=== PATIENT | male | born 1960 | race Caucasian/White ===

== ENCOUNTER 2020-03-31 09:11 | Outpatient (CLI) | payer OTHER, SELFPAY ==
[2020-03-31 10:13] LABS: Alanine Aminotransferase 65 U/L (4-50); Albumin Level 4.5 g/dL (3.5-5.1); Alkaline Phosphatase 86 U/L (38-126); Anion Gap 11 mmol/L (8-16); Aspartate Amino Transferase 72 U/L (17-59); Bilirubin,Total 0.8 mg/dL (0.2-1.3); Blood Urea Nitrogen 22 mg/dL (9-20); Calcium 9.9 mg/dL (8.4-10.2); Carbon Dioxide 29 mmol/L (22-30); Chloride 99 mmol/L (98-107); Estimated Glomerular Filt Rate 56; Glucose 127 mg/dL (75-110); Hemoglobin A1C 5.5 % (<5.7); Potassium 3.9 mmol/L (3.4-5.0); Sodium 139 mmol/L (137-145)
[2020-03-31 10:42] LABS: Free T4 Free Thyroxine 0.94 ng/mL (0.78-2.19)
== END 2020-03-31 09:12 | disposition home or self-care (01) ==
PROVIDERS: PCP Family Medicine; Visit Provider Family Medicine
DX: E78.2 Mixed hyperlipidemia (principal); M19.90 Unspecified osteoarthritis, unspecified site; I10 Essential (primary) hypertension; R74.8 Abnormal levels of other serum enzymes; E66.9 Obesity, unspecified; Z79.899 Other long term (current) drug therapy; R89.9 Unspecified abnormal finding in specimens from other organs, systems and tissues; R73.9 Hyperglycemia, unspecified
CPT/HCPCS: 36415; 80053; 83036; 84439; 84443

== ENCOUNTER 2020-08-05 17:03 | Outpatient (CLI) | payer OTHER, SELFPAY | END 2020-08-05 17:04 | disposition home or self-care (01) | LOC: ANHCOVIDVC 17:03 | PROVIDERS: PCP Family Medicine | DX: Z23 Encounter for immunization (principal) | CPT/HCPCS: 0001A; 91300 ==

== ENCOUNTER 2020-08-26 17:13 | Outpatient (CLI) | payer OTHER, SELFPAY | END 2020-08-26 17:14 | disposition home or self-care (01) | LOC: ANHCOVIDVC 17:13 | PROVIDERS: PCP Family Medicine | DX: Z23 Encounter for immunization (principal) | CPT/HCPCS: 0002A; 91300 ==

== ENCOUNTER 2021-02-01 11:56 | Outpatient (CLI) | payer OTHER, SELFPAY ==
--- NOTE | ~2021-02-01 | XR_ITS ---
EXAMINATION: XR lumbar spine 2-3V EXAM DATE: 02/01/2021 12:18 INDICATION: M54.9 - Dorsalgia, unspecified, chronic back pain. TECHNIQUE: Lumber spine frontal, lateral, lateral L5-S1 projections for interpretation. There is no prior study for comparison. FINDINGS: There is about 6 mm retrolisthesis L5 on S1 with moderate disc disease at this level, mild to moderate at L2-3 and mild at L3-4 and L4-5. There is mild to moderate lumbar facet arthropathy. T here are no acute fractures identified. Straightening of normal lumbar lordosis. Sacrum, sacroiliac j oints, sacral arcuate lines are intact. There are cholecystectomy clips. IMPRESSION: 1. L4-5 grade 1 retrolisthesis, moderate disc disease. 2. Mild to moderate facet arthropathy. Reviewed, dictated and finalized at location B.
== END 2021-02-01 11:57 | disposition home or self-care (01) ==
LOC: ANHIMG 12:04
PROVIDERS: PCP Family Medicine; Visit Provider Physician Assistant
DX: M54.9 Dorsalgia, unspecified (principal); M43.16 Spondylolisthesis, lumbar region; M51.9 Unspecified thoracic, thoracolumbar and lumbosacral intervertebral disc disorder; M47.896 Other spondylosis, lumbar region
CPT/HCPCS: 72100

== ENCOUNTER 2021-03-02 12:32 | Outpatient (CLI) | payer OTHER, SELFPAY ==
--- NOTE | ~2021-03-02 | XR_ITS ---
XR ankle RT min 3V DATE: 03/02/2021 12:54 INDICATION: Right ankle and foot pain TECHNIQUE: 4 views COMPARISON: None FINDINGS: Mild lateral soft tissue swelling. There is a chronic spur-like projection from the medial aspect of the medial malleolus. No recent fracture or dislocation of the ankle or disruption of the a nkle mortise. No periosteal reaction or bone destruction is detected. Plantar calcaneal enthesopathy. IMPRESSION: Plantar calcaneal enthesopathy Mild lateral ankle soft tissue swelling. No fracture or dislocation or other acute bony abnormality of the right ankle Reviewed, dictated and finalized at location B.
== END 2021-03-02 12:33 | disposition home or self-care (01) ==
PROVIDERS: PCP Family Medicine; Visit Provider Physician Assistant
DX: M25.571 Pain in right ankle and joints of right foot (principal); M77.31 Calcaneal spur, right foot; M79.89 Other specified soft tissue disorders
CPT/HCPCS: 73610

== ENCOUNTER 2021-03-20 10:09 | Outpatient (CLI) | payer OTHER, SELFPAY ==
[2021-03-20 10:28] LABS: Basophils Absolute Auto 0.1 K/mm3 (0.0-0.1); Basophils Percent Auto 0.9 % (0.2-1.2); Eosinophils Absolute Auto 0.2 K/mm3 (0-0.3); Eosinophils Percent Auto 3.4 % (0-4.4); Hematocrit 37.6 % (42.0-52.0); Hemoglobin 12.2 g/dL (14.0-18.0); Immature Granulocyte Absolute 0.06 K/mm3 (0.00-0.031); Immature Granulocyte Percent A 0.9 % (0-0.5); Lymphocytes Absolute Auto 1.53 K/mm3 (0.9-3.2); Lymphocytes Percent Auto 22.8 % (18.3-44.2); Mean Corpuscular HGB Conc 32.4 g/dl (32-36); Mean Corpuscular Hemoglobin 27.6 pg (26-34); Mean Corpuscular Volume 85.1 fl (80-100); Monocytes Absolute Auto 0.8 K/mm3 (0.1-0.6); Monocytes Percent Auto 11.3 % (2.6-8.5); Neutrophils Absolute Auto 4.1 K/mm3 (1.3-6.7); Neutrophils Percent Auto 60.7 % (45.5-73.1); Platelet Count Result 220 k/mm3 (150-375); Red Blood Count 4.42 M/mm3 (4.6-6.20); White Blood Count 6.7 K/mm3 (4.5-10.0)
[2021-03-20 10:39] LABS: Alanine Aminotransferase 60 U/L (4-50); Albumin Level 4.6 g/dL (3.5-5.1); Alkaline Phosphatase 76 U/L (38-126); Anion Gap 8 mmol/L (8-16); Aspartate Amino Transferase 52 U/L (17-59); Bilirubin,Total 0.7 mg/dL (0.2-1.3); Blood Urea Nitrogen 15 mg/dL (9-20); Calcium 9.3 mg/dL (8.4-10.2); Carbon Dioxide 28 mmol/L (22-30); Chloride 104 mmol/L (98-107); Cholesterol 165 mg/dL (0-200); Estimated Glomerular Filt Rate 47; Glucose 123 mg/dL (65-110); HDL Direct 34 mg/dL; Hemoglobin A1C 6.1 % (<5.7); Potassium 3.9 mmol/L (3.4-5.0); Sodium 140 mmol/L (137-145); Triglycerides 262 mg/dL (<150)
[2021-03-20 10:52] LABS: LDL Cholesterol Direct 77 mg/dL
[2021-03-20 11:11] LABS: Prostate Specific Antigen 2.2 ng/mL (< OR = 4.0)
== END 2021-03-20 10:10 | disposition home or self-care (01) ==
PROVIDERS: PCP Family Medicine; Visit Provider Physician Assistant
DX: E78.2 Mixed hyperlipidemia (principal); E66.9 Obesity, unspecified; Z79.899 Other long term (current) drug therapy; Z12.5 Encounter for screening for malignant neoplasm of prostate; R73.01 Impaired fasting glucose
CPT/HCPCS: 36415; 80053; 80061; 83036; 84153; 84443; 85025; G0103

== ENCOUNTER → 2021-03-22 03:52 | Outpatient (CLI) | payer OTHER, SELFPAY ==
[2021-03-23 17:41] LABS: SARS-CoV-2 RNA PCR Negative
== END ==
PROVIDERS: PCP Family Medicine; Visit Provider Physician Assistant
DX: R68.89 Other general symptoms and signs (principal); Z20.822 Contact with and (suspected) exposure to COVID-19
CPT/HCPCS: C9803; U0003; U0005

== ENCOUNTER 2021-05-02 01:39 | Day surgery (SDC) | payer OTHER, SELFPAY ==
[2021-04-12 09:03] VITALS: BMI 33.2
--- NOTE | 2021-04-13 14:10 | PC.NURSE ---
Spoke with pt regarding rescheduled EGD & colonoscopy. Confirmed no changes to PMH or home medication since previous PAT call complete. Updated pt with new date/times. Pt verbalized understanding.
--- NOTE | 2021-05-01 13:13 | PM.HPGS ---
History of Present Illness History of Present Illness Consent: Risks, benefits, and alternatives have been discussed and questions answered. Patient agrees to proceed with procedure. Chief complaint: anemia, dysphagia Narrative: Isaias Hair is a 60 year old male Who is here for colon cancer screening. 3 years ago he had removal of 6 adenomatous polyps. One year later he had another 5 or 6 polyps removed. He has also been found to be anemic and is undergoing endoscopy to rule out upper gastrointestinal pathology. He does apparently have a history of ulcers, having had a bleeding ulcer when he was on a cruise a few years ago. He also occasionally will choke when he is eating as if it goes down the wrong throat. He is not losing weight. He also complains of excessive belching and flatulence but he does have a CPAP machine and had not been told that that would be a side effect. Review of Systems Review of Systems: All systems reviewed & are unremarkable except as noted in HPI and below PMFSH Past Medical History Medical History Cervical radiculopathy, acute Cervical spondylosis Chronic migraine w/o aura w/o status migrainosus, not intractable Chronic narcotic use Elevated liver enzymes Essential (primary) hypertension Extrinsic asthma, unspecified Gallstone Gastric ulcer, acute with hemorrhage Gastro-esophageal reflux disease without esophagitis Kidney stone on right side Lipoma of back Lumbar radiculopathy, right Lumbar spondylosis Mixed hyperlipidemia Obesity, unspecified Obstructive sleep apnea Tubular adenoma of colon Surgical History Surgical History H/O hernia repair History of cholecystectomy History of laparoscopic cholecystectomy 06/17/19 Hx of wisdom tooth extraction Family History Family History Father Diabetes mellitus Family history of hypercholesterolemia Hypertension Family history of cardiovascular disease Family history of elevated blood lipids Acute myocardial infarction Family history of coronary artery disease Mother Family history of osteoporosis Family history of migraine headaches Hypertension Grandparent Malignant neoplasm of prostate Family history of lung cancer Other Family history of malignant neoplasm of stomach Social History Social History Social History: 1 drink/day Smoking status: Never smoker Second hand tobacco smoke exposure: Yes Alcohol intake: current Drinks per week: 10 Living arrangements: with family Gender identity (if verbalized by the patient): Male Spiritual care concerns: No Meds Home Medications and Allergies Home Medications Medication Instructions Recorded Confirmed Type sodium chloride 2 % eye drops 1 drop EACH EYE DAILY 04/28/19 04/13/21 History pantoprazole 40 mg tablet,delayed 40 mg PO QAM #90 tablet 06/27/20 04/13/21 Rx release montelukast 10 mg tablet 10 mg PO DAILY #90 tablet 07/22/20 04/13/21 Rx hydrochlorothiazide 25 mg tablet 25 mg PO DAILY #90 tablet 11/29/20 04/13/21 Rx turmeric root extract 500 mg 500 mg PO QID cap 11/29/20 04/13/21 History capsule tramadol 50 mg tablet 50 mg PO Q4H PRN #60 tablet 01/16/21 04/13/21 Rx amlodipine 5 mg PO DAILY 04/12/21 04/13/21 History atorvastatin 40 mg PO DAILY 04/12/21 04/13/21 History gabapentin 900 mg PO BID 04/12/21 04/13/21 History losartan 100 mg PO DAILY 04/12/21 04/13/21 History sumatriptan succinate [Imitrex] 50 mg PO ONCE PRN 04/12/21 04/13/21 History trazodone 150 mg PO DAILY PRN 04/12/21 04/13/21 History tobramycin 0.3 % eye drops 2 drp OPHTHALMIC (EYE) Q4H #5 ml 04/17/21 Rx Allergies Allergy/AdvReac Type Severity Reaction Status Date / Time Penicillins Allergy Unknown Can not Verified 05/02/21 09:08 remember reaction
[2021-05-02 09:09] VITALS: BP 153/103; PULSE 110; RESP 18; TEMP 36.3; O2SAT 99; BMI 32.8
[2021-05-02] MEDS: LACTATED RINGERS 1,000 ML 150 ML IV CONT (09:22)
--- NOTE | 2021-05-02 09:34 | WPDANESEPPF ---
Anes - Initial Pre Proc Eval Procedure: Operation Date: 05/02/21 10:00 Proposed Procedures p Esophagogastroduodenoscopy & Colonoscopy - Jamie Rapp MD Date/Time: 05/02/21 09:34 Surgeon: Jamie Rapp MD Pre Op Diagnosis: anemia, dysphagia Patient Data Age: 60 Gender: M Height: 1.75 m Weight: 100.8 kg Last Vital Signs Temp 97.3 F L 05/02/21 09:09 Pulse 110 H 05/02/21 09:09 Resp 18 05/02/21 09:09 BP 153/103 H 05/02/21 09:09 Pulse Ox 99 05/02/21 09:09 Allergies Allergy/AdvReac Type Severity Reaction Status Date / Time Penicillins Allergy Unknown Can not Verified 05/02/21 09:08 remember reaction Home Medications Medication Instructions Recorded Confirmed Type sodium chloride 2 % eye drops 1 drop EACH EYE DAILY 04/28/19 04/13/21 History pantoprazole 40 mg tablet,delayed 40 mg PO QAM #90 tablet 06/27/20 04/13/21 Rx release montelukast 10 mg tablet 10 mg PO DAILY #90 tablet 07/22/20 04/13/21 Rx hydrochlorothiazide 25 mg tablet 25 mg PO DAILY #90 tablet 11/29/20 04/13/21 Rx turmeric root extract 500 mg 500 mg PO QID cap 11/29/20 04/13/21 History capsule tramadol 50 mg tablet 50 mg PO Q4H PRN #60 tablet 01/16/21 04/13/21 Rx amlodipine 5 mg PO DAILY 04/12/21 04/13/21 History atorvastatin 40 mg PO DAILY 04/12/21 04/13/21 History gabapentin 900 mg PO BID 04/12/21 04/13/21 History losartan 100 mg PO DAILY 04/12/21 04/13/21 History sumatriptan succinate [Imitrex] 50 mg PO ONCE PRN 04/12/21 04/13/21 History trazodone 150 mg PO DAILY PRN 04/12/21 04/13/21 History tobramycin 0.3 % eye drops 2 drp OPHTHALMIC (EYE) Q4H #5 ml 04/17/21 Rx Patient hx anesthesia problems: none Family hx anesthesia problems: none Results Review: All pre-operative results and documents have been reviewed as part of the pre-operative evaluation. [facility] Past Medical History Medical History Cervical radiculopathy, acute Cervical spondylosis Chronic migraine w/o aura w/o status migrainosus, not intractable Chronic narcotic use Elevated liver enzymes Essential (primary) hypertension Extrinsic asthma, unspecified Gallstone Gastric ulcer, acute with hemorrhage Gastro-esophageal reflux disease without esophagitis Kidney stone on right side Lipoma of back Lumbar radiculopathy, right Lumbar spondylosis Mixed hyperlipidemia Obesity, unspecified Obstructive sleep apnea Tubular adenoma of colon Surgical History Surgical History H/O hernia repair History of cholecystectomy History of laparoscopic cholecystectomy 06/17/19 Hx of wisdom tooth extraction Family History Family History Father Diabetes mellitus Family history of hypercholesterolemia Hypertension Family history of cardiovascular disease Family history of elevated blood lipids Acute myocardial infarction Family history of coronary artery disease Mother Family history of osteoporosis Family history of migraine headaches Hypertension Grandparent Malignant neoplasm of prostate Family history of lung cancer Other Family history of malignant neoplasm of stomach Social History Social History Social History: 1 drink/day Smoking status: Never smoker Second hand tobacco smoke exposure: Yes Alcohol intake: current Drinks per week: 10 Living arrangements: with family Gender identity (if verbalized by the patient): Male Spiritual care concerns: No Anes - Eval Final PreProcedure Day of Procedure 05/02/21 09:34 Patient weight: obese Heart: regular rate and rhythm Lungs: clear to auscultation Airway: Mallampati scale class III Neurological: alert and oriented Last oral intake: >/= 8 hours ASA classification: III Emergent: no Anesthetic plan: proceed Anesthesia type and monitoring: gene
[2021-05-02] MEDS: SIMETHICONE ORAL SUSPENSION 20 MG/0.3 ML 30 ML BOTTLE 0.6 ML IRRIGATION (10:24)
[2021-05-02 10:33] VITALS: BP 120/83; PULSE 94; RESP 21; O2SAT 100
[2021-05-02 10:43] VITALS: BP 113/79; PULSE 84; RESP 19; O2SAT 98
[2021-05-02 10:53] VITALS: BP 117/81; PULSE 79; RESP 19; O2SAT 99
== END 2021-05-02 11:05 | disposition home or self-care (01) ==
PROVIDERS: PCP Family Medicine; Visit Provider Internal Medicine Gastroenterology
PROC: 0DJ08ZZ Inspection of Upper Intestinal Tract, Via Natural or Artificial Opening Endoscopic (ICD-10-PCS; CPT 43235; principal; 2021-05-02 10:00)
DX: Z12.11 Encounter for screening for malignant neoplasm of colon (principal); K57.30 Diverticulosis of large intestine without perforation or abscess without bleeding; Z86.010 Personal history of colon polyps; D64.9 Anemia, unspecified; K31.7 Polyp of stomach and duodenum; K21.9 Gastro-esophageal reflux disease without esophagitis; I10 Essential (primary) hypertension; E78.2 Mixed hyperlipidemia; G47.33 Obstructive sleep apnea (adult) (pediatric); M47.812 Spondylosis without myelopathy or radiculopathy, cervical region; M47.816 Spondylosis without myelopathy or radiculopathy, lumbar region; J45.909 Unspecified asthma, uncomplicated; Z79.891 Long term (current) use of opiate analgesic; E66.9 Obesity, unspecified; Z68.32 Body mass index [BMI] 32.0-32.9, adult
CPT/HCPCS: 45378; 43251; 87081; 88305; J2704; J7120

== ENCOUNTER 2021-06-16 10:04 | Outpatient (CLI) | payer OTHER, SELFPAY ==
[2021-06-16 10:18] LABS: Basophils Percent Auto 0.5 % (0.2-1.2); Eosinophils Absolute Auto 0.2 K/mm3 (0-0.3); Eosinophils Percent Auto 2.8 % (0-4.4); Hematocrit 39.1 % (42.0-52.0); Hemoglobin 12.4 g/dL (14.0-18.0); Immature Granulocyte Absolute 0.04 K/mm3 (0.00-0.031); Immature Granulocyte Percent A 0.7 % (0-0.5); Lymphocytes Absolute Auto 1.45 K/mm3 (0.9-3.2); Lymphocytes Percent Auto 23.6 % (18.3-44.2); Mean Corpuscular HGB Conc 31.7 g/dl (32-36); Mean Corpuscular Hemoglobin 25.9 pg (26-34); Mean Corpuscular Volume 81.6 fl (80-100); Mean Platelet Volume 8.4 fl (7.4-10.4); Monocytes Absolute Auto 0.7 K/mm3 (0.1-0.6); Monocytes Percent Auto 11.2 % (2.6-8.5); Neutrophils Absolute Auto 3.8 K/mm3 (1.3-6.7); Neutrophils Percent Auto 61.2 % (45.5-73.1); Platelet Count Result 248 k/mm3 (150-375); Red Blood Count 4.79 M/mm3 (4.6-6.20); Red Cell Distribution Width 13.9 % (11.5-14.5); White Blood Count 6.2 K/mm3 (4.5-10.0)
[2021-06-16 12:53] LABS: Iron 47 ug/dL (49-181)
[2021-06-16 13:15] LABS: Percent Iron Saturation 10 % (20-50)
[2021-06-16 13:33] LABS: Ferritin 9.74 ng/mL (11.1-264)
== END 2021-06-16 10:05 | disposition home or self-care (01) ==
PROVIDERS: PCP Family Medicine; Visit Provider Family Medicine
DX: D64.9 Anemia, unspecified (principal)
CPT/HCPCS: 36415; 82728; 83540; 83550; 85025

== ENCOUNTER 2021-07-28 10:00 | Outpatient (CLI) | payer OTHER, SELFPAY ==
[2021-07-28 10:58] LABS: Anion Gap 10 mmol/L (8-16); Blood Urea Nitrogen 19 mg/dL (9-20); Carbon Dioxide 24 mmol/L (22-30); Chloride 105 mmol/L (98-107); Estimated Glomerular Filt Rate 51; Glucose 163 mg/dL (65-110); Potassium 3.9 mmol/L (3.4-5.0); Sodium 139 mmol/L (137-145)
== END 2021-07-28 10:01 | disposition home or self-care (01) ==
LOC: ANHSURGERY 10:05
PROVIDERS: Anesthesiology; PCP Family Medicine; Visit Provider Surgery
DX: Z79.899 Other long term (current) drug therapy (principal); Z01.818 Encounter for other preprocedural examination
CPT/HCPCS: 36415; 80048

== ENCOUNTER 2021-08-02 00:20 | Day surgery (SDC) | payer OTHER, SELFPAY ==
[2021-07-26 14:34] VITALS: BMI 33.0
--- NOTE | 2021-07-26 14:44 | PC.NURSE ---
Report to the Outpatient Waiting Room, entrance under the green pavilion located off [facility], at time 9:30 on date 08/02/21. OR Time: 11:30. - You and your visitor will be asked a series of questions to screen for COVID 19 for your protection. - A mask is required within the hospital. One visitor will be allowed to accompany the patient into the hospital. Patients visitor will be instructed to remain with patient at all times or leave the building. We will allow the visitor to come back to the postoperative area when patient is ready. Preoperative COVID Testing Requirements: No COVID Test needed if: (proof is required; if not received patient will have Rapid Test prior to entry) - Patient has received COVID Vaccine at least 14 days prior to procedure date or - Patient has positive COVID test result within last 90 days of surgery date. COVID Test needed if above criteria is not met Patients may have clear liquids (water, carbonated beverages, clear teas, apple juice) until 3 hours prior to surgery (8:30) with a maximum of 20 ounces. - No food from midnight until time of surgery Take the following medications with a SIP of water the morning of surgery: AMLODIPINE, GABAPENTIN, TRAMADOL (IF NEEDED) Medications to discontinue per physician: VITAMINS/SUPPLEMENTS Date to take last dose: 07/30/21 Please no make-up, nail moldovan, hairspray, perfume, deodorant, or body powder the day of surgery. No jewelry (including any body piercings) or valuables the day of surgery, leave them at home. Please take a shower or bath the night before, or the morning of, surgery with an antibacterial soap. Wear comfortable, loose fitting clothing. HIBICLENS SHOWER - Jewelry must be removed prior to entering the operating room. Rings and piercings that are not removed may be cut off. - The hospital will not accept responsibility for valuables. - Please leave all valuables, including medications, at home the day of surgery. If you are going home after surgery, a licensed garbage collector driver must drive you home. - NO public transportation without another adult. - We recommend that an adult stay with you for 24 hours following discharge. - We also recommend that you do not drive, make important decision, drink alcoholic beverages, or take any drugs that were not prescribed by your health care provider for at least 24 hours after your discharge time. Follow any additional instructions given to you from your surgeon. Telephone instructions given to BRITTANY SEVILLA and asked if any additional questions and then verbalized understanding. Patient advised to call surgeon office or pre surgery nurse liaison [phone] if any additional questions.
[2021-08-02] VITALS (8 sets, daily range): BP systolic 125–148; BP diastolic 79–94; PULSE 64–83; RESP 10–25; TEMP 36.7–36.8; O2SAT 97–100
--- NOTE | 2021-08-02 07:05 | WPDHPUPDATE1 ---
History and Physical Update Update Date/Time: 08/02/21 07:05 History and Physical has been reviewed, including an updated exam of the patient. There are NO changes in the patient's condition. Risks, benefits, and alternatives have been discussed and questions answered. Patient agrees to proceed with procedure.
[2021-08-02] MEDS: LACTATED RINGERS 1,000 ML 30 ML IV CONT ×2 (10:05→11:55)
[2021-08-02] MEDS: KETOROLAC 15 MG/ML VIAL (*BKC) IV PUSH (10:06)
[2021-08-02] MEDS: ACETAMINOPHEN 500 MG TABLET 1000 MG PO (10:06)
--- NOTE | 2021-08-02 10:39 | WPDANESEPPF ---
Anes - Initial Pre Proc Eval Procedure: Operation Date: 08/02/21 11:30 Proposed Procedures p Umbilical Hernia Repair with Mesh - Juan Zarco MD Date/Time: 08/02/21 10:39 Surgeon: Juan Zarco MD Pre Op Diagnosis: Umb Hernia Patient Data Age: 60 Gender: M Height: 1.78 m Weight: 106.2 kg Last Vital Signs Temp 36.7 C 08/02/21 09:43 Pulse 83 08/02/21 09:43 Resp 18 08/02/21 09:43 BP 148/90 H 08/02/21 09:43 Pulse Ox 98 08/02/21 09:43 Allergies Allergy/AdvReac Type Severity Reaction Status Date / Time Penicillins Allergy Unknown Can not Verified 08/02/21 10:19 remember reaction Home Medications Medication Instructions Recorded Confirmed Type sodium chloride 2 % eye drops 1 drop EACH EYE DAILY 04/28/19 08/02/21 History montelukast 10 mg tablet 10 mg PO DAILY #90 tablet 07/22/20 08/02/21 Rx hydrochlorothiazide 25 mg tablet 25 mg PO DAILY #90 tablet 11/29/20 08/02/21 Rx turmeric root extract 500 mg 500 mg PO QID cap 11/29/20 08/02/21 History capsule tramadol 50 mg tablet 50 mg PO Q4H PRN #60 tablet 01/16/21 08/02/21 Rx amlodipine 5 mg PO DAILY 04/12/21 08/02/21 History atorvastatin 40 mg PO DAILY 04/12/21 08/02/21 History losartan 100 mg PO DAILY 04/12/21 08/02/21 History sumatriptan succinate [Imitrex] 50 mg PO ONCE PRN 04/12/21 08/02/21 History trazodone 150 mg PO DAILY PRN 04/12/21 08/02/21 History gabapentin 300 mg capsule See Rx Instructions .ROUTE 05/22/21 08/02/21 Rx .COMPLEX #270 capsule pantoprazole 40 mg tablet,delayed See Rx Instructions .ROUTE 06/26/21 08/02/21 Rx release .COMPLEX #90 tablet ferrous sulfate 325 mg (65 mg 325 mg PO BID 07/17/21 08/02/21 History iron) tablet Patient hx anesthesia problems: none Family hx anesthesia problems: none Results Review: All pre-operative results and documents have been reviewed as part of the pre-operative evaluation. [facility] Past Medical History Medical History Cervical radiculopathy, acute Cervical spondylosis Chronic migraine w/o aura w/o status migrainosus, not intractable Chronic narcotic use Elevated liver enzymes Essential (primary) hypertension Extrinsic asthma, unspecified Gallstone Gastric ulcer, acute with hemorrhage Gastro-esophageal reflux disease without esophagitis Kidney stone on right side Lipoma of back Lumbar radiculopathy, right Lumbar spondylosis Mixed hyperlipidemia Obesity, unspecified Obstructive sleep apnea Tubular adenoma of colon Surgical History Surgical History H/O hernia repair History of cholecystectomy History of laparoscopic cholecystectomy 06/17/19 Hx of wisdom tooth extraction Family History Family History Father Diabetes mellitus Family history of hypercholesterolemia Hypertension Family history of cardiovascular disease Family history of elevated blood lipids Acute myocardial infarction Family history of coronary artery disease Mother Family history of osteoporosis Family history of migraine headaches Hypertension Grandparent Malignant neoplasm of prostate Family history of lung cancer Other Family history of malignant neoplasm of stomach Social History Social History Social History: 1 drink/day Smoking status: Never smoker Second hand tobacco smoke exposure: Yes Alcohol intake: current Drinks per week: 8 Substance use: never Substance use type: does not use Living arrangements: with family Gender identity (if verbalized by the patient): Male Spiritual care concerns: No Anes - Eval Final PreProcedure Day of Procedure 08/02/21 10:39 Patient weight: obese Heart: regular rate and rhythm Lungs: clear to auscultation Airway: Mallampati scale class III Neurological: alert and or
[2021-08-02] MEDS: ceFAZolin 2 GM/D5W 50 ML 2 GM/50 ML BAG IVPB (10:53)
[2021-08-02] MEDS: BUPIVACAINE/EPINEPHRINE 0.25% 50 ML VIAL 30 ML INFILTRATE (11:30)
--- NOTE | 2021-08-02 11:57 | W.PM.PROC2 ---
Procedure Note - Detailed Date of Procedure 08/02/21 Pre-op Diagnosis Umbilical Hernia Post-op Diagnosis same Procedure Performed Umbilical hernia repair with 6.[address] underlay mesh Surgeon Juan Zarco MD Combination Technician KATEY Mitchell; KATEY Nixon Anesthesia general (G IV S) and local (0.25% Marcaine with epinephrine) Indications Patient is a 60-year-old man with an umbilical bulge that he has had for quite some time. Recently it protruded much larger than before and was painful. It was able to be reduced. He is taken to surgery now for umbilical hernia repair Findings Umbilical hernia with a 0.9 cm defect. Description of Procedure The patient was taken to surgery and placed in a supine position. The abdomen is prepped and draped. He was induced into anesthesia. The proposed incision along the lower margin of the umbilicus was marked on the skin. Local anesthetic was infiltrated into the area of the anticipated incision. Incision was made dissection was carried down through the subcutaneous to the fascia and the base of the hernia. Additional local was infiltrated into the neck of the hernia and the surrounding fascia. Dissection was then carried out around the hernia at the level of its neck. I then opened the hernia sac at the fascial level and freed the umbilicus from the fascia. The hernia sac was excised from the umbilical skin and the remnants from the fascial edge. The defect was small. I enlarged it slightly to the patient's left to accommodate a 6.[address] mesh. Cautery was used for hemostasis. Additional local was infiltrated into the fascia all around the edges of the hernia defect. The mesh was placed in position symmetrically. I then placed 0 Ethibond sutures. These were transfascial sutures in the cranial and caudal midline. Each of the sutures was placed in such a fashion as to advance the edges of the hernia defect towards 1 another. After being placed, these were tied. They had the desired effect. I then placed right and left lateral transfascial sutures to further secure the mesh. Finally the defect was repaired with [id number] mattress sutures of 0 Ethibond each of which incorporated a bit of mesh. The repair looked good. I sutured umbilical skin to the fascia with 3-0 Vicryl suture. Some subcutaneous 3-0 Vicryl sutures were placed. 4-0 Vicryl subcuticular interrupted skin sutures were placed. Finally a running 4-0 Monocryl skin suture was placed. Wound was dressed with Exofin surgical adhesive. Patient was wakened and taken to recovery in good condition. Sponge and needle counts were correct x2. Implants Ventralex 6.4 cm hernia mesh Estimated Blood Loss -5 Drains No Packing No Pathology none sent Complications No immediate complications Condition stable Disposition PACU
== END 2021-08-02 13:40 | disposition home or self-care (01) ==
PROVIDERS: PCP Family Medicine; Visit Provider Surgery
PROC: (CPT 49585; principal; 2021-08-02 11:30)
DX: K42.9 Umbilical hernia without obstruction or gangrene (principal); I10 Essential (primary) hypertension; J45.909 Unspecified asthma, uncomplicated; K21.9 Gastro-esophageal reflux disease without esophagitis; E78.2 Mixed hyperlipidemia; G47.33 Obstructive sleep apnea (adult) (pediatric); M47.812 Spondylosis without myelopathy or radiculopathy, cervical region; M47.26 Other spondylosis with radiculopathy, lumbar region; E66.9 Obesity, unspecified; Z68.33 Body mass index [BMI] 33.0-33.9, adult
CPT/HCPCS: 49585; A9270; C1781; J0690; J1170; J1885; J2001; J2250; J2405; J2704; J3010; J7120

== ENCOUNTER 2021-09-05 08:54 | Outpatient (CLI) | payer OTHER, SELFPAY ==
[2021-09-05 09:08] LABS: Basophils Absolute Auto 0.1 K/mm3 (0.0-0.1); Basophils Percent Auto 0.7 % (0.2-1.2); Eosinophils Absolute Auto 0.2 K/mm3 (0-0.3); Hematocrit 44.4 % (42.0-52.0); Hemoglobin 15.4 g/dL (14.0-18.0); Immature Granulocyte Absolute 0.03 K/mm3 (0.00-0.031); Immature Granulocyte Percent A 0.4 % (0-0.5); Lymphocytes Absolute Auto 1.63 K/mm3 (0.9-3.2); Lymphocytes Percent Auto 23.2 % (18.3-44.2); Mean Corpuscular HGB Conc 34.7 g/dl (32-36); Mean Corpuscular Hemoglobin 30.9 pg (26-34); Monocytes Absolute Auto 0.8 K/mm3 (0.1-0.6); Monocytes Percent Auto 11.9 % (2.6-8.5); Neutrophils Absolute Auto 4.3 K/mm3 (1.3-6.7); Neutrophils Percent Auto 60.8 % (45.5-73.1); Platelet Count Result 214 k/mm3 (150-375); Red Blood Count 4.99 M/mm3 (4.6-6.20); Red Cell Distribution Width 15.1 % (11.5-14.5)
[2021-09-05 09:17] LABS: Hemoglobin A1C 5.6 % (<5.7)
[2021-09-05 09:22] LABS: Alanine Aminotransferase 79 U/L (4-50); Albumin Level 4.6 g/dL (3.5-5.1); Alkaline Phosphatase 85 U/L (38-126); Anion Gap 9 mmol/L (8-16); Aspartate Amino Transferase 60 U/L (17-59); Blood Urea Nitrogen 19 mg/dL (9-20); Calcium 9.7 mg/dL (8.4-10.2); Carbon Dioxide 29 mmol/L (22-30); Chloride 102 mmol/L (98-107); Cholesterol 158 mg/dL (0-200); Estimated Glomerular Filt Rate 47; Glucose 136 mg/dL (65-110); HDL Direct 27 mg/dL; Potassium 3.5 mmol/L (3.4-5.0); Sodium 140 mmol/L (137-145); Triglycerides 330 mg/dL (<150)
[2021-09-05 09:27] LABS: Iron 143 ug/dL (49-181)
[2021-09-05 09:33] LABS: LDL Cholesterol Direct 70 mg/dL
[2021-09-05 09:37] LABS: Percent Iron Saturation 33 % (20-50)
== END 2021-09-05 08:55 | disposition home or self-care (01) ==
PROVIDERS: PCP Family Medicine; Visit Provider Physician Assistant
DX: E78.2 Mixed hyperlipidemia (principal); Z79.899 Other long term (current) drug therapy; R73.01 Impaired fasting glucose; D64.9 Anemia, unspecified; N18.9 Chronic kidney disease, unspecified
CPT/HCPCS: 36415; 80053; 80061; 82728; 83036; 83540; 83550; 85025

== ENCOUNTER 2022-01-16 09:15 | Outpatient (CLI) | payer OTHER, SELFPAY ==
[2022-01-16 10:13] LABS: Basophils Percent Auto 0.6 % (0.2-1.2); Eosinophils Absolute Auto 0.3 K/mm3 (0-0.3); Eosinophils Percent Auto 3.7 % (0-4.4); Hematocrit 41.8 % (42.0-52.0); Hemoglobin 14.1 g/dL (14.0-18.0); Immature Granulocyte Absolute 0.06 K/mm3 (0.00-0.031); Immature Granulocyte Percent A 0.9 % (0-0.5); Lymphocytes Absolute Auto 1.48 K/mm3 (0.9-3.2); Lymphocytes Percent Auto 21.3 % (18.3-44.2); Mean Corpuscular HGB Conc 33.7 g/dl (32-36); Mean Corpuscular Hemoglobin 30.3 pg (26-34); Mean Corpuscular Volume 89.7 fl (80-100); Mean Platelet Volume 9.4 fl (7.4-10.4); Monocytes Absolute Auto 0.8 K/mm3 (0.1-0.6); Monocytes Percent Auto 11.5 % (2.6-8.5); Neutrophils Absolute Auto 4.3 K/mm3 (1.3-6.7); Platelet Count Result 276 k/mm3 (150-375); Red Blood Count 4.66 M/mm3 (4.6-6.20); Red Cell Distribution Width 14.6 % (11.5-14.5); White Blood Count 6.9 K/mm3 (4.5-10.0)
[2022-01-16 10:16] LABS: Hemoglobin A1C 5.9 % (<5.7)
[2022-01-16 10:19] LABS: Alanine Aminotransferase 75 U/L (6-50); Albumin Level 4.5 g/dL (3.5-5.1); Alkaline Phosphatase 84 U/L (38-126); Anion Gap 11 mmol/L (8-16); Aspartate Amino Transferase 70 U/L (17-59); Bilirubin,Total 0.9 mg/dL (0.2-1.3); Blood Urea Nitrogen 18 mg/dL (9-20); Calcium 9.8 mg/dL (8.4-10.2); Carbon Dioxide 27 mmol/L (22-30); Chloride 100 mmol/L (98-107); Cholesterol 174 mg/dL (0-200); Estimated Glomerular Filt Rate 51; Glucose 129 mg/dL (65-110); HDL Direct 29 mg/dL; Potassium 3.5 mmol/L (3.4-5.0); Sodium 138 mmol/L (137-145); Triglycerides 379 mg/dL (<150)
[2022-01-16 10:30] LABS: LDL Cholesterol Direct 65 mg/dL
[2022-01-16 10:49] LABS: Thyroid Stimulating Hormone 0.898 uIU/mL (0.465-4.680)
[2022-01-16 10:56] LABS: Hepatitis B Surface Antigen Negative (Negative)
[2022-01-16 11:01] LABS: HAV RESULT Negative (Negative); Hepatitis B Core IgM Result Negative (Negative)
[2022-01-16 11:13] LABS: Hepatitis C Virus Antibody Negative (Negative)
[2022-01-16 11:24] LABS: Folic Acid 10.3 ng/mL (2.76->20)
[2022-01-19 21:40] LABS: Ceruloplasmin 27 mg/dL (18-36)
[2022-01-20 16:58] LABS: ANA Cascade Screen Negative (Negative)
== END 2022-01-16 09:16 | disposition home or self-care (01) ==
LOC: ANHLAB 09:18
PROVIDERS: PCP Physician Assistant; Visit Provider Physician Assistant
DX: D64.9 Anemia, unspecified (principal); E66.9 Obesity, unspecified; G62.9 Polyneuropathy, unspecified; I10 Essential (primary) hypertension; R74.8 Abnormal levels of other serum enzymes; Z79.899 Other long term (current) drug therapy
CPT/HCPCS: 36415; 80053; 80061; 80074; 82390; 82607; 82746; 83036; 84443; 85025; 86038

== ENCOUNTER 2022-02-20 09:05 | Outpatient (CLI) | payer OTHER, SELFPAY ==
[2022-02-20 09:48] LABS: Alanine Aminotransferase 55 U/L (6-50); Albumin Level 4.4 g/dL (3.5-5.1); Alkaline Phosphatase 78 U/L (38-126); Anion Gap 12 mmol/L (8-16); Aspartate Amino Transferase 57 U/L (17-59); Bilirubin,Total 0.6 mg/dL (0.2-1.3); Blood Urea Nitrogen 27 mg/dL (9-20); Carbon Dioxide 26 mmol/L (22-30); Chloride 105 mmol/L (98-107); Estimated Glomerular Filt Rate 41; Glucose 137 mg/dL (65-110); Potassium 3.8 mmol/L (3.4-5.0); Sodium 143 mmol/L (137-145)
== END 2022-02-20 09:06 | disposition home or self-care (01) ==
PROVIDERS: PCP Family Medicine; Visit Provider Physician Assistant
DX: R74.8 Abnormal levels of other serum enzymes (principal)
CPT/HCPCS: 36415; 80053

== ENCOUNTER 2022-02-23 09:21 | Outpatient (CLI) | payer OTHER, SELFPAY ==
[2022-02-23 10:47] LABS: Alanine Aminotransferase 64 U/L (6-50); Albumin Level 4.5 g/dL (3.5-5.1); Alkaline Phosphatase 81 U/L (38-126); Anion Gap 13 mmol/L (8-16); Aspartate Amino Transferase 61 U/L (17-59); Bilirubin,Total 0.6 mg/dL (0.2-1.3); Blood Urea Nitrogen 24 mg/dL (9-20); Calcium 9.3 mg/dL (8.4-10.2); Carbon Dioxide 23 mmol/L (22-30); Chloride 103 mmol/L (98-107); Estimated Glomerular Filt Rate 47; Glucose 118 mg/dL (65-110); Potassium 3.8 mmol/L (3.4-5.0); Sodium 139 mmol/L (137-145)
== END 2022-02-23 09:22 | disposition home or self-care (01) ==
LOC: ANHLAB 09:25
PROVIDERS: PCP Family Medicine; Visit Provider Physician Assistant
DX: R79.89 Other specified abnormal findings of blood chemistry (principal); R74.8 Abnormal levels of other serum enzymes
CPT/HCPCS: 36415; 80053

== ENCOUNTER 2022-05-07 09:07 | Outpatient (CLI) | payer OTHER, SELFPAY ==
[2022-05-07 10:28] LABS: Alanine Aminotransferase 55 U/L (6-50); Albumin Level 4.6 g/dL (3.5-5.1); Alkaline Phosphatase 70 U/L (38-126); Anion Gap 10 mmol/L (8-16); Aspartate Amino Transferase 57 U/L (17-59); Bilirubin,Total 0.7 mg/dL (0.2-1.3); Blood Urea Nitrogen 23 mg/dL (9-20); Carbon Dioxide 26 mmol/L (22-30); Chloride 103 mmol/L (98-107); Cholesterol 225 mg/dL (0-200); Estimated Glomerular Filt Rate 41; Glucose 119 mg/dL (65-110); HDL Direct 35 mg/dL; Potassium 3.9 mmol/L (3.4-5.0); Sodium 139 mmol/L (137-145); Triglycerides 497 mg/dL (<150)
[2022-05-07 10:39] LABS: LDL Cholesterol Direct 92 mg/dL
[2022-05-07 11:09] LABS: Hemoglobin A1C 5.8 % (<5.7)
[2022-05-07 11:29] LABS: Prostate Specific Antigen 2.2 ng/mL (< OR = 4.0)
== END 2022-05-07 09:08 | disposition home or self-care (01) ==
PROVIDERS: PCP Family Medicine; Visit Provider Physician Assistant
DX: R79.89 Other specified abnormal findings of blood chemistry (principal); Z79.899 Other long term (current) drug therapy; E66.9 Obesity, unspecified; R73.01 Impaired fasting glucose; Z12.5 Encounter for screening for malignant neoplasm of prostate
CPT/HCPCS: 36415; 80053; 80061; 83036; 84153; G0103

== ENCOUNTER 2022-10-08 09:55 | Outpatient (CLI) | payer OTHER, SELFPAY ==
[2022-10-08 10:30] LABS: Basophils Absolute Auto 0.1 K/mm3 (0.0-0.1); Basophils Percent Auto 0.9 % (0.2-1.2); Eosinophils Absolute Auto 0.2 K/mm3 (0-0.3); Hematocrit 37.2 % (42.0-52.0); Hemoglobin 12.3 g/dL (14.0-18.0); Immature Granulocyte Absolute 0.07 K/mm3 (0.00-0.031); Lymphocytes Absolute Auto 1.34 K/mm3 (0.9-3.2); Lymphocytes Percent Auto 19.9 % (18.3-44.2); Mean Corpuscular HGB Conc 33.1 g/dl (32-36); Mean Corpuscular Hemoglobin 27.8 pg (26-34); Mean Corpuscular Volume 84.2 fl (80-100); Mean Platelet Volume 9.7 fl (7.4-10.4); Monocytes Absolute Auto 0.7 K/mm3 (0.1-0.6); Monocytes Percent Auto 10.4 % (2.6-8.5); Neutrophils Absolute Auto 4.4 K/mm3 (1.3-6.7); Neutrophils Percent Auto 64.8 % (45.5-73.1); Platelet Count Result 243 k/mm3 (150-375); Red Blood Count 4.42 M/mm3 (4.6-6.20); Red Cell Distribution Width 13.6 % (11.5-14.5); White Blood Count 6.8 K/mm3 (4.5-10.0)
[2022-10-08 10:39] LABS: Hemoglobin A1C 5.9 % (<5.7)
[2022-10-08 10:52] LABS: LDL Cholesterol Direct 66 mg/dL
[2022-10-08 11:18] LABS: Alanine Aminotransferase 46 U/L (6-50); Albumin Level 4.6 g/dL (3.5-5.1); Alkaline Phosphatase 83 U/L (38-126); Anion Gap 10 mmol/L (8-16); Aspartate Amino Transferase 40 U/L (17-59); Bilirubin,Total 0.8 mg/dL (0.2-1.3); Blood Urea Nitrogen 26 mg/dL (9-20); Calcium 9.2 mg/dL (8.4-10.2); Carbon Dioxide 27 mmol/L (22-30); Chloride 101 mmol/L (98-107); Cholesterol 190 mg/dL (0-200); Estimated Glomerular Filt Rate 47; Glucose 130 mg/dL (65-110); Potassium 4.1 mmol/L (3.4-5.0); Sodium 138 mmol/L (137-145)
[2022-10-08 12:29] LABS: Triglycerides 840 mg/dL (<150)
== END 2022-10-08 09:56 | disposition home or self-care (01) ==
PROVIDERS: PCP Family Medicine; Visit Provider Family Medicine
DX: E88.81 Metabolic syndrome and other insulin resistance (principal); K21.9 Gastro-esophageal reflux disease without esophagitis; Z79.899 Other long term (current) drug therapy
CPT/HCPCS: 36415; 80053; 80061; 82306; 82607; 83036; 85025

== ENCOUNTER 2022-10-10 11:14 | Outpatient (CLI) | payer OTHER, SELFPAY ==
[2022-10-10 19:56] LABS: Basophils Absolute Auto 0.1 K/mm3 (0.0-0.1); Basophils Percent Auto 0.9 % (0.2-1.2); Eosinophils Absolute Auto 0.2 K/mm3 (0-0.3); Eosinophils Percent Auto 3.3 % (0-4.4); Hematocrit 37.3 % (42.0-52.0); Hemoglobin 12.3 g/dL (14.0-18.0); Immature Granulocyte Absolute 0.05 K/mm3 (0.00-0.031); Immature Granulocyte Percent A 0.8 % (0-0.5); Lymphocytes Absolute Auto 1.38 K/mm3 (0.9-3.2); Lymphocytes Percent Auto 20.8 % (18.3-44.2); Mean Corpuscular Hemoglobin 28.3 pg (26-34); Mean Corpuscular Volume 85.9 fl (80-100); Mean Platelet Volume 10.3 fl (7.4-10.4); Monocytes Absolute Auto 0.8 K/mm3 (0.1-0.6); Monocytes Percent Auto 12.5 % (2.6-8.5); Neutrophils Absolute Auto 4.1 K/mm3 (1.3-6.7); Neutrophils Percent Auto 61.7 % (45.5-73.1); Platelet Count Result 239 k/mm3 (150-375); Red Blood Count 4.34 M/mm3 (4.6-6.20); Red Cell Distribution Width 13.8 % (11.5-14.5); White Blood Count 6.7 K/mm3 (4.5-10.0)
[2022-10-10 21:13] LABS: Ferritin 9.94 ng/mL (11.1-264)
[2022-10-10 21:27] LABS: Uric Acid 7.6 mg/dL (3.5-8.5)
== END 2022-10-10 11:15 | disposition home or self-care (01) ==
LOC: ANHGOSHLAB 11:16
PROVIDERS: PCP Family Medicine; Visit Provider Family Medicine
DX: D64.9 Anemia, unspecified (principal); M79.676 Pain in unspecified toe(s)
CPT/HCPCS: 36415; 82607; 82728; 84550; 85025

== ENCOUNTER 2023-01-22 08:11 | Outpatient (CLI) | payer OTHER, SELFPAY ==
[2023-01-22 08:30] LABS: Basophils Percent Auto 0.5 % (0.2-1.2); Eosinophils Absolute Auto 0.3 K/mm3 (0-0.3); Eosinophils Percent Auto 3.2 % (0-4.4); Hemoglobin 14.7 g/dL (14.0-18.0); Immature Granulocyte Absolute 0.07 K/mm3 (0.00-0.031); Immature Granulocyte Percent A 0.9 % (0-0.5); Lymphocytes Absolute Auto 1.39 K/mm3 (0.9-3.2); Lymphocytes Percent Auto 17.3 % (18.3-44.2); Mean Corpuscular Hemoglobin 31.7 pg (26-34); Mean Corpuscular Volume 90.5 fl (80-100); Mean Platelet Volume 8.9 fl (7.4-10.4); Monocytes Absolute Auto 0.8 K/mm3 (0.1-0.6); Monocytes Percent Auto 10.3 % (2.6-8.5); Neutrophils Absolute Auto 5.4 K/mm3 (1.3-6.7); Neutrophils Percent Auto 67.8 % (45.5-73.1); Platelet Count Result 206 k/mm3 (150-375); Red Blood Count 4.64 M/mm3 (4.6-6.20); Red Cell Distribution Width 14.3 % (11.5-14.5)
== END 2023-01-22 08:12 | disposition home or self-care (01) ==
LOC: ANHLAB 08:13
PROVIDERS: PCP Family Medicine; Visit Provider Family Medicine
DX: D64.9 Anemia, unspecified (principal)
CPT/HCPCS: 36415; 82607; 82728; 85025

== ENCOUNTER 2023-07-03 12:29 | Outpatient (CLI) | payer OTHER, SELFPAY ==
--- NOTE | ~2023-07-03 | XR_ITS ---
AP and lateral views of the left hip Clinical history: Pain Findings: No acute fracture or dislocation is seen. Osseous alignment is anatomic. The left hip joint space is preserved. Soft tissues are unremarkable. Impression: No significant abnormality is seen. Reviewed, dictated and finalized at location . OGRAPHY TEACHER Impression: No significant abnormality is seen.
== END 2023-07-03 12:30 | disposition home or self-care (01) ==
LOC: ANHIMG 12:31
PROVIDERS: PCP Family Medicine; Visit Provider Physician Assistant
DX: M54.50 Low back pain, unspecified (principal)
CPT/HCPCS: 73502

== ENCOUNTER 2023-07-12 15:36 | Outpatient (CLI) | payer OTHER, SELFPAY ==
--- NOTE | ~2023-07-12 | MR_ITS ---
EXAMINATION: MR lumbar spine wo con DATE: 07/12/2023 16:33 INDICATION: Radiculopathy, lumbar region. TECHNIQUE: Magnetic resonance imaging (MRI) of the lumbar spine was performed without intravenous con trast. Sequences included sagittal T2-weighted FSE, sagittal T2-weighted FS FSE, sagittal T1-weighted FSE, and axial T2-weighted FSE. COMPARISON: Lumbar spine MRI 04/03/2019 FINDINGS: There is 2 mm retrolisthesis of L2 on L3. There is 4 mm retrolisthesis of L5 on S1. Vertebr al body heights are normal. There is mildly decreased disc height at L2-L3 and moderately decreased d isc height at L5-S1. The distal spinal cord signal intensity is normal. The conus medullaris is at L1 . Epidural lipomatosis is noted. The following disc levels are specifically discussed: L1-L2: The disc does not extend beyond the endplate margin. There is mild bilateral facet joint osteo arthritis. There is no neural foraminal stenosis. There is no central canal stenosis. L2-L3: The disc is bulging and has an annular fissure. There is moderate right and severe left facet joint osteoarthritis. There is mild bilateral neural foraminal stenosis. There is mild central canal stenosis. L3-L4: The disc is bulging There is severe bilateral facet joint osteoarthritis. There is mild bilate ral neural foraminal stenosis. There is mild central canal stenosis. L4-L5: The disc is bulging and has an annular fissure. There is severe bilateral facet joint osteoart hritis. There is moderate bilateral neural foraminal stenosis. There is moderate central canal stenos is. L5-S1: The disc is bulging. There is moderate bilateral facet joint osteoarthritis. There is mild rig ht and moderate left neural foraminal stenosis. There is mild central canal stenosis. IMPRESSION: 1. Moderate lumbar spondylosis, stable from 04/03/2019. Reviewed, dictated and finalized at location E. O SERVICE SUPERVISOR
== END 2023-07-12 15:37 | disposition home or self-care (01) ==
LOC: ANHIMG 15:38
PROVIDERS: PCP Family Medicine; Visit Provider Physician Assistant
DX: M47.26 Other spondylosis with radiculopathy, lumbar region (principal); G60.3 Idiopathic progressive neuropathy
CPT/HCPCS: 72148

== ENCOUNTER 2023-08-28 07:02 | Outpatient (CLI) | payer OTHER, SELFPAY ==
[2023-08-28 07:51] LABS: Basophils Absolute Auto 0.1 K/mm3 (0.0-0.1); Basophils Percent Auto 1.2 % (0.2-1.2); Eosinophils Absolute Auto 0.2 K/mm3 (0-0.3); Eosinophils Percent Auto 3.7 % (0-4.4); Hematocrit 44.7 % (42.0-52.0); Hemoglobin 14.8 g/dL (14.0-18.0); Immature Granulocyte Absolute 0.04 K/mm3 (0.00-0.031); Immature Granulocyte Percent A 0.8 % (0-0.5); Lymphocytes Absolute Auto 1.42 K/mm3 (0.9-3.2); Lymphocytes Percent Auto 27.6 % (18.3-44.2); Mean Corpuscular HGB Conc 33.1 g/dl (32-36); Mean Corpuscular Hemoglobin 29.4 pg (26-34); Mean Corpuscular Volume 88.9 fl (80-100); Mean Platelet Volume 9.3 fl (7.4-10.4); Monocytes Absolute Auto 0.6 K/mm3 (0.1-0.6); Monocytes Percent Auto 10.7 % (2.6-8.5); Neutrophils Absolute Auto 2.9 K/mm3 (1.3-6.7); Platelet Count Result 228 k/mm3 (150-375); Red Blood Count 5.03 M/mm3 (4.6-6.20); Red Cell Distribution Width 13.2 % (11.5-14.5); White Blood Count 5.1 K/mm3 (4.5-10.0)
[2023-08-28 08:05] LABS: Alanine Aminotransferase 44 U/L (6-50); Albumin Level 4.6 g/dL (3.5-5.1); Alkaline Phosphatase 90 U/L (38-126); Anion Gap 12 mmol/L (4-12); Aspartate Amino Transferase 35 U/L (17-59); Bilirubin,Total 0.8 mg/dL (0.2-1.3); Blood Urea Nitrogen 30 mg/dL (9-20); Calcium 9.6 mg/dL (8.4-10.2); Carbon Dioxide 24 mmol/L (22-30); Chloride 103 mmol/L (98-107); Cholesterol 203 mg/dL (0-200); Estimated Glomerular Filt Rate 36; Glucose 122 mg/dL (65-110); HDL Direct 38 mg/dL; Potassium 3.4 mmol/L (3.4-5.0); Sodium 139 mmol/L (137-145); Triglycerides 518 mg/dL (<150)
[2023-08-28 08:15] LABS: LDL Cholesterol Direct 87 mg/dL
[2023-08-28 08:34] LABS: Prostate Specific Antigen 3.3 ng/mL (< OR = 4.0)
[2023-08-28 08:48] LABS: Hemoglobin A1C 5.9 % (<5.7)
== END 2023-08-28 07:03 | disposition home or self-care (01) ==
LOC: ANHLAB 07:03
PROVIDERS: PCP Family Medicine; Visit Provider Physician Assistant
DX: E66.9 Obesity, unspecified (principal); E78.2 Mixed hyperlipidemia; I12.9 Hypertensive chronic kidney disease with stage 1 through stage 4 chronic kidney disease, or unspecified chronic kidney disease; K76.0 Fatty (change of) liver, not elsewhere classified; N18.30 Chronic kidney disease, stage 3 unspecified; R73.03 Prediabetes; Z12.5 Encounter for screening for malignant neoplasm of prostate
CPT/HCPCS: 36415; 80053; 80061; 83036; 84153; 84443; 85025; G0103

== ENCOUNTER 2024-01-21 09:18 | Outpatient (CLI) | payer MEDICARE, SELFPAY ==
[2024-01-21 10:02] LABS: Anion Gap 11 mmol/L (4-12); Blood Urea Nitrogen 32 mg/dL (9-20); Calcium 9.3 mg/dL (8.4-10.2); Carbon Dioxide 27 mmol/L (22-30); Chloride 101 mmol/L (98-107); Estimated Glomerular Filt Rate 32; Glucose 110 mg/dL (65-110); Potassium 3.7 mmol/L (3.4-5.0); Sodium 139 mmol/L (137-145)
== END 2024-01-21 09:19 | disposition home or self-care (01) ==
PROVIDERS: PCP Family Medicine; Visit Provider Nurse Practitioner Family
DX: N18.32 Chronic kidney disease, stage 3b (principal)
CPT/HCPCS: 36415; 80048

== ENCOUNTER 2024-04-08 09:04 | Outpatient (CLI) | payer MEDICARE, SELFPAY ==
--- NOTE | 2024-04-08 11:00 | NEURO_ITS ---
Impression: # Complains of numbness of upper and lower extremities. # Bilateral Carpal Tunnel Syndrome, right more than left. # Axonal motor/sensory neuropathy involving lower extremities distally. # Neurogenic needle/EMG exam in bilateral EDB. Nerve Conduction Studies Anti Sensory Summary Table Stim Site NR Peak (ms) P-T Amp (?V) Site1 Site2 Delta-P (ms) Dist (cm) Han (m/s) Left Median Anti Sensory (2-3nd Digit) Wrist 3.4 27.7 Wrist 2-3nd Digit 3.4 14.0 41 Wrist 3.6 26.9 Wrist 2-3nd Digit 3.4 14.0 41 Right Median Anti Sensory (2-3nd Digit) Wrist 4.8 22.8 Wrist 2-3nd Digit 4.8 14.0 29 Wrist 5.0 21.4 Wrist 2-3nd Digit 4.8 14.0 29 Left Radial Anti Sensory (Base 1st Digit) Wrist 2.6 15.7 Wrist Base 1st Digit 2.6 0.0 Right Radial Anti Sensory (Base 1st Digit) Wrist 3.0 9.1 Wrist Base 1st Digit 3.0 0.0 Left Sup Fibular Anti Sensory (Ant Lat Mall) NO RESPONSE 14 cm NR 14 cm Ant Lat Mall 16.0 Right Sup Fibular Anti Sensory (Ant Lat Mall) NO RESPONSE 14 cm NR 14 cm Ant Lat Mall 16.0 Left Sural Anti Sensory (Lat Mall) NO RESPONSE Calf NR Calf Lat Mall 16.0 Right Sural Anti Sensory (Lat Mall) NO RESPONSE Calf NR Calf Lat Mall 16.0 Left Ulnar Anti Sensory (5th Digit) Wrist 2.3 40.2 Wrist 5th Digit 2.3 14.0 61 Right Ulnar Anti Sensory (5th Digit) Wrist 2.5 28.9 Wrist 5th Digit 2.5 14.0 56 Motor Summary Table Stim Site NR Onset (ms) O-P Amp (mV) Site1 Site2 Delta-0 (ms) Dist (cm) Han (m/s) Left Median Motor (Abd Poll Brev) Wrist 4.2 2.5 Elbow Wrist 4.9 28.0 57 Elbow 9.1 3.6 Right Median Motor (Abd Poll Brev) Wrist 4.0 5.5 Elbow Wrist 5.5 29.0 53 Elbow 9.5 5.2 Left Peroneal Motor (Vastus Med) Ankle 4.0 1.9 Popit Ankle 9.7 41.0 42 Popit 13.7 2.3 Right Peroneal Motor (Vastus Med) Ankle 4.0 6.1 Popit Ankle 9.4 40.0 43 Popit 13.4 4.6 Left Tibial Motor (Abd Zavala Brev) Ankle 4.4 1.0 Knee Ankle 10.1 43.0 43 Knee 14.5 0.5 Right Tibial Motor (Abd Zavala Brev) Ankle 4.6 1.3 Knee Ankle 9.5 40.0 42 Knee 14.1 1.5 Left Ulnar Motor (Abd Dig Minimi) Wrist 2.5 6.0 A Elbow Wrist 5.3 29.0 55 A Elbow 7.8 6.1 Right Ulnar Motor (Abd Dig Minimi) Wrist 2.6 7.0 A Elbow Wrist 5.7 31.0 54 A Elbow 8.3 5.5 F Wave Studies NR F-Lat (ms) L-R F-Lat (ms) Left Median (Mrkrs) (Abd Poll Brev) 30.69 0.40 Right Median (Mrkrs) (Abd Poll Brev) 31.10 0.40 Left Peroneal (Mrkrs) (EDB) 59.71 0.21 Right Peroneal (Mrkrs) (EDB) 59.51 0.21 Left Tibial (Mrkrs) (Abd Hallucis) 60.52 1.33 Right Tibial (Mrkrs) (Abd Hallucis) 61.85 1.33 Left Ulnar (Mrkrs) (Abd Dig Min) 28.48 0.08 Right Ulnar (Mrkrs) (Abd Dig Min) 28.56 0.08 EMG Side Muscle Nerve Root Ins Act Fibs Amp Dur Recrt Comment Right 1stDorInt Ulnar C8-T1 Nml Nml Nml Nml Nml Right Ext Indicis Radial (Post Int) C7-8 Nml Nml Nml Nml Nml Right Ext Digitorum Radial (Post Int) C7-8 Nml Nml Nml Nml Nml Right BrachioRad Radial C5-6 Nml Nml Nml Nml Nml Right PronatorTeres Median C6-7 Nml Nml Nml Nml Nml Right Abd Poll Brev Median C8-T1 Nml Nml Nml Nml Nml Right ABD Dig Min Ulnar C8-T1 Nml Nml Nml Nml Nml Right AntTibialis Dp Br Fibular L4-5 Nml Nml Nml Nml Nml Right Gastroc Tibial S1-2 Nml Nml Nml Nml Nml Right Fibularis Long Sup Br Fibular L5-S1 Nml Nml Nml Nml Nml Right Flex Dig Long Tibial L5-S2 Nml Nml Nml Nml Nml Right Ext Dig Brev Dp Br Fibular L5, S1 Nml Nml Nml >12ms +2 Right QuadratusFem QuadFemoris L4-5, S1 Nml Nml Nml Nml Nml Left AntTibialis Dp Br Fibular L4-5 Nml Nml Nml Nml Nml Left Gastroc Tibial S1-2 Nml Nml Nml Nml Nml Left Fibularis Long Sup Br Fibular L5-S1 Nml Nml Nml Nml Nml Left Flex Dig Long Tibial L5-S2 Nml Nml Nml Nml Nml Left Ext Dig Brev Dp Br Fibular L5, S1 Nml Nml Nml >12ms +2 Left QuadratusFem QuadFemoris L4-5, S1 Nml Nml Nml Nml Nml Left 1stDorInt Ulnar C8-T1 Nml Nml Nml Nml Nml Left Ext Indicis Radial (Post Int) C7-8 Nml Nml Nml Nml Nml Left Ext Digitorum Radial (Post Int) C7-8 Nml Nml Nml Nml Nml Left BrachioRad Radial C5-6 Nml Nml Nml Nml Nml Left PronatorTeres Median C6-7 Nml Nml Nml Nml Nml Left Abd Poll Brev Median C8-T1 Nml Nml Nml Nml Nml Left ABD Dig Min Ulnar C8-T1 Nml Nml Nml Nml Nml MTDD
== END 2024-04-08 09:05 | disposition home or self-care (01) ==
PROVIDERS: PCP Family Medicine; Visit Provider Student in an Organized Health Care Education/Training Program
DX: G60.3 Idiopathic progressive neuropathy (principal); G56.03 Carpal tunnel syndrome, bilateral upper limbs
CPT/HCPCS: 95886; 95913

== ENCOUNTER 2024-04-14 08:54 | Outpatient (RCR) | payer MEDICARE, SELFPAY ==
--- NOTE | 2024-04-14 09:59 | OTOPEVDC ---
Assessment and note entered by RICKY Calle/Dejan, CHT Evaluation Information & Discharge Summary 04/14/24 Assessment Status Evaluation Diagnosis Carpal tunnel syndrome Subjective Information Patient reports that he began experiencing numbness in his right middle finger in December 2023 and he reports this numbness progressed into the tips of index and ring finger also. Reports no numbness in the thumb or small finger. EMG (+) carpal tunnel syndrome bilaterally, right worse than left. He reports no symptoms on the right. He also has dx of neuropathy. He states the hand symptoms feel like the neuropathy in his feet. He reports no fluctuation in his symptoms, a constant numbness , no change in symptoms at night and no change in symptoms with change in UE positioning. Reported Pain Level Pain Score 0: Self Report Assessment OT Clinical Summary Patient referred to OT with dx of carpal tunnel syndrome, right worse than left. Patient's symptoms appear to be more consistent with peripheral neuropathy. Testing for carpal tunnel syndrome were all negative: upper limb tension test for median nerve, Phalen's test, and carpal compression test. [place] monofilament testing is normal bilaterally. Stereognosis is normal bilaterally. Discussed a trial of a wrist immobilizer to see if this reduces his symptoms and he reports he won't wear one. Issued ROM and swing frame grinder operator strengthening and he is independent with all materials. No further skilled OT indicated at this time. Thank you for this referral. Plan of Care OT Services Indicated No
== END 2024-04-14 12:37 | disposition home or self-care (01) ==
LOC: ANHOT 08:54
PROVIDERS: PCP Family Medicine; Visit Provider Family Medicine
DX: G56.03 Carpal tunnel syndrome, bilateral upper limbs (principal)
CPT/HCPCS: 97110; 97166

== ENCOUNTER 2024-04-14 10:06 | Outpatient (CLI) | payer MEDICARE, SELFPAY ==
[2024-04-14 10:39] LABS: Basophils Absolute Auto 0.1 K/mm3 (0.0-0.1); Basophils Percent Auto 0.7 % (0.2-1.2); Eosinophils Absolute Auto 0.2 K/mm3 (0-0.3); Eosinophils Percent Auto 2.6 % (0-4.4); Hematocrit 43.3 % (42.0-52.0); Hematocrit 43.9 % (42.0-52.0); Hemoglobin 14.1 g/dL (14.0-18.0); Hemoglobin 14.4 g/dL (14.0-18.0); Immature Granulocyte Absolute 0.06 K/mm3 (0.00-0.031); Immature Granulocyte Percent A 0.7 % (0-0.5); Lymphocytes Absolute Auto 1.27 K/mm3 (0.9-3.2); Lymphocytes Percent Auto 14.4 % (18.3-44.2); Mean Corpuscular HGB Conc 32.1 g/dl (32-36); Mean Corpuscular HGB Conc 33.3 g/dl (32-36); Mean Corpuscular Hemoglobin 26.7 pg (26-34); Mean Corpuscular Hemoglobin 27.4 pg (26-34); Mean Corpuscular Volume 82.5 fl (80-100); Mean Corpuscular Volume 83.1 fl (80-100); Mean Platelet Volume 9.1 fl (7.4-10.4); Mean Platelet Volume 9.3 fl (7.4-10.4); Monocytes Absolute Auto 0.9 K/mm3 (0.1-0.6); Monocytes Percent Auto 10.2 % (2.6-8.5); Neutrophils Absolute Auto 6.3 K/mm3 (1.3-6.7); Neutrophils Percent Auto 71.4 % (45.5-73.1); Platelet Count Result 253 k/mm3 (150-375); Platelet Count Result 258 k/mm3 (150-375); Red Blood Count 5.25 M/mm3 (4.6-6.20); Red Blood Count 5.28 M/mm3 (4.6-6.20); Red Cell Distribution Width 15.6 % (11.5-14.5); Red Cell Distribution Width 15.9 % (11.5-14.5); White Blood Count 8.3 K/mm3 (4.5-10.0); White Blood Count 8.8 K/mm3 (4.5-10.0)
[2024-04-14 10:40] LABS: Add Urine Microscopic? NO; Appearance Urine Clear (Clear); Bilirubin Urine Negative (Negative); Blood Urine Negative (Negative); Color Urine Yellow (Yellow); Glucose Urine UA 3+ mg/dL (Negative); Ketones Urine Negative (Negative); Leukocyte Esterase Ur Negative LEU/UL (Negative); Nitrate Urine Negative (Negative); Protein Urine Negative (Negative); Specific Grav Ur 1.021 (1.001-1.035); Urobilinogen Urine 0.2 mg/dL (<2.0); pH Urine 5.5 (5.0-9.0)
[2024-04-14 10:49] LABS: Albumin Level 4.6 g/dL (3.5-5.1); Anion Gap 10 mmol/L (4-12); Blood Urea Nitrogen 37 mg/dL (9-20); Blood Urea Nitrogen 38 mg/dL (9-20); Calcium 9.2 mg/dL (8.4-10.2); Carbon Dioxide 25 mmol/L (22-30); Carbon Dioxide 26 mmol/L (22-30); Chloride 101 mmol/L (98-107); Chloride 102 mmol/L (98-107); Creatine Kinase 110 U/L (55-170); Estimated Glomerular Filt Rate 30; Estimated Glomerular Filt Rate 32; Glucose 118 mg/dL (65-110); Glucose 119 mg/dL (65-110); Phosphorus 2.8 mg/dL (2.5-4.5); Potassium 3.5 mmol/L (3.4-5.0); Sodium 137 mmol/L (137-145)
[2024-04-14 10:57] LABS: Complement C3 165 mg/dL (88-165)
[2024-04-14 11:18] LABS: Erythrocyte Sedimentation Rate 8 mm/hr (0-20)
[2024-04-14 11:46] LABS: Parathyroid Intact 50.8 pg/mL (14.5-75.2)
[2024-04-14 13:20] LABS: Creatinine Urine 120.9 mg/dL; Total Protein Urine Random 6 mg/dL; Ur Ttl Prot Creatinine Ratio 0.05 mg/mg (0-0.20)
[2024-04-17 13:34] LABS: Complement Total CH50 >60 U/mL (31-60)
[2024-04-17 21:53] LABS: Immunofixation, Serum Normal pattern.
== END 2024-04-14 10:07 | disposition home or self-care (01) ==
PROVIDERS: Surgery; PCP Family Medicine; Visit Provider Internal Medicine Nephrology
DX: M54.16 Radiculopathy, lumbar region (principal); N18.32 Chronic kidney disease, stage 3b; K64.4 Residual hemorrhoidal skin tags; K64.8 Other hemorrhoids
CPT/HCPCS: 36415; 80048; 80069; 81003; 82550; 82570; 83883; 83970; 84156; 85025; 85027; 85652; 86038; 86039; 86160; 86162; 86334

== ENCOUNTER 2024-04-16 10:20 | Outpatient (CLI) | payer MEDICARE, SELFPAY ==
[2024-04-16 13:30] LABS: Total Volume 24 Hour Urine 2700 ml; Urea Nitrogen 24 Hour Urine 15.3 G/DAY (12-20)
[2024-04-17 14:32] LABS: Creat 24 Hr 2.04 g/24 h (0.50-2.15); Pro/Creat Ratio 104 mg/g creat (<100); Pro/Creat Ratio mg/mg 0.104 (<0.100); Protein,total, 24 Hr Ur 212 mg/24 h (<150)
== END 2024-04-16 10:21 | disposition home or self-care (01) ==
PROVIDERS: PCP Family Medicine; Visit Provider Internal Medicine Nephrology
DX: N18.32 Chronic kidney disease, stage 3b (principal)
CPT/HCPCS: 81050; 84540; 86335

== ENCOUNTER 2024-04-22 08:50 | Outpatient (CLI) | payer MEDICARE, SELFPAY ==
--- NOTE | 2024-04-22 08:57 | ECG_ITS ---
Test Date: 2024-04-22 09:15:47 Measurements Intervals [place] Rate: 59 P: 54 DE: 195 QRS: 29 QRSD: 93 T: 59 QT: 425 QTc: 422 Interpretive Statements SINUS BRADYCARDIA BASELINE ARTIFACT- I, II, III, AVR, AVL, AVF, V1-V6 BORDERLINE ECG No previous ECG available for comparison Electronically Signed On 04-22-2024 09:19:37 POLYMER TESTER by Danyel Tinsley D.O.
[2024-04-22 09:34] LABS: Partial Thromboplastin Time 29.5 Seconds (22.3-36.8); Prothrombin Time 13.6 Seconds (11.1-14.7)
== END 2024-04-22 08:51 | disposition home or self-care (01) ==
LOC: ANHSURGERY 08:56
PROVIDERS: Anesthesiology; PCP Family Medicine; Visit Provider Surgery
DX: I12.9 Hypertensive chronic kidney disease with stage 1 through stage 4 chronic kidney disease, or unspecified chronic kidney disease (principal); N18.32 Chronic kidney disease, stage 3b; E78.2 Mixed hyperlipidemia; R94.31 Abnormal electrocardiogram [ECG] [EKG]
CPT/HCPCS: 36415; 85610; 85730; 93005

== ENCOUNTER 2024-04-29 01:31 | Day surgery (SDC) | payer MEDICARE, SELFPAY ==
[2024-04-16 15:12] VITALS: BMI 32.2
--- NOTE | 2024-04-16 15:30 | PC.NURSE ---
Report to the Outpatient Waiting Room, entrance under the green pavilion located off [facility], at time __0830am on date __04/29/24 . Planned Procedure Time: 10:30am .? Time changes happen often and if your time is changed the preop area will call you the afternoon before. - You and your visitor will be asked to self-screen and do not enter if you have any COVID symptoms. Please call surgeon if you need to reschedule. - A mask is optional within the hospital at this time. Clear liquids 24 hours day before surgery, and Fleets Enema the Night before an am of surgery per Dr Zarco. Take only the following medications with a SIP of water on the morning of surgery: ____Gabapentin, Amlodipine, Montelukast, DO NOT STOP ANY OF YOUR OTHER PRESCRIPTION MEDICATIONS PRIOR TO SURGERY EXCEPT THE FOLLOWING Medications to discontinue per physician ___All Vitamins and supplements for 3 days prior to surgery per Anesthesia. Date to take last dose___04/25/24 Pt to stop Diclofenac as well per his Kidney Dr request. Pt t Please no make-up, nail bots[place], hairspray, perfume, deodorant, or body powder the day of surgery.? No jewelry (including any body piercings) or valuables the day of surgery, leave them at home.? Please take a shower or bath the night before, or the morning of, surgery with an antibacterial soap.? Wear comfortable, loose fitting clothing.? Children are encouraged to wear pajamas. - Jewelry must be removed prior to entering the operating room.? Rings and piercings that are not removed may be cut off. - The hospital will not accept responsibility for valuables.? - Please leave all valuables, including medications, at home the day of surgery. If you are going home after surgery, a licensed truss driver helper must drive you home.? - NO public transportation without another adult if you receive anesthesia. - We recommend that an adult stay with you for 24 hours following discharge. - We also recommend that you do not drive, make important decision, drink alcoholic beverages, or take any drugs that were not prescribed by your health care provider for at least 24 hours after your discharge time. Follow any additional instructions given to you from your surgeon. Telephone instructions given to ___Patient and asked if any additional questions and then verbalized understanding. Patient advised to call surgeon office or pre surgery nurse liaison [phone] if any additional questions.
[2024-04-29] VITALS (8 sets, daily range): BP systolic 102–135; BP diastolic 63–84; PULSE 77–96; RESP 12–16; TEMP 36.2–36.7; O2SAT 95–100; BMI 32.6
--- NOTE | 2024-04-29 08:23 | WPDHPUPDATE1 ---
History and Physical Update Update Date/Time: 04/29/24 08:23 History and Physical has been reviewed, including an updated exam of the patient. There are NO changes in the patient's condition. Risks, benefits, and alternatives have been discussed and questions answered. Patient agrees to proceed with procedure.
[2024-04-29] MEDS: ACETAMINOPHEN 500 MG TABLET 1000 MG PO (09:43)
[2024-04-29] MEDS: KETOROLAC 15 MG/ML VIAL (*BKC) IV PUSH (09:43)
--- NOTE | 2024-04-29 10:30 | WPDANESEPPF ---
Anes - Initial Pre Proc Eval Procedure: Operation Date: 04/29/24 10:30 Proposed Procedures p Proctosigmoidoscopy, Excision of Internal and External Hemorrhoids with Rubber Band Ligation of Internal Hemorrhoids - Juan Zarco MD Date/Time: 04/29/24 10:30 Surgeon: Juan Zarco MD Pre Op Diagnosis: bleeding prolapse internal & external Hemorrhoids Patient Data Age: 63 Gender: M Height: 1.75 m Weight: 100.4 kg Last Vital Signs Temp 36.7 C 04/29/24 08:50 Pulse 80 04/29/24 08:50 Resp 16 04/29/24 08:50 BP 129/71 04/29/24 08:50 Pulse Ox 98 04/29/24 08:50 Allergies Allergy/AdvReac Type Severity Reaction Status Date / Time Penicillins Allergy Intermediate Childhood Verified 04/29/24 09:55 Reaction Home Medications Medication Instructions Recorded Confirmed Type sodium chloride 2 % eye drops 1 drop ophthalmic (eye) DAILY 04/28/19 04/16/24 History (Ernesto 128) turmeric root extract 500 mg 500 mg PO HS 11/29/20 04/29/24 History capsule sumatriptan succinate 50 mg tablet 50 mg PO ONCE PRN migraine headache 04/12/21 04/16/24 History (Imitrex) mecobalamin (vitamin B12) 1,000 1,000 mcg sublingual DAILY 01/19/22 04/29/24 History mcg disintegrating tablet,sublingual ferrous sulfate 325 mg (65 mg 325 mg PO DAILY #90 tabs 10/11/22 04/29/24 Rx iron) tablet cpap #1 ea 06/20/23 04/12/24 Rx cpap #1 ea 06/25/23 04/12/24 Rx hydrochlorothiazide 25 mg tablet 25 mg PO DAILY #90 tabs 11/25/23 04/29/24 Rx diclofenac sodium 75 mg 75 mg PO BID #180 tabs 12/17/23 04/29/24 Rx tablet,delayed release losartan 100 mg tablet 100 mg PO DAILY #90 tabs 12/30/23 04/29/24 Rx montelukast 10 mg tablet See Rx Instructions .Route 01/20/24 04/16/24 Rx .COMPLEX #90 tabs tramadol 50 mg tablet 50 mg PO Q4H PRN Back Pain #60 tabs 01/28/24 04/16/24 Rx gabapentin 300 mg capsule 900 mg PO BID #540 caps 02/14/24 04/16/24 Rx trazodone 150 mg tablet See Rx Instructions .Route 02/17/24 04/29/24 Rx .COMPLEX #90 tabs amlodipine 5 mg tablet 5 mg PO DAILY #90 tabs 02/19/24 04/16/24 Rx pantoprazole 40 mg tablet,delayed See Rx Instructions .Route 02/19/24 04/29/24 Rx release .COMPLEX #90 tabs atorvastatin 80 mg tablet 80 mg PO DAILY #90 tabs 03/31/24 04/29/24 Rx empagliflozin 10 mg tablet 10 mg PO QAM #90 tabs 03/31/24 04/29/24 Rx azithromycin 250 mg tablet See Rx Instructions PO .COMPLEX #6 04/21/24 Rx tabs Patient hx anesthesia problems: none Family hx anesthesia problems: none Results Review: All pre-operative results and documents have been reviewed as part of the pre-operative evaluation. FORMERLY [facility], 1928–1983 Past Medical History Medical History Ankle pain, right Cervical radiculopathy, acute Cervical spondylosis Chronic migraine w/o aura w/o status migrainosus, not intractable Chronic narcotic use Contracture of palmar fascia (Dupuytren's) Gastric ulcer, acute with hemorrhage Keratosis pilaris Plantar fasciitis of right foot Right nephrolithiasis Rosacea, acne Tubular adenoma of colon Surgical History Surgical History H/O hernia repair H/O umbilical hernia repair w mesh 08/02/21 History of cholecystectomy History of laparoscopic cholecystectomy 06/17/19 Hx of wisdom tooth extraction Family History Family History Father Diabetes mellitus Family history of hypercholesterolemia Hypertension Family history of cardiovascular disease Family history of elevated blood lipids Acute myocardial infarction Family history of coronary artery disease Mother Family history of osteoporosis Family history of migraine headaches Hypertension Grandparent Malignant neoplasm of prostate Family history of lung cancer Other Family history of malignant neoplasm of stomach Social History Social History Smoking status: Never smoker Second hand tobacco smoke exposure: Yes Alcohol intake: current Drinks per week: 2 Substance use: current Substance use type: marijuana Other substance usage details: Gummies to sleep Do You Feel Safe in your Home?: Yes Lack of Transportation: No Lack of Food: Never True Current Housing: I Have Housing Concerned About Future Housing: No Difficulty Paying Gas/Electric Bills: No Difficulty Paying for Meds: No Currently Unemployed: No Education: Bachelor's Degree Difficulty w/ Childcare or Family Care: No Living arrangements: with family Additional living arrangements comments: Gender identity (if verbalized by the patient): Male Spiritual care concerns: No Anes - Eval Final PreProcedure Day of Procedure 04/29/24 10:30 Patient weight: obese Heart: regular rate and rhythm Lungs: clear to auscultation Airway: Mallampati scale class II Neurological: alert and oriented Last oral intake: >/= 8 hours ASA classification: III Emergent: no Anesthetic plan: proceed Anesthesia type and monitoring: general ETT and standard monitoring Results Review: All pre-operative results and documents have been reviewed as part of the pre-operative evaluation. Informed Consent: The patient's anesthetic plan and its attendant risks and benefits were discussed with the patient/family/POA. Questions were solicited and answers provided to the satisfaction of the patient/family/POA.
[2024-04-29] MEDS: BUPIVACAINE/EPINEPHRINE 0.5% 50 ML VIAL INFILTRATE (12:28)
--- NOTE | 2024-04-29 12:49 | W.PM.PROC2 ---
Procedure Note - Detailed Date of Procedure 04/29/24 Pre-op Diagnosis bleeding, prolapsed internal & external Hemorrhoids Post-op Diagnosis Same Procedure Performed Proctosigmoidoscopy to 20 cm, excision single column left lateral internal and external hemorrhoids, rubber-band ligation right anterior internal hemorrhoids, rubber-band ligation right posterior internal hemorrhoids Surgeon Juan Zarco MD Assisted Living Coordinator Kyra Anesthesia General and Local Indications Patient has been having discomfort and bleeding with prolapse of some internal hemorrhoids. He has lot of irritation and difficulty with hygiene of a external hemorrhoid. After being seen in the office and discussion, he is taken to surgery now for proctosigmoidoscopy and hemorrhoidectomy. Findings The largest complex was in the left lateral position with a large internal hemorrhoid that had a fibroepithelial polyp associated with it. The fibroepithelial polyp would prolapse out of the rectum. There was also a large associated left lateral external hemorrhoid. This complex was completely excised. There were no other significant external hemorrhoids. There were both the internal hemorrhoids of both the right anterior and right posterior positions. These were rubber-band ligated. Proctosigmoidoscopy to 20 cm was negative. Description of Procedure Patient was taken to surgery and induced into general anesthesia. He was then turned and positioned in prone mechelle-knife position. The buttocks were taped apart. Prep and drape was carried out. Initial anal rectal inspection with the Hill-Barbosa anoscope were carried out with findings as above. Proctosigmoidoscopy to 20 cm was then carried out. Prep was good but there was still quite a bit of liquid stool. Visualization was fine with after suctioning the stool. No polyps or other significant lesions were noted on proctosigmoidoscopy. Local anesthetic was then infiltrated into the anorectal area. 20 cc deep subdermal and 20 cc interest sphincteric of 0.5% Marcaine with epinephrine were infiltrated. I started by exposing and excising the left lateral complex. With a Hill-Barbosa anoscope in place, I excised the internal and external hemorrhoid associated with this. It was passed off to pathology labeled appropriately. A running locking 3-0 chromic suture was used to close the defect. Hemostasis was good. There were no other external hemorrhoids of significance. The bulky internal hemorrhoids of both the right anterior and right posterior positions were noted. Using the Hill-Barbosa anoscope again, the internal hemorrhoids at both these locations were rubber-band ligated. Additional recheck of the anorectum was then carried out. No other findings were noted. The suture line was hemostatic. We then removed the Hill-Barbosa anoscope and dress the rectum with Xeroform gauze fluffs and Medipore tape. Patient was then returned to a supine position, awakened and extubated. He was transferred to recovery in good condition. Estimated Blood Loss -10 Drains No Packing No Pathology Yes (Left lateral internal and external hemorrhoids) Complications None Condition Stable Disposition PACU [facility] Billing Surgery - Charge Forward: Surgery Billing (Proctosigmoidoscopy, excision single column left lateral internal and external hemorrhoids, rubber-band ligation right anterior and right posterior internal hemorrhoids)
[2024-04-29] MEDS: LACTATED RINGERS 1,000 ML 30 ML IV CONT ×2 (12:54)
== END 2024-04-29 14:45 | disposition home or self-care (01) ==
PROVIDERS: PCP Family Medicine; Visit Provider Surgery
PROC: (CPT 46255; principal; 2024-04-29 10:30)
DX: K64.8 Other hemorrhoids (principal); K64.4 Residual hemorrhoidal skin tags; K62.0 Anal polyp; Z79.84 Long term (current) use of oral hypoglycemic drugs; F12.90 Cannabis use, unspecified, uncomplicated; E66.9 Obesity, unspecified; Z68.32 Body mass index [BMI] 32.0-32.9, adult
CPT/HCPCS: 46255; 88304; A9270; J0330; J1100; J1885; J2003; J2250; J2405; J2704; J3010; J7120

== ENCOUNTER 2024-05-05 14:11 | Outpatient (CLI) | payer MEDICARE, SELFPAY ==
--- NOTE | ~2024-05-05 | US_ITS ---
EXAMINATION: US renal BI DATE: 05/05/2024 14:53 INDICATION: Stage IIIB chronic kidney disease TECHNIQUE: Multiple ultrasound grayscale images of the kidneys were obtained. COMPARISON: None. FINDINGS: The right kidney measures 12.7 x 5.5 x 5.3 cm. The left kidney measures 11.0 x 5.9 x 4.9 cm. The kidn eys demonstrate normal echogenicity. 1.3 cm echogenic and shadowing stone at the interpolar region of the right kidney. There is no hydronephrosis in either kidney. The bladder is normal. IMPRESSION: 1. 1.3 cm nonobstructing right renal stone. Otherwise normal kidneys with no hydronephrosis. Reviewed, dictated and finalized at location A. SUBMERGENCE VEHICLE CREWMEMBER IMPRESSION: 1. 1.3 cm nonobstructing right renal stone. Otherwise normal kidneys with no h ydronephrosis.
== END 2024-05-05 14:12 | disposition home or self-care (01) ==
PROVIDERS: PCP Family Medicine; Visit Provider Internal Medicine Nephrology
DX: N18.32 Chronic kidney disease, stage 3b (principal); N20.0 Calculus of kidney
CPT/HCPCS: 76775

== ENCOUNTER 2024-05-12 02:22 | Emergency (ER) | payer MEDICARE, SELFPAY ==
[2024-05-12] VITALS (13 sets, daily range): BP systolic 136–157; BP diastolic 84–94; PULSE 81–107; RESP 16–18; TEMP 36.2–37.2; O2SAT 92–100
--- NOTE | ~2024-05-12 | CT_ITS ---
CT cervical spine wo con Ordering provider: Jaimee Marvin PA-C History: . neck pain radiating into left arm . Comparison: None. Technique: CT of the cervical spine was performed without contrast. Sagittal and coronal reformatted images were also obtained and reviewed. Automated exposure control and iterative reconstruction boyd hnique were employed. The dose-length product was 461.43 mGy-cm. FINDINGS: VERTEBRAE: Minimal anterolisthesis at the level of C4-C5. Minimal retrolisthesis at the level of C5-C 6. No subluxation or acute fracture. The occipital condyles are intact. DISC SPACES: Narrowing of the disc C5-C6 and C6-C7. Multilevel facet joint disease. Multilevel uncove rtebral joint osteoarthritic changes. Narrowing of the left intervertebral foramen at the level of C3 -C4 and C4-C5. Bilateral narrowing of the foramina at the level of C5-C6 and C6-C7. PARASPINOUS SOFT TISSUES: Normal. IMPRESSION: No acute osseous abnormality cervical spine. Multilevel degenerative disc. Reviewed, dictated and finalized at location A. SCHOOL ART TEACHER
--- NOTE | 2024-05-12 09:10 | PC.NURSE ---
Patient's up to desk to ask about wait time. Triage and admit process explained to . I.e. people are taken back to rooms based on acuity and not order received.
--- NOTE | 2024-05-12 09:41 | ED_ITS ---
HPI - Neck Pain/Injury General Chief Complaint: Neck Pain/Injury Stated Complaint: left sided neck pain going into shoulder back area Time Seen by Provider: 05/12/24 09:30 Source: patient Mode of arrival: ambulatory Limitations: no limitations History of Present Illness HPI Narrative: This is a 63-year-old male that presents to the emergency department for left- sided neck pain. No recent injuries or trauma. Ongoing over the last couple of weeks. Reports he has history of spinal stenosis. Has chronic back pain due to this. He was recently taken off of his meloxicam that he takes daily to help with his pain due to his kidney function. He also recently had a hemorrhoidectomy. He has had worsening of his neck pain since. It radiates into his left arm. Denies any new numbness or weakness. Related Data Home Medications ?Medication ?Instructions ?Recorded ?Confirmed ?Last Taken ?Type sodium chloride 2 % eye drops 1 drop ophthalmic (eye) DAILY 04/28/19 04/16/24 05/01/21 History (Ernesto 128) turmeric root extract 500 mg 500 mg PO HS 11/29/20 04/29/24 04/25/24 History capsule sumatriptan succinate 50 mg tablet 50 mg PO ONCE PRN migraine headache 04/12/21 04/16/24 05/01/21 History (Imitrex) mecobalamin (vitamin B12) 1,000 1,000 mcg sublingual DAILY 01/19/22 04/29/24 04/25/24 History mcg disintegrating tablet,sublingual Allergies Allergy/AdvReac Type Severity Reaction Status Date / Time Penicillins Allergy Intermediate Childhood Verified 04/29/24 09:55 Reaction Review of Systems Review of Systems: CONSTITUTIONAL: Denies fever MUSCULOSKELETAL: Reports joint pain, and myalgia. All systems reviewed & are unremarkable except as noted in HPI and below PMFSH Past Medical History Medical History Ankle pain, right Cervical radiculopathy, acute Cervical spondylosis Chronic migraine w/o aura w/o status migrainosus, not intractable Chronic narcotic use Contracture of palmar fascia (Dupuytren's) Gastric ulcer, acute with hemorrhage Keratosis pilaris Plantar fasciitis of right foot Right nephrolithiasis Rosacea, acne Tubular adenoma of colon Surgical History Surgical History H/O hernia repair H/O umbilical hernia repair w mesh 08/02/21 History of cholecystectomy History of laparoscopic cholecystectomy 06/17/19 Hx of wisdom tooth extraction Family History Family History Father Diabetes mellitus Family history of hypercholesterolemia Hypertension Family history of cardiovascular disease Family history of elevated blood lipids Acute myocardial infarction Family history of coronary artery disease Mother Family history of osteoporosis Family history of migraine headaches Hypertension Grandparent Malignant neoplasm of prostate Family history of lung cancer Other Family history of malignant neoplasm of stomach Social History Social History Smoking status: Never smoker Second hand tobacco smoke exposure: Yes Alcohol intake: current Drinks per week: 2 Substance use: current Substance use type: marijuana Other substance usage details: Gummies to sleep Do You Feel Safe in your Home?: Yes Lack of Transportation: No Lack of Food: Never True Current Housing: I Have Housing Concerned About Future Housing: No Difficulty Paying Gas/Electric Bills: No Difficulty Paying for Meds: No Currently Unemployed: No Education: Bachelor's Degree Difficulty w/ Childcare or Family Care: No Living arrangements: with family Additional living arrangements comments: Gender identity (if verbalized by the patient): Male Spiritual care concerns: No Exam Narrative: GENERAL: Well-appearing, well-nourished, and in no acute distress. HEAD: Normocephalic, atraumatic. EYES: EOMI. NECK: Supple. No adenopathy or masses. CHEST: Clear to auscultation. No respiratory distress. No wheezes rales or rhonchi HEART: Regular rate and rhythm. No murmur heard. Normal peripheral pulses. EXTREMITIES: Normal range of motion. No edema. Strength equal in bilateral upper extremities. Normal radial pulse SKIN: Warm, dry, no rash. NEURO: No focal deficits. Alert and oriented x3. PSYCH: Normal mood and affect RECTAL: No abnormal erythema, fluctuance or drainage noted Course Course Emergency Course: Patient and family updated on his workup and agree with plan of care Vital Signs Vital signs: Vital Signs Temperature 97.1 F L 05/12/24 02:23 Pulse Rate 107 H 05/12/24 02:23 Respiratory Rate 16 05/12/24 02:23 Blood Pressure 157/86 H 05/12/24 02:23 Pulse Oximetry 100 05/12/24 02:23 Oxygen Delivery Room Air 05/12/24 02:23 Temperature 99 F 05/12/24 07:50 Pulse Rate 82 05/12/24 10:16 Respiratory Rate 16 05/12/24 10:16 Blood Pressure 146/84 H 05/12/24 10:16 Pulse Oximetry 98 05/12/24 10:16 Oxygen Delivery Room Air 05/12/24 02:23 MDM - Neck Pain/Injury MDM Narrative Medical decision making narrative: Patient presents to the emergency department for neck pain ongoing over the last couple of weeks. No recent injuries or trauma. Does seem neurosurgery for spinal stenosis of his lumbar spine. He does report he was recently taken off of his daily anti-inflammatory due to kidney problems. Likely contributing to this. He is neurologically intact. CT cervical spine without acute osseous abnormalities. He does have multilevel degenerative changes. Patient family updated on his workup and agree with plan of care. Will be given muscle relaxer and steroid taper. He is to follow up with his neurosurgeon. He was given warnings to return to the ER Additionally patient recently had a hemorrhoidectomy. I do not see anything on exam concerning for a focal infection. He does have follow-up with his surgeon in 2 days. Instructed to continue wound care as directed and have close follow- up Differential Diagnosis Differential diagnosis: Likely disc disorder of cervical region, cervical radiculopathy, cervical spondylosis and strain of neck muscle Imaging Data Radiologist's impression: ITS Impressions Cervical Spine CT 05/12/24 10:01 IMPRESSION: No acute osseous abnormality cervical spine. Multilevel degenerative disc. Critical Care Time Critical Care Time Critical Care Time: No Discharge Plan Discharge Clinical Impression: Spinal stenosis of cervical region, S/P hemorrhoidectomy Patient Disposition: Home, Self-Care Condition: Improved Instructions: Cervical Spinal Stenosis (ED) Additional Instructions: Return to the ER if you experience fever >101, new onset weakness, numbness, or any other symptoms that are concerning to you Rest, use ice/heat, take anti-inflammatories (Aleve, Ibuprofen, Naproxen, etc) or Tylenol as needed for pain as well as muscle relaxer (Diazepam) as needed for pain. Muscle relaxers can make you drowsy, do not drive if you take this or take other sedating medications Follow up with your neurosurgeon Continue to keep your surgical area clean as directed by Dr. Zarco, follow up with him at your scheduled appointment Patient Language: Mohawk Prescriptions: New diazepam 5 mg tablet 5 mg PO BID PRN (Reason: muscle spasm) Qty: 10 0RF methylprednisolone 4 mg tablets,dose pack See Rx Instructions .ROUTE .COMPLEX Qty: 21 0RF Rx Instructions: orally per package directions No Action Ernesto 128 2 % drops 1 drop EACH EYE DAILY mecobalamin (vitamin B12) 1,000 mcg tablet,disintegrating 1,000 mcg sublingual DAILY Rx Instructions: place tablet under tongue and allow to dissolve for at least30 secs before swallowing turmeric root extract 500 mg capsule 500 mg PO HS oxycodone-acetaminophen 5-325 mg tablet 0.5 - 1 tablet PO Q6H PRN (Reason: pain) Qty: 20 0RF ibuprofen 600 mg tablet 600 mg PO Q6H PRN (Reason: pain) Qty: 14 0RF sumatriptan succinate [Imitrex] 50 mg tablet 50 mg PO ONCE PRN (Reason: migraine headache) ferrous sulfate 325 mg (65 mg iron) tablet 325 mg PO DAILY Qty: 90 1RF Patient Comments: weekend only (DME) cpap See Rx Instructions .Route .MEDSUPPLY Qty: 1 0RF Rx Instructions: Needs reassessment of mask, device, straps and supplies. (DME) cpap See Rx Instructions .Route .MEDSUPPLY Qty: 1 0RF Rx Instructions: cpap with heated humidifier, tubing, supplies, medium AirFit F20 full face mask. Setting: at 7cm water with heated humidifier hydrochlorothiazide 25 mg tablet 25 mg PO DAILY Qty: 90 1RF diclofenac sodium 75 mg tablet,delayed release (DR/EC) 75 mg PO BID Qty: 180 1RF losartan 100 mg tablet 100 mg PO DAILY Qty: 90 1RF montelukast 10 mg tablet See Rx Instructions .ROUTE .COMPLEX Qty: 90 3RF Dose Instruction: Take 1 tablet by mouth once daily Rx Instructions: Take 1 tablet by mouth once daily tramadol 50 mg tablet 50 mg PO Q4H PRN (Reason: Back Pain) Qty: 60 5RF gabapentin 300 mg capsule 900 mg PO BID Qty: 540 1RF trazodone 150 mg tablet See Rx Instructions .ROUTE .COMPLEX Qty: 90 1RF Dose Instruction: TAKE 1 TABLET BY MOUTH AT BEDTIME Rx Instructions: TAKE 1 TABLET BY MOUTH AT BEDTIME pantoprazole 40 mg tablet,delayed release (DR/EC) See Rx Instructions .ROUTE .COMPLEX Qty: 90 1RF Dose Instruction: TAKE 1 TABLET BY MOUTH ONCE DAILY IN THE MORNING Rx Instructions: TAKE 1 TABLET BY MOUTH ONCE DAILY IN THE MORNING amlodipine 5 mg tablet 5 mg PO DAILY Qty: 90 1RF Rx Instructions: Take 1 tablet by mouth once daily atorvastatin 80 mg tablet 80 mg PO DAILY Qty: 90 1RF empagliflozin 10 mg tablet 10 mg PO QAM Qty: 90 1RF azithromycin 250 mg tablet See Rx Instructions PO .COMPLEX Qty: 6 0RF Rx Instructions: For 250 mg dose pack: take 500 mg today (day 1), then 250 mg for 4 days (days 2-5) PO Follow-up/Referrals: Natalya Hobson MD [Primary Care Provider] -
[2024-05-12] MEDS: ACETAMINOPHEN 500 MG TABLET 1000 MG PO (10:13)
[2024-05-12] MEDS: diazePAM INJ (*CRX) 10 MG/2 ML SYRINGE 5 MG IM (10:14)
== END 2024-05-12 12:18 | disposition home or self-care (01) ==
PROVIDERS: Emergency Provider Physician Assistant; PCP Family Medicine
DX: M48.02 Spinal stenosis, cervical region (principal); G89.29 Other chronic pain
CPT/HCPCS: 72125; 96372; 99284; A9270; J3360

== ENCOUNTER 2024-08-07 10:01 | Outpatient (CLI) | payer MEDICARE, SELFPAY ==
--- OUTSIDE RECORDS SUMMARY | 2024-08-07 10:44 | XMS_ITS | Clinical Summary ---
Author Organization [employer] [id number] [facility] Address [address] [place] [address] Care Team Providers Care Doctor Of Chiropractic Name Role Phone Jonathan Ferraro MD Primary Care Provider [phone] Allergies Active Allergy Reactions Criticality Noted Date Comments Cat Dander Shortness of Breath/Wheezing High 019 Cigarette Smoke Shortness of Breath/Wheezing High Penicillins Unknown 05/20/2019 Medications atorvastatin (LIPITOR) 40 mg tablet TAKE 1 TABLET BY MOUTH ONCE DAILY 9 Active hydroCHLOROthiazi de 25 mg tablet TAKE 1 TABLET BY MOUTH ONCE DAILY 0 9 Active losartan (COZAAR) 100 mg tablet TAKE 1 TABLET BY MOUTH ONCE DAILY 0 9 Active montelukast (SINGULAIR) 10 mg tablet TAKE 1 TABLET BY MOUTH ONCE DAILY 9 Active pantoprazole (PROTONIX) 40 mg Tablet, Delayed Release (E.C.) Take 40 mg by mouth daily at bedtime. 9 Active traMADol (ULTRAM) 50 mg tablet TAKE 1 TABLET BY MOUTH EVERY 4 HOURS NEEDED FOR BACK PAIN 9 Active traZODone (DESYREL) 150 mg tablet Take 150 mg by mouth daily at bedtime. 9 Active zolpidem (AMBIEN) 10 mg tablet Take 10 mg by mouth daily at bedtime. 9 Active SUMAtriptan (IMITREX) 50 mg tablet Take 50 mg by mouth every 2 hours as needed for Headaches. may repeat in 2 hours; max dose 200mg in 24 hours Active cholecalciferol, vitamin D3, (VITAMIN D3 ORAL) Take 50 mcg by mouth. Active TURMERIC ORAL Take 1,000 mg by mouth. Active gabapentin (NEURONTIN) 300 mg capsuleIndication s:Spinal stenosis, lumbar region, without neurogenic claudication Take 1 Capsule (300 mg) by mouth 3 times daily. 60 Capsule 0 Active Active Problems Problem Noted Date Diagnosed Date Cervical spondylosis without myelopathy 05/19/20 19 Spinal stenosis, lumbar wenceslao on, without neurogenic claudication 05/19/2019 Family History Medical History Relation Name Comments Diabetes Father Heart Disease Father Other Mother Dementia, osteo arthritis, freq UTI, Septicemia Unknown Sister Relation Name Status Comments Father Mother Alive Sister Alive Social History Tobacco Use Types Packs/Day Years Used Date Smoking Tobacco: Never Smokeless Tobacco: Never Alcohol Use Standard Drinks/Week Comments Yes 0 (1 standard drink = 0.6 oz pur e alcohol) daily Sex and Gender Information Value Date Recorded Sex Assigned at Not on file Legal Sex Male 3:42 PM DIGITAL FORENSIC ANALYST Gender Identity Not on file Sexual Orientation Not on file Occupation Industry Job Start Date Job End Date Not on file Not on file Not on file Not on file Last Filed Vital Signs Vital Sign Reading Time Taken Comments Blood Pressure - - Pulse - - Temperature - - Respiratory Rate - - Oxygen Saturation - - Inhaled Oxygen Concentration - - Weight 100.7 kg (222 lb) 05/20/2019 2:54 PM DIGITAL FORENSIC ANALYST Height 177.8 cm (5' 10 ) 05/20/2019 2:54 PM DIGITAL FORENSIC ANALYST Body Mass Index 31.85 05/20/2019 2:54 PM DIGITAL FORENSIC ANALYST Plan of Treatment Health Maintenance Due Date Last Done Comments DTAP/TDAP/TD VACCINES (1 - Tdap) 1977 COLORECTAL SCREENING 09/29/2003 Colorectal Cancer Screening 09/29/2003 FIT-DNA Q 3 years 09/29/2003 FIT/FOBT Q 1 year 09/29/2003 Flex Sig/CT Colonography Q 5 years 09/29/2003 PNEUMOCOCCAL VACCINE 50+ YEARS (1 of 1 - PCV) 09/29/19 09 ZOSTER VACCINE (1 of 2) 2008 INFLUENZA VACCINE (#1) 2024 RSV VACCINE (60+ or ) (1 - 1-dose 75+ series) 2033 Care Teams Doctor Of Chiropractic Relationship Specialty Start Date End Date Jonathan Ferraro MD [address] [place] [address] PCP - General Family Practice 04/08/19
--- OUTSIDE RECORDS SUMMARY | 2024-08-07 10:44 | XMS_ITS | Continuity of Care Document ---
Author Organization [facility] Address [address] [place] [address] [address] [place] [address] Phone Care Team Providers Care Inspector Poising Name Role Phone Daniels OD, Compa Unavailable Unavailable Advance Directives Directive Yes / No Effective Date File Name No Information Encounters Encounter Description Practice Location Reason(s) For Visit Diagnoses Date Provider Providers Copied on Encounter [facility], [address], [place], [place], [id number], [place] tel:[phone] [facility] No Information May-0 3-200 1 Daniels OD Compa. [address] , [address], [place], [address], [place]. tel:[phone] Family History Family Member Type Diagnosis Age [...]
[2024-08-07 10:48] LABS: Hematocrit 43.7 % (42.0-52.0); Hemoglobin 13.4 g/dL (14.0-18.0); Mean Corpuscular HGB Conc 30.7 g/dl (32-36); Mean Corpuscular Hemoglobin 25.3 pg (26-34); Mean Corpuscular Volume 82.5 fl (80-100); Mean Platelet Volume 9.4 fl (7.4-10.4); Platelet Count Result 273 k/mm3 (150-375); Red Cell Distribution Width 15.6 % (11.5-14.5); White Blood Count 7.5 K/mm3 (4.5-10.0)
[2024-08-07 10:59] LABS: Albumin Level 4.4 g/dL (3.5-5.1); Anion Gap 10 mmol/L (4-12); Blood Urea Nitrogen 25 mg/dL (9-20); Calcium 9.7 mg/dL (8.4-10.2); Carbon Dioxide 28 mmol/L (22-30); Chloride 106 mmol/L (98-107); Estimated Glomerular Filt Rate 46; Glucose 126 mg/dL (65-110); Phosphorus 2.8 mg/dL (2.5-4.5); Sodium 144 mmol/L (137-145)
[2024-08-07 11:21] LABS: Creatinine Urine 324.7 mg/dL
[2024-08-07 11:25] LABS: Parathyroid Intact 29.5 pg/mL (14.5-75.2)
[2024-08-07 12:36] LABS: Total Protein Urine Random < 5 mg/dL; Ur Ttl Prot Creatinine Ratio < 0.02 mg/mg (0-0.20)
== END 2024-08-07 10:02 | disposition home or self-care (01) ==
PROVIDERS: PCP Family Medicine; Visit Provider Internal Medicine Nephrology
DX: N18.32 Chronic kidney disease, stage 3b (principal); M54.16 Radiculopathy, lumbar region
CPT/HCPCS: 36415; 80069; 82570; 83970; 84156; 85027

== ENCOUNTER 2024-08-09 09:43 | Emergency (ER) | payer MEDICARE, SELFPAY ==
--- OUTSIDE RECORDS SUMMARY | 2024-08-09 09:45 | XMS_ITS | Continuity of Care Document ---
Author Organization [facility] Address [address] [place] [address] [address] [place] [address] Phone Care Team Providers Care Rebeamer Name Role Phone Daniels OD, Compa Unavailable Unavailable Advance Directives Directive Yes / No Effective Date File Name No Information Encounters Encounter Description Practice Location Reason(s) For Visit Diagnoses Date Provider Providers Copied on Encounter [facility], [address], [place], [place], [id number], [place] tel:[phone] [facility] No Information May-0 3-200 1 Daniels OD Compa. [address] , [address], [place], [address], [place]. tel:[phone] Family History Family Member Type Diagnosis Age [...]
--- OUTSIDE RECORDS SUMMARY | 2024-08-09 09:45 | XMS_ITS | Clinical Summary ---
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
--- OUTSIDE RECORDS SUMMARY | 2024-08-09 09:46 | XMS_ITS | Continuity of Care Document ---
Author Organization [facility] Address [address] [place] [address] [address] [place] [address] Phone Care Team Providers Care Dye Padder Operator Name Role Phone Daniels OD, Compa Unavailable Unavailable Advance Directives Directive Yes / No Effective Date File Name No Information Encounters Encounter Description Practice Location Reason(s) For Visit Diagnoses Date Provider Providers Copied on Encounter [facility], [address], [place], [place], [id number], [place] tel:[phone] [facility] No Information May-0 3-200 1 Daniels OD Compa. [address] , [address], [place], [address], [place]. tel:[phone] Family History Family Member Type Diagnosis Age [...]
--- NOTE | 2024-08-09 09:47 | ED.ABDPAIN ---
HPI - Abdominal Pain General Chief Complaint: Nausea/Vomiting/Diarrhea Stated Complaint: GI Issues Time Seen by Provider: 08/09/24 09:47 Source: patient, RN notes reviewed and old records reviewed Mode of arrival: ambulatory Limitations: no limitations History of Present Illness HPI narrative: patient presents with complaints of diarrhea for the past 3 days. He denies any nausea, vomiting, constipation, abdominal pain. He denies any fever, chills, sweats. He reports several episodes per day of liquid stool. Continues to urinate as normal. Does report that he is having diarrhea almost every time that he tries to eat, yet has no abdominal cramping. Is taking p.o. fluids without any difficulty. Denies all other complaints at this time. Is not in any obvious distress Related Data Home Medications ?Medication ?Instructions ?Recorded ?Confirmed ?Last Taken ?Type sodium chloride 2 % eye drops 1 drop ophthalmic (eye) DAILY 04/28/19 06/01/24 05/01/21 History (Ernesto 128) turmeric root extract 500 mg 500 mg PO HS 11/29/20 06/01/24 04/25/24 History capsule sumatriptan succinate 50 mg tablet 50 mg PO ONCE PRN migraine headache 04/12/21 06/01/24 05/01/21 History (Imitrex) mecobalamin (vitamin B12) 1,000 1,000 mcg sublingual DAILY 01/19/22 06/01/24 04/25/24 History mcg disintegrating tablet,sublingual Allergies Allergy/AdvReac Type Severity Reaction Status Date / Time Penicillins Allergy Unknown Childhood Verified 08/09/24 09:45 Reaction Review of Systems Review of Systems: All systems reviewed & are unremarkable except as noted in HPI and below Constitutional: Constitutional: Reports no additional constitutional complaints ENT: Reports system reviewed and no additional complaints, except as documented Cardiovascular: Cardiovascular: Reports no additional cardiovascular complaints Respiratory: Respiratory: Reports no additional respiratory complaints Gastrointestinal: Gastrointestinal: Reports no additional gastrointestinal complaints and Reports diarrhea PMFSH Past Medical History Medical History Right nephrolithiasis Rosacea, acne Ankle pain, right Plantar fasciitis of right foot Keratosis pilaris Contracture of palmar fascia (Dupuytren's) Chronic narcotic use Cervical radiculopathy, acute Cervical spondylosis Gastric ulcer, acute with hemorrhage Chronic migraine w/o aura w/o status migrainosus, not intractable Tubular adenoma of colon Surgical History Surgical History H/O hemorrhoidectomy 04/29/24 Proctosigmoidoscopy to 20 cm, excision single column left lateral internal and external hemorrhoids, rubber-band ligation right anterior internal hemorrhoids, rubber-band ligation right posterior internal hemorrhoids Dr. Zarco H/O umbilical hernia repair w mesh 08/02/21 History of cholecystectomy History of laparoscopic cholecystectomy 06/17/19 Hx of wisdom tooth extraction H/O hernia repair Family History Family History Father Diabetes mellitus Family history of hypercholesterolemia Hypertension Family history of cardiovascular disease Family history of elevated blood lipids Acute myocardial infarction Family history of coronary artery disease Mother Family history of osteoporosis Family history of migraine headaches Hypertension Grandparent Malignant neoplasm of prostate Family history of lung cancer Other Family history of malignant neoplasm of stomach Social History Social History Smoking status: Never smoker Second hand tobacco smoke exposure: Yes Alcohol intake: current Drinks per week: 2 Substance use: current Substance use type: marijuana Other substance usage details: Gummies to sleep Do You Feel Safe in your Home?: Yes Lack of Transportation: No Lack of Food: Never True Current Housing: I Have Housing Concerned About Future Housing: No Difficulty Paying Gas/Electric Bills: No Difficulty Paying for Meds: No Currently Unemployed: No Education: Bachelor's Degree Difficulty w/ Childcare or Family Care: No Living arrangements: with family Additional living arrangements comments: Gender identity (if verbalized by the patient): Male Spiritual care concerns: No Comments At the time of my signature, I reviewed and agree with the nursing past medical, surgical, social, and family history. There is no relevant family history pertinent to the patient complaint. Exam Const: General: cooperative, no acute distress, alert and awake Orientation/consciousness: oriented to person, oriented to place and oriented to time HENMT: Head: normal to inspection Mouth: Yes moist mucous membranes Resp: Effort & Inspection: normal respiratory effort and able to speak in complete sentences Auscultation: clear to auscultation bilaterally, no crackles, no rales, no rhonchi and no wheezes Cardio: Palpation: normal PMI Rate: regular rate Rhythm: regular rhythm Heart sounds: S1 normal heart sound present and S2 normal heart sound present GI: GI Palp: Yes Soft to palpation, No Tenderness to palpation present (GI) and No Guarding due to palpation present (GI) Auscultation: normal bowel sounds Neuro: General: oriented to person, oriented to place and oriented to time Cranial nerves: Yes CN's II-XII intact bilaterally Psych: Appearance: grossly normal Thought process: Normal thought process present Insight: Good insight present (Psych) Judgement: Good judgement present (Psych) Course Course Level of Care: Express Care Visit Vital Signs Vital signs: Reviewed MDM - Abdominal Pain MDM Narrative Medical decision making narrative: reassuring physical exam. No abdominal pain. Start Lomotil, patient already has follow-up appointment scheduled with PCP he is advised to keep this, emergency department for new or worse symptoms. Discharge instructions reviewed with patient, as well as provided in writing per nursing staff. The instructions also include specific and strict return/GO TO THE ER as well as f/u information. All questions have been answered, and the patient deny any further questions with discharge and discharge plan. Some parts of this dictation were generated by voice recognition software and may contain typographical and/or grammatical inaccuracies. Differential Diagnosis Differential diagnosis: Likely constipation, diverticulitis and gastroenteritis Medical Records Attestation: I reviewed the patient's medical records. Discharge Plan Discharge Clinical Impression: Diarrhea Qualifiers: Diarrhea type: unspecified type Qualified Code(s): R19.7 - Diarrhea, unspecified Patient Disposition: Home, Self-Care Condition: Stable Instructions: Antibiotic Form, Acute Diarrhea (ED) Additional Instructions: Keep scheduled appointments with her specialist and primary care provider. Emergency department for new or worse symptoms Patient Language: Marshallese Prescriptions: New diphenoxylate-atropine [Lomotil] 2.5-0.025 mg tablet 1 tablet PO TID PRN (Reason: diarrhea) Qty: 10 0RF No Action Ernesto 128 2 % drops 1 drop EACH EYE DAILY mecobalamin (vitamin B12) 1,000 mcg tablet,disintegrating 1,000 mcg sublingual DAILY Rx Instructions: place tablet under tongue and allow to dissolve for at least30 secs before swallowing turmeric root extract 500 mg capsule 500 mg PO HS methylprednisolone 4 mg tablets,dose pack See Rx Instructions .ROUTE .COMPLEX Qty: 21 0RF Rx Instructions: orally per package directions sumatriptan succinate [Imitrex] 50 mg tablet 50 mg PO ONCE PRN (Reason: migraine headache) ferrous sulfate 325 mg (65 mg iron) tablet 325 mg PO DAILY Qty: 90 1RF Patient Comments: weekend only (DME) cpap See Rx Instructions .Route .MEDSUPPLY Qty: 1 0RF Rx Instructions: Needs reassessment of mask, device, straps and supplies. (DME) cpap See Rx Instructions .Route .MEDSUPPLY Qty: 1 0RF Rx Instructions: cpap with heated humidifier, tubing, supplies, medium AirFit F20 full face mask. Setting: at 7cm water with heated humidifier diclofenac sodium 75 mg tablet,delayed release (DR/EC) 75 mg PO BID Qty: 180 1RF montelukast 10 mg tablet See Rx Instructions .ROUTE .COMPLEX Qty: 90 3RF Dose Instruction: Take 1 tablet by mouth once daily Rx Instructions: Take 1 tablet by mouth once daily tramadol 50 mg tablet 50 mg PO Q4H PRN (Reason: Back Pain) Qty: 60 5RF gabapentin 300 mg capsule 900 mg PO BID Qty: 540 1RF trazodone 150 mg tablet See Rx Instructions .ROUTE .COMPLEX Qty: 90 1RF Dose Instruction: TAKE 1 TABLET BY MOUTH AT BEDTIME Rx Instructions: TAKE 1 TABLET BY MOUTH AT BEDTIME pantoprazole 40 mg tablet,delayed release (DR/EC) See Rx Instructions .ROUTE .COMPLEX Qty: 90 1RF Dose Instruction: TAKE 1 TABLET BY MOUTH ONCE DAILY IN THE MORNING Rx Instructions: TAKE 1 TABLET BY MOUTH ONCE DAILY IN THE MORNING amlodipine 5 mg tablet 5 mg PO DAILY Qty: 90 1RF Rx Instructions: Take 1 tablet by mouth once daily atorvastatin 80 mg tablet 80 mg PO DAILY Qty: 90 1RF empagliflozin 10 mg tablet 10 mg PO QAM Qty: 90 1RF azithromycin 250 mg tablet See Rx Instructions PO .COMPLEX Qty: 6 0RF Rx Instructions: For 250 mg dose pack: take 500 mg today (day 1), then 250 mg for 4 days (days 2-5) PO hydrochlorothiazide 25 mg tablet 25 mg PO DAILY Qty: 90 1RF diazepam [Valium] 5 mg tablet 5 mg PO .COMPLEX Qty: 30 0RF Rx Instructions: 5 mg orally; BID and prn back spasm losartan 100 mg tablet See Rx Instructions .ROUTE .COMPLEX Qty: 90 0RF Dose Instruction: Take 1 tablet by mouth once daily Rx Instructions: Take 1 tablet by mouth once daily Follow-up/Referrals: Natalya Hobson MD [Primary Care Provider] - 3 Days Time of Disposition: 10:01
[2024-08-09 09:50] VITALS: BP 121/65; PULSE 92; RESP 18; TEMP 36.7; O2SAT 92
== END 2024-08-09 10:02 | disposition home or self-care (01) ==
PROVIDERS: Emergency Provider Nurse Practitioner Family; PCP Family Medicine
DX: R19.7 Diarrhea, unspecified (principal); M47.22 Other spondylosis with radiculopathy, cervical region
CPT/HCPCS: 99213; G0463

== ENCOUNTER 2024-08-19 07:16 | Outpatient (CLI) | payer MEDICARE, SELFPAY ==
--- OUTSIDE RECORDS SUMMARY | 2024-08-19 07:20 | XMS_ITS | Continuity of Care Document ---
Author Organization [facility] Address [address] [place] [address] [address] [place] [address] Phone Care Team Providers Care Diamond Powder Mixer Name Role Phone Daniels OD, Compa Unavailable Unavailable Advance Directives Directive Yes / No Effective Date File Name No Information Encounters Encounter Description Practice Location Reason(s) For Visit Diagnoses Date Provider Providers Copied on Encounter [facility], [address], [place], [place], [id number], [place] tel:[phone] [facility] No Information May-0 3-200 1 Daniels OD Compa. [address] , [address], [place], [address], [place]. tel:[phone] Family History Family Member Type Diagnosis Age [...]
--- OUTSIDE RECORDS SUMMARY | 2024-08-19 07:21 | XMS_ITS | Clinical Summary ---
Author Organization [facility] [address] [facility] Address [address] [place] [address] Care Team Providers Care Curve Cleaner Name Role Phone Jonathan Ferraro MD Primary Care Provider [phone]- [phone] Allergies Active Allergy Reactions Criticality Noted Date [...] on file Legal Sex Male 3:42 PM MAT MAKER Gender Identity Not on file Sexual Orientation [...] 100.7 kg (222 lb) 05/20/2019 2:54 PM MAT MAKER Height 177.8 cm (5' 10 ) 05/20/2019 2:54 PM MAT MAKER Body Mass Index 31.85 05/20/2019 2:54 PM MAT MAKER Plan of Treatment Health Maintenance Due Date [...] - 1-dose 75+ series) 2033 Care Teams Curve Cleaner Relationship Specialty Start Date End Date Jonathan Ferraro MD [address] [place] [address] PCP - General Family Practice 04/08/19
[2024-08-19 08:22] LABS: Cholesterol 139 mg/dL (0-200); HDL Direct 27 mg/dL; Triglycerides 388 mg/dL (<150)
[2024-08-19 08:33] LABS: LDL Cholesterol Direct 55 mg/dL
[2024-08-19 08:51] LABS: Prostate Specific Antigen 3.4 ng/mL (< OR = 4.0)
[2024-08-19 08:54] LABS: Hemoglobin A1C 6.2 % (<5.7)
== END 2024-08-19 07:17 | disposition home or self-care (01) ==
LOC: ANHLAB 07:16
PROVIDERS: PCP Family Medicine; Visit Provider Student in an Organized Health Care Education/Training Program
DX: R73.03 Prediabetes (principal); E78.1 Pure hyperglyceridemia; E78.2 Mixed hyperlipidemia; Z12.5 Encounter for screening for malignant neoplasm of prostate
CPT/HCPCS: 36415; 80061; 83036; 84153; 84443; G0103

== ENCOUNTER 2024-09-07 08:08 | Outpatient (CLI) | payer MEDICARE, SELFPAY ==
--- OUTSIDE RECORDS SUMMARY | 2024-09-07 08:19 | XMS_ITS | Clinical Summary ---
Author Organization [facility] [address] [facility] Address [address] [place] [address] Care Team Providers Care Nitric Acid Concentrator Operator Name Role Phone Jonathan Ferraro MD Primary Care Provider [phone] Allergies Active Allergy Reactions Criticality Noted Date [...] on file Legal Sex Male 3:42 PM STUDY ABROAD COORDINATOR Gender Identity Not on file Sexual Orientation [...] 100.7 kg (222 lb) 05/20/2019 2:54 PM STUDY ABROAD COORDINATOR Height 177.8 cm (5' 10 ) 05/20/2019 2:54 PM STUDY ABROAD COORDINATOR Body Mass Index 31.85 05/20/2019 2:54 PM STUDY ABROAD COORDINATOR Plan of Treatment Health Maintenance Due Date [...] - 1-dose 75+ series) 2033 Care Teams Nitric Acid Concentrator Operator Relationship Specialty Start Date End Date Jonathan Ferraro MD [address] [place] [address] PCP - General Family Practice 04/08/19
--- OUTSIDE RECORDS SUMMARY | 2024-09-07 08:19 | XMS_ITS | Continuity of Care Document ---
Author Organization [facility] Address [address] [place] [address] [address] [place] [address] Phone Care Team Providers Care Glassware Verifier Name Role Phone Daniels OD, Compa Unavailable Unavailable Advance Directives Directive Yes / No Effective Date File Name No Information Encounters Encounter Description Practice Location Reason(s) For Visit Diagnoses Date Provider Providers Copied on Encounter Located within [facility], [address], [place], [place], [id number], [place] tel:[phone] [facility]3] No Information May-0 3-200 1 Daniels OD Compa. [address] , [address], [place], [address], [place]. tel:[phone] Family History Family Member Type Diagnosis Age [...]
[2024-09-07 08:36] LABS: Anion Gap 9 mmol/L (4-12); Blood Urea Nitrogen 24 mg/dL (9-20); Calcium 8.6 mg/dL (8.4-10.2); Carbon Dioxide 29 mmol/L (22-30); Chloride 105 mmol/L (98-107); Estimated Glomerular Filt Rate 26; Glucose 108 mg/dL (65-110); Sodium 143 mmol/L (137-145)
== END 2024-09-07 08:09 | disposition home or self-care (01) ==
PROVIDERS: PCP Family Medicine; Visit Provider Family Medicine
DX: N18.32 Chronic kidney disease, stage 3b (principal)
CPT/HCPCS: 36415; 80048

== ENCOUNTER 2024-09-23 08:16 | Outpatient (CLI) | payer MEDICARE, SELFPAY ==
--- NOTE | ~2024-09-23 | MR_ITS ---
MRI of the cervical spine Clinical History: Cervicalgia Technique: Axial T2-weighted and gradient images, and sagittal T1-weighted, T2-weighted, and STIR souleymane ges were acquired. Findings: There is straightening of the normal cervical lordosis, with probable minimal grade 1 anter olisthesis of C4 over C5. No fracture evident. No suspicious bone marrow signal abnormality seen. At C2-C3, there is no disc bulge or herniation. No spinal canal stenosis or cord compression. There i s bilateral facet arthropathy, left worse than right, probable minimal left neural foraminal narrowin g. At C3-C4, there is disc osteophyte complex, most prominent at the left foraminal region, with bilater al facet arthropathy. There is severe left neural foraminal narrowing, and moderate to severe right n eural foraminal narrowing. There is mild canal stenosis with minimal flattening of the left side of t he ventral cord. At C4-C5, there is minimal disc osteophyte compresses. There is bilateral facet arthropathy with bila teral neural foraminal narrowing. There is minimal canal stenosis without leilani cord compression. At C5-C6, there is severe degenerative disc narrowing. There is disc osteophyte complex results in mo derate canal stenosis and cord compression. There is bilateral neural foraminal narrowing. At C6-C7, there is advanced degenerative disc narrowing. There is disc osteophyte compresses moderate canal stenosis and mild cord compression. There is advanced bilateral neural foraminal narrowing, ri ght worse than left. No abnormal signal evident in the spinal cord. Paravertebral soft tissues are unremarkable. Impression: Severe degenerative spondylosis, worst at C5-C6. Please see details above. There is moderate canal st enosis and cord compression at C5-C6, and moderate canal stenosis and mild cord compression at C6-C7. Multilevel neural foraminal narrowing. Reviewed, dictated and finalized at location . Impression: Severe degenerative spondylosis, worst at C5-C6. Please see details above. Ther e is moderate canal stenosis and cord compression at C5-C6, and moderate canal stenosis and mild cord compression at C6-C7. Multilevel neural foraminal narrow ing.
== END 2024-09-23 08:17 | disposition home or self-care (01) ==
LOC: MICIMG 08:16
PROVIDERS: PCP Family Medicine; Visit Provider Nurse Practitioner Adult Health
DX: M47.892 Other spondylosis, cervical region (principal)
CPT/HCPCS: 72141

== ENCOUNTER 2024-10-08 07:32 | Outpatient (CLI) | payer MEDICARE, SELFPAY ==
--- NOTE | ~2024-10-08 | XR_ITS ---
XR cervical spine 4-5V 10/08/2024 07:59 Indication: Disease of the spinal cord Procedure: 4 view cervical spine Comparison: 03/18/2019 Findings: Straightening of cervical lordosis. There is degenerative anterolisthesis at C4-5. There is disc narrowing and endplate hypertrophy at C5-6 and C6-7 with retrolisthesis at C5-6. Odontoid proce ss is normal. No significant alteration of alignment with flexion and extension. There is severe mult ilevel uncinate and facet hypertrophy. Mild dextrocurvature of the cervical spine. Lung apices are un remarkable. No prevertebral soft tissue abnormality. Impression: 1: Severe cervical spondylosis. Reviewed, dictated and finalized at location A. Impression: 1: Severe cervical spondylosis.
--- OUTSIDE RECORDS SUMMARY | 2024-10-08 07:36 | XMS_ITS | Continuity of Care Document ---
Author Organization [facility] Address [address] [place] [address] [address] [place] [address] Phone Care Team Providers Care Pleating Supervisor Name Role Phone Daniels OD, Compa Unavailable Unavailable Advance Directives Directive Yes / No Effective Date File Name No Information Encounters Encounter Description Practice Location Reason(s) For Visit Diagnoses Date Provider Providers Copied on Encounter [facility], [address], [place], [place], [id number], [place] tel:[phone] [facility] No Information May-0 3-200 1 Daniels OD Compa. [address] , [address], [place], [address], [place]. tel:[phone] Family History Family Member Type Diagnosis Age [...]
--- OUTSIDE RECORDS SUMMARY | 2024-10-08 07:36 | XMS_ITS | Clinical Summary ---
Author Organization [employer] [address] [facility] Address [address] [place] [address] Care Team Providers Care Rough And Trueing Machine Operator Name Role Phone Jonathan Ferraro MD Primary Care Provider [phone] Allergies Active Allergy Reactions Criticality Noted Date [...] on file Legal Sex Male 3:42 PM PUBLISHING MANAGER Gender Identity Not on file Sexual Orientation [...] 100.7 kg (222 lb) 05/20/2019 2:54 PM PUBLISHING MANAGER Height 177.8 cm (5' 10 ) 05/20/2019 2:54 PM PUBLISHING MANAGER Body Mass Index 31.85 05/20/2019 2:54 PM PUBLISHING MANAGER Plan of Treatment Health Maintenance Due Date [...] - 1-dose 75+ series) 2033 Care Teams Rough And Trueing Machine Operator Relationship Specialty Start Date End Date Jonathan Ferraro MD [address] [place] [address] PCP - General Family Practice 04/08/19
== END 2024-10-08 07:33 | disposition home or self-care (01) ==
PROVIDERS: PCP Family Medicine; Visit Provider Nurse Practitioner Adult Health
DX: G95.9 Disease of spinal cord, unspecified (principal); M47.892 Other spondylosis, cervical region
CPT/HCPCS: 72050

== ENCOUNTER 2024-10-29 11:52 | Outpatient (CLI) | payer MEDICARE, SELFPAY ==
--- NOTE | ~2024-10-29 | XR_ITS ---
Clinical Indication: Disease of spinal cord PA and lateral views of the chest: Comparison: 08/01/2018 Findings: The lungs are clear, aside from linear left basilar scarring, without evidence of focal con solidation or pleural effusion. Cardiomediastinal silhouette is within normal limits. Bones and soft tissues are unremarkable. Impression: Linear left basilar scarring, otherwise clear lungs. Reviewed, dictated and finalized at location M. Impression: Linear left basilar scarring, otherwise clear lungs.
--- OUTSIDE RECORDS SUMMARY | 2024-10-29 12:00 | XMS_ITS | Continuity of Care Document ---
Author Organization [facility] Address [id number] [place] [address] [address] [place] [address] Phone Care Team Providers Care Chainer Name Role Phone Daniels OD, Compa Unavailable Unavailable Advance Directives Directive Yes / No Effective Date File Name No Information Encounters Encounter Description Practice Location Reason(s) For Visit Diagnoses Date Provider Providers Copied on Encounter [facility], [address], [place], [place], [id number], [place] tel:[phone] [facility] No Information May-0 3-200 1 Daniels OD Compa. [address] , [address], [place], [address], [place]. tel:[phone] Family History Family Member Type Diagnosis Age [...]
--- OUTSIDE RECORDS SUMMARY | 2024-10-29 12:00 | XMS_ITS | Clinical Summary ---
Author Organization [employer] [address] [facility] Address [address] [place] [address] Care Team Providers Care Vp Care Management Name Role Phone Jonathan Ferraro MD Primary Care Provider [phone] Allergies Active Allergy Reactions Criticality Noted Date [...] on file Legal Sex Male 3:42 PM FRONT END MANAGER Gender Identity Not on file Sexual [...] 100.7 kg (222 lb) 05/20/2019 2:54 PM FRONT END MANAGER Height 177.8 cm (5' 10) 05/20/2019 2:54 PM FRONT END MANAGER Body Mass Index 31.85 05/20/2019 2:54 PM FRONT END MANAGER Plan of Treatment Health Maintenance Due [...] - 1-dose 75+ series) 2033 Care Teams Vp Care Management Relationship Specialty Start Date End Date Jonathan Ferraro MD [address] [place] [address] PCP - General Family Practice 04/08/19
[2024-10-29 13:12] LABS: Hematocrit 40.3 % (42.0-52.0); Hemoglobin 13.2 g/dL (14.0-18.0); Mean Corpuscular HGB Conc 32.8 g/dl (32-36); Mean Corpuscular Hemoglobin 27.4 pg (26-34); Mean Corpuscular Volume 83.6 fl (80-100); Mean Platelet Volume 9.1 fl (7.4-10.4); Platelet Count Result 277 k/mm3 (150-375); Red Blood Count 4.82 M/mm3 (4.6-6.20); Red Cell Distribution Width 15.6 % (11.5-14.5); White Blood Count 8.3 K/mm3 (4.5-10.0)
[2024-10-29 13:21] LABS: Anion Gap 10 mmol/L (4-12); Blood Urea Nitrogen 19 mg/dL (9-20); Calcium 9.6 mg/dL (8.4-10.2); Carbon Dioxide 28 mmol/L (22-30); Chloride 102 mmol/L (98-107); Estimated Glomerular Filt Rate 42; Glucose 111 mg/dL (65-110); Potassium 3.9 mmol/L (3.4-5.0); Sodium 140 mmol/L (137-145)
[2024-10-29 13:23] LABS: Partial Thromboplastin Time 27.8 Seconds (22.3-36.8)
[2024-10-29 14:04] LABS: Add Urine Microscopic? NO; Appearance Urine Clear (Clear); Bilirubin Urine Negative (Negative); Blood Urine Negative (Negative); Color Urine Yellow (Yellow); Glucose Urine UA Negative (Negative); Ketones Urine Negative (Negative); Leukocyte Esterase Ur Negative LEU/UL (Negative); Nitrate Urine Negative (Negative); Protein Urine Negative (Negative); Specific Grav Ur 1.018 (1.001-1.035); pH Urine 5.5 (5.0-9.0)
== END 2024-10-29 11:53 | disposition home or self-care (01) ==
LOC: ANHSURGERY 11:58
PROVIDERS: PCP Family Medicine; Visit Provider Neurological Surgery
DX: G95.9 Disease of spinal cord, unspecified (principal); Z01.818 Encounter for other preprocedural examination
CPT/HCPCS: 36415; 71046; 80048; 81003; 85027; 85610; 85730; 86850; 86900; 86901

== ENCOUNTER 2024-11-03 11:00 | Outpatient (RCR) | payer MEDICARE, SELFPAY ==
--- NOTE | 2024-10-09 10:03 | OPREHPOC ---
Outpatient Therapy Plan of Care This is a Multidisciplinary Plan of Care that may contain components documented by all disciplines (PT, OT, and ST.) PT Problem 1 PT Problem #1 Knowledge Deficit PT Goal 1 Goal / Goal Update *independent with HEP Target Visit 8 PT Problem 2 PT Problem #2 Pain PT Goal 1 Goal / Goal Update 1* pt report pain rating at worst of 3/10 2* radicular pain to R forearm at worst 3* radicular pain to L UE to elbow at worst Target Visit 8 PT Problem 3 PT Problem #3 Impaired Range of Motion PT Goal 1 Goal / Goal Update *improve cervical ROM for self care and driving ability 1* rotation R 60' 2* rotation L 60' Target Visit 8 PT Problem 4 PT Problem #4 Impaired Strength PT Goal 1 Goal / Goal Update * increase cervical/scapular strength: pt able to maintain shoulders in correct posture during PT session Target Visit 8
--- NOTE | 2024-10-09 10:03 | PTOPEVAL1 ---
Assessment and note entered by Nani Rae, PT Evaluation Information Assessment Status Evaluation ICD-10 Condition Codes (PT) Cervicalgia M54.2 Other ICD-10 Condition Codes ( cervical stenosis M48.02, radiculopathy cervical M PT) 54.12 Onset May 2024 Subjective Information chronic issues with neck pain and pain into UE's; gradual more pain and not driving much due to cannot turn head-- is driving most of the time; problems with cooking and home tasks; gardening- no longer able to cut the grass; dropping items with holding onto them had EMG- to have carpal tunnel surgery November 04 to see neurosurgeon about neck November 05 have not had PT for neck in the past activity: retired; home with Reported Pain Level Pain Score Self Report Additional Pain Score Comments pain range in the past week -09/10: cervical spine and L upper traps; radicular pain constant into R 2,3,4 fingers & L into forearm; to have carpal tunnel surgery in November have self limited to avoid pain in neck increase pain: turn head to drive, looking down to cook, food prep decrease pain: rest, not do painful activities, tramadol, valium sleeps on L side, can sleep through the night also have back pain and neuropathy in LE's Assessment PT Clinical Summary Isaias has multiple diagnosis- chronic back and neck pain radicular and stenosis. Constant radicular pain into R hands and L forearm. He reports most pain and limitation at this time with his neck-- driving and food prep. MRI report states multiple level DDD, EMG positive and scheduled for surgery R carpal tunnel in November and neurosurgeon consult in November for neck pain. Self assessment with Neck Disability Index rating of 28 % limitation in activity level. With the evaluation: decreased cervical rotation to R and L, painful cervical motions of rotation to L, flexion and extension; poor standing posture with rounded shoulders, forward head and elevated and forward R shoulder; Skilled PT services are indicated for modalities to decrease pain and tightness, therapeutic exercises to improve cervical-thoracic strength and cervical ROM with education for posture and HEP. Plan of Care Interventions Electrical Stimulation,Hot Pack/Cold Pack,Manual Therapy,Mechanical Traction,Neuro Re-education, Patient/Caregiver Education,Therapeutic Activities ,Therapeutic Exercise,Ultrasound,Other Other Interventions dry needling-- he agreed to; taping PT Services Indicated Yes Treatment Frequency and 2x/wk for 8 visits Duration These treatments will address the objective and functional deficits as defined above. The patient will be advanced safely and appropriately in order for the patient to progress towards his/her prior level of function. Additional exercises will be introduced and as well as a comprehensive home exercise program upon discharge, if needed, ?to ensure carryover of functional gains achieved in the clinic. This treatment plan has been reviewed and agreement upon by the patient.
--- NOTE | 2024-11-03 11:50 | OPREHPOC ---
Outpatient Therapy Plan of Care This is a Multidisciplinary Plan of Care that may contain components documented by all disciplines (PT, OT, and ST.) PT Problem 1 PT Problem #1 Knowledge Deficit PT Goal 1 Goal / Goal Update *independent with HEP 6-3-25 d/c goal met Target Visit 8 Progress Met PT Problem 2 PT Problem #2 Pain PT Goal 1 Goal / Goal Update 1* pt report pain rating at worst of 3/10 2* radicular pain to R forearm at worst 3* radicular pain to L UE to elbow at worst -3-25 d/c goals not met Target Visit 8 Progress Not Met PT Problem 3 PT Problem #3 Impaired Range of Motion PT Goal 1 Goal / Goal Update *improve cervical ROM for self care and driving ability 1* rotation R 60' 2* rotation L 60' 6--25 d/c goals not met Target Visit 8 Progress Not Met PT Problem 4 PT Problem #4 Impaired Strength PT Goal 1 Goal / Goal Update * increase cervical/scapular strength: pt able to maintain shoulders in correct posture during PT session -3-25 d/c goal met Target Visit 8 Progress Met
--- NOTE | 2024-11-03 11:50 | PTOPDC ---
Assessment and note entered by Nani Rae, PT Assessment Status Discharge ICD-10 Condition Codes (PT) Cervicalgia M54.2 Other ICD-10 Condition Codes ( cervical stenosis M48.02, radiculopathy cervical M PT) 54.12 Onset May 2024 Subjective Information scheduled for surgery next week: anterior cervical discectomy and fixation C 4-5-6-7; have been doing less activity, to avoid neck pain; Reported Pain Level Pain Score Self Report Additional Pain Score Comments pain range in the past week 0-3/10; radicular pain into R 3rd > L 3rd finger numbness have been avoiding activities that cause pain: yard work, heavy tasks, lifting; Assessment PT Clinical Summary Isaias has received 7 PT sessions. With today's assessment: pain rating 0-3/10 with radicular pain into both R and L UE with numbness of 3rd finger; continues to have symptoms into back and LE also; self assessment Neck Index rating of 38% limitation in activity level; cervical rotation to R 50'/ L 40' with pain increase; improved posture awareness and positioning in sitting and sleeping; education for HEP and posture completed. The goals were partially met. Discharge PT services. He is to have cervical surgery next week. Plan of Care PT Services Indicated No
== END 2024-11-03 14:00 | disposition home or self-care (01) ==
LOC: ANHPT 11:00
PROVIDERS: PCP Family Medicine; Visit Provider Anesthesiology Pain Medicine
DX: M54.16 Radiculopathy, lumbar region (principal); M48.062 Spinal stenosis, lumbar region with neurogenic claudication; M47.817 Spondylosis without myelopathy or radiculopathy, lumbosacral region; M54.2 Cervicalgia; M54.50 Low back pain, unspecified; M54.12 Radiculopathy, cervical region; M48.02 Spinal stenosis, cervical region
CPT/HCPCS: 97110; 97140; 97161; 97530

== ENCOUNTER 2024-11-11 01:31 | Day surgery (SDC) | payer MEDICARE, SELFPAY ==
[2024-10-29 12:12] VITALS: BP 138/75; PULSE 75; RESP 16; TEMP 37.2; O2SAT 99; BMI 32.8
--- NOTE | 2024-10-29 12:30 | PC.NURSE ---
Report to the Outpatient Waiting Room, entrance under the green pavilion located off [facility], at time ___8:30AM____ on date __11/11/24 . Planned Procedure Time: ___10:30AM .? Time changes happen often and if your time is changed the preop area will call you the afternoon before. - You and your visitor will be asked to self-screen and do not enter if you have any COVID symptoms. Please call surgeon if you need to reschedule. - A mask is optional within the hospital at this time. Patients may have clear liquids (water, carbonated beverages, clear teas, apple juice) until 3 hours prior to surgery (7:30AM) with a maximum of 20 ounces. - No food from midnight until time of surgery and no smoking, or chewing tobacco (or any form of nicotine). No chewing gum, candy or mints. Take only the following medications with a SIP of water on the morning of surgery: ___AMLODIPINE, GABAPENTIN DO NOT STOP ANY OF YOUR OTHER PRESCRIPTION MEDICATIONS PRIOR TO SURGERY EXCEPT THE FOLLOWING Hold all vitamins and supplements for 3 days per anesthesiologist. LAST DOSE 11/07/24 Medications to discontinue per physician __HOLDING JARDIANCE CURRENTLY Date to take last dose Please no make-up, nail yoruba, hairspray, perfume, deodorant, or body powder the day of surgery.? No jewelry (including any body piercings) or valuables the day of surgery, leave them at home.? Please take a shower or bath the night before, or the morning of, surgery with an antibacterial soap.? Wear comfortable, loose fitting clothing.? - Jewelry must be removed prior to entering the operating room.? Rings and piercings that are not removed may be cut off. - The hospital will not accept responsibility for valuables.? - Please leave all valuables, including medications, at home the day of surgery. If you are going home after surgery, a licensed fork truck driver must drive you home.? - NO public transportation without another adult if you receive anesthesia. - We recommend that an adult stay with you for 24 hours following discharge. - We also recommend that you do not drive, make important decision, drink alcoholic beverages, or take any drugs that were not prescribed by your health care provider for at least 24 hours after your discharge time. Follow any additional instructions given to you from your surgeon. Telephone instructions given to ___PATIENT and asked if any additional questions and then verbalized understanding. Patient advised to call surgeon office or pre surgery nurse liaison [phone] if any additional questions.
[2024-11-11] VITALS (14 sets, daily range): BP systolic 113–136; BP diastolic 65–89; PULSE 70–88; RESP 13–20; TEMP 36.3–36.9; O2SAT 92–100
--- NOTE | ~2024-11-11 | XR_ITS ---
XR fluoroscopy no charge Indication: Anterior cervical discectomy with fusion TECHNIQUE: Fluoroscopy used during Anterior cervical discectomy with fusion performed by [Anya Bernabe MD] on 11/11/2024. 14 seconds of fluoroscopy with 2 fluoroscopic images captured. FINDINGS: Correlate with procedure note. IMPRESSION: Fluoroscopy used during Anterior cervical discectomy with fusion at C4-C7.. Reviewed, dictated and finalized at location []
--- OUTSIDE RECORDS SUMMARY | 2024-11-11 01:34 | XMS_ITS | Clinical Summary ---
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
--- OUTSIDE RECORDS SUMMARY | 2024-11-11 01:34 | XMS_ITS | Continuity of Care Document ---
Author Organization [facility] Address [id number] [place] [address] [address] [place] [address] Phone Care Team Providers Care Siding Installer Name Role Phone Daniels OD, Compa Unavailable Unavailable Advance Directives Directive Yes / No Effective Date File Name No Information Encounters Encounter Description Practice Location Reason(s) For Visit Diagnoses Date Provider Providers Copied on Encounter [facility], [address], [place], [place], [id number], [place] tel:[phone] [facility] No Information May-0 3-200 1 Daniels OD Compa. [address] , [address], [place], [address], [place]. tel:[phone] Family History Family Member Type Diagnosis Age [...]
--- NOTE | 2024-11-11 08:40 | WPDANESEPPF ---
Anes - Initial Pre Proc Eval Procedure: Operation Date: 11/11/24 10:30 Proposed Procedures p Anterior Cervical Discectomy and Fusion C4-5, C5-6, C6-7 - Anya Bernabe MD Date/Time: 11/11/24 08:40 Surgeon: Anya Bernabe MD Pre Op Diagnosis: cervical myelopathy, radiculopathy,spondyolithesis Patient Data Age: 64 Gender: M Height: 1.75 m Weight: 101 kg Last Vital Signs Temp 37.2 C 10/29/24 12:12 Pulse 75 10/29/24 12:12 Resp 16 10/29/24 12:12 BP 138/75 10/29/24 12:12 Pulse Ox 99 10/29/24 12:12 O2 Del Method Room Air 10/29/24 12:12 Allergies Allergy/AdvReac Type Severity Reaction Status Date / Time Penicillins Allergy Unknown Childhood Verified 11/11/24 07:44 Reaction NSAIDS (Non-Steroidal AdvReac Severe azotemia/ Verified 11/11/24 07:44 Anti-Inflamma gfr 26,creat 2.47 Home Medications ?Medication ?Instructions ?Recorded ?Confirmed ?Type sodium chloride 2 % eye drops 1 drop ophthalmic (eye) DAILY 04/28/19 10/29/24 History (Ernesto 128) turmeric root extract 500 mg 500 mg PO HS 11/29/20 10/29/24 History capsule sumatriptan succinate 50 mg tablet 50 mg PO ONCE PRN migraine headache 04/12/21 10/29/24 History (Imitrex) mecobalamin (vitamin B12) 1,000 1,000 mcg sublingual DAILY 01/19/22 10/29/24 History mcg disintegrating tablet,sublingual cpap #1 ea 06/25/23 10/29/24 Rx montelukast 10 mg tablet See Rx Instructions .Route 01/20/24 10/29/24 Rx .COMPLEX #90 tabs amlodipine 5 mg tablet 5 mg PO DAILY #90 tabs 02/19/24 10/29/24 Rx atorvastatin 80 mg tablet 80 mg PO DAILY #90 tabs 03/31/24 10/29/24 Rx empagliflozin 10 mg tablet 10 mg PO QAM #90 tabs 03/31/24 10/29/24 Rx diazepam 5 mg tablet (Valium) 5 mg PO .COMPLEX #30 tabs 06/18/24 10/29/24 Rx ferrous sulfate 325 mg (65 mg 325 mg PO .weekends only 08/11/24 10/29/24 History iron) tablet gabapentin 300 mg capsule 900 mg (3 x 300 mg) PO BID #540 08/20/24 10/29/24 Rx caps tramadol 50 mg tablet 50 mg PO Q4H PRN pain #60 tabs 08/20/24 10/29/24 Rx trazodone 150 mg tablet See Rx Instructions .Route 09/03/24 10/29/24 Rx .COMPLEX #90 tabs losartan 100 mg tablet See Rx Instructions .Route 10/02/24 10/29/24 Rx .COMPLEX #90 tabs pantoprazole 40 mg tablet,delayed 40 mg PO HS 10/29/24 10/29/24 History release hydrochlorothiazide 25 mg tablet 25 mg PO DAILY #90 tabs 11/09/24 Rx Patient hx anesthesia problems: none Family hx anesthesia problems: none Results Review: All pre-operative results and documents have been reviewed as part of the pre-operative evaluation. [facility] Past Medical History Medical History Right nephrolithiasis Rosacea, acne Ankle pain, right Plantar fasciitis of right foot Keratosis pilaris Contracture of palmar fascia (Dupuytren's) Chronic narcotic use Cervical radiculopathy, acute Cervical spondylosis Gastric ulcer, acute with hemorrhage Chronic migraine w/o aura w/o status migrainosus, not intractable Tubular adenoma of colon Surgical History Surgical History H/O hemorrhoidectomy 04/29/24 Proctosigmoidoscopy to 20 cm, excision single column left lateral internal and external hemorrhoids, rubber-band ligation right anterior internal hemorrhoids, rubber-band ligation right posterior internal hemorrhoids Dr. Zarco H/O umbilical hernia repair w mesh 08/02/21 History of cholecystectomy History of laparoscopic cholecystectomy 06/17/19 Hx of wisdom tooth extraction H/O hernia repair Family History Family History Father Diabetes mellitus Family history of hypercholesterolemia Hypertension Family history of cardiovascular disease Family history of elevated blood lipids Acute myocardial infarction Family history of coronary artery disease Mother Family history of osteoporosis Family history of migraine headaches Hypertension Grandparent Malignant neoplasm of prostate Family history of lung cancer Other Family history of malignant neoplasm of stomach Social History Social History Smoking status: Never smoker Second hand tobacco smoke exposure: Yes Alcohol intake: current Drinks per week: 14 Substance use: current Substance use type: marijuana Other substance usage details: CBD Gummies for sleep at nightly Last use: THC GUMMIES NEARLY NIGHTLY Do You Feel Safe in your Home?: Yes Lack of Transportation: No Lack of Food: Never True Current Housing: I Have Housing Concerned About Future Housing: No Difficulty Paying Gas/Electric Bills: No Difficulty Paying for Meds: No Currently Unemployed: No Education: Bachelor's Degree Difficulty w/ Childcare or Family Care: No Living arrangements: with family Additional living arrangements comments: Gender identity (if verbalized by the patient): Male Spiritual care concerns: No Anes - Eval Final PreProcedure Day of Procedure 11/11/24 08:40 Patient weight: obese Heart: regular rate and rhythm Lungs: decreased breath sounds Airway: Mallampati scale class III Neurological: alert and oriented Last oral intake: >/= 8 hours ASA classification: III Emergent: no Anesthetic plan: proceed Anesthesia type and monitoring: general ETT and standard monitoring Results Review: All pre-operative results and documents have been reviewed as part of the pre-operative evaluation. Informed Consent: The patient's anesthetic plan and its attendant risks and benefits were discussed with the patient/family/POA. Questions were solicited and answers provided to the satisfaction of the patient/family/POA.
[2024-11-11] MEDS: LACTATED RINGERS 1,000 ML 30 ML IV CONT ×2 (08:54→14:07)
--- NOTE | 2024-11-11 09:30 | WPDHPUPDATE1 ---
History and Physical Update Update Date/Time: 11/11/24 09:30 History and Physical has been reviewed, including an updated exam of the patient. There are NO changes in the patient's condition. Risks, benefits, and alternatives have been discussed and questions answered. Patient agrees to proceed with procedure.
[2024-11-11] MEDS: ceFAZolin 2 GM/D5W 50 ML 2 GM/50 ML BAG IVPB ×2 (09:52→16:59)
[2024-11-11] MEDS: BUPIVACAINE/EPINEPHRINE 0.5% 10 ML VIAL 30 ML INFILTRATE (10:20)
--- NOTE | 2024-11-11 14:09 | PM.OP ---
Procedure Note - Brief Procedure Note - Brief Date of procedure: 11/11/24 cervical myelopathy, radiculopathy,spondyolithesis Procedure performed: ACDF C4-7 Surgeon: Anya Bernabe MD Child Development Associate Teacher: Ten Anesthesia: GETA Findings: Challenging surgery due to multiple large osteophytes, collapsed disc spaces, and some mild calcification of the PLL Estimated blood loss (mL): 50 Drains: No Packing: No Pathology: None sent Complications: None Condition: Stable Disposition: PACU
--- NOTE | 2024-11-11 14:19 | W.PM.PROC2 ---
Procedure Note - Detailed Date of Procedure 11/11/24 Pre-op Diagnosis cervical myelopathy, radiculopathy,spondyolithesis Post-op Diagnosis Same Procedure Performed 1. Anterior cervical diskectomy C4-5, C5-6, C6-7 2. Anterior cervical arthrodesis C4-5, C5-6, C6-7 with Magnetos 3. Anterior cervical interbody placement at C4-5, C5-6, C6-7 4. Use of microscope for microsurgical dissection 5. Use of C-arm for fluoroscopy Surgeon Anya Bernabe MD Collection Systems Modeler Ten Anesthesia General Description of Procedure The patient was taken to the operating room and was transferred to the operating table in the supine position. General anesthesia was induced. Pressure points were appropriately padded, and compression devices were placed on the patient's calves. A shoulder roll was placed. The appropriate level was confirmed with the C-arm XR imaging. The patient was prepped and draped in usual sterile fashion. Perioperative antibiotics were given. Time out was performed. Local anesthesia was injected into the planned incision site. An incision was made with a 10-blade scalpel on the right side of the neck. The subcutaneous tissue was undermined above the platysma with the Metzenbaum scissors. The platysma was sharply opened horizontally. Bleeding was controlled with the bipolar. The avascular plane to the spine was dissected sharply. The anterior border of the spine was located and exposed with sharp and blunt dissection. A spinal needle was used to localize the C6-7 disc space; this was confirmed on fluoroscopy. The longus coli muscles were elevated bilaterally with a bovie. The C4-5, C5-6 and C6-7 disc spaces and vertebral bodies were exposed with the bovie. Exposure was difficult due to the presence of multiple large osteophytes which were partially obscuring the disc spaces. Once the C4, C5, C6, and C7 vertebral bodies and adjacent intervertebral discs were adequately exposed, self-retaining retractors were placed through the superior incision. [place] pins were placed in the C4 and C5 vertebral bodies and were distracted. A 15-blade scalpel was used to incise the C4-5 disc. A combination of Kerrisons, currettes, and pituitary instruments were used to remove each disc. The microscope was draped and brought into the surgical field. The removal of disc and osteophytes were completed using a high-speed drill, multiple Kerrison punches, and currettes. The posterior longitudinal ligament was opened with a nerve hook and kerrison rongeurs until the neuroforamen bilaterally were adequately decompressed. Interbody trial instruments were used to determine the appropriate size for the prosthetic vertebral interbody cage. Hemostasis was achieved in the disc space with floseal and cottonoid patties. A 6mm interbody was filled with Magnetos and placed at C4-5. The caspar pin was removed from C4 and replaced in C6. Wax was placed in the caspar pin site. This process was repeated at the C5-6 disc. The disc was removed as described above, and the posterior longitudinal ligament was opened until the neuroforamen bilaterally were adequately decompressed. Interbody trial instruments were used to determine the appropriate size for the prosthetic vertebral interbody cage. Hemostasis was achieved in the disc space. A 5mm interbody was filled with Magnetos and placed at C5-6. The caspar pin was removed from the C5 vertebral body and placed into the C7 vertebral body. The disc was removed as described above, and the posterior longitudinal ligament was opened until the neuroforamen bilaterally were adequately decompressed. Interbody trial instruments were used to determine the appropriate size for the prosthetic vertebral interbody cage. Hemostasis was achieved in the disc space. An 5mm interbody was filled with Magnetos and placed at C6-7. The [place] pins were removed, and bone wax was used for hemostasis. Osteophytes over the vertebral bodies were removed with a Leksell and high-speed drill. A 48mm plate was placed and secured with 14mm screws. C-arm was brought in which showed that the plate was sitting above the C5 and C6 vertebral bodies due to persistent osteophytes, and the cages at C4-5 and C6-7 were too anterior. Therefore, the plate was removed, and osteophytes were further removed to the anterior level of the vertebral body. The cage at C6-7 was removed so that a lateral osteophyte on the left side could be further removed to allow for better placement of the cage. The plate was replaced and secured with 14mm screws. Hardware placement appeared in a better position on c-arm. The surgical cavity was copiously irrigated; appropriate hemostasis was verified; and there was no evidence of dural tear/CSF leak. The platysma was closed with interrupted 3-0 Vicryl, followed by interrupted 3-0 Vicryl for the dermis, and 4-0 running subcuticular monocryl for the skin. Dermabond was placed. The patient was extubated, transferred to the bed, and taken to the PACU without incident. Billing codes 52378, [id number], [id number], [id number], [id number] Estimated Blood Loss 50 Drains No Packing No Pathology None sent Complications No immediate complications Condition Stable Disposition PACU [facility] Billing Surgery - Charge Forward: Surgery Billing
[2024-11-11] MEDS: fentaNYL CITRATE INJ (*CRX) 100 MCG/2 ML VIAL 25 MCG IV PUSH ×4 (14:42→15:01)
--- NOTE | 2024-11-11 16:07 | ADMGEN ---
This patient, Isaias Hair, was admitted to Medical Room 254-01. Patient/family oriented to hospital policies and general routines including ID bracelet, bed and alarms, visiting hours, pain management, procedures, bathroom and other care routines, personal items, smoking policy, room service/diet, and visiting hours. Information on how to activate the Rapid Response Team has been discussed. Patient/Family are encouraged to report perceived risks to care and to ask questions if they do not understand what they are told or what they should do.
[2024-11-11] MEDS: diazePAM (*CRX) 5 MG TABLET PO (16:27)
[2024-11-11] MEDS: GABAPENTIN 300 MG CAPSULE 900 MG PO (16:27)
[2024-11-11] MEDS: ACETAMINOPHEN 500 MG TABLET 1000 MG PO ×2 (16:27→20:12)
[2024-11-11] MEDS: SODIUM CHLORIDE 0.9% IV 1,000 ML 100 ML IV CONT (16:28)
[2024-11-11] MEDS: oxyCODONE HCL (*CRX) 5 MG TAB IR 10 MG PO ×2 (16:28→21:14)
[2024-11-11] MEDS: DOCUSATE SODIUM 100 MG CAPSULE PO (20:11)
[2024-11-11] MEDS: traZODone HCL 50 MG TABLET 150 MG BY MOUTH (20:11)
[2024-11-11] MEDS: PANTOPRAZOLE 40 MG TABLET PO (20:12)
[2024-11-12 00:40] VITALS: BP 118/54; PULSE 62; RESP 16; TEMP 36.5; O2SAT 97
[2024-11-12 01:13] VITALS: O2SAT 97
[2024-11-12] MEDS: ceFAZolin 2 GM/D5W 50 ML 2 GM/50 ML BAG IVPB ×2 (01:46→10:06)
[2024-11-12] MEDS: ACETAMINOPHEN 500 MG TABLET 1000 MG PO ×2 (01:48→08:15)
[2024-11-12 04:28] VITALS: O2SAT 97
[2024-11-12] MEDS: oxyCODONE HCL (*CRX) 5 MG TAB IR 10 MG PO (05:52)
[2024-11-12 07:20] VITALS: BP 120/65; PULSE 71; RESP 16; TEMP 36.7; O2SAT 97
[2024-11-12] MEDS: EMPAGLIFLOZIN 10 MG TABLET PO (08:14)
[2024-11-12] MEDS: LOSARTAN POTASSIUM 100 MG TABLET BY MOUTH (08:14)
[2024-11-12] MEDS: MONTELUKAST SODIUM 10 MG TABLET BY MOUTH (08:14)
[2024-11-12] MEDS: amLODIPine BESYLATE 5 MG TABLET PO (08:14)
[2024-11-12] MEDS: diazePAM (*CRX) 5 MG TABLET PO (08:14)
[2024-11-12] MEDS: ATORVASTATIN 40 MG TABLET 80 MG PO (08:14)
[2024-11-12] MEDS: CYANOCOBALAMIN 1,000 MCG TABLET 1000 MCG PO (08:15)
[2024-11-12] MEDS: GABAPENTIN 300 MG CAPSULE 900 MG PO (08:15)
--- NOTE | 2024-11-12 12:01 | PCOTNOTE ---
Attempted occupational therapy evaluation. Patient declines. Patient reports is aware of spinal precautions. Provided with resources for adaptive equipment to support spinal precautions and safety.
[2024-11-12] MEDS: oxyCODONE HCL (*CRX) 5 MG TAB IR PO (12:15)
[2024-11-12] MEDS: CYCLOBENZAPRINE HCL 10 MG TABLET PO (12:19)
--- NOTE | 2024-11-12 13:08 | P.PNNEUSUR_ITS ---
Progress Note: A&P Assessment and Plan (1) Status post cervical arthrodesis: Code(s): Z98.1 - Arthrodesis status Status: Acute Plan -Discharge home today -Wound care and activity precautions reviewed at bedside -Follow up with me in clinic in about 2 weeks as scheduled Subjective Date/time seen: 11/12/24 13:08 Interval history: Overall doing well with pain across the back of the shoulders. Some mild swallowing difficulty but able to swallow. Pain is being controlled with oral medications. He was able to walk today without difficulty. He wishes to go home Review of Systems Review of Systems: All systems reviewed & are unremarkable except as noted in HPI and below Exam Narrative: Incision c/d/i AOx4 Full strength in upper extremities Sensation intact to light touch Objective Data Vital Signs Vital Signs: Vital Signs - 24 hr 11/11/24 14:07 11/11/24 14:15 11/11/24 14:30 Temperature 97.8 F Pulse Rate 88 80 78 Respiratory Rate 13 16 16 Blood Pressure 121/79 135/84 116/65 Pulse Oximetry 97 98 98 Oxygen Delivery Simple Face Mask Simple Face Mask Simple Face Mask Oxygen Flow Rate 8 8 8 Fraction of Inspired Oxygen 11/11/24 14:45 11/11/24 15:00 11/11/24 15:15 Temperature Pulse Rate 71 86 83 Respiratory Rate 16 13 15 Blood Pressure 127/73 135/89 134/82 Pulse Oximetry 98 92 92 Oxygen Delivery Simple Face Mask Room Air Room Air Oxygen Flow Rate 8 Fraction of Inspired Oxygen 11/11/24 15:30 11/11/24 16:00 11/11/24 16:15 Temperature 97.6 F 97.6 F Pulse Rate 75 74 70 Respiratory Rate 16 20 18 Blood Pressure 129/87 113/76 115/70 Pulse Oximetry 92 94 95 Oxygen Delivery Room Air Oxygen Flow Rate Fraction of Inspired Oxygen 11/11/24 16:45 11/11/24 17:45 11/11/24 19:53 Temperature 97.6 F 97.4 F L Pulse Rate 77 87 76 Respiratory Rate 20 20 20 Blood Pressure 136/79 134/79 Pulse Oximetry 95 95 97 Oxygen Delivery Room Air Oxygen Flow Rate Fraction of Inspired Oxygen 21 11/11/24 20:16 11/12/24 00:40 11/12/24 01:13 Temperature 98.5 F 97.7 F Pulse Rate 74 62 Respiratory Rate 16 16 Blood Pressure 129/81 118/54 L Pulse Oximetry 100 97 97 Oxygen Delivery CPAP Oxygen Flow Rate Fraction of Inspired Oxygen 11/12/24 04:28 11/12/24 07:20 11/12/24 10:15 Temperature 98.0 F Pulse Rate 71 Respiratory Rate 16 Blood Pressure 120/65 Pulse Oximetry 97 97 Oxygen Delivery CPAP Room Air Oxygen Flow Rate Fraction of Inspired Oxygen Intake/Output Intake/Output: Intake & Output 11/09/24 11/10/24 11/11/24 11/12/24 23:59 23:59 23:59 23:59 Intake Total 710 930 Balance 710 930 Meds/Results Medications: Active Medications Generic Name Dose Route Start Last Admin Trade Name Freq PRN Reason Stop Dose Admin Acetaminophen 1,000 mg 11/11/24 14:15 11/12/24 08:15 Acetaminophen 500 Mg Tablet PO 1,000 mg Q6H AMADEO Administration Al Hydrox/Mg Hydrox/Simethicone 20 ml 11/11/24 14:13 Mag Hydrox/Al Hydrox/Simeth 30 Ml Udc PO Q4H PRN Indigestion/Heartburn Amlodipine Besylate 5 mg 11/12/24 09:00 11/12/24 08:14 Amlodipine Besylate 5 Mg Tablet PO 5 mg DAILY AMADEO Administration Atorvastatin Calcium 80 mg 11/12/24 09:00 11/12/24 08:14 Atorvastatin 40 Mg Tablet PO 80 mg DAILY AMADEO Administration Bisacodyl 10 mg 11/11/24 14:13 Bisacodyl 10 Mg Suppository RECTAL DAILY PRN Constipation Cyanocobalamin 1,000 mcg 11/12/24 09:00 11/12/24 08:15 Cyanocobalamin 1,000 Mcg Tablet PO 1,000 mcg DAILY AMADEO Administration Cyclobenzaprine HCl 10 mg 11/11/24 14:14 11/12/24 12:19 Cyclobenzaprine Hcl 10 Mg Tablet PO 10 mg TID PRN Administration Muscle Spasms Diazepam 5 mg 11/11/24 14:20 Diazepam (*Crx) 5 Mg Tablet PO PRN PRN BACK SPASM Diazepam 5 mg 11/11/24 17:00 11/12/24 08:14 Diazepam (*Crx) 5 Mg Tablet PO 5 mg BID AMADEO Administration Docusate Sodium 100 mg 11/11/24 21:00 11/12/24 08:18 Docusate Sodium 100 Mg Capsule PO Not Given Q12HR [facility] Ferrous Sulfate 325 mg 11/14/24 12:00 Ferrous Sulfate [address] PO 12/14/24 11:59 SuSa@1200 [facility] Gabapentin 900 mg 11/11/24 17:00 11/12/24 08:15 Gabapentin 300 Mg Capsule PO 900 mg BID AMADEO Administration Cefazolin Sodium 2 gm in 50 mls @ 100 mls/hr 11/11/24 18:00 11/12/24 10:06 Ancef 2 Gm/D5w 50 Ml IVPB 11/12/24 17:59 100 mls/hr Q8H AMADEO Administration Sodium Chloride 1,000 mls @ 100 mls/hr 11/11/24 14:15 11/11/24 16:28 Normal Saline Iv IV CONT 100 mls/hr .Q10H AMADEO Administration Losartan Potassium 100 mg 11/12/24 09:00 11/12/24 08:14 Losartan Potassium 100 Mg Tablet BY MOUTH 100 mg DAILY AMADEO Administration Montelukast Sodium 10 mg 11/12/24 09:00 11/12/24 08:14 Montelukast Sodium 10 Mg Tablet BY MOUTH 10 mg DAILY AMADEO Administration Morphine Sulfate 2 mg 11/11/24 14:14 Morphine Sulfate (*Crx) 2 Mg/Ml Inj IV PUSH Q2H PRN Breakthrough Pain Ondansetron HCl 4 mg 11/11/24 14:13 Ondansetron Inj 4 Mg/2 Ml Vial IV PUSH Q8H PRN Nausea And Vomiting Oxycodone HCl 5 mg 11/11/24 08:50 Oxycodone Hcl (*Crx) 5 Mg Tab Ir PO ONCE PRN Pain Oxycodone HCl 5 mg 11/11/24 14:14 11/12/24 12:15 Oxycodone Hcl (*Crx) 5 Mg Tab Ir PO 5 mg Q4H PRN Administration Pain Rated 4-6 Oxycodone HCl 10 mg 11/11/24 14:14 11/12/24 05:52 Oxycodone Hcl (*Crx) 5 Mg Tab Ir PO 10 mg Q4H PRN Administration Pain Rated 7-10 Pantoprazole Sodium 40 mg 11/11/24 21:00 11/11/24 20:12 Pantoprazole 40 Mg Tablet PO 40 mg HS AMADEO Administration Senna/Docusate Sodium 1 tab 11/11/24 14:13 Senna/Docusate Sodium Tablet PO HS PRN Constipation Sodium Chloride 1 drop 11/12/24 21:00 Sodium Chloride 2% Op Soln 15 Ml Btl EACH EYE HS AMADEO Sumatriptan Succinate 50 mg 11/11/24 14:16 Sumatriptan Succinate 25 Mg Tablet PO PRN PRN migraine headache Trazodone HCl 150 mg 11/11/24 21:00 11/11/24 20:11 Trazodone Hcl 50 Mg Tablet BY MOUTH 150 mg HS AMADEO Administration Radiology Results: ITS Impressions Fluoroscopy 11/12/24 08:11 IMPRESSION: Fluoroscopy used during Anterior cervical discectomy with fusion at C4-C7..
--- NOTE | 2024-11-12 13:36 | WPDANESPN ---
Anes - Prog Note Post-Op Date/Time: 11/12/24 13:36 Cardiovascular status: normal Respiratory status: normal Airway patency: baseline Mental status: baseline Post-Op hydration status: normal Vital Signs: Last Vital Signs Temp 98.0 F 11/12/24 07:20 Pulse 71 11/12/24 07:20 Resp 16 11/12/24 07:20 BP 120/65 11/12/24 07:20 Pulse Ox 97 11/12/24 07:20 O2 Del Method Room Air 11/12/24 10:15 O2 Flow Rate 8 11/11/24 14:45 FiO2 21 11/11/24 19:53 Pain Score (VAS): 0/10 I/O: Intake & Output 11/11/24 11/12/24 11/12/24 23:59 07:59 15:59 Intake Total 610 450 480 Balance 610 450 480 Post-procedural complaints: none Patient Feedback: Patient satisfied with anesthetic care.
== END 2024-11-12 13:33 | disposition home or self-care (01) ==
LOC: ANHSURGERY 14:19 → ANH2MED 15:48
PROVIDERS: PCP Family Medicine; Visit Provider Neurological Surgery
PROC: (CPT 63030; principal; 2024-11-11 10:30)
DX: M48.02 Spinal stenosis, cervical region (principal); M43.12 Spondylolisthesis, cervical region; M25.78 Osteophyte, vertebrae; I12.9 Hypertensive chronic kidney disease with stage 1 through stage 4 chronic kidney disease, or unspecified chronic kidney disease; N18.9 Chronic kidney disease, unspecified; J45.909 Unspecified asthma, uncomplicated; G43.709 Chronic migraine without aura, not intractable, without status migrainosus; F12.90 Cannabis use, unspecified, uncomplicated; Z79.891 Long term (current) use of opiate analgesic; Z98.890 Other specified postprocedural states; Z90.49 Acquired absence of other specified parts of digestive tract; Z86.0100 Personal history of colon polyps, unspecified; Z87.11 Personal history of peptic ulcer disease; Z80.42 Family history of malignant neoplasm of prostate; Z80.1 Family history of malignant neoplasm of trachea, bronchus and lung; Z80.0 Family history of malignant neoplasm of digestive organs; Z82.49 Family history of ischemic heart disease and other diseases of the circulatory system
CPT/HCPCS: 22551; 22552 ×2; 22853 ×3; 97161; 99199; A9270; C1713; J0330; J0690; J1100; J2405; J2704; J3010; J7030; J7120

== ENCOUNTER 2024-11-13 16:32 | Inpatient (IN) | payer MEDICARE, SELFPAY ==
[2024-11-13] VITALS (13 sets, daily range): BP systolic 91–157; BP diastolic 69–115; PULSE 59–99; RESP 14–22; TEMP 36.8–38; O2SAT 96–100; BMI 32.5
--- NOTE | ~2024-11-13 | XR_ITS ---
Portable chest x-ray Comparison: 11/18/2024 Clinical History: Respiratory failure Findings: Lungs are clear, without focal consolidation or pleural effusion. Cardiomediastinal silho uette is stable. Bones and soft tissues are unremarkable. Impression: Clear lungs. Reviewed, dictated and finalized at location . Impression: Clear lungs.
--- NOTE | ~2024-11-13 | XR_ITS ---
Portable chest x-ray Comparison: 11/17/2024 Clinical History: Respiratory failure Findings: Probable minimal left pleural effusion and/or left basilar atelectasis. Right lung clear. Cardiomediastinal silhouette is stable. Bones and soft tissues are unremarkable. Impression: Probable minimal left pleural effusion and/or left basilar atelectasis. Reviewed, dictated and finalized at [facility]. Impression: Probable minimal left pleural effusion and/or left basilar atelectasis.
--- NOTE | ~2024-11-13 | CT_ITS ---
CTA neck Ordering provider: Frank Vyas MD History: . s/p Anterior diskectomy, cant swallow . Comparison: None. Technique: CT angiogram neck was performed following timed intravenous injection of contrast. Thin sl ice axial images and reformatted coronal images were obtained. Three dimensional reformatted images o f the neck were also obtained using a [employer] workstation. Automated exposure control and iterative re construction technique were employed. The dose-length product was 603.73 mGy-cm. FINDINGS: RIGHT CERVICAL CAROTID ARTERY: Normal caliber and contour. Percent stenosis per NASCET criteria is 0 %. No carotid dissection. Otherwise, no significant atheromatous disease or stenosis of the cervical carotid system. LEFT CERVICAL CAROTID ARTERY: Normal caliber and contour. Percent stenosis per NASCET criteria is 0% . No carotid dissection. Otherwise, no significant atheromatous disease or stenosis of the cervical c arotid system. VISUALIZED BILATERAL INTRACRANIAL CAROTID ARTERIES: VERTEBRAL BASILAR SYSTEM: Normal caliber and contour VISUALIZED AORTIC ARCH AND BRANCHING VESSELS: Normal caliber and contour. No significant atheromatous disease. 1.4 cm lymph nodes are seen in the right paratracheal area. SOFT TISSUES: Prevertebral soft tissue swelling is seen extending from the level of C2 down to C7 wit h maximum changes opposite C3-C4. There are thickness is 3 cm. Severe narrowing of the opacity seen i n the area. Right posterior triangle lymph nodes seen with the largest measures 10 mm. Postoperative changes in the right anterior neck between the thyroid gland and the upper thyroid cart ilage. CERVICAL SPINE: Postoperative changes at the level of C4, C5-6, C6 and C7. Disc spacers are seen at t he level of C4-C5, C5 6 and C6-7. Retrolisthesis seen at the level of C5-C6 with anterolisthesis at the level of C4-C5. IMPRESSION: Normal CTA head and neck. Percent stenosis per NASCET criteria is 0%.. Prevertebral soft tissue swelling seen anterior to the vertebrae from C2 down to C7 with maximum son ges at the level of C3-C4 with a thickness measuring 3 cm. Severe Narrowing of the air passage is see n in the area. Dr. Vyas was notified with the result of the patient at 6:00 PM on November 13, 2024. Reviewed, dictated and finalized at location A. IMPRESSION: Normal CTA head and neck. Percent stenosis per NASCET criteria is 0%.. Prevertebral soft tissue swelling seen anterior to the vertebrae from C2 down t o C7 with maximum changes at the level of C3-C4 with a thickness measuring 3 cm . Severe Narrowing of the air passage is seen in the area. Dr. Vyas was notified with the result of the patient at 6:00 PM on November.
--- NOTE | ~2024-11-13 | CT_ITS ---
EXAMINATION: CT soft tissue neck chest wo DATE: 11/17/2024 10:04 INDICATION: Neck swelling TECHNIQUE: Computed tomography (CT) of the neck and chest was performed with 75 mL Omnipaque-350 intr avenous contrast. Automated exposure control and iterative reconstruction technique were employed. Th e dose-length product was 1115.36 mGy-cm. COMPARISON: Neck CT angiogram dated 11/13/2024 FINDINGS: NECK: Orbits are normal. The paranasal sinuses are clear. Mastoid air cells and middle ear cavities are joyce ar. Submandibular and parotid glands are symmetric. Thyroid gland is unremarkable. There are some mil d stranding and small amount of residual soft tissue gas at the right anterior neck consistent with p ostoperative change related to a recent C4-C7 instrumented anterior spinal fusion with interbody bone graft cages at each level and anterior plate-screw fixation. The previously seen prevertebral soft t issue swelling has significantly improved. Endotracheal tube with distal tip trachea 4.3 cm above the parminder. Nasogastric tube with distal tip in the stomach. Normal epiglottis. There are scattered norm al-sized lymph nodes in the neck, no lymphadenopathy. No masses identified. CHEST: Dependent atelectasis in both lungs most prominent at the posterior sulci of the bilateral lower lobe s. Trace bilateral pleural effusions. No pneumonia, pulmonary edema or pneumothorax. Few small calcif ied pulmonary nodules in the right lower lobe consistent with old granulomatous disease. Heart size i s normal. Small amount of atherosclerotic coronary artery calcific location. No pericardial effusion. Thoracic aorta is normal in caliber. No pathologically enlarged thoracic lymphadenopathy. Cholecyste ctomy clips the gallbladder fossa. Mild upper thoracic levoscoliosis with moderate spondylosis. Mild compensatory dextrocurvature with mild spondylosis in the more caudal mid to lower thoracic spine. IMPRESSION: 1. Interval decrease in the degree of cervical prevertebral soft tissue swelling likely related to re cent placement at C4-C7 anterior spinal fusion. No abscess. 2. Trace bilateral pleural effusions with dependent atelectasis in the bilateral lower lobes most pro minent at the posterior sulci. No other acute cardiopulmonary disease. Reviewed, dictated and finalized at location A. IMPRESSION: 1. Interval decrease in the degree of cervical prevertebral soft tissue swellin g likely related to recent placement at C4-C7 anterior spinal fusion. No absces s. 2. Trace bilateral pleural effusions with dependent atelectasis in the bilatera l lower lobes most prominent at the posterior sulci. No other acute cardiopulmo nary disease.
--- NOTE | ~2024-11-13 | XR_ITS ---
Portable chest x-ray Comparison: 11/16/2024 Clinical History: Respiratory failure Findings: Endotracheal tube and NG tube are in satisfactory positions. Probable minimal left pleural effusion and left basilar atelectatic change. Right lung clear. Cardiomediastinal silhouette is sta ble. Bones and soft tissues are unremarkable. Impression: Probable minimal left pleural effusion and left basilar atelectatic change. Stable support tubes. Reviewed, dictated and finalized at location . Impression: Probable minimal left pleural effusion and left basilar atelectatic change. Stable support tubes.
--- NOTE | ~2024-11-13 | XR_ITS ---
XR abdomen gastric tube insert Ordering provider: Belle Oneill MD History: . OG tube placement . Comparison: None. FINDINGS/impression: Nasogastric tube with the tip in the fundus of the stomach. Reviewed, dictated and finalized at location A.
--- NOTE | ~2024-11-13 | XR_ITS ---
Portable chest x-ray Comparison: 11/14/2024 Clinical History: Respiratory failure Findings: Endotracheal tube and NG tube are in place. Probable minimal left pleural effusion with le ft basilar atelectasis. Right lung clear. Cardiomediastinal silhouette is stable. Bones and soft tis sues are unremarkable. Impression: Minimal left pleural effusion with left basilar atelectasis. Support tubes, as above. Reviewed, dictated and finalized at location . Impression: Minimal left pleural effusion with left basilar atelectasis. Support tubes, as above.
--- NOTE | ~2024-11-13 | XR_ITS ---
Portable chest x-ray Comparison: 11/15/2024 Clinical History: Respiratory failure Findings: Endotracheal tube and NG tube are in satisfactory positions. Probable minimal left basilar pleural effusion and/or atelectasis. Right lung clear. Cardiomediastinal silhouette is stable. Bone s and soft tissues are unremarkable. Impression: Minimal left basilar effusion and/or atelectasis. Support tubes, as above. Reviewed, dictated and finalized at location . Impression: Minimal left basilar effusion and/or atelectasis. Support tubes, as above.
--- NOTE | ~2024-11-13 | XR_ITS ---
XR chest 1V portable 11/14/2024 05:38 Indication: Respiratory distress Procedure: AP portable chest Comparison: 10/29/2024 Findings: Endotracheal tube tip approximately 4.8 cm above the parminder. NG tube in the stomach. Bibasi lar infiltrates may represent atelectasis or pneumonia. No significant effusion. No pneumothorax. Impression: 1: Bibasilar infiltrates may represent atelectasis or less likely pneumonia. Reviewed, dictated and finalized at location B. Impression: 1: Bibasilar infiltrates may represent atelectasis or less likely pneumonia.
--- OUTSIDE RECORDS SUMMARY | 2024-11-13 16:34 | XMS_ITS | Clinical Summary ---
Author Organization [employer] [address] [facility] Address [address] [place] [address] Care Team Providers Care Salesperson Stereo Equipment Name Role Phone Jonathan Ferraro MD Primary Care Provider [phone] Allergies Active Allergy Reactions Criticality Noted Date [...] on file Legal Sex Male 3:42 PM SHIPPING ASSISTANT Gender Identity Not on file Sexual Orientation [...] 100.7 kg (222 lb) 05/20/2019 2:54 PM SHIPPING ASSISTANT Height 177.8 cm (5' 10) 05/20/2019 2:54 PM SHIPPING ASSISTANT Body Mass Index 31.85 05/20/2019 2:54 PM SHIPPING ASSISTANT Plan of Treatment Health Maintenance Due Date [...] - 1-dose 75+ series) 2033 Care Teams Salesperson Stereo Equipment Relationship Specialty Start Date End Date Jonathan Ferraro MD [address] [place] [address] PCP - General Family Practice 04/08/19
--- OUTSIDE RECORDS SUMMARY | 2024-11-13 16:34 | XMS_ITS | Continuity of Care Document ---
Author Organization [facility] Address [id number] [place] [address] [address] [place] [address] Phone Care Team Providers Care Past Due Accounts Clerk Name Role Phone Daniels OD, Compa Unavailable Unavailable Advance Directives Directive Yes / No Effective Date File Name No Information Encounters Encounter Description Practice Location Reason(s) For Visit Diagnoses Date Provider Providers Copied on Encounter Formerly [facility], [address], [place], [place], [id number], [place] tel:[phone] [facility] No Information May-0 3-200 1 Daniels OD Compa. [address] , [address], [place], [address], [place]. tel:[phone] Family History Family Member Type Diagnosis Age [...]
[2024-11-13 17:15] LABS: Basophils Percent Auto 0.3 % (0.2-1.2); Eosinophils Percent Auto 0.3 % (0-4.4); Hematocrit 41.4 % (42.0-52.0); Hemoglobin 13.3 g/dL (14.0-18.0); Immature Granulocyte Percent A 0.9 % (0-0.5); Lymphocytes Absolute Auto 0.52 K/mm3 (0.9-3.2); Lymphocytes Percent Auto 4.9 % (18.3-44.2); Mean Corpuscular HGB Conc 32.1 g/dl (32-36); Mean Corpuscular Hemoglobin 27.4 pg (26-34); Mean Corpuscular Volume 85.4 fl (80-100); Monocytes Absolute Auto 0.7 K/mm3 (0.1-0.6); Monocytes Percent Auto 6.2 % (2.6-8.5); Neutrophils Absolute Auto 9.3 K/mm3 (1.3-6.7); Neutrophils Percent Auto 87.4 % (45.5-73.1); Platelet Count Result 217 k/mm3 (150-375); Red Blood Count 4.85 M/mm3 (4.6-6.20); Red Cell Distribution Width 14.6 % (11.5-14.5); White Blood Count 10.7 K/mm3 (4.5-10.0)
--- NOTE | 2024-11-13 17:22 | ED.NECK ---
HPI - Neck Pain/Injury General Chief Complaint: Recheck/Abnormal Lab/Rx Stated Complaint: Post Op, Trouble Swalling Time Seen by Provider: 11/13/24 16:40 History of Present Illness HPI Narrative: 64-year-old male who is postop day 2 from a anterior cervical diskectomy and fusion of C4-C5, C5-C6, C6-C7 with Dr. Bernabe. Patient presents to the emergency department with worsening neck pain and swelling and difficulty swallowing and phonation changes. He tried calling the neurosurgeon's office and was prescribed a Medrol Dosepak. He took 1 pill and was immediately choking and threw it up. Patient knows that he has had some more swelling in his right side of the neck Neer's incisions but no drainage, incisions are clean dry and intact. His knows that he is having difficulty speaking and phonation changes and dyspnea but saturating well on room air. Patient endorses pain in his neck and difficulty swallowing, secretions intolerance and is frequently coughing when he tries to swallow. Related Data Home Medications ?Medication ?Instructions ?Recorded ?Confirmed ?Last Taken ?Type sodium chloride 2 % eye drops 1 drop ophthalmic (eye) DAILY 04/28/19 10/29/24 05/01/21 History (Ernesto 128) turmeric root extract 500 mg 500 mg PO HS 11/29/20 10/29/24 04/25/24 History capsule sumatriptan succinate 50 mg tablet 50 mg PO ONCE PRN migraine headache 04/12/21 10/29/24 05/01/21 History (Imitrex) mecobalamin (vitamin B12) 1,000 1,000 mcg sublingual DAILY 01/19/22 10/29/24 04/25/24 History mcg disintegrating tablet,sublingual ferrous sulfate 325 mg (65 mg 325 mg PO .weekends only 08/11/24 10/29/24 Unknown History iron) tablet pantoprazole 40 mg tablet,delayed 40 mg PO HS 10/29/24 10/29/24 Unknown History release Allergies Allergy/AdvReac Type Severity Reaction Status Date / Time Penicillins Allergy Unknown Childhood Verified 11/11/24 09:37 Reaction NSAIDS (Non-Steroidal AdvReac Severe azotemia/ Verified 11/11/24 09:37 Anti-Inflamma gfr 26,creat 2.47 Review of Systems Review of Systems: As reviewed above in HPI [facility] Past Medical History Medical History Right nephrolithiasis Rosacea, acne Ankle pain, right Plantar fasciitis of right foot Keratosis pilaris Contracture of palmar fascia (Dupuytren's) Chronic narcotic use Cervical radiculopathy, acute Cervical spondylosis Gastric ulcer, acute with hemorrhage Chronic migraine w/o aura w/o status migrainosus, not intractable Tubular adenoma of colon Surgical History Surgical History H/O neck surgery 11.11.24:Anterior cervical discectomy with fusion at C4-C7.. H/O hemorrhoidectomy 04/29/24 Proctosigmoidoscopy to 20 cm, excision single column left lateral internal and external hemorrhoids, rubber-band ligation right anterior internal hemorrhoids, rubber-band ligation right posterior internal hemorrhoids Dr. Zarco H/O umbilical hernia repair w mesh 08/02/21 History of cholecystectomy History of laparoscopic cholecystectomy 06/17/19 Hx of wisdom tooth extraction H/O hernia repair Family History Family History Father Diabetes mellitus Family history of hypercholesterolemia Hypertension Family history of cardiovascular disease Family history of elevated blood lipids Acute myocardial infarction Family history of coronary artery disease Mother Family history of osteoporosis Family history of migraine headaches Hypertension Grandparent Malignant neoplasm of prostate Family history of lung cancer Other Family history of malignant neoplasm of stomach Social History Social History Smoking status: Never smoker Second hand tobacco smoke exposure: Yes Alcohol intake: current Drinks per week: 7 Substance use: current Substance use type: marijuana Other substance usage details: CBD Gummies for sleep at nightly Last use: THC GUMMIES NEARLY NIGHTLY Do You Feel Safe in your Home?: Yes Lack of Transportation: No Lack of Food: Never True Current Housing: I Have Housing Concerned About Future Housing: No Difficulty Paying Gas/Electric Bills: No Difficulty Paying for Meds: No Currently Unemployed: No Education: Bachelor's Degree Difficulty w/ Childcare or Family Care: No Living arrangements: with family Additional living arrangements comments: Gender identity (if verbalized by the patient): Male Spiritual care concerns: No Exam Narrative: GENERAL: Uncomfortable appearing with dysphonia, coughing frequently, having difficulty swallowing HEAD: [Normocephalic, atraumatic.] EYES: [PERRLA and EOMI.] ENT: Nares clear, no rhinorrhea or epistaxis. Mucous membranes moist. NECK: Anterior diskectomy site is clean dry intact with some overlying fullness and tenderness to palpation but no fluctuant masses or overlying skin changes such as cellulitis. Mild restricted range of motion when turning to the right. CHEST: [Clear to auscultation. No respiratory distress.] HEART: [Regular rate and rhythm]. No murmur heard. [Normal peripheral pulses.] ABDOMEN: [Soft, nondistended], [nontender], [No rigidity or guarding] EXTREMITIES: Normal range of motion. [No edema.] SKIN: Warm, dry, no rash. NEURO: [No focal deficits]. Alert and oriented [x3.] PSYCH: [Normal mood and affect.] Course Vital Signs Vital signs: Vital Signs Temperature 36.8 C 11/13/24 16:35 Pulse Rate 92 11/13/24 16:35 Respiratory Rate 16 11/13/24 16:35 Blood Pressure 144/90 H 11/13/24 16:35 Pulse Oximetry 99 11/13/24 16:35 Temperature 37.6 C 11/13/24 19:25 Pulse Rate 95 11/13/24 19:25 Respiratory Rate 17 11/13/24 19:25 Blood Pressure 157/115 H 11/13/24 19:25 Pulse Oximetry 100 11/13/24 19:25 MDM - Neck Pain/Injury MDM Narrative Medical decision making narrative: 64-year-old male who is postop day 2 from an anterior cervical diskectomy and fusion of C4-C5, C5-C6, C6-C7 with neurosurgeon Dr. Bernabe. Patient presents with worsening dysphonia, neck pain and swelling, difficulty swallowing. He is having difficulty tolerating secretions in every time he tries to swallow he coughs violently in feels like he has to throw up. He has tried to tolerate his oral medications but not able to swallow. He was prescribed a Medrol Dosepak after calling his neurosurgeon's office and not able to take this either. On initial encounter patient is very uncomfortable appearing but is awake and able to speak albeit with dysphonia. His anterior neck does have some fullness but no overlying skin changes or drainage from the wound. No overlying cellulitis or bleeding. Mild restricted range of motion with looking to the right. He is afebrile, saturating 99% on room air but has to sit upright to tolerate secretions. He is not tachycardic. Considerations presently is for postoperative swelling, neck hematoma, vascular injury, less likely infection or abscess formation. I immediately spoke with Dr. Bernabe over the phone who recommended steroids 10 mg IV Decadron and 4 mg IV q.6 Decadron and we will obtain a CT scan of the neck. Discussed with her airway management if patient has any further decompensation. Dr. Bernabe is going out of town so I was informed the on-call neurosurgeon will have to intervene depending on findings. Patient's laboratory studies show a slight leukocytosis of 10.7, hemoglobin 13.3 which is stable from baseline. Normal platelet count. Electrolytes are unremarkable. Creatinine around baseline, glucose 150. LFTs largely unremarkable. CT angiography of the head neck was independently reviewed and patient has significant prevertebral swelling with airway compromise. There is approximately 3 cm of maximal thickness swelling with changes at the level of C3-C4 with severe narrowing of the air passages consistent with examination findings. Patient was re-evaluated and doing about the same when he came in. Discussed with him airway interventions including intubation and patient was agreeable. Given patient's hemodynamic stability this time and saturating 100% on room air with his significant amounts of swelling on the CT scan Anesthesia was called to perform controlled intubation in the operating room rather than emergent RSI at bedside. Anesthesia has come and evaluated the patient and will taken to the operating room for intubation. Discussed the case with the intensive care unit physician Dr. Oneill as well as the hospitalist Christ who accepted the patient to the ICU after going to the OR for intervention. Patient and family has signed consent and he was admitted at this time. I spoke to the on-call neurosurgeon Dr. Nielson and informed them of patient's presentation, airway compromise needing intubation, plan of care after discussion with Dr. Bernabe and he was in agreement and he will see the patient in the ICU. Patient left for the OR at this time in stable condition. Medical Records Attestation: I reviewed the patient's medical records. Lab Data Attestation: I reviewed the patient's lab results. 11/13/24 16:55 11/13/24 17:28 Labs: Lab Results 11/13/24 11/13/24 Range/Units 16:55 17:28 WBC 10.7 H (4.5-10.0) K/mm3 RBC 4.85 (4.6-6.20) M/mm3 Hgb 13.3 L (14.0-18.0) g/dL Hct 41.4 L (42.0-52.0) % MCV 85.4 (80-100) fl MCH 27.4 (26-34) pg MCHC 32.1 (32-36) g/dl RDW 14.6 H (11.5-14.5) % Plt Count 217 (150-375) k/mm3 MPV 9.0 (7.4-10.4) fl Immature Gran % (Auto) 0.9 H (0-0.5) % Neut % (Auto) 87.4 H (45.5-73.1) % Lymph % (Auto) 4.9 L (18.3-44.2) % [place] % (Auto) 6.2 (2.6-8.5) % Eos % (Auto) 0.3 (0-4.4) % Baso % (Auto) 0.3 (0.2-1.2) % Lymph # (Auto) 0.52 L (0.9-3.2) K/mm3 [place] # (Auto) 0.7 H (0.1-0.6) K/mm3 Eos # (Auto) 0.0 (0-0.3) K/mm3 Baso # (Auto) 0.0 (0.0-0.1) K/mm3 Abs Immat Gran (auto) 0.10 H (0.00-0.031) K/mm3 Absolute Neuts (auto) 9.3 H (1.3-6.7) K/mm3 Absolute Nucleated RBC 0.000 (0.0-0.012) K/mm3 Nucleated RBC % 0.0 (0.0-0.2) % PT 13.9 (11.1-14.7) Seconds INR 1.1 APTT 35.0 (22.3-36.8) Seconds Sodium 140 (137-145) mmol/L Potassium 3.8 (3.4-5.0) mmol/L Chloride 101 (98-107) mmol/L Carbon Dioxide 29 (22-30) mmol/L Anion Gap 10 (4-12) mmol/L BUN 13 D (9-20) mg/dL Creatinine 1.35 H 1.40 (0.7-1.3) mg/dL Estim Creat Clear Calc 57 55 ml/min Estimated GFR 53 L 51 L (59 - ) Glucose 150 H (65-110) mg/dL Calcium 9.2 (8.4-10.2) mg/dL Total Bilirubin 1.5 H (0.2-1.3) mg/dL AST 28 (17-59) U/L ALT 14 (6-50) U/L Alkaline Phosphatase 100 (38-126) U/L Total Protein 7.5 (6.3-8.2) g/dL Albumin 4.4 (3.5-5.1) g/dL Triglycerides 181 H (<150) mg/dL Blood Type O Positive Antibody Screen Negative Imaging Data Attestation: I personally reviewed and interpreted this imaging study as follows: My impression: Impressions Neck CTA 11/13/24 17:41 IMPRESSION: Normal CTA head and neck. Percent stenosis per NASCET criteria is 0%.. Prevertebral soft tissue swelling seen anterior to the vertebrae from C2 down to C7 with maximum changes at the level of C3-C4 with a thickness measuring 3 cm. Severe Narrowing of the air passage is seen in the area. Dr. Vyas was notified with the result of the patient at 6:00 PM on November 13, 2024. Critical Care Time Critical Care Time Critical Care Time: Yes Total Critical Care Time: 35 Discharge Plan Discharge Clinical Impression: Airway compromise, Neck swelling, Status post cervical arthrodesis Patient Disposition: Still a Patient Condition: Serious
[2024-11-13 17:28] LABS: Alanine Aminotransferase 14 U/L (6-50); Albumin Level 4.4 g/dL (3.5-5.1); Alkaline Phosphatase 100 U/L (38-126); Anion Gap 10 mmol/L (4-12); Aspartate Amino Transferase 28 U/L (17-59); Bilirubin,Total 1.5 mg/dL (0.2-1.3); Blood Urea Nitrogen 13 mg/dL (9-20); Calcium 9.2 mg/dL (8.4-10.2); Carbon Dioxide 29 mmol/L (22-30); Chloride 101 mmol/L (98-107); Estimated CRCL calculation 57 ml/min; Estimated Glomerular Filt Rate 53; Glucose 150 mg/dL (65-110); Potassium 3.8 mmol/L (3.4-5.0); Sodium 140 mmol/L (137-145); Total Protein 7.5 g/dL (6.3-8.2)
[2024-11-13 17:30] LABS: Estimated CRCL calculation 55 ml/min; Estimated Glomerular Filt Rate 51
[2024-11-13] MEDS: dexAMETHasone SOD PHOS INJ 10 MG/ML 1 ML VIAL IV PUSH (17:41)
--- OUTSIDE RECORDS SUMMARY | 2024-11-13 17:48 | XMS_ITS | Clinical Summary ---
Author Organization [employer] [address] [facility] Address [address] [place] [address] Care Team Providers Care Oracle Technical Architect Name Role Phone Jonathan Ferraro MD Primary Care Provider [phone] Allergies Active Allergy Reactions Criticality Noted Date [...] on file Legal Sex Male 3:42 PM ASSIGNMENT DESK ASSISTANT Gender Identity Not on file Sexual [...] 100.7 kg (222 lb) 05/20/2019 2:54 PM ASSIGNMENT DESK ASSISTANT Height 177.8 cm (5' 10) 05/20/2019 2:54 PM ASSIGNMENT DESK ASSISTANT Body Mass Index 31.85 05/20/2019 2:54 PM ASSIGNMENT DESK ASSISTANT Plan of Treatment Health Maintenance Due [...] - 1-dose 75+ series) 2033 Care Teams Oracle Technical Architect Relationship Specialty Start Date End Date Jonathan Ferraro MD [address] [place] [address] PCP - General Family Practice 04/08/19
--- OUTSIDE RECORDS SUMMARY | 2024-11-13 17:48 | XMS_ITS | Continuity of Care Document ---
Author Organization [facility] Address [address] [place] [address] [address] [place] [address] Phone Care Team Providers Care Sample Selector Name Role Phone Daniels OD, Compa Unavailable Unavailable Advance Directives Directive Yes / No Effective Date File Name No Information Encounters Encounter Description Practice Location Reason(s) For Visit Diagnoses Date Provider Providers Copied on Encounter [facility], [address], [place], [place], [id number], [place] tel:[phone] [facility] No Information May-0 3-200 1 Daniels OD Compa. [address] , [address], [place], [address], [place]. tel:[phone] Family History Family Member Type Diagnosis Age [...]
[2024-11-13 18:14] LABS: INR 1.1; Prothrombin Time 13.9 Seconds (11.1-14.7)
--- NOTE | 2024-11-13 18:31 | PC.NURSE ---
glidscope, difficult airway box, crash cart, RSI kit placed at bedside in case of patient decline at this time per request of Dr. Vyas. patient having no difficulty breathing, spo2 98%. patient having spells of clearing his throat and was instructed to not talk to prevent further irritation of airway
[2024-11-13 18:48] LABS: Triglycerides 181 mg/dL (<150)
--- NOTE | 2024-11-13 19:14 | ADMGEN ---
This patient, Isaias Hair, was admitted to Intensive Care Unit-2. Patient/family oriented to hospital policies and general routines including ID bracelet, bed and alarms, visiting hours, pain management, procedures, bathroom and other care routines, personal items, smoking policy, room service/diet, and visiting hours. Information on how to activate the Rapid Response Team has been discussed. Patient/Family are encouraged to report perceived risks to care and to ask questions if they do not understand what they are told or what they should do.
[2024-11-13] MEDS: PROPOFOL IV EMULSION 100 ML 18 MG IV CONT (19:19)
--- NOTE | 2024-11-13 19:30 | PM.IMHP ---
H&P: HPI History of Present Illness Date/Time: 11/13/24 22:00 Chief Complaint: Difficulties swallowing. Narrative: This is a 64-year-old male with history of hypertension, hyperlipidemia, chronic kidney disease, prediabetes, gastroesophageal reflux disease, peptic ulcer, asthma, and cervical myelopathy, radiculopathy, and spondylolisthesis postoperative day 2 status post anterior cervical diskectomy and fusion C4-C7 per Dr. Bernabe who presented to the emergency department via private vehicle with complaints of d difficulties swallowing. Yesterday developed increasing pain on the right side of his neck with swelling, difficulty swallowing, and phonation changes. After speaking with the neurosurgeon's office, he was prescribed a Medrol Dosepak however he was not even able to hold down 1 pill as he began choking immediately after attempted swallow and he subsequently threw it up. Today he began feeling short of breath and reports difficulties tolerating his own secretions unless upright with frequent coughing with attempts. In the ED: Vital signs were stable on arrival. CT scan showed significant amounts of swelling and it was felt that he needed an airway for further management. Given his hemodynamic stability, he was taken to the OR for controlled intubation in the operating room per Anesthesia which was performed without complications. He is being admitted to the ICU in this setting. Review of Systems Review of Systems: Unable to obtain as he is currently sedated and on mechanical intubation. [facility] [place] Past Medical History Medical History (Updated 11/13/24 @ 21:22 by Jessica Enrique PA-C) Mild asthma Chronic pain Colon polyps hx tubular adenoma colonoscopy 1130. normal /repeat in 5 years History of duodenal ulcer with hemorrhage Chronic GERD Fatty liver Chronic kidney disease, stage 3 Mixed hyperlipidemia Hypertension Prediabetes Right nephrolithiasis Rosacea, acne Plantar fasciitis of right foot Contracture of palmar fascia (Dupuytren's) Chronic narcotic use Cervical spondylosis Chronic migraine w/o aura w/o status migrainosus, not intractable Tubular adenoma of colon Surgical History Surgical History (Updated 11/14/24 @ 02:33 by Jessica Enrique PA-C) History of hemorrhoidectomy (04/29/24) History of umbilical hernia repair (08/02/21) with mesh History of cervical spinal surgery (11/11/24) anterior cervical diskectomy with fusion at C4-C7 per Dr. Bernabe History of wisdom tooth extraction History of cholecystectomy History of laparoscopic cholecystectomy (06/17/19) Family History Family History Father Diabetes mellitus Family history of hypercholesterolemia Hypertension Family history of cardiovascular disease Family history of elevated blood lipids Acute myocardial infarction Family history of coronary artery disease Mother Family history of osteoporosis Family history of migraine headaches Hypertension Grandparent Malignant neoplasm of prostate Family history of lung cancer Other Family history of malignant neoplasm of stomach Social History Social History (Updated 11/13/24 @ 21:20 by Jessica Enrique PA-C) Social History: Surrogate medical decision maker: Rebecca Hair, spouse. Code status: Full code. Smoking status: Never smoker Second hand tobacco smoke exposure: Yes Alcohol intake: current Drinks per week: 7 Substance use: current Substance use type: marijuana Other substance usage details: CBD Gummies for sleep at nightly Do You Feel Safe in your Home?: Yes Lack of Transportation: No Lack of Food: Never True Current Housing: I Have Housing Concerned About Future Housing: No Difficulty Paying Gas/Electric Bills: No Difficulty Paying for Meds: No Currently Unemployed: No Education: Bachelor's Degree Difficulty w/ Childcare or Family Care: No Living arrangements: with family Additional living arrangements comments: Spiritual care concerns: No Meds Home Medications and Allergies Home Medications ?Medication ?Instructions ?Recorded ?Confirmed ?Type sodium chloride 2 % eye drops 1 drop ophthalmic (eye) DAILY 04/28/19 11/13/24 History (Ernesto 128) turmeric root extract 500 mg 500 mg PO HS 11/29/20 11/13/24 History capsule sumatriptan succinate 50 mg tablet 50 mg PO ONCE PRN migraine headache 04/12/21 11/13/24 History (Imitrex) mecobalamin (vitamin B12) 1,000 1,000 mcg sublingual HS 01/19/22 11/13/24 History mcg disintegrating tablet,sublingual cpap #1 ea 06/25/23 11/13/24 Rx montelukast 10 mg tablet See Rx Instructions .Route 01/20/24 11/13/24 Rx .COMPLEX #90 tabs amlodipine 5 mg tablet 5 mg PO DAILY #90 tabs 02/19/24 11/13/24 Rx atorvastatin 80 mg tablet 80 mg PO DAILY #90 tabs 03/31/24 11/13/24 Rx empagliflozin 10 mg tablet 10 mg PO QAM #90 tabs 03/31/24 11/13/24 Rx diazepam 5 mg tablet (Valium) 5 mg PO .COMPLEX #30 tabs 06/18/24 11/13/24 Rx ferrous sulfate 325 mg (65 mg 325 mg PO .weekends only 08/11/24 11/13/24 History iron) tablet gabapentin 300 mg capsule 900 mg (3 x 300 mg) PO BID #540 08/20/24 11/13/24 Rx caps tramadol 50 mg tablet 50 mg PO Q4H PRN pain #60 tabs 08/20/24 11/13/24 Rx trazodone 150 mg tablet See Rx Instructions .Route 09/03/24 11/13/24 Rx .COMPLEX #90 tabs losartan 100 mg tablet See Rx Instructions .Route 10/02/24 11/13/24 Rx .COMPLEX #90 tabs pantoprazole 40 mg tablet,delayed 40 mg PO HS 10/29/24 11/13/24 History release hydrochlorothiazide 25 mg tablet 25 mg PO DAILY #90 tabs 11/09/24 11/13/24 Rx cyclobenzaprine 10 mg tablet 10 mg PO TID PRN Muscle Spasms 10 11/12/24 11/13/24 Rx days #30 tabs oxycodone 5 mg tablet 5 mg PO Q6H PRN Pain Rated 4-6 7 11/12/24 11/13/24 Rx days #28 tabs sennosides 8.6 mg-docusate sodium 1 tab PO BID PRN Constipation 7 11/12/24 11/13/24 Rx 50 mg tablet (Senokot-S) days #14 tabs methylprednisolone 4 mg tablets in See Rx Instructions PO PER PKG DIR 11/13/24 11/13/24 Rx a dose pack #21 ea Allergies Allergy/AdvReac Type Severity Reaction Status Date / Time Penicillins Allergy Unknown Childhood Verified 11/11/24 09:37 Reaction NSAIDS (Non-Steroidal AdvReac Severe azotemia/ Verified 11/11/24 09:37 Anti-Inflamma gfr 26,creat 2.47 Vital Signs Vital Signs - 24 hr 11/13/24 16:35 11/13/24 16:40 11/13/24 18:37 Temperature 98.2 F Pulse Rate 92 83 Respiratory Rate 16 18 18 Blood Pressure 144/90 H 151/79 H Pulse Oximetry 99 97 11/13/24 19:25 Temperature 99.6 F Pulse Rate 95 Respiratory Rate 17 Blood Pressure 157/115 H Pulse Oximetry 100 Exam Narrative: General: Well-developed male sedated and on mechanical ventilation. HEENT: Pupils are reactive. Sclera anicteric. ET and OG tubes in place. Small amount of bloody secretions noted in the mouth and from the OG tube. Neck: Supple. Exam limited due to neck circumference and patient positioning. Incision site from recent surgery looks good. Respiratory: Intubated on mechanical ventilation. Equally transmitted lung sounds bilaterally. ETT suction secretions without evidence of blood. Cardiovascular: Bradycardic with normal S1-S2. Gastrointestinal: Abdomen is soft, nontender, and nondistended with positive bowel sounds. Skin: Warm and dry. Extremities: No cyanosis, clubbing, or edema. Radial and pedal pulses intact. Neurological: Heavily sedated with propofol and Versed. Does not respond to noxious stimuli. Psychiatric: Unable to assess given current clinical condition. H&P: Results Labs Labs: Short CBC 11/13/24 Range/Units 16:55 WBC 10.7 H (4.5-10.0) K/mm3 Hgb 13.3 L (14.0-18.0) g/dL Hct 41.4 L (42.0-52.0) % Plt Count 217 (150-375) k/mm3 BMP 11/13/24 11/13/24 16:55 17:28 Sodium 140 Potassium 3.8 Chloride 101 Carbon Dioxide 29 BUN 13 D Creatinine 1.35 H 1.40 Glucose 150 H Calcium 9.2 Liver Function 11/13/24 Range/Units 16:55 Total Bilirubin 1.5 H (0.2-1.3) mg/dL AST 28 (17-59) U/L ALT 14 (6-50) U/L Alkaline Phosphatase 100 (38-126) U/L Albumin 4.4 (3.5-5.1) g/dL Imaging Neck CTA 11/13/24 17:41 IMPRESSION: 1.Normal CTA head and neck. Percent stenosis per NASCET criteria is 0%.. 2. Prevertebral soft tissue swelling seen anterior to the vertebrae from C2 down to C7 with maximum changes at the level of C3-C4 with a thickness measuring 3 cm. Severe Narrowing of the air passage is seen in the area. Assessment and Plan Assessment and plan (1) Postoperative edema: Code(s): R60.9 - Edema, unspecified Status: Acute (2) Airway compromise: Code(s): J98.8 - Other specified respiratory disorders Status: Acute (3) Status post cervical discectomy: Code(s): Z98.890 - Other specified postprocedural states Status: Acute (4) Hypertension: Code(s): I10 - Essential (primary) hypertension Status: Acute (5) Chronic kidney disease, stage 3: Code(s): N18.30 - Chronic kidney disease, stage 3 unspecified Status: Acute (6) Prediabetes: Code(s): R73.03 - Prediabetes Status: Acute Plan The patient presented to the emergency department with complaints of right-sided neck pain and difficulties swallowing postoperative day 2 anterior cervical diskectomy and fusion C4-C7 as detailed in HPI. Labs, imaging, EKG, and all reports were personally reviewed. CT scan of the neck showed paravertebral soft tissue swelling anterior to the vertebrae from C2-C7 with severe narrowing of the airway around C3-C4. He was hemodynamically stable on arrival to the ED however was starting to complain of shortness of breath and was having difficulties tolerating secretions. As such he was taken to the OR for controlled intubation due to concerns for impending loss of airway and the procedure note indicates that he was intubated without issue with the aid of GlideScope. There were some difficulties getting him sedated early on and he is currently on 45 micrograms/kilogram per minute of propofol and midazolam 1 milligram/hour. He has been started on scheduled dexamethasone 4 mg q.6 hours for swelling. Neurosurgeon was made aware of the patient's admission and their input is appreciated. Blood pressures have been soft while on propofol all thus will hold antihypertensives for now. Renal function is stable on review of previous labs. Initiate sliding scale insulin, Accu-Cheks, and hypoglycemic protocol. His home medications will be reviewed and resumed as appropriate. The patient's medical management will be taken over by the hospitalist team in a.m. Quality VTE Prophylaxis VTE prophylaxis: mechanical ordered If No VTE Prophylaxis Answer both mechanical and pharmacologic: Reason no pharmacologic proph: medical contraindication (may require surgical procedure) Hospitalist MIPS Advance Care Plan I have confirmed that the patient's Advanced Care Plan is present, code status is documented, or surrogate decision maker is listed in patient medical record.: Yes Medication Reconciliation I have utilized all available resources to obtain, update and review the patients current medications (includes all prescriptions, OTC, herbals, cannabis, and nutritional supplements).: Yes Critical Care Time Critical Care Time: Yes Total Critical Care Time: 50 Attestation: Due to a high probability of clinically significant, life threatening deterioration, the patient required my highest level of preparedness to intervene emergently and I personally spent this critical care time directly and personally managing the patient. This critical care time included obtaining a history; examining the patient; pulse oximetry; ordering and review of studies; arranging urgent treatment with development of a management plan; evaluation of patient's response to treatment; frequent reassessment; and discussions with other providers. It was exclusive of separately billable procedures and treating other patients and teaching time. Please see Assessment and Plan section and the rest of the note for further information on patient assessment and treatment.
[2024-11-13 19:41] LABS: MRSA (PCR) NOT DETECTED (NOT DETECTE)
[2024-11-13] MEDS: fentaNYL CITRATE INJ (*CRX) 100 MCG/2 ML VIAL IV PUSH (19:56)
[2024-11-13] MEDS: MIDAZOLAM 100MG/NS 100ML(*CRX) 100 MG/100 ML BAG IV CONT (20:01)
--- NOTE | 2024-11-13 20:34 | WPDPROCEDUR ---
Procedures Intubation Intubation Date: 11/13/24 Consent: patient and spouse via Dr Jones Sedative: other (Propofol 200 mg) Paralytic: rocuronium (50 mg) Laryngoscope: fiber optic video scope (Glidescope-performed by Dr Clem Jones) ET tube size: 7 Tube secured depth (cm): 23 Tube secured location: teeth Tube placement confirmation: visualized tube passing through cords, equal breath sounds bilaterally, no breath sounds over epigastrium and confirmation by capnometry Patient tolerated procedure: well and no complications Intubation complications: none
[2024-11-13] MEDS: dexAMETHasone SOD PHOS INJ 4 MG/ML VIAL IV PUSH (20:41)
[2024-11-13] MEDS: MINERAL OIL/WHITE PETROLATUM OINTMENT 1 APPLIC EACH EYE (20:41)
[2024-11-13 22:00] LABS: Alveolar/Arterial O2 Gradient 138.6 mmHg; Base Excess ABG -0.5 mEq/l (+/-2.0); Carboxyhemoglobin 1.1 % THb (0-2.0); Device VENTILATOR; Fractional Inspired Oxygen 40 %; HCO3 ABG 23.4 mEq/l (22.0-26.0); Methemoglobin ABG 0.3 %THb (0-1.5); Modified Allen's Test Pass; Oxygen Content ABG 18.2 %vol (16.0-22.0); Oxyhemoglobin 96.7 % THb (90.0-100.0); PO2 ABG 105.2 mmHg (80.0-100.0); PO2 FiO2 Ratio Arterial Blood 2.63 %; Reduced Hemoglobin 1.9 %THb (0-5.0); Site Drawn RIGHT RADIAL; Total Hemoglobin 13.3 g/dL (12.0-18.0); pH ABG 7.431 (7.350-7.450)
[2024-11-13 22:01] LABS: Arterial Blood Gas PEEP 5 cmH2O; Arterial Blood Gas Tidal Volume 480 ml; Arterial Blood Gas Vent Mode CMV; Arterial Blood Gas Ventilator rate 14 /MIN
[2024-11-13] MEDS: PROPOFOL IV EMULSION 100 ML 30 MG IV CONT (22:20)
[2024-11-14] VITALS (34 sets, daily range): BP systolic 94–129; BP diastolic 48–87; PULSE 51–95; RESP 11–19; TEMP 35.9–37.7; O2SAT 95–100
[2024-11-14] MEDS: dexAMETHasone SOD PHOS INJ 4 MG/ML VIAL IV PUSH ×5 (00:21→23:36)
[2024-11-14] MEDS: PROPOFOL IV EMULSION 100 ML 27 MG IV CONT (01:49)
[2024-11-14 03:58] LABS: Basophils Percent Auto 0.1 % (0.2-1.2); Hematocrit 39.2 % (42.0-52.0); Hemoglobin 12.9 g/dL (14.0-18.0); Immature Granulocyte Absolute 0.07 K/mm3 (0.00-0.031); Immature Granulocyte Percent A 0.7 % (0-0.5); Lymphocytes Absolute Auto 0.63 K/mm3 (0.9-3.2); Lymphocytes Percent Auto 6.1 % (18.3-44.2); Mean Corpuscular HGB Conc 32.9 g/dl (32-36); Mean Corpuscular Hemoglobin 27.7 pg (26-34); Mean Corpuscular Volume 84.1 fl (80-100); Mean Platelet Volume 9.1 fl (7.4-10.4); Monocytes Absolute Auto 0.4 K/mm3 (0.1-0.6); Monocytes Percent Auto 3.8 % (2.6-8.5); Neutrophils Absolute Auto 9.2 K/mm3 (1.3-6.7); Neutrophils Percent Auto 89.3 % (45.5-73.1); Platelet Count Result 233 k/mm3 (150-375); Red Blood Count 4.66 M/mm3 (4.6-6.20); Red Cell Distribution Width 14.5 % (11.5-14.5); White Blood Count 10.3 K/mm3 (4.5-10.0)
[2024-11-14 04:14] LABS: Alanine Aminotransferase 13 U/L (6-50); Albumin Level 4.1 g/dL (3.5-5.1); Alkaline Phosphatase 94 U/L (38-126); Anion Gap 11 mmol/L (4-12); Aspartate Amino Transferase 22 U/L (17-59); Blood Urea Nitrogen 19 mg/dL (9-20); Calcium 9.1 mg/dL (8.4-10.2); Carbon Dioxide 22 mmol/L (22-30); Chloride 104 mmol/L (98-107); Estimated CRCL calculation 60 ml/min; Estimated Glomerular Filt Rate 55; Glucose 156 mg/dL (65-110); Magnesium 1.8 mg/dL (1.6-2.3); Phosphorus 2.5 mg/dL (2.5-4.5); Sodium 137 mmol/L (137-145); Total Protein 7.2 g/dL (6.3-8.2)
[2024-11-14] MEDS: PROPOFOL IV EMULSION 100 ML 18 MG IV CONT ×4 (06:01→21:51)
[2024-11-14 08:19] LABS: Glucose Point of Care 127 mg/dl (65-105)
[2024-11-14] MEDS: ATORVASTATIN 40 MG TABLET 80 MG PO (08:35)
[2024-11-14] MEDS: MONTELUKAST SODIUM 10 MG TABLET BY MOUTH (08:35)
[2024-11-14] MEDS: PANTOPRAZOLE SODIUM IV 40 MG VIAL IV PUSH (08:36)
[2024-11-14] MEDS: MINERAL OIL/WHITE PETROLATUM OINTMENT 1 APPLIC EACH EYE ×2 (08:36→21:52)
[2024-11-14] MEDS: SODIUM CHLORIDE 2% OP SOLN 15 ML BTL 1 DROP EACH EYE (08:37)
[2024-11-14] MEDS: fentaNYL CITRATE INJ (*CRX) 100 MCG/2 ML VIAL 25 MCG IV PUSH ×2 (08:51→12:22)
--- NOTE | 2024-11-14 08:51 | P.CONNS_ITS ---
Assessment and Plan Assessment and plan (1) Cervical myelopathy: Code(s): G95.9 - Disease of spinal cord, unspecified Status: Acute Assessment and Plan: 64 year old male who presents POD 2 s/p three level ACDF with progressive dysphagia found to have significant prevertebral edema. Discussed with intensivest this morning and his regarding management plans. There is no hematoma to evacuate, he has significant edema that will improve with time and steroids. He should have PPI/H2 talha when on steroids to prevent GI complications. We discussed maintainin steroids for several days and monitor with cuff assessments and potentially repeat imaging. I discussed with his that this may take several days to a week for the swelling to improve and that we should approach the situation slowly and cautiously. Consult date: 11/14/24 Reason for consult: neck swellin gin setting of recent ACDF HPI: Isaias Hair is a 64 year old malewho underwent a C4-7 ACDF this past saturday for cervical myelopathy performed by Dr. Bernabe. He had progressive dysphagia yesterday. He ultimately presented to the ER due to this concern. A CT scan of the neck was obtained which indicated prevertebral soft tissue swelling seen anterior to the vertebrae from C2 down to C7 with maximum changes at the level of C3-C4 with a thickness measuring 3 cm. Severe Narrowing of the air passage is seen in the area. There was no evidence of hematoma. Due to this concern, he was intubated in the ER For airway protection and admitted to the ICU. Dr. Bernabe recommended IV steroids. ON LICENSE OF [facility] Past Medical History Medical History (Updated 11/13/24 @ 21:22 by Jessica Enrique PA-C) Mild asthma Chronic pain Colon polyps hx tubular adenoma colonoscopy 05.02.21 normal /repeat in 5 years History of duodenal ulcer with hemorrhage Chronic GERD Fatty liver Chronic kidney disease, stage 3 Mixed hyperlipidemia Hypertension Prediabetes Right nephrolithiasis Rosacea, acne Plantar fasciitis of right foot Contracture of palmar fascia (Dupuytren's) Chronic narcotic use Cervical spondylosis Chronic migraine w/o aura w/o status migrainosus, not intractable Tubular adenoma of colon Surgical History Surgical History (Updated 11/14/24 @ 02:33 by Jessica Enrique PA-C) History of hemorrhoidectomy (04/29/24) History of umbilical hernia repair (08/02/21) with mesh History of cervical spinal surgery (11/11/24) anterior cervical diskectomy with fusion at C4-C7 per Dr. Bernabe History of wisdom tooth extraction History of cholecystectomy History of laparoscopic cholecystectomy (06/17/19) Family History Family History Father Diabetes mellitus Family history of hypercholesterolemia Hypertension Family history of cardiovascular disease Family history of elevated blood lipids Acute myocardial infarction Family history of coronary artery disease Mother Family history of osteoporosis Family history of migraine headaches Hypertension Grandparent Malignant neoplasm of prostate Family history of lung cancer Other Family history of malignant neoplasm of stomach Social History Social History (Updated 11/13/24 @ 21:20 by Jessica Enrique PA-C) Social History: Surrogate medical decision maker: Rebecca Penningtonndel, spouse. Code status: Full code. Smoking status: Never smoker Second hand tobacco smoke exposure: Yes Alcohol intake: current Drinks per week: 7 Substance use: current Substance use type: marijuana Other substance usage details: CBD Gummies for sleep at nightly Do You Feel Safe in your Home?: Yes Lack of Transportation: No Lack of Food: Never True Current Housing: I Have Housing Concerned About Future Housing: No Difficulty Paying Gas/Electric Bills: No Difficulty Paying for Meds: No Currently Unemployed: No Education: Bachelor's Degree Difficulty w/ Childcare or Family Care: No Living arrangements: with family Additional living arrangements comments: Spiritual care concerns: No Meds Home Medications and Allergies Home Medications ?Medication ?Instructions ?Recorded ?Confirmed ?Type sodium chloride 2 % eye drops 1 drop ophthalmic (eye) DAILY 04/28/19 11/13/24 History (Ernesto 128) turmeric root extract 500 mg 500 mg PO HS 11/29/20 11/13/24 History capsule sumatriptan succinate 50 mg tablet 50 mg PO ONCE PRN migraine headache 04/12/21 11/13/24 History (Imitrex) mecobalamin (vitamin B12) 1,000 1,000 mcg sublingual HS 01/19/22 11/13/24 History mcg disintegrating tablet,sublingual cpap #1 ea 06/25/23 11/13/24 Rx montelukast 10 mg tablet See Rx Instructions .Route 01/20/24 11/13/24 Rx .COMPLEX #90 tabs amlodipine 5 mg tablet 5 mg PO DAILY #90 tabs 02/19/24 11/13/24 Rx atorvastatin 80 mg tablet 80 mg PO DAILY #90 tabs 03/31/24 11/13/24 Rx empagliflozin 10 mg tablet 10 mg PO QAM #90 tabs 03/31/24 11/13/24 Rx diazepam 5 mg tablet (Valium) 5 mg PO .COMPLEX #30 tabs 06/18/24 11/13/24 Rx ferrous sulfate 325 mg (65 mg 325 mg PO .weekends only 08/11/24 11/13/24 History iron) tablet gabapentin 300 mg capsule 900 mg (3 x 300 mg) PO BID #540 08/20/24 11/13/24 Rx caps tramadol 50 mg tablet 50 mg PO Q4H PRN pain #60 tabs 08/20/24 11/13/24 Rx trazodone 150 mg tablet See Rx Instructions .Route 09/03/24 11/13/24 Rx .COMPLEX #90 tabs losartan 100 mg tablet See Rx Instructions .Route 10/02/24 11/13/24 Rx .COMPLEX #90 tabs pantoprazole 40 mg tablet,delayed 40 mg PO HS 10/29/24 11/13/24 History release hydrochlorothiazide 25 mg tablet 25 mg PO DAILY #90 tabs 11/09/24 11/13/24 Rx cyclobenzaprine 10 mg tablet 10 mg PO TID PRN Muscle Spasms 10 11/12/24 11/13/24 Rx days #30 tabs oxycodone 5 mg tablet 5 mg PO Q6H PRN Pain Rated 4-6 7 11/12/24 11/13/24 Rx days #28 tabs sennosides 8.6 mg-docusate sodium 1 tab PO BID PRN Constipation 7 11/12/24 11/13/24 Rx 50 mg tablet (Senokot-S) days #14 tabs methylprednisolone 4 mg tablets in See Rx Instructions PO PER PKG DIR 11/13/24 11/13/24 Rx a dose pack #21 ea Allergies Allergy/AdvReac Type Severity Reaction Status Date / Time Penicillins Allergy Unknown Childhood Verified 11/11/24 09:37 Reaction NSAIDS (Non-Steroidal AdvReac Severe azotemia/ Verified 11/11/24 09:37 Anti-Inflamma gfr 26,creat 2.47 Vital Signs Vital Signs - 24 hr 11/13/24 16:35 11/13/24 16:40 11/13/24 18:37 Temperature 98.2 F Pulse Rate 92 83 Respiratory Rate 16 18 18 Blood Pressure 144/90 H 151/79 H Pulse Oximetry 99 97 Oxygen Delivery Fraction of Inspired Oxygen 11/13/24 19:19 11/13/24 19:20 11/13/24 19:22 Temperature Pulse Rate 94 85 90 Respiratory Rate 19 Blood Pressure Pulse Oximetry 98 Oxygen Delivery Mechanical Ventilation Fraction of Inspired Oxygen 40 11/13/24 19:25 11/13/24 19:27 11/13/24 19:27 Temperature 99.6 F 99.6 F Pulse Rate 95 92 93 Respiratory Rate 17 20 19 Blood Pressure 157/115 H 157/115 H Pulse Oximetry 100 100 Oxygen Delivery Fraction of Inspired Oxygen 11/13/24 20:00 11/13/24 20:00 11/13/24 20:00 Temperature 100.4 F H Pulse Rate 99 89 Respiratory Rate 22 H 14 Blood Pressure 109/70 Pulse Oximetry 97 Oxygen Delivery Fraction of Inspired Oxygen 40 11/13/24 20:00 11/13/24 20:00 11/13/24 20:01 Temperature Pulse Rate 89 95 Respiratory Rate 17 Blood Pressure Pulse Oximetry Oxygen Delivery Mechanical Ventilation Fraction of Inspired Oxygen 40 11/13/24 22:00 11/13/24 22:00 11/13/24 22:00 Temperature 98.3 F Pulse Rate 61 61 61 Respiratory Rate 14 14 Blood Pressure 91/69 L Pulse Oximetry 96 Oxygen Delivery Fraction of Inspired Oxygen 11/13/24 22:20 11/13/24 22:20 11/13/24 22:50 Temperature Pulse Rate 59 L 59 L 63 Respiratory Rate 14 14 Blood Pressure Pulse Oximetry 97 Oxygen Delivery Mechanical Ventilation Fraction of Inspired Oxygen 30 11/14/24 00:00 11/14/24 00:00 11/14/24 00:00 Temperature Pulse Rate 56 L Respiratory Rate 14 Blood Pressure Pulse Oximetry Oxygen Delivery Mechanical Ventilation Fraction of Inspired Oxygen 30 30 11/14/24 00:00 11/14/24 00:00 11/14/24 00:24 Temperature 97.6 F Pulse Rate 56 L 56 L 56 L Respiratory Rate 19 14 Blood Pressure 94/48 L Pulse Oximetry 100 Oxygen Delivery Fraction of Inspired Oxygen 11/14/24 01:49 11/14/24 01:49 11/14/24 01:58 Temperature Pulse Rate 56 L 56 L 58 L Respiratory Rate 14 14 Blood Pressure Pulse Oximetry 98 Oxygen Delivery Mechanical Ventilation Fraction of Inspired Oxygen 30 11/14/24 02:00 11/14/24 02:00 11/14/24 02:00 Temperature 96.6 F L Pulse Rate 53 L 55 L 55 L Respiratory Rate 14 14 Blood Pressure 103/72 Pulse Oximetry 98 Oxygen Delivery Fraction of Inspired Oxygen 11/14/24 02:29 11/14/24 04:00 11/14/24 04:00 Temperature 96.8 F L Pulse Rate 55 L 58 L 57 L Respiratory Rate 14 14 14 Blood Pressure 99/74 L Pulse Oximetry 95 Oxygen Delivery Fraction of Inspired Oxygen 11/14/24 04:00 11/14/24 04:00 11/14/24 04:00 Temperature Pulse Rate 53 L Respiratory Rate Blood Pressure Pulse Oximetry Oxygen Delivery Mechanical Ventilation Fraction of Inspired Oxygen 30 30 11/14/24 04:16 11/14/24 05:01 11/14/24 05:22 Temperature Pulse Rate 55 L 51 L 51 L Respiratory Rate 14 14 Blood Pressure Pulse Oximetry 96 Oxygen Delivery Mechanical Ventilation Fraction of Inspired Oxygen 30 11/14/24 05:39 11/14/24 06:00 11/14/24 06:00 Temperature 96.6 F L Pulse Rate 51 L 51 L 53 L Respiratory Rate 14 14 Blood Pressure 96/65 L Pulse Oximetry 97 Oxygen Delivery Fraction of Inspired Oxygen 11/14/24 06:01 11/14/24 06:01 11/14/24 08:00 Temperature 97.4 F L Pulse Rate 53 L 53 L 66 Respiratory Rate 14 14 14 Blood Pressure 125/83 Pulse Oximetry 99 Oxygen Delivery Fraction of Inspired Oxygen 11/14/24 08:05 Temperature Pulse Rate 60 Respiratory Rate Blood Pressure Pulse Oximetry 100 Oxygen Delivery Mechanical Ventilation Fraction of Inspired Oxygen 30 Exam 2 Narrative: Intubated, not heavily sedated OE reg FC Moves spontaneously neck slightly swollen, but not tight inc c/d/i Results Labs 11/14/24 03:39 11/14/24 03:39 Labs: Short CBC 11/13/24 11/14/24 Range/Units 16:55 03:39 WBC 10.7 H 10.3 H (4.5-10.0) K/mm3 Hgb 13.3 L 12.9 L (14.0-18.0) g/dL Hct 41.4 L 39.2 L (42.0-52.0) % Plt Count 217 233 (150-375) k/mm3 BMP 11/13/24 11/13/24 11/14/24 16:55 17:28 03:39 Sodium 140 137 Potassium 3.8 4.0 Chloride 101 104 Carbon Dioxide 29 22 BUN 13 D 19 Creatinine 1.35 H 1.40 1.30 Glucose 150 H 156 H Calcium 9.2 9.1 Liver Function 11/13/24 11/14/24 Range/Units 16:55 03:39 Total Bilirubin 1.5 H 1.0 (0.2-1.3) mg/dL AST 28 22 (17-59) U/L ALT 14 13 (6-50) U/L Alkaline Phosphatase 100 94 (38-126) U/L Albumin 4.4 4.1 (3.5-5.1) g/dL
--- NOTE | 2024-11-14 10:44 | WPDCNINT ---
Assessment and Plan Assessment and plan (1) Postoperative edema: Code(s): R60.9 - Edema, unspecified Status: Acute Assessment and Plan: Patient had anterior cervical diskectomy and fusion from C4-C7 for cervical myelopathy, radiculopathy and spondylolisthesis on 11/11/2024 -patient presented the ED complains of neck swelling and pain, dysphonia, dysphagia, and difficulty breathing -patient was intubated in the OR by Anesthesia on 11/11/2024 for airway protection as the CT scan did show severe narrowing of the air passage. -patient is on Decadron for soft tissue swelling as seen on the neck CTA -will monitor the neck swelling, may need to repeat CT scan of the neck and soft tissues before extubation Neck CTA 11/13/24: IMPRESSION: 1.Normal CTA head and neck. Percent stenosis per NASCET criteria is 0%.. 2. Prevertebral soft tissue swelling seen anterior to the vertebrae from C2 down to C7 with maximum changes at the level of C3-C4 with a thickness measuring 3 cm. Severe Narrowing of the air passage is seen in the area. (2) Status post cervical discectomy: Code(s): Z98.890 - Other specified postprocedural states Status: Acute Assessment and Plan: Fentanyl p.r.n. for pain (3) Airway compromise: Code(s): J98.8 - Other specified respiratory disorders Status: Acute Assessment and Plan: 11/13: CTA neck showed severe narrowing of the passage as above -intubated by anesthesia in the OR -remains intubated on CMV mode of ventilation, peep of 5, 30% FiO2 -intubation was done for airway protection -chest x-ray was clear (4) Hypertension: Code(s): I10 - Essential (primary) hypertension Status: Acute Assessment and Plan: Patient on losartan and amlodipine at home, will hold for now as blood pressures are stable since patient is on propofol (5) Chronic kidney disease, stage 3: Code(s): N18.30 - Chronic kidney disease, stage 3 unspecified Status: Acute Assessment and Plan: Baseline creatinine is 1.30-1.70 -creatinine this morning is 1.30 -continue to monitor renal function, electrolytes and urine output Plan DVT prophylaxis: Lovenox Stress ulcer prophylaxis: Protonix Nutrition: Will start tube feeds Code Status: Full code Critical Care Time Spent: [address] Nielson, neurosurgeon Discussed with , Rebecca at bedside and updated with patient's condition, plan of care. I answered all her questions, will restart some of his own medications Due to a high probability of clinically significant, life threatening deterioration, the patient required my highest level of preparedness to intervene emergently and I personally spent this critical care time directly and personally managing the patient. This critical care time included obtaining a history; examining the patient; pulse oximetry; ordering and review of studies; arranging urgent treatment with development of a management plan; evaluation of patient's response to treatment; frequent reassessment; and discussions with other providers. It was exclusive of separately billable procedures and treating other patients and teaching time. Please see Assessment and Plan section and the rest of the note for further information on patient assessment and treatment This dictation may have been done utilizing a voice recognition system. Attempts have been made to correct errors. However, there may be uncorrected grammatical, spelling, and recognitions errors present. [employer] Hel[employer] Consult Note Consult date: 11/14/24 HPI: Isaias Hair is a 64 year old male past history of hypertension, hyperlipidemia, chronic kidney disease, prediabetes, gastroesophageal reflux disease, peptic ulcer, asthma, and cervical myelopathy, radiculopathy, and spondylolisthesis status post anterior cervical diskectomy and fusion C4-C7 per Dr. Bernabe on 11/11/2024 who presented to the emergency department via private vehicle with complaints of neck pain, neck swelling, difficulties swallowing and dysphonia. Pt was prescribed medrol dose-escobar by his neurosurgeon. Patient was very uncomfortable, unable to speak and swallow pills. CT Neck and soft tissues: Prevertebral soft tissue swelling seen anterior to the vertebrae from C2 down to C7 with maximum changes at the level of C3-C4 with a thickness measuring 3 cm. Severe Narrowing of the air passage is seen in the area. Pt was taken to the OR and intubated by Anesthesia, transferred to ICU for further management with propofol for sedation. Also started on Decadron Pt seen and examined in the ICU, Intubated on CMV mode of ventilation with PEEP of 5 and 30% FiO2, Sedated with Propofol, opens eyes , follows commands, nods to questions. Hemodynamically stable, urine output is adequate, afebrile. Complains of pain Review of Systems Review of Systems: All systems reviewed & are unremarkable except as noted in HPI and below [facility] Past Medical History Medical History (Updated 11/13/24 @ 21:22 by Jessica Enrique PA-C) Mild asthma Chronic pain Colon polyps hx tubular adenoma colonoscopy 05.02.21 normal /repeat in 5 years History of duodenal ulcer with hemorrhage Chronic GERD Fatty liver Chronic kidney disease, stage 3 Mixed hyperlipidemia Hypertension Prediabetes Right nephrolithiasis Rosacea, acne Plantar fasciitis of right foot Contracture of palmar fascia (Dupuytren's) Chronic narcotic use Cervical spondylosis Chronic migraine w/o aura w/o status migrainosus, not intractable Tubular adenoma of colon Surgical History Surgical History (Updated 11/14/24 @ 02:33 by Jessica Enrique PA-C) History of hemorrhoidectomy (04/29/24) History of umbilical hernia repair (08/02/21) with mesh History of cervical spinal surgery (11/11/24) anterior cervical diskectomy with fusion at C4-C7 per Dr. Bernabe History of wisdom tooth extraction History of cholecystectomy History of laparoscopic cholecystectomy (06/17/19) Family History Family History Father Diabetes mellitus Family history of hypercholesterolemia Hypertension Family history of cardiovascular disease Family history of elevated blood lipids Acute myocardial infarction Family history of coronary artery disease Mother Family history of osteoporosis Family history of migraine headaches Hypertension Grandparent Malignant neoplasm of prostate Family history of lung cancer Other Family history of malignant neoplasm of stomach Social History Social History (Updated 11/13/24 @ 21:20 by Jessica Enrique PA-C) Social History: Surrogate medical decision maker: Rebecca Hair, spouse. Code status: Full code. Smoking status: Never smoker Second hand tobacco smoke exposure: Yes Alcohol intake: current Drinks per week: 7 Substance use: current Substance use type: marijuana Other substance usage details: CBD Gummies for sleep at nightly Do You Feel Safe in your Home?: Yes Lack of Transportation: No Lack of Food: Never True Current Housing: I Have Housing Concerned About Future Housing: No Difficulty Paying Gas/Electric Bills: No Difficulty Paying for Meds: No Currently Unemployed: No Education: Bachelor's Degree Difficulty w/ Childcare or Family Care: No Living arrangements: with family Additional living arrangements comments: Spiritual care concerns: No Meds Home Medications and Allergies Home Medications ?Medication ?Instructions ?Recorded ?Confirmed ?Type sodium chloride 2 % eye drops 1 drop ophthalmic (eye) DAILY 04/28/19 11/13/24 History (Ernesto 128) turmeric root extract 500 mg 500 mg PO HS 11/29/20 11/13/24 History capsule sumatriptan succinate 50 mg tablet 50 mg PO ONCE PRN migraine headache 04/12/21 11/13/24 History (Imitrex) mecobalamin (vitamin B12) 1,000 1,000 mcg sublingual HS 01/19/22 11/13/24 History mcg disintegrating tablet,sublingual cpap #1 ea 06/25/23 11/13/24 Rx montelukast 10 mg tablet See Rx Instructions .Route 01/20/24 11/13/24 Rx .COMPLEX #90 tabs amlodipine 5 mg tablet 5 mg PO DAILY #90 tabs 02/19/24 11/13/24 Rx atorvastatin 80 mg tablet 80 mg PO DAILY #90 tabs 03/31/24 11/13/24 Rx empagliflozin 10 mg tablet 10 mg PO QAM #90 tabs 03/31/24 11/13/24 Rx diazepam 5 mg tablet (Valium) 5 mg PO .COMPLEX #30 tabs 06/18/24 11/13/24 Rx ferrous sulfate 325 mg (65 mg 325 mg PO .weekends only 08/11/24 11/13/24 History iron) tablet gabapentin 300 mg capsule 900 mg (3 x 300 mg) PO BID #540 08/20/24 11/13/24 Rx caps tramadol 50 mg tablet 50 mg PO Q4H PRN pain #60 tabs 08/20/24 11/13/24 Rx trazodone 150 mg tablet See Rx Instructions .Route 09/03/24 11/13/24 Rx .COMPLEX #90 tabs losartan 100 mg tablet See Rx Instructions .Route 10/02/24 11/13/24 Rx .COMPLEX #90 tabs pantoprazole 40 mg tablet,delayed 40 mg PO HS 10/29/24 11/13/24 History release hydrochlorothiazide 25 mg tablet 25 mg PO DAILY #90 tabs 11/09/24 11/13/24 Rx cyclobenzaprine 10 mg tablet 10 mg PO TID PRN Muscle Spasms 10 11/12/24 11/13/24 Rx days #30 tabs oxycodone 5 mg tablet 5 mg PO Q6H PRN Pain Rated 4-6 7 11/12/24 11/13/24 Rx days #28 tabs sennosides 8.6 mg-docusate sodium 1 tab PO BID PRN Constipation 7 11/12/24 11/13/24 Rx 50 mg tablet (Senokot-S) days #14 tabs methylprednisolone 4 mg tablets in See Rx Instructions PO PER PKG DIR 11/13/24 11/13/24 Rx a dose pack #21 ea Allergies Allergy/AdvReac Type Severity Reaction Status Date / Time Penicillins Allergy Unknown Childhood Verified 11/11/24 09:37 Reaction NSAIDS (Non-Steroidal AdvReac Severe azotemia/ Verified 11/11/24 09:37 Anti-Inflamma gfr 26,creat 2.47 Vital Signs Vital Signs - 24 hr 11/13/24 16:35 11/13/24 16:40 11/13/24 18:37 Temperature 98.2 F Pulse Rate 92 83 Respiratory Rate 16 18 18 Blood Pressure 144/90 H 151/79 H Pulse Oximetry 99 97 Oxygen Delivery Fraction of Inspired Oxygen 11/13/24 19:19 11/13/24 19:20 11/13/24 19:22 Temperature Pulse Rate 94 85 90 Respiratory Rate 19 Blood Pressure Pulse Oximetry 98 Oxygen Delivery Mechanical Ventilation Fraction of Inspired Oxygen 40 11/13/24 19:25 11/13/24 19:27 11/13/24 19:27 Temperature 99.6 F 99.6 F Pulse Rate 95 92 93 Respiratory Rate 17 20 19 Blood Pressure 157/115 H 157/115 H Pulse Oximetry 100 100 Oxygen Delivery Fraction of Inspired Oxygen 11/13/24 20:00 11/13/24 20:00 11/13/24 20:00 Temperature 100.4 F H Pulse Rate 99 89 Respiratory Rate 22 H 14 Blood Pressure 109/70 Pulse Oximetry 97 Oxygen Delivery Fraction of Inspired Oxygen 40 11/13/24 20:00 11/13/24 20:00 11/13/24 20:01 Temperature Pulse Rate 89 95 Respiratory Rate 17 Blood Pressure Pulse Oximetry Oxygen Delivery Mechanical Ventilation Fraction of Inspired Oxygen 40 11/13/24 22:00 11/13/24 22:00 11/13/24 22:00 Temperature 98.3 F Pulse Rate 61 61 61 Respiratory Rate 14 14 Blood Pressure 91/69 L Pulse Oximetry 96 Oxygen Delivery Fraction of Inspired Oxygen 11/13/24 22:20 11/13/24 22:20 11/13/24 22:50 Temperature Pulse Rate 59 L 59 L 63 Respiratory Rate 14 14 Blood Pressure Pulse Oximetry 97 Oxygen Delivery Mechanical Ventilation Fraction of Inspired Oxygen 30 11/14/24 00:00 11/14/24 00:00 11/14/24 00:00 Temperature Pulse Rate 56 L Respiratory Rate 14 Blood Pressure Pulse Oximetry Oxygen Delivery Mechanical Ventilation Fraction of Inspired Oxygen 30 30 11/14/24 00:00 11/14/24 00:00 11/14/24 00:24 Temperature 97.6 F Pulse Rate 56 L 56 L 56 L Respiratory Rate 19 14 Blood Pressure 94/48 L Pulse Oximetry 100 Oxygen Delivery Fraction of Inspired Oxygen 11/14/24 01:49 11/14/24 01:49 11/14/24 01:58 Temperature Pulse Rate 56 L 56 L 58 L Respiratory Rate 14 14 Blood Pressure Pulse Oximetry 98 Oxygen Delivery Mechanical Ventilation Fraction of Inspired Oxygen 30 11/14/24 02:00 11/14/24 02:00 11/14/24 02:00 Temperature 96.6 F L Pulse Rate 53 L 55 L 55 L Respiratory Rate 14 14 Blood Pressure 103/72 Pulse Oximetry 98 Oxygen Delivery Fraction of Inspired Oxygen 11/14/24 02:29 11/14/24 04:00 11/14/24 04:00 Temperature 96.8 F L Pulse Rate 55 L 58 L 57 L Respiratory Rate 14 14 14 Blood Pressure 99/74 L Pulse Oximetry 95 Oxygen Delivery Fraction of Inspired Oxygen 11/14/24 04:00 11/14/24 04:00 11/14/24 04:00 Temperature Pulse Rate 53 L Respiratory Rate Blood Pressure Pulse Oximetry Oxygen Delivery Mechanical Ventilation Fraction of Inspired Oxygen 30 30 11/14/24 04:16 11/14/24 05:01 11/14/24 05:22 Temperature Pulse Rate 55 L 51 L 51 L Respiratory Rate 14 14 Blood Pressure Pulse Oximetry 96 Oxygen Delivery Mechanical Ventilation Fraction of Inspired Oxygen 30 11/14/24 05:39 11/14/24 06:00 11/14/24 06:00 Temperature 96.6 F L Pulse Rate 51 L 51 L 53 L Respiratory Rate 14 14 Blood Pressure 96/65 L Pulse Oximetry 97 Oxygen Delivery Fraction of Inspired Oxygen 11/14/24 06:01 11/14/24 06:01 11/14/24 08:00 Temperature 97.4 F L Pulse Rate 53 L 53 L 66 Respiratory Rate 14 14 14 Blood Pressure 125/83 Pulse Oximetry 99 Oxygen Delivery Fraction of Inspired Oxygen 11/14/24 08:00 11/14/24 08:05 11/14/24 10:00 Temperature Pulse Rate 60 63 Respiratory Rate 14 Blood Pressure 105/68 Pulse Oximetry 100 96 Oxygen Delivery Mechanical Ventilation Fraction of Inspired Oxygen 30 30 Exam Narrative: General: intubated and sedated, in no acute distress HEENT:? Pupils are reactive and equal, sclera is clear, ETT in place Neck:? swelling on right and anterior part of neck, Indurated, mild erythema Respiratory:? clear to auscultation, no wheezing, adequate air entry Cardiac:? S1 S2 normal, regular rate and rhythm Abdomen:?soft, non tender, non distended, normoactive bowel sounds Extremities:? no edema, palpable pedal pulses Neuro:? intubated, sedated, opens his eyes, nods to questions and follows simple commands in all extremities Skin:? Swelling on the right and anterior part of the neck, intubated, mild erythema as above Psych:? Unable to assess at this time Results Labs 11/14/24 03:39 11/14/24 03:39 Labs: Short CBC 11/13/24 11/14/24 Range/Units 16:55 03:39 WBC 10.7 H 10.3 H (4.5-10.0) K/mm3 Hgb 13.3 L 12.9 L (14.0-18.0) g/dL Hct 41.4 L 39.2 L (42.0-52.0) % Plt Count 217 233 (150-375) k/mm3 BMP 11/13/24 11/13/24 11/14/24 16:55 17:28 03:39 Sodium 140 137 Potassium 3.8 4.0 Chloride 101 104 Carbon Dioxide 29 22 BUN 13 D 19 Creatinine 1.35 H 1.40 1.30 Glucose 150 H 156 H Calcium 9.2 9.1 Liver Function 11/13/24 11/14/24 Range/Units 16:55 03:39 Total Bilirubin 1.5 H 1.0 (0.2-1.3) mg/dL AST 28 22 (17-59) U/L ALT 14 13 (6-50) U/L Alkaline Phosphatase 100 94 (38-126) U/L Albumin 4.4 4.1 (3.5-5.1) g/dL Quality VTE Prophylaxis VTE prophylaxis: pharmacologic ordered Hospitalist MIPS Advance Care Plan I have confirmed that the patient's Advanced Care Plan is present, code status is documented, or surrogate decision maker is listed in patient medical record.: Yes Medication Reconciliation I have utilized all available resources to obtain, update and review the patients current medications (includes all prescriptions, OTC, herbals, cannabis, and nutritional supplements).: Yes
[2024-11-14] MEDS: ENOXAPARIN 40 MG/0.4 ML SYRINGE SUB-Q (10:52)
[2024-11-14 12:24] LABS: Glucose Point of Care 160 mg/dl (65-105)
[2024-11-14] MEDS: HYDROcodone/acetaminophen (*CRX) 5-325 MG TABLET 1 TAB PO ×3 (13:39→22:17)
[2024-11-14] MEDS: GABAPENTIN 300 MG CAPSULE 900 MG PO (17:13)
[2024-11-14 17:42] LABS: Glucose Point of Care 171 mg/dl (65-105)
[2024-11-14 23:47] LABS: Glucose Point of Care 175 mg/dl (65-105)
[2024-11-15] VITALS (32 sets, daily range): BP systolic 101–135; BP diastolic 66–82; PULSE 61–83; RESP 14–17; TEMP 36.9–37.4; O2SAT 93–99
[2024-11-15] MEDS: PROPOFOL IV EMULSION 100 ML 18 MG IV CONT ×4 (02:28→18:24)
[2024-11-15 03:51] LABS: Basophils Percent Auto 0.1 % (0.2-1.2); Hematocrit 38.6 % (42.0-52.0); Hemoglobin 12.9 g/dL (14.0-18.0); Immature Granulocyte Absolute 0.11 K/mm3 (0.00-0.031); Immature Granulocyte Percent A 0.8 % (0-0.5); Lymphocytes Absolute Auto 0.61 K/mm3 (0.9-3.2); Lymphocytes Percent Auto 4.3 % (18.3-44.2); Mean Corpuscular HGB Conc 33.4 g/dl (32-36); Mean Corpuscular Hemoglobin 27.8 pg (26-34); Mean Corpuscular Volume 83.2 fl (80-100); Mean Platelet Volume 9.3 fl (7.4-10.4); Monocytes Absolute Auto 0.9 K/mm3 (0.1-0.6); Monocytes Percent Auto 6.4 % (2.6-8.5); Neutrophils Absolute Auto 12.5 K/mm3 (1.3-6.7); Neutrophils Percent Auto 88.4 % (45.5-73.1); Platelet Count Result 281 k/mm3 (150-375); Red Blood Count 4.64 M/mm3 (4.6-6.20); Red Cell Distribution Width 14.4 % (11.5-14.5); White Blood Count 14.1 K/mm3 (4.5-10.0)
[2024-11-15 04:14] LABS: Anion Gap 10 mmol/L (4-12); Blood Urea Nitrogen 36 mg/dL (9-20); Calcium 9.2 mg/dL (8.4-10.2); Carbon Dioxide 25 mmol/L (22-30); Chloride 103 mmol/L (98-107); Estimated CRCL calculation 52 ml/min; Estimated Glomerular Filt Rate 47; Glucose 202 mg/dL (65-110); Magnesium 2.2 mg/dL (1.6-2.3); Phosphorus 3.7 mg/dL (2.5-4.5); Potassium 3.7 mmol/L (3.4-5.0); Sodium 138 mmol/L (137-145)
[2024-11-15 05:02] LABS: Alveolar/Arterial O2 Gradient 77.5 mmHg; Base Excess ABG -2.9 mEq/l (+/-2.0); Carboxyhemoglobin 0.4 % THb (0-2.0); Fractional Inspired Oxygen 30 %; HCO3 ABG 20.9 mEq/l (22.0-26.0); Methemoglobin ABG 0.3 %THb (0-1.5); Oxygen Content ABG 18.2 %vol (16.0-22.0); Oxygen Saturation ABG 97.6 % (95.0-100.0); Oxyhemoglobin 96.8 % THb (90.0-100.0); PCO2 ABG 33.2 mmHg (35.0-45.0); PO2 ABG 97.4 mmHg (80.0-100.0); PO2 FiO2 Ratio Arterial Blood 3.25 %; Reduced Hemoglobin 2.5 %THb (0-5.0); Total Hemoglobin 13.3 g/dL (12.0-18.0); pH ABG 7.416 (7.350-7.450)
[2024-11-15 05:03] LABS: Device VENTILATOR; Modified Allen's Test Pass; Site Drawn RIGHT RADIAL
[2024-11-15 05:04] LABS: Arterial Blood Gas PEEP 5 cmH2O; Arterial Blood Gas Tidal Volume 480 ml; Arterial Blood Gas Vent Mode CMV; Arterial Blood Gas Ventilator rate 14 /MIN
[2024-11-15 05:46] LABS: Glucose Point of Care 201 mg/dl (65-105)
[2024-11-15] MEDS: dexAMETHasone SOD PHOS INJ 4 MG/ML VIAL IV PUSH ×3 (05:46→17:06)
[2024-11-15] MEDS: HYDROcodone/acetaminophen (*CRX) 5-325 MG TABLET 1 TAB PO ×4 (06:07→20:24)
[2024-11-15] MEDS: INSULIN ASPART (*BKC) 100 UNITS/ML SUB-Q (06:10)
[2024-11-15] MEDS: MONTELUKAST SODIUM 10 MG TABLET BY MOUTH (08:34)
[2024-11-15] MEDS: ENOXAPARIN 40 MG/0.4 ML SYRINGE SUB-Q (08:34)
[2024-11-15] MEDS: GABAPENTIN 300 MG CAPSULE 900 MG PO ×2 (08:34→16:40)
[2024-11-15] MEDS: PANTOPRAZOLE SODIUM IV 40 MG VIAL IV PUSH (08:34)
[2024-11-15] MEDS: SENNA/DOCUSATE SODIUM TABLET 1 TAB PO ×2 (08:35→20:24)
[2024-11-15] MEDS: ATORVASTATIN 40 MG TABLET 80 MG PO (08:35)
[2024-11-15] MEDS: LACTATED RINGERS 1,000 ML 100 ML IV CONT (08:36)
[2024-11-15] MEDS: MINERAL OIL/WHITE PETROLATUM OINTMENT 1 APPLIC EACH EYE ×2 (08:39→20:23)
[2024-11-15] MEDS: SODIUM CHLORIDE 2% OP SOLN 15 ML BTL 1 DROP EACH EYE (08:39)
--- NOTE | 2024-11-15 08:52 | WPDINTPN ---
Progress Note: A&P Assessment and Plan (1) Postoperative edema: Code(s): R60.9 - Edema, unspecified Status: Acute Assessment and Plan: Patient had anterior cervical diskectomy and fusion from C4-C7 for cervical myelopathy, radiculopathy and spondylolisthesis on 11/11/2024 -patient presented the ED complains of neck swelling and pain, dysphonia, dysphagia, and difficulty breathing -patient was intubated in the OR by Anesthesia on 11/11/2024 for airway protection as the CT scan did show severe narrowing of the air passage. -continue Decadron for soft tissue swelling as seen on the neck CTA -will monitor the neck swelling, may need to repeat CT scan of the neck and soft tissues before extubation -neurosurgery also following Neck CTA 11/13/24: IMPRESSION: 1.Normal CTA head and neck. Percent stenosis per NASCET criteria is 0%.. 2. Prevertebral soft tissue swelling seen anterior to the vertebrae from C2 down to C7 with maximum changes at the level of C3-C4 with a thickness measuring 3 cm. Severe Narrowing of the air passage is seen in the area. (2) Status post cervical discectomy: Code(s): Z98.890 - Other specified postprocedural states Status: Acute Assessment and Plan: Fentanyl p.r.n. for pain (3) Airway compromise: Code(s): J98.8 - Other specified respiratory disorders Status: Acute Assessment and Plan: 11/13: CTA neck showed severe narrowing of the passage as above -intubated by anesthesia in the OR -remains intubated on CMV mode of ventilation, peep of 5, 30% FiO2 -intubation was done for airway protection -chest x-ray was clear (4) Hypertension: Code(s): I10 - Essential (primary) hypertension Status: Acute Assessment and Plan: Patient on losartan and amlodipine at home, will hold for now as blood pressures are stable as patient on propofol (5) Chronic kidney disease, stage 3: Code(s): N18.30 - Chronic kidney disease, stage 3 unspecified Status: Acute Assessment and Plan: Baseline creatinine is 1.30-1.70 -urine output, is low, current increased since admission -will start LR at 100 mL/hour for a total of 1000 mL -continue to monitor renal function, electrolytes and urine output Plan DVT prophylaxis: Lovenox Stress ulcer prophylaxis: Protonix Nutrition: Tolerating tube feed Code Status: Full code Critical Care Time Spent: 32 minutes Discussed with , Rebecca at bedside and updated with patient's condition, plan of care. I answered all her questions, will restart some of his own medications Due to a high probability of clinically significant, life threatening deterioration, the patient required my highest level of preparedness to intervene emergently and I personally spent this critical care time directly and personally managing the patient. This critical care time included obtaining a history; examining the patient; pulse oximetry; ordering and review of studies; arranging urgent treatment with development of a management plan; evaluation of patient's response to treatment; frequent reassessment; and discussions with other providers. It was exclusive of separately billable procedures and treating other patients and teaching time. Please see Assessment and Plan section and the rest of the note for further information on patient assessment and treatment This dictation may have been done utilizing a voice recognition system. Attempts have been made to correct errors. However, there may be uncorrected grammatical, spelling, and recognitions errors present. Subjective Date/time seen: 11/15/24 08:52 Interval history: Reason for consult: Postoperative edema status post injury cervical diskectomy and fusion from C4-C7 for cervical myelopathy, radiculopathy and spondylolisthesis on a 11/11/2024. Patient presented with neck swelling and pain, dysphonia, dysphagia and difficulty breathing. Patient was intubated in the OR by anesthesia on 11/12/[address] for airway [address] his CT scan showed severe narrowing of the and passing 11/15/2024: Patient seen and examined the ICU, remains intubated on CMV mode, peep of 5, 30% FiO2. Sedated with propofol infusion, opens eyes, follows simple commands in all extremities, looks comfortable. Tolerating tube feeds. Urine output has been low and creatinine is increased. Otherwise hemodynamically stable Review of Systems Review of Systems: ROS unobtainable: Yes unobtainable due to endotracheal tube Exam Narrative: General: intubated and sedated, in no acute distress HEENT:? Pupils are reactive and equal, sclera is clear, ETT in place Neck:? swelling on right and anterior part of neck, Indurated, mild erythema, swelling is improving Respiratory:? clear to auscultation, no wheezing, adequate air entry Cardiac:? S1 S2 normal, regular rate and rhythm Abdomen:?soft, non tender, non distended, normoactive bowel sounds Extremities:? no edema, palpable pedal pulses Neuro:? intubated, sedated, opens his eyes, nods to questions and follows simple commands in all extremities Skin:? Swelling on the right and anterior part of the neck, intubated, mild erythema as above Psych:? Unable to assess at this time Objective Data Vital Signs Vital Signs: Vital Signs - 24 hr 11/14/24 10:00 11/14/24 10:00 11/14/24 10:00 Temperature Pulse Rate 63 61 61 Respiratory Rate 14 14 Blood Pressure 105/68 Pulse Oximetry 96 Oxygen Delivery Fraction of Inspired Oxygen 11/14/24 10:40 11/14/24 11:35 11/14/24 11:35 Temperature Pulse Rate 66 67 67 Respiratory Rate 14 14 Blood Pressure Pulse Oximetry 97 Oxygen Delivery Mechanical Ventilation Fraction of Inspired Oxygen 30 11/14/24 11:49 11/14/24 12:00 11/14/24 12:00 Temperature 97.4 F L Pulse Rate 67 73 Respiratory Rate 18 Blood Pressure 118/76 Pulse Oximetry 98 Oxygen Delivery Fraction of Inspired Oxygen 30 11/14/24 13:35 11/14/24 13:40 11/14/24 14:00 Temperature 99.1 F Pulse Rate 68 84 83 Respiratory Rate 15 16 Blood Pressure 116/76 Pulse Oximetry 99 97 Oxygen Delivery Mechanical Ventilation Fraction of Inspired Oxygen 30 11/14/24 14:00 11/14/24 15:35 11/14/24 16:00 Temperature Pulse Rate 83 78 Respiratory Rate 14 Blood Pressure Pulse Oximetry Oxygen Delivery Fraction of Inspired Oxygen 30 11/14/24 16:00 11/14/24 16:00 11/14/24 16:00 Temperature 99.2 F 98.6 F Pulse Rate 78 78 84 Respiratory Rate 11 L 18 Blood Pressure 122/81 122/80 Pulse Oximetry 95 96 Oxygen Delivery Fraction of Inspired Oxygen 11/14/24 16:32 11/14/24 17:09 11/14/24 17:13 Temperature Pulse Rate 78 81 81 Respiratory Rate 16 15 Blood Pressure Pulse Oximetry 95 Oxygen Delivery Mechanical Ventilation Fraction of Inspired Oxygen 30 11/14/24 17:59 11/14/24 17:59 11/14/24 18:01 Temperature 99.8 F H Pulse Rate 95 94 88 Respiratory Rate 17 16 Blood Pressure 122/85 Pulse Oximetry 95 Oxygen Delivery Fraction of Inspired Oxygen 11/14/24 19:49 11/14/24 20:00 11/14/24 20:00 Temperature 99.6 F Pulse Rate 90 85 85 Respiratory Rate 15 15 Blood Pressure 129/87 Pulse Oximetry 95 95 Oxygen Delivery Mechanical Ventilation Fraction of Inspired Oxygen 30 11/14/24 20:00 11/14/24 20:00 11/14/24 20:00 Temperature Pulse Rate 85 83 Respiratory Rate 15 Blood Pressure Pulse Oximetry Oxygen Delivery Mechanical Ventilation Fraction of Inspired Oxygen 30 11/14/24 20:00 11/14/24 21:51 11/14/24 21:51 Temperature Pulse Rate 80 80 Respiratory Rate 15 15 Blood Pressure Pulse Oximetry Oxygen Delivery Fraction of Inspired Oxygen 30 11/14/24 22:00 11/14/24 22:00 11/14/24 22:00 Temperature 99.4 F Pulse Rate 77 77 77 Respiratory Rate 16 16 Blood Pressure 125/83 Pulse Oximetry 96 Oxygen Delivery Fraction of Inspired Oxygen 11/14/24 22:00 11/14/24 23:06 11/15/24 00:00 Temperature Pulse Rate 77 75 69 Respiratory Rate 16 14 Blood Pressure Pulse Oximetry 96 Oxygen Delivery Mechanical Ventilation Fraction of Inspired Oxygen 30 11/15/24 00:00 11/15/24 00:00 11/15/24 00:00 Temperature Pulse Rate 69 Respiratory Rate 14 Blood Pressure Pulse Oximetry Oxygen Delivery Mechanical Ventilation Fraction of Inspired Oxygen 30 30 11/15/24 00:00 11/15/24 00:00 11/15/24 01:44 Temperature 98.8 F Pulse Rate 69 74 69 Respiratory Rate 14 Blood Pressure 101/70 Pulse Oximetry 93 95 Oxygen Delivery Mechanical Ventilation Fraction of Inspired Oxygen 30 11/15/24 02:00 11/15/24 02:00 11/15/24 02:00 Temperature Pulse Rate 69 69 70 Respiratory Rate 14 14 Blood Pressure Pulse Oximetry Oxygen Delivery Fraction of Inspired Oxygen 11/15/24 02:00 11/15/24 02:28 11/15/24 02:28 Temperature 98.4 F Pulse Rate 70 70 70 Respiratory Rate 14 14 14 Blood Pressure 114/75 Pulse Oximetry 98 Oxygen Delivery Fraction of Inspired Oxygen 11/15/24 04:00 11/15/24 04:00 11/15/24 04:00 Temperature Pulse Rate 68 Respiratory Rate Blood Pressure Pulse Oximetry Oxygen Delivery Mechanical Ventilation Fraction of Inspired Oxygen 30 30 11/15/24 04:00 11/15/24 04:00 11/15/24 04:00 Temperature 98.7 F Pulse Rate 68 68 68 Respiratory Rate 14 14 14 Blood Pressure 109/73 Pulse Oximetry 95 Oxygen Delivery Fraction of Inspired Oxygen 11/15/24 04:48 11/15/24 06:00 11/15/24 06:00 Temperature 98.5 F Pulse Rate 68 69 69 Respiratory Rate 14 Blood Pressure 107/71 Pulse Oximetry 95 95 Oxygen Delivery Mechanical Ventilation Fraction of Inspired Oxygen 30 11/15/24 06:00 11/15/24 06:23 11/15/24 08:02 Temperature Pulse Rate 69 66 67 Respiratory Rate 14 14 17 Blood Pressure Pulse Oximetry Oxygen Delivery Fraction of Inspired Oxygen 11/15/24 08:07 Temperature Pulse Rate 67 Respiratory Rate 17 Blood Pressure Pulse Oximetry Oxygen Delivery Fraction of Inspired Oxygen Intake/Output Intake/Output: Intake & Output 11/12/24 11/13/24 11/14/24 11/15/24 23:59 23:59 23:59 23:59 Intake Total 89.6 639.7 687.4 Output Total 1400 475 Balance 89.6 -760.3 212.4 Meds/Results Medications: Active Medications Generic Name Dose Route Start Last Admin Trade Name Freq PRN Reason Stop Dose Admin Hydrocodone Bitart/Acetaminophen 1 tab 11/14/24 12:17 11/15/24 06:07 Hydrocodone/Acetaminophen (*Crx) 5-325 Mg Tablet PO 1 tab Q4H PRN Administration Pain Rated 4-6 Amlodipine Besylate 5 mg 11/14/24 09:00 Amlodipine Besylate 5 Mg Tablet PO DAILY COUNT INCLUDES THE [facility] Atorvastatin Calcium 80 mg 11/14/24 09:00 11/15/24 08:35 Atorvastatin 40 Mg Tablet PO 80 mg DAILY AMADEO Administration Dexamethasone Sodium Phosphate 4 mg 11/13/24 21:00 11/15/24 05:46 Dexamethasone Sod Phos Inj 4 Mg/Ml Vial IV PUSH 4 mg Q6HR AMADEO Administration Dextrose 12.5 gm 11/14/24 02:39 Dextrose 50% 25 Gm/50 Ml Syringe IV PUSH PRN PRN Hypoglycemia Protocol Empagliflozin 10 mg 11/15/24 09:00 Empagliflozin 10 Mg Tablet PO QAM COUNT INCLUDES THE [facility] Enoxaparin Sodium 40 mg 11/15/24 09:00 11/15/24 08:34 Enoxaparin 40 Mg/0.4 Ml Syringe SUB-Q 40 mg DAILY AMADEO Administration Fentanyl Citrate 25 mcg 11/14/24 08:33 11/14/24 12:22 Fentanyl Citrate Inj (*Crx) 100 Mcg/2 Ml Vial IV PUSH 25 mcg Q4H PRN Administration Pain Rated 7-10 Gabapentin 900 mg 11/14/24 17:00 11/15/24 08:34 Gabapentin 300 Mg Capsule PO 900 mg BID AMADEO Administration Glucagon 1 mg 11/14/24 02:39 Glucagon For Inj 1 Mg Vial IM PRN PRN Hypoglycemia Protocol Glucose 15 gm 11/14/24 02:39 Glucose Oral Gel 15 Gm Of Glucse In 37.5 Gm Tube PO PRN PRN Hypoglycemia Protocol Propofol 100 mls @ 18 mls/hr 11/13/24 18:35 11/15/24 08:07 Diprivan IV CONT 30 mcg/kg/min .Q5H34M AMADEO 18 mls/hr Administration Protocol 30 MCG/KG/MIN Midazolam HCl 100 mg in 100 mls @ 0 mls/hr 11/13/24 19:50 11/15/24 06:23 Versed 100 Mg/Ns 100 Ml IV CONT Infused .Q0M AMADEO Titration Protocol 0 MG/HR Dextrose 1,000 mls @ 100 mls/hr 11/14/24 02:39 Dextrose 5% 1,000 Ml IVPB PRN PRN Hypoglycemia Protocol Lactated Ringer's 1,000 mls @ 100 mls/hr 11/15/24 07:20 11/15/24 08:36 Lr - Lactated Ringers Iv IV CONT 11/15/24 17:19 100 mls/hr .Q10H AMADEO Administration Insulin Aspart 3 - 6 units 11/15/24 06:00 11/15/24 06:10 Insulin Aspart (*Bkc) 100 Units/Ml SUB-Q 3 units Q6HR AMADEO Administration Protocol Losartan Potassium 100 mg 11/14/24 09:00 Losartan Potassium 100 Mg Tablet BY MOUTH DAILY COUNT INCLUDES THE [facility] Miscellaneous Information 1 each 11/15/24 00:01 Please Renew Propofol. Per [employer] Procedure, It Will Discontinue If Not Renewed XX 12/15/24 00:00 CLARIFY AMADEO Montelukast Sodium 10 mg 11/14/24 09:00 11/15/24 08:34 Montelukast Sodium 10 Mg Tablet BY MOUTH 10 mg DAILY AMADEO Administration Multi-Ingred Cream/Lotion/Oil/Oint 1 applic 11/13/24 21:00 11/15/24 08:39 Mineral Oil/White Petrolatum Ointment EACH EYE 1 applic Q12HR AMADEO Administration Pantoprazole Sodium 40 mg 11/14/24 09:00 11/15/24 08:34 Pantoprazole Sodium Iv 40 Mg Vial IV PUSH 40 mg QAM AMADEO Administration Senna/Docusate Sodium 1 tab 11/14/24 11:44 11/15/24 08:35 Senna/Docusate Sodium Tablet PO 1 tab BID PRN Administration Constipation Sodium Chloride 1 drop 11/14/24 09:00 11/15/24 08:39 Sodium Chloride 2% Op Soln 15 Ml Btl EACH EYE 1 drop DAILY AMADEO Administration Radiology Results: ITS Impressions Neck CTA 11/13/24 17:41 IMPRESSION: Normal CTA head and neck. Percent stenosis per NASCET criteria is 0%.. Prevertebral soft tissue swelling seen anterior to the vertebrae from C2 down to C7 with maximum changes at the level of C3-C4 with a thickness measuring 3 cm. Severe Narrowing of the air passage is seen in the area. Dr. Vyas was notified with the result of the patient at 6:00 PM on November 13, 2024. Chest X-Ray 11/15/24 06:38 Impression: Minimal left pleural effusion with left basilar atelectasis. Support tubes, as above. Labs Labs: Laboratory Results - last 24 hr 11/14/24 11/14/24 11/14/24 12:13 17:39 23:37 WBC RBC Hgb Hct MCV MCH MCHC RDW Plt Count MPV Immature Gran % (Auto) Neut % (Auto) Lymph % (Auto) [place] % (Auto) Eos % (Auto) Baso % (Auto) Lymph # (Auto) [place] # (Auto) Eos # (Auto) Baso # (Auto) Abs Immat Gran (auto) Absolute Neuts (auto) Absolute Nucleated RBC Nucleated RBC % Puncture Site ABG pH ABG pCO2 ABG pO2 ABG PO2/FiO2 Ratio ABG HCO3 ABG O2 Saturation ABG O2 Content ABG Base Excess A-a Gradient Oxyhemoglobin Carboxyhemoglobin Methemoglobin Reduced Hemoglobin Total Hemoglobin O2 Delivery Device O2 Liters/Min Minute Volume Vent Rate Vent Mode FiO2 Tidal Volume PEEP Peak Inspir Pressure Pressure Support Sodium Potassium Chloride Carbon Dioxide Anion Gap BUN Creatinine Estim Creat Clear Calc Estimated GFR Glucose POC Capillary Glucose 160 H 171 H 175 H Calcium Phosphorus Magnesium 11/15/24 11/15/24 11/15/24 03:46 04:41 05:40 WBC 14.1 H RBC 4.64 Hgb 12.9 L Hct 38.6 L MCV 83.2 MCH 27.8 MCHC 33.4 RDW 14.4 Plt Count 281 MPV 9.3 Immature Gran % (Auto) 0.8 H Neut % (Auto) 88.4 H Lymph % (Auto) 4.3 L [place] % (Auto) 6.4 Eos % (Auto) 0.0 Baso % (Auto) 0.1 L Lymph # (Auto) 0.61 L [place] # (Auto) 0.9 H Eos # (Auto) 0.0 Baso # (Auto) 0.0 Abs Immat Gran (auto) 0.11 H Absolute Neuts (auto) 12.5 H Absolute Nucleated RBC 0.000 Nucleated RBC % 0.0 Puncture Site Right radial ABG pH 7.416 ABG pCO2 33.2 L ABG pO2 97.4 ABG PO2/FiO2 Ratio 3.25 ABG HCO3 20.9 L ABG O2 Saturation 97.6 ABG O2 Content 18.2 ABG Base Excess -2.9 A-a Gradient 77.5 Oxyhemoglobin 96.8 Carboxyhemoglobin 0.4 Methemoglobin 0.3 Reduced Hemoglobin 2.5 Total Hemoglobin 13.3 O2 Delivery Device Ventilator O2 Liters/Min Not Reportable Minute Volume Not Reportable Vent Rate 14 Vent Mode Cmv FiO2 30 Tidal Volume 480 PEEP 5 Peak Inspir Pressure Not Reportable Pressure Support Not Reportable Sodium 138 Potassium 3.7 Chloride 103 Carbon Dioxide 25 Anion Gap 10 BUN 36 H D Creatinine 1.49 H Estim Creat Clear Calc 52 Estimated GFR 47 L Glucose 202 H POC Capillary Glucose 201 H Calcium 9.2 Phosphorus 3.7 Magnesium 2.2 Quality VTE Prophylaxis VTE prophylaxis: pharmacologic ordered
--- NOTE | 2024-11-15 09:37 | P.PNNEUSUR_ITS ---
Progress Note: A&P Assessment and Plan (1) Cervical myelopathy: Code(s): G95.9 - Disease of spinal cord, unspecified Status: Acute Assessment and Plan: appreciate ICU management, continue steroids and monitor swelling. consider repeat CT scan to re-evaluate neck swelling prior to extubation. Extubation per ICU. Subjective Date/time seen: 11/15/24 09:37 Interval history: swelling around neck improved, maintains cuff leak. Exam Narrative: intubated light sedation eyes closed, but follows commands neck soft incision c/d/i Objective Data Vital Signs Vital Signs: Vital Signs - 24 hr 11/14/24 10:00 11/14/24 10:00 11/14/24 10:00 Temperature Pulse Rate 63 61 61 Respiratory Rate 14 14 Blood Pressure 105/68 Pulse Oximetry 96 Oxygen Delivery Fraction of Inspired Oxygen 11/14/24 10:40 11/14/24 11:35 11/14/24 11:35 Temperature Pulse Rate 66 67 67 Respiratory Rate 14 14 Blood Pressure Pulse Oximetry 97 Oxygen Delivery Mechanical Ventilation Fraction of Inspired Oxygen 30 11/14/24 11:49 11/14/24 12:00 11/14/24 12:00 Temperature 97.4 F L Pulse Rate 67 73 Respiratory Rate 18 Blood Pressure 118/76 Pulse Oximetry 98 Oxygen Delivery Fraction of Inspired Oxygen 30 11/14/24 13:35 11/14/24 13:40 11/14/24 14:00 Temperature 99.1 F Pulse Rate 68 84 83 Respiratory Rate 15 16 Blood Pressure 116/76 Pulse Oximetry 99 97 Oxygen Delivery Mechanical Ventilation Fraction of Inspired Oxygen 30 11/14/24 14:00 11/14/24 15:35 11/14/24 16:00 Temperature Pulse Rate 83 78 Respiratory Rate 14 Blood Pressure Pulse Oximetry Oxygen Delivery Fraction of Inspired Oxygen 30 11/14/24 16:00 11/14/24 16:00 11/14/24 16:00 Temperature 99.2 F 98.6 F Pulse Rate 78 78 84 Respiratory Rate 11 L 18 Blood Pressure 122/81 122/80 Pulse Oximetry 95 96 Oxygen Delivery Fraction of Inspired Oxygen 11/14/24 16:32 11/14/24 17:09 11/14/24 17:13 Temperature Pulse Rate 78 81 81 Respiratory Rate 16 15 Blood Pressure Pulse Oximetry 95 Oxygen Delivery Mechanical Ventilation Fraction of Inspired Oxygen 30 11/14/24 17:59 11/14/24 17:59 11/14/24 18:01 Temperature 99.8 F H Pulse Rate 95 94 88 Respiratory Rate 17 16 Blood Pressure 122/85 Pulse Oximetry 95 Oxygen Delivery Fraction of Inspired Oxygen 11/14/24 19:49 11/14/24 20:00 11/14/24 20:00 Temperature 99.6 F Pulse Rate 90 85 85 Respiratory Rate 15 15 Blood Pressure 129/87 Pulse Oximetry 95 95 Oxygen Delivery Mechanical Ventilation Fraction of Inspired Oxygen 30 11/14/24 20:00 11/14/24 20:00 11/14/24 20:00 Temperature Pulse Rate 85 83 Respiratory Rate 15 Blood Pressure Pulse Oximetry Oxygen Delivery Mechanical Ventilation Fraction of Inspired Oxygen 30 11/14/24 20:00 11/14/24 21:51 11/14/24 21:51 Temperature Pulse Rate 80 80 Respiratory Rate 15 15 Blood Pressure Pulse Oximetry Oxygen Delivery Fraction of Inspired Oxygen 30 11/14/24 22:00 11/14/24 22:00 11/14/24 22:00 Temperature 99.4 F Pulse Rate 77 77 77 Respiratory Rate 16 16 Blood Pressure 125/83 Pulse Oximetry 96 Oxygen Delivery Fraction of Inspired Oxygen 11/14/24 22:00 11/14/24 23:06 11/15/24 00:00 Temperature Pulse Rate 77 75 69 Respiratory Rate 16 14 Blood Pressure Pulse Oximetry 96 Oxygen Delivery Mechanical Ventilation Fraction of Inspired Oxygen 30 11/15/24 00:00 11/15/24 00:00 11/15/24 00:00 Temperature Pulse Rate 69 Respiratory Rate 14 Blood Pressure Pulse Oximetry Oxygen Delivery Mechanical Ventilation Fraction of Inspired Oxygen 30 30 11/15/24 00:00 11/15/24 00:00 11/15/24 01:44 Temperature 98.8 F Pulse Rate 69 74 69 Respiratory Rate 14 Blood Pressure 101/70 Pulse Oximetry 93 95 Oxygen Delivery Mechanical Ventilation Fraction of Inspired Oxygen 30 11/15/24 02:00 11/15/24 02:00 11/15/24 02:00 Temperature Pulse Rate 69 69 70 Respiratory Rate 14 14 Blood Pressure Pulse Oximetry Oxygen Delivery Fraction of Inspired Oxygen 11/15/24 02:00 11/15/24 02:28 11/15/24 02:28 Temperature 98.4 F Pulse Rate 70 70 70 Respiratory Rate 14 14 14 Blood Pressure 114/75 Pulse Oximetry 98 Oxygen Delivery Fraction of Inspired Oxygen 11/15/24 04:00 11/15/24 04:00 11/15/24 04:00 Temperature Pulse Rate 68 Respiratory Rate Blood Pressure Pulse Oximetry Oxygen Delivery Mechanical Ventilation Fraction of Inspired Oxygen 30 30 11/15/24 04:00 11/15/24 04:00 11/15/24 04:00 Temperature 98.7 F Pulse Rate 68 68 68 Respiratory Rate 14 14 14 Blood Pressure 109/73 Pulse Oximetry 95 Oxygen Delivery Fraction of Inspired Oxygen 11/15/24 04:48 11/15/24 06:00 11/15/24 06:00 Temperature 98.5 F Pulse Rate 68 69 69 Respiratory Rate 14 Blood Pressure 107/71 Pulse Oximetry 95 95 Oxygen Delivery Mechanical Ventilation Fraction of Inspired Oxygen 30 11/15/24 06:00 11/15/24 06:23 11/15/24 08:02 Temperature Pulse Rate 69 66 67 Respiratory Rate 14 14 17 Blood Pressure Pulse Oximetry Oxygen Delivery Fraction of Inspired Oxygen 11/15/24 08:07 11/15/24 09:28 Temperature Pulse Rate 67 61 Respiratory Rate 17 Blood Pressure Pulse Oximetry 95 Oxygen Delivery Mechanical Ventilation Fraction of Inspired Oxygen 30 Intake/Output Intake/Output: Intake & Output 11/12/24 11/13/24 11/14/24 11/15/24 23:59 23:59 23:59 23:59 Intake Total 89.6 639.7 687.4 Output Total 1400 475 Balance 89.6 -760.3 212.4 Meds/Results Medications: Active Medications Generic Name Dose Route Start Last Admin Trade Name Freq PRN Reason Stop Dose Admin Hydrocodone Bitart/Acetaminophen 1 tab 11/14/24 12:17 11/15/24 06:07 Hydrocodone/Acetaminophen (*Crx) 5-325 Mg Tablet PO 1 tab Q4H PRN Administration Pain Rated 4-6 Amlodipine Besylate 5 mg 11/14/24 09:00 Amlodipine Besylate 5 Mg Tablet PO DAILY AMADEO Atorvastatin Calcium 80 mg 11/14/24 09:00 11/15/24 08:35 Atorvastatin 40 Mg Tablet PO 80 mg DAILY AMADEO Administration Dexamethasone Sodium Phosphate 4 mg 11/13/24 21:00 11/15/24 05:46 Dexamethasone Sod Phos Inj 4 Mg/Ml Vial IV PUSH 4 mg Q6HR AMADEO Administration Dextrose 12.5 gm 11/14/24 02:39 Dextrose 50% 25 Gm/50 Ml Syringe IV PUSH PRN PRN Hypoglycemia Protocol Empagliflozin 10 mg 11/15/24 09:00 Empagliflozin 10 Mg Tablet PO QAM AMADEO Enoxaparin Sodium 40 mg 11/15/24 09:00 11/15/24 08:34 Enoxaparin 40 Mg/0.4 Ml Syringe SUB-Q 40 mg DAILY AMADEO Administration Fentanyl Citrate 25 mcg 11/14/24 08:33 11/14/24 12:22 Fentanyl Citrate Inj (*Crx) 100 Mcg/2 Ml Vial IV PUSH 25 mcg Q4H PRN Administration Pain Rated 7-10 Gabapentin 900 mg 11/14/24 17:00 11/15/24 08:34 Gabapentin 300 Mg Capsule PO 900 mg BID AMADEO Administration Glucagon 1 mg 11/14/24 02:39 Glucagon For Inj 1 Mg Vial IM PRN PRN Hypoglycemia Protocol Glucose 15 gm 11/14/24 02:39 Glucose Oral Gel 15 Gm Of Glucse In 37.5 Gm Tube PO PRN PRN Hypoglycemia Protocol Propofol 100 mls @ 18 mls/hr 11/13/24 18:35 11/15/24 08:07 Diprivan IV CONT 30 mcg/kg/min .Q5H34M AMADEO 18 mls/hr Administration Protocol 30 MCG/KG/MIN Midazolam HCl 100 mg in 100 mls @ 0 mls/hr 11/13/24 19:50 11/15/24 06:23 Versed 100 Mg/Ns 100 Ml IV CONT Infused .Q0M AMADEO Titration Protocol 0 MG/HR Dextrose 1,000 mls @ 100 mls/hr 11/14/24 02:39 Dextrose 5% 1,000 Ml IVPB PRN PRN Hypoglycemia Protocol Lactated Ringer's 1,000 mls @ 100 mls/hr 11/15/24 07:20 11/15/24 08:36 Lr - Lactated Ringers Iv IV CONT 11/15/24 17:19 100 mls/hr .Q10H AMADEO Administration Insulin Aspart 3 - 6 units 11/15/24 06:00 11/15/24 06:10 Insulin Aspart (*Bkc) 100 Units/Ml SUB-Q 3 units Q6HR AMADEO Administration Protocol Losartan Potassium 100 mg 11/14/24 09:00 Losartan Potassium 100 Mg Tablet BY MOUTH DAILY COUNTS INCLUDE 234 BEDS AT THE [facility] Miscellaneous Information 1 each 11/15/24 00:01 Please Renew Propofol. Per [employer] Procedure, It Will Discontinue If Not Renewed XX 12/15/24 00:00 CLARIFY AMADEO Montelukast Sodium 10 mg 11/14/24 09:00 11/15/24 08:34 Montelukast Sodium 10 Mg Tablet BY MOUTH 10 mg DAILY AMADEO Administration Multi-Ingred Cream/Lotion/Oil/Oint 1 applic 11/13/24 21:00 11/15/24 08:39 Mineral Oil/White Petrolatum Ointment EACH EYE 1 applic Q12HR AMADEO Administration Pantoprazole Sodium 40 mg 11/14/24 09:00 11/15/24 08:34 Pantoprazole Sodium Iv 40 Mg Vial IV PUSH 40 mg QAM AMADEO Administration Senna/Docusate Sodium 1 tab 11/14/24 11:44 11/15/24 08:35 Senna/Docusate Sodium Tablet PO 1 tab BID PRN Administration Constipation Sodium Chloride 1 drop 11/14/24 09:00 11/15/24 08:39 Sodium Chloride 2% Op Soln 15 Ml Btl EACH EYE 1 drop DAILY AMADEO Administration Radiology Results: ITS Impressions Neck CTA 11/13/24 17:41 IMPRESSION: Normal CTA head and neck. Percent stenosis per NASCET criteria is 0%.. Prevertebral soft tissue swelling seen anterior to the vertebrae from C2 down to C7 with maximum changes at the level of C3-C4 with a thickness measuring 3 cm. Severe Narrowing of the air passage is seen in the area. Dr. Vyas was notified with the result of the patient at 6:00 PM on November 13, 2024. Chest X-Ray 11/15/24 06:38 Impression: Minimal left pleural effusion with left basilar atelectasis. Support tubes, as above. Labs Labs: Laboratory Results - last 24 hr 11/14/24 11/14/24 11/14/24 12:13 17:39 23:37 WBC RBC Hgb Hct MCV MCH MCHC RDW Plt Count MPV Immature Gran % (Auto) Neut % (Auto) Lymph % (Auto) [place] % (Auto) Eos % (Auto) Baso % (Auto) Lymph # (Auto) [place] # (Auto) Eos # (Auto) Baso # (Auto) Abs Immat Gran (auto) Absolute Neuts (auto) Absolute Nucleated RBC Nucleated RBC % Puncture Site ABG pH ABG pCO2 ABG pO2 ABG PO2/FiO2 Ratio ABG HCO3 ABG O2 Saturation ABG O2 Content ABG Base Excess A-a Gradient Oxyhemoglobin Carboxyhemoglobin Methemoglobin Reduced Hemoglobin Total Hemoglobin O2 Delivery Device O2 Liters/Min Minute Volume Vent Rate Vent Mode FiO2 Tidal Volume PEEP Peak Inspir Pressure Pressure Support Sodium Potassium Chloride Carbon Dioxide Anion Gap BUN Creatinine Estim Creat Clear Calc Estimated GFR Glucose POC Capillary Glucose 160 H 171 H 175 H Calcium Phosphorus Magnesium 11/15/24 11/15/24 11/15/24 03:46 04:41 05:40 WBC 14.1 H RBC 4.64 Hgb 12.9 L Hct 38.6 L MCV 83.2 MCH 27.8 MCHC 33.4 RDW 14.4 Plt Count 281 MPV 9.3 Immature Gran % (Auto) 0.8 H Neut % (Auto) 88.4 H Lymph % (Auto) 4.3 L [place] % (Auto) 6.4 Eos % (Auto) 0.0 Baso % (Auto) 0.1 L Lymph # (Auto) 0.61 L [place] # (Auto) 0.9 H Eos # (Auto) 0.0 Baso # (Auto) 0.0 Abs Immat Gran (auto) 0.11 H Absolute Neuts (auto) 12.5 H Absolute Nucleated RBC 0.000 Nucleated RBC % 0.0 Puncture Site Right radial ABG pH 7.416 ABG pCO2 33.2 L ABG pO2 97.4 ABG PO2/FiO2 Ratio 3.25 ABG HCO3 20.9 L ABG O2 Saturation 97.6 ABG O2 Content 18.2 ABG Base Excess -2.9 A-a Gradient 77.5 Oxyhemoglobin 96.8 Carboxyhemoglobin 0.4 Methemoglobin 0.3 Reduced Hemoglobin 2.5 Total Hemoglobin 13.3 O2 Delivery Device Ventilator O2 Liters/Min Not Reportable Minute Volume Not Reportable Vent Rate 14 Vent Mode Cmv FiO2 30 Tidal Volume 480 PEEP 5 Peak Inspir Pressure Not Reportable Pressure Support Not Reportable Sodium 138 Potassium 3.7 Chloride 103 Carbon Dioxide 25 Anion Gap 10 BUN 36 H D Creatinine 1.49 H Estim Creat Clear Calc 52 Estimated GFR 47 L Glucose 202 H POC Capillary Glucose 201 H Calcium 9.2 Phosphorus 3.7 Magnesium 2.2
[2024-11-15 11:50] LABS: Glucose Point of Care 169 mg/dl (65-105)
[2024-11-15 18:07] LABS: Glucose Point of Care 180 mg/dl (65-105)
[2024-11-15 19:31] LABS: Triglycerides 253 mg/dL (<150)
[2024-11-16] VITALS (28 sets, daily range): BP systolic 115–158; BP diastolic 72–88; PULSE 48–89; RESP 14–18; TEMP 36.7–37.4; O2SAT 94–98; BMI 31.2
[2024-11-16] MEDS: PROPOFOL IV EMULSION 100 ML 18 MG IV CONT
[2024-11-16 00:21] LABS: Glucose Point of Care 197 mg/dl (65-105)
[2024-11-16] MEDS: dexAMETHasone SOD PHOS INJ 4 MG/ML VIAL IV PUSH ×4 (00:22→17:29)
[2024-11-16] MEDS: HYDROcodone/acetaminophen (*CRX) 5-325 MG TABLET 1 TAB PO ×4 (03:00→22:15)
[2024-11-16] MEDS: LORazepam INJ (*CRX) 2 MG/ML VIAL 0.5 MG IV PUSH ×4 (03:00→22:15)
[2024-11-16] MEDS: PROPOFOL IV EMULSION 100 ML 15 MG IV CONT (04:00)
[2024-11-16 04:13] LABS: Basophils Percent Auto 0.1 % (0.2-1.2); Hematocrit 38.5 % (42.0-52.0); Hemoglobin 12.4 g/dL (14.0-18.0); Immature Granulocyte Absolute 0.07 K/mm3 (0.00-0.031); Immature Granulocyte Percent A 0.6 % (0-0.5); Lymphocytes Absolute Auto 0.63 K/mm3 (0.9-3.2); Lymphocytes Percent Auto 5.7 % (18.3-44.2); Mean Corpuscular HGB Conc 32.2 g/dl (32-36); Mean Corpuscular Hemoglobin 27.4 pg (26-34); Mean Corpuscular Volume 85.2 fl (80-100); Mean Platelet Volume 9.5 fl (7.4-10.4); Monocytes Absolute Auto 0.8 K/mm3 (0.1-0.6); Monocytes Percent Auto 7.2 % (2.6-8.5); Neutrophils Absolute Auto 9.6 K/mm3 (1.3-6.7); Neutrophils Percent Auto 86.4 % (45.5-73.1); Platelet Count Result 297 k/mm3 (150-375); Red Blood Count 4.52 M/mm3 (4.6-6.20); Red Cell Distribution Width 14.3 % (11.5-14.5); White Blood Count 11.1 K/mm3 (4.5-10.0)
[2024-11-16 05:02] LABS: Anion Gap 13 mmol/L (4-12); Blood Urea Nitrogen 38 mg/dL (9-20); Calcium 9.1 mg/dL (8.4-10.2); Carbon Dioxide 21 mmol/L (22-30); Chloride 105 mmol/L (98-107); Estimated CRCL calculation 57 ml/min; Estimated Glomerular Filt Rate 53; Glucose 184 mg/dL (65-110); Magnesium 2.3 mg/dL (1.6-2.3); Phosphorus 3.4 mg/dL (2.5-4.5); Potassium 3.7 mmol/L (3.4-5.0); Sodium 139 mmol/L (137-145)
[2024-11-16] MEDS: PROPOFOL IV EMULSION 100 ML 12 MG IV CONT ×2 (07:54→15:53)
[2024-11-16] MEDS: ATORVASTATIN 40 MG TABLET 80 MG PO (08:51)
[2024-11-16] MEDS: ENOXAPARIN 40 MG/0.4 ML SYRINGE SUB-Q (08:51)
[2024-11-16] MEDS: PANTOPRAZOLE SODIUM IV 40 MG VIAL IV PUSH (08:52)
[2024-11-16] MEDS: MINERAL OIL/WHITE PETROLATUM OINTMENT 1 APPLIC EACH EYE ×2 (08:52→21:16)
[2024-11-16] MEDS: MONTELUKAST SODIUM 10 MG TABLET BY MOUTH (08:52)
[2024-11-16] MEDS: GABAPENTIN 300 MG CAPSULE 900 MG PO ×2 (08:52→17:29)
[2024-11-16] MEDS: SODIUM CHLORIDE 2% OP SOLN 15 ML BTL 1 DROP EACH EYE (08:53)
--- NOTE | 2024-11-16 09:44 | P.PNINT_ITS ---
Progress Note: A&P Assessment and Plan (1) Postoperative edema: Code(s): R60.9 - Edema, unspecified Status: Acute Assessment and Plan: Patient had anterior cervical diskectomy and fusion from C4-C7 for cervical myelopathy, radiculopathy and spondylolisthesis on 11/11/2024 -patient presented the ED complains of neck swelling and pain, dysphonia, dysphagia, and difficulty breathing -patient was intubated in the OR by Anesthesia on 11/11/2024 for airway protection as the CT scan did show severe narrowing of the air passage. -continue Decadron for soft tissue swelling as seen on the neck CTA -will monitor the neck swelling, may need to repeat CT scan of the neck and soft tissues before extubation -neurosurgery also following Neck CTA 11/13/24: IMPRESSION: 1.Normal CTA head and neck. Percent stenosis per NASCET criteria is 0%.. 2. Prevertebral soft tissue swelling seen anterior to the vertebrae from C2 down to C7 with maximum changes at the level of C3-C4 with a thickness measuring 3 cm. Severe Narrowing of the air passage is seen in the area. (2) Status post cervical discectomy: Code(s): Z98.890 - Other specified postprocedural states Status: Acute Assessment and Plan: Fentanyl p.r.n. for pain (3) Airway compromise: Code(s): J98.8 - Other specified respiratory disorders Status: Acute Assessment and Plan: 11/13: CTA neck showed severe narrowing of the passage as above -intubated by anesthesia in the OR -remains intubated on CMV mode of ventilation, peep of 5, 30% FiO2 -intubation was done for airway protection -chest x-ray was clear -minimal cuff leak , as volumes remains the same on the ventilator -will continue mechanical ventilation today, continue Decadron, will obtain CT scan of neck and soft tissues in a.m. (4) Hypertension: Code(s): I10 - Essential (primary) hypertension Status: Acute Assessment and Plan: Patient on losartan and amlodipine at home, will hold for now as blood pressures are stable as patient on propofol (5) Chronic kidney disease, stage 3: Code(s): N18.30 - Chronic kidney disease, stage 3 unspecified Status: Acute Assessment and Plan: Baseline creatinine is 1.30-1.70 -urine output, is low, current increased since admission -status post IV fluid -urine output much improved with creatinine trending down to baseline -continue to monitor renal function, electrolytes and urine output Plan DVT prophylaxis: Lovenox Stress ulcer prophylaxis: Protonix Nutrition: Tolerating tube feed Code Status: Full code Critical Care Time Spent: 32 minutes Discussed with Rebecca at bedside and updated with patient's condition, plan of care. I answered all her questions, Due to a high probability of clinically significant, life threatening deterioration, the patient required my highest level of preparedness to intervene emergently and I personally spent this critical care time directly and personally managing the patient. This critical care time included obtaining a history; examining the patient; pulse oximetry; ordering and review of studies; arranging urgent treatment with development of a management plan; evaluation of patient's response to treatment; frequent reassessment; and discussions with other providers. It was exclusive of separately billable procedures and treating other patients and teaching time. Please see Assessment and Plan section and the rest of the note for further information on patient assessment and treatment This dictation may have been done utilizing a voice recognition system. Attempts have been made to correct errors. However, there may be uncorrected grammatical, spelling, and recognitions errors present. Subjective Date/time seen: 11/16/24 09:44 Interval history: Reason for consult: Postoperative edema status post injury cervical diskectomy and fusion from C4-C7 for cervical myelopathy, radiculopathy and spondylolisthesis on a 11/11/2024. Patient presented with neck swelling and pain, dysphonia, dysphagia and difficulty breathing. Patient was intubated in the OR by anesthesia on 11/12/[address] for [address] his CT scan showed severe narrowing of the and passing 11/16/2024: Patient seen and examined the ICU, remains intubated on CMV mode, peep of 5, 30% FiO2. Sedated with propofol infusion, opens eyes, follows simple commands in all extremities, looks comfortable. Tolerating tube feeds. Urine output has been adequate, creatinine improving. Otherwise hemodynamically stable, Review of Systems Review of Systems: ROS unobtainable: Yes unobtainable due to endotracheal tube Exam Narrative: General: intubated and sedated, in no acute distress HEENT:? Pupils are reactive and equal, sclera is clear, ETT in place Neck:? swelling on right and anterior part of neck, Indurated, mild erythema, swelling is improving Respiratory:? clear to auscultation, no wheezing, adequate air entry Cardiac:? S1 S2 normal, regular rate and rhythm Abdomen:?soft, non tender, non distended, normoactive bowel sounds Extremities:? no edema, palpable pedal pulses Neuro:? intubated, sedated, opens his eyes, nods to questions and follows simple commands in all extremities Skin:? Swelling on the right and anterior part of the neck, intubated, mild erythema as above Psych:? Unable to assess at this time Objective Data Vital Signs Vital Signs: Vital Signs - 24 hr 11/15/24 10:00 11/15/24 10:00 11/15/24 10:00 Temperature 98.7 F Pulse Rate 65 65 65 Respiratory Rate 14 14 Blood Pressure 116/70 Pulse Oximetry 95 Oxygen Delivery Fraction of Inspired Oxygen 11/15/24 10:26 11/15/24 12:00 11/15/24 12:00 Temperature 99.2 F Pulse Rate 64 74 Respiratory Rate 17 Blood Pressure 128/79 Pulse Oximetry 95 94 Oxygen Delivery Mechanical Ventilation Fraction of Inspired Oxygen 30 30 11/15/24 12:00 11/15/24 12:00 11/15/24 13:40 Temperature Pulse Rate 80 80 62 Respiratory Rate 15 14 Blood Pressure Pulse Oximetry Oxygen Delivery Fraction of Inspired Oxygen 11/15/24 13:40 11/15/24 14:00 11/15/24 14:00 Temperature 99.1 F Pulse Rate 62 64 64 Respiratory Rate 14 14 Blood Pressure 118/79 Pulse Oximetry 95 Oxygen Delivery Fraction of Inspired Oxygen 11/15/24 14:49 11/15/24 15:40 11/15/24 16:00 Temperature Pulse Rate 64 67 Respiratory Rate 15 Blood Pressure Pulse Oximetry 99 Oxygen Delivery Mechanical Ventilation Fraction of Inspired Oxygen 30 30 11/15/24 16:00 11/15/24 16:00 11/15/24 17:34 Temperature 99.3 F Pulse Rate 70 66 68 Respiratory Rate 15 Blood Pressure 124/77 Pulse Oximetry 96 94 Oxygen Delivery Mechanical Ventilation Fraction of Inspired Oxygen 30 11/15/24 17:40 11/15/24 18:00 11/15/24 18:00 Temperature 99.2 F Pulse Rate 67 66 66 Respiratory Rate 14 14 Blood Pressure 120/80 Pulse Oximetry 95 Oxygen Delivery Fraction of Inspired Oxygen 11/15/24 18:24 11/15/24 18:24 11/15/24 19:29 Temperature Pulse Rate 83 83 73 Respiratory Rate 14 14 14 Blood Pressure Pulse Oximetry 95 Oxygen Delivery Mechanical Ventilation Fraction of Inspired Oxygen 30 11/15/24 19:30 11/15/24 19:31 11/15/24 20:00 Temperature 99.0 F Pulse Rate 73 62 Respiratory Rate 14 Blood Pressure 135/82 Pulse Oximetry 95 Oxygen Delivery Fraction of Inspired Oxygen 30 11/15/24 20:56 11/15/24 21:00 11/15/24 22:00 Temperature Pulse Rate 69 74 70 Respiratory Rate 14 Blood Pressure Pulse Oximetry 96 Oxygen Delivery Mechanical Ventilation Fraction of Inspired Oxygen 30 11/15/24 22:00 11/15/24 22:00 11/15/24 23:00 Temperature 98.9 F Pulse Rate 70 70 78 Respiratory Rate 14 14 Blood Pressure 126/77 Pulse Oximetry 95 94 Oxygen Delivery Mechanical Ventilation Fraction of Inspired Oxygen 30 11/15/24 23:58 11/16/24 00:00 11/16/24 00:00 Temperature Pulse Rate 68 62 62 Respiratory Rate 14 14 Blood Pressure Pulse Oximetry 94 Oxygen Delivery Mechanical Ventilation Fraction of Inspired Oxygen 30 11/16/24 00:00 11/16/24 00:00 11/16/24 00:00 Temperature 98.8 F Pulse Rate 59 L 68 Respiratory Rate 14 14 Blood Pressure 131/76 Pulse Oximetry 95 Oxygen Delivery Fraction of Inspired Oxygen 30 11/16/24 02:00 11/16/24 02:00 11/16/24 02:00 Temperature 98.7 F Pulse Rate 66 65 66 Respiratory Rate 14 14 Blood Pressure 129/83 Pulse Oximetry 96 Oxygen Delivery Fraction of Inspired Oxygen 11/16/24 02:42 11/16/24 03:57 11/16/24 03:59 Temperature Pulse Rate 78 64 64 Respiratory Rate 14 Blood Pressure Pulse Oximetry 94 94 Oxygen Delivery Mechanical Ventilation Mechanical Ventilation Fraction of Inspired Oxygen 30 30 11/16/24 03:59 11/16/24 03:59 11/16/24 04:00 Temperature 98.3 F Pulse Rate 65 65 Respiratory Rate 14 14 Blood Pressure 158/88 H Pulse Oximetry 95 Oxygen Delivery Fraction of Inspired Oxygen 30 11/16/24 04:00 11/16/24 05:02 11/16/24 05:56 Temperature Pulse Rate 65 56 L 49 L Respiratory Rate 14 Blood Pressure Pulse Oximetry 96 Oxygen Delivery Mechanical Ventilation Fraction of Inspired Oxygen 30 11/16/24 06:00 11/16/24 06:00 11/16/24 07:54 Temperature 98.1 F Pulse Rate 59 L 48 L 89 Respiratory Rate 14 14 17 Blood Pressure 115/74 Pulse Oximetry 98 Oxygen Delivery Fraction of Inspired Oxygen 11/16/24 07:54 11/16/24 08:00 11/16/24 08:15 Temperature 98.6 F Pulse Rate 87 86 56 L Respiratory Rate 17 14 Blood Pressure 145/78 H Pulse Oximetry 97 96 Oxygen Delivery Mechanical Ventilation Fraction of Inspired Oxygen 30 Intake/Output Intake/Output: Intake & Output 11/13/24 11/14/24 11/15/24 11/16/24 23:59 23:59 23:59 23:59 Intake Total 89.6 639.7 1580.5 781.8 Output Total 1400 1075 925 Balance 89.6 -760.3 505.5 -143.2 Meds/Results Medications: Active Medications Generic Name Dose Route Start Last Admin Trade Name Freq PRN Reason Stop Dose Admin Hydrocodone Bitart/Acetaminophen 1 tab 11/14/24 12:17 11/16/24 03:00 Hydrocodone/Acetaminophen (*Crx) 5-325 Mg Tablet PO 1 tab Q4H PRN Administration Pain Rated 4-6 Amlodipine Besylate 5 mg 11/14/24 09:00 Amlodipine Besylate 5 Mg Tablet PO DAILY AMADEO Atorvastatin Calcium 80 mg 11/14/24 09:00 11/16/24 08:51 Atorvastatin 40 Mg Tablet PO 80 mg DAILY AM[facility]O Administration Dexamethasone Sodium Phosphate 4 mg 11/13/24 21:00 11/16/24 06:01 Dexamethasone Sod Phos Inj 4 Mg/Ml Vial IV PUSH 4 mg Q6HR AMADEO Administration Dextrose 12.5 gm 11/14/24 02:39 Dextrose 50% 25 Gm/50 Ml Syringe IV PUSH PRN PRN Hypoglycemia Protocol Enoxaparin Sodium 40 mg 11/15/24 09:00 11/16/24 08:51 Enoxaparin 40 Mg/0.4 Ml Syringe SUB-Q 40 mg DAILY AMADEO Administration Fentanyl Citrate 25 mcg 11/14/24 08:33 11/14/24 12:22 Fentanyl Citrate Inj (*Crx) 100 Mcg/2 Ml Vial IV PUSH 25 mcg Q4H PRN Administration Pain Rated 7-10 Gabapentin 900 mg 11/14/24 17:00 11/16/24 08:52 Gabapentin 300 Mg Capsule PO 900 mg BID AM[facility]O Administration Glucagon 1 mg 11/14/24 02:39 Glucagon For Inj 1 Mg Vial IM PRN PRN Hypoglycemia Protocol Glucose 15 gm 11/14/24 02:39 Glucose Oral Gel 15 Gm Of Glucse In 37.5 Gm Tube PO PRN PRN Hypoglycemia Protocol Propofol 100 mls @ 12 mls/hr 11/13/24 18:35 11/16/24 07:54 Diprivan IV CONT 20 mcg/kg/min .Q8H20M [facility]O 12 mls/hr Administration Protocol 20 MCG/KG/MIN Midazolam HCl 100 mg in 100 mls @ 0 mls/hr 11/13/24 19:50 11/15/24 06:23 Versed 100 Mg/Ns 100 Ml IV CONT Infused .Q0M [facility] Titration Protocol 0 MG/HR Dextrose 1,000 mls @ 100 mls/hr 11/14/24 02:39 Dextrose 5% 1,000 Ml IVPB PRN PRN Hypoglycemia Protocol Insulin Aspart 3 - 6 units 11/15/24 06:00 11/16/24 06:01 Insulin Aspart (*Bkc) 100 Units/Ml SUB-Q Not Given Q6HR [facility] Protocol Lorazepam 0.5 mg 11/15/24 12:02 11/16/24 07:52 Lorazepam Inj (*Crx) 2 Mg/Ml Vial IV PUSH 0.5 mg Q4HR PRN Administration Anxiety Losartan Potassium 100 mg 11/14/24 09:00 Losartan Potassium 100 Mg Tablet BY MOUTH DAILY [facility] Miscellaneous Information 1 each 11/15/24 00:01 11/16/24 02:09 Please Renew Propofol. Per [employer] Procedure, It Will Discontinue If Not Renewed XX 12/15/24 00:00 Not Given CLARIFY AMADEO Montelukast Sodium 10 mg 11/14/24 09:00 11/16/24 08:52 Montelukast Sodium 10 Mg Tablet BY MOUTH 10 mg DAILY [facility]O Administration Multi-Ingred Cream/Lotion/Oil/Oint 1 applic 11/13/24 21:00 11/16/24 08:52 Mineral Oil/White Petrolatum Ointment EACH EYE 1 applic Q12HR [facility] Administration Pantoprazole Sodium 40 mg 11/14/24 09:00 11/16/24 08:52 Pantoprazole Sodium Iv 40 Mg Vial IV PUSH 40 mg QAM [facility] Administration Senna/Docusate Sodium 1 tab 11/14/24 11:44 11/15/24 20:24 Senna/Docusate Sodium Tablet PO 1 tab BID PRN Administration Constipation Sodium Chloride 1 drop 11/14/24 09:00 11/16/24 08:53 Sodium Chloride 2% Op Soln 15 Ml Btl EACH EYE 1 drop DAILY [facility]O Administration Radiology Results: ITS Impressions Neck CTA 11/13/24 17:41 IMPRESSION: Normal CTA head and neck. Percent stenosis per NASCET criteria is 0%.. Prevertebral soft tissue swelling seen anterior to the vertebrae from C2 down to C7 with maximum changes at the level of C3-C4 with a thickness measuring 3 cm. Severe Narrowing of the air passage is seen in the area. Dr. Vyas was notified with the result of the patient at 6:00 PM on November 13, 2024. Chest X-Ray 11/16/24 05:57 Impression: Minimal left basilar effusion and/or atelectasis. Support tubes, as above. Labs Labs: Laboratory Results - last 24 hr 11/15/24 11/15/24 11/15/24 11:27 16:42 19:17 WBC RBC Hgb Hct MCV MCH MCHC RDW Plt Count MPV Immature Gran % (Auto) Neut % (Auto) Lymph % (Auto) [place] % (Auto) Eos % (Auto) Baso % (Auto) Lymph # (Auto) [place] # (Auto) Eos # (Auto) Baso # (Auto) Abs Immat Gran (auto) Absolute Neuts (auto) Absolute Nucleated RBC Nucleated RBC % Sodium Potassium Chloride Carbon Dioxide Anion Gap BUN Creatinine Estim Creat Clear Calc Estimated GFR Glucose POC Capillary Glucose 169 H 180 H Calcium Phosphorus Magnesium Triglycerides 253 H 11/16/24 11/16/24 00:18 03:50 WBC 11.1 H RBC 4.52 L Hgb 12.4 L Hct 38.5 L MCV 85.2 MCH 27.4 MCHC 32.2 RDW 14.3 Plt Count 297 MPV 9.5 Immature Gran % (Auto) 0.6 H Neut % (Auto) 86.4 H Lymph % (Auto) 5.7 L [place] % (Auto) 7.2 Eos % (Auto) 0.0 Baso % (Auto) 0.1 L Lymph # (Auto) 0.63 L [place] # (Auto) 0.8 H Eos # (Auto) 0.0 Baso # (Auto) 0.0 Abs Immat Gran (auto) 0.07 H Absolute Neuts (auto) 9.6 H Absolute Nucleated RBC 0.000 Nucleated RBC % 0.0 Sodium 139 Potassium 3.7 Chloride 105 Carbon Dioxide 21 L Anion Gap 13 H BUN 38 H Creatinine 1.34 H Estim Creat Clear Calc 57 Estimated GFR 53 L Glucose 184 H POC Capillary Glucose 197 H Calcium 9.1 Phosphorus 3.4 Magnesium 2.3 Triglycerides Quality VTE Prophylaxis VTE prophylaxis: pharmacologic ordered
[2024-11-16] MEDS: polyethylene glycoL 3350 17 GM POWD.PACK PO (10:16)
[2024-11-16 11:37] LABS: Glucose Point of Care 162 mg/dl (65-105)
--- NOTE | 2024-11-16 13:03 | WPDNEUROSGPN ---
Progress Note: A&P Assessment and Plan (1) Cervical myelopathy: Code(s): G95.9 - Disease of spinal cord, unspecified Status: Acute Assessment and Plan: appreciate ICU management, continue steroids and monitor swelling. consider repeat CT scan to re-evaluate neck swelling prior to extubation. Extubation per ICU. Subjective Date/time seen: 11/16/24 13:03 Interval history: doing okay today.. Responding to simple instructions. Nurse states that he had neck pain but seems well controlled with oral medication. Cough still weak this morning, possible CT and extubation tomorrow. Exam Narrative: intubated light sedation eyes closed, but follows commands moves all extremities neck soft incision c/d/i Objective Data Vital Signs Vital Signs: Vital Signs - 24 hr 11/15/24 13:40 11/15/24 13:40 11/15/24 14:00 Temperature Pulse Rate 62 62 64 Respiratory Rate 14 14 Blood Pressure Pulse Oximetry Oxygen Delivery Fraction of Inspired Oxygen 11/15/24 14:00 11/15/24 14:49 11/15/24 15:40 Temperature 99.1 F Pulse Rate 64 64 67 Respiratory Rate 14 15 Blood Pressure 118/79 Pulse Oximetry 95 99 Oxygen Delivery Mechanical Ventilation Fraction of Inspired Oxygen 30 11/15/24 16:00 11/15/24 16:00 11/15/24 16:00 Temperature 99.3 F Pulse Rate 70 66 Respiratory Rate 15 Blood Pressure 124/77 Pulse Oximetry 96 Oxygen Delivery Fraction of Inspired Oxygen 30 11/15/24 17:34 11/15/24 17:40 11/15/24 18:00 Temperature Pulse Rate 68 67 66 Respiratory Rate 14 Blood Pressure Pulse Oximetry 94 Oxygen Delivery Mechanical Ventilation Fraction of Inspired Oxygen 30 11/15/24 18:00 11/15/24 18:24 11/15/24 18:24 Temperature 99.2 F Pulse Rate 66 83 83 Respiratory Rate 14 14 14 Blood Pressure 120/80 Pulse Oximetry 95 Oxygen Delivery Fraction of Inspired Oxygen 11/15/24 19:29 11/15/24 19:30 11/15/24 19:31 Temperature Pulse Rate 73 73 Respiratory Rate 14 Blood Pressure Pulse Oximetry 95 Oxygen Delivery Mechanical Ventilation Fraction of Inspired Oxygen 30 30 11/15/24 20:00 11/15/24 20:56 11/15/24 21:00 Temperature 99.0 F Pulse Rate 62 69 74 Respiratory Rate 14 14 Blood Pressure 135/82 Pulse Oximetry 95 96 Oxygen Delivery Mechanical Ventilation Fraction of Inspired Oxygen 30 11/15/24 22:00 11/15/24 22:00 11/15/24 22:00 Temperature 98.9 F Pulse Rate 70 70 70 Respiratory Rate 14 14 Blood Pressure 126/77 Pulse Oximetry 95 Oxygen Delivery Fraction of Inspired Oxygen 11/15/24 23:00 11/15/24 23:58 11/16/24 00:00 Temperature Pulse Rate 78 68 62 Respiratory Rate 14 14 Blood Pressure Pulse Oximetry 94 94 Oxygen Delivery Mechanical Ventilation Mechanical Ventilation Fraction of Inspired Oxygen 30 30 11/16/24 00:00 11/16/24 00:00 11/16/24 00:00 Temperature 98.8 F Pulse Rate 62 59 L Respiratory Rate 14 Blood Pressure 131/76 Pulse Oximetry 95 Oxygen Delivery Fraction of Inspired Oxygen 30 11/16/24 00:00 11/16/24 02:00 11/16/24 02:00 Temperature 98.7 F Pulse Rate 68 66 65 Respiratory Rate 14 14 Blood Pressure 129/83 Pulse Oximetry 96 Oxygen Delivery Fraction of Inspired Oxygen 11/16/24 02:00 11/16/24 02:42 11/16/24 03:57 Temperature Pulse Rate 66 78 64 Respiratory Rate 14 14 Blood Pressure Pulse Oximetry 94 94 Oxygen Delivery Mechanical Ventilation Mechanical Ventilation Fraction of Inspired Oxygen 30 30 11/16/24 03:59 11/16/24 03:59 11/16/24 03:59 Temperature 98.3 F Pulse Rate 64 65 Respiratory Rate 14 Blood Pressure 158/88 H Pulse Oximetry 95 Oxygen Delivery Fraction of Inspired Oxygen 30 11/16/24 04:00 11/16/24 04:00 11/16/24 05:02 Temperature Pulse Rate 65 65 56 L Respiratory Rate 14 14 Blood Pressure Pulse Oximetry 96 Oxygen Delivery Mechanical Ventilation Fraction of Inspired Oxygen 30 11/16/24 05:56 11/16/24 06:00 11/16/24 06:00 Temperature 98.1 F Pulse Rate 49 L 59 L 48 L Respiratory Rate 14 14 Blood Pressure 115/74 Pulse Oximetry 98 Oxygen Delivery Fraction of Inspired Oxygen 11/16/24 07:54 11/16/24 07:54 11/16/24 08:00 Temperature 98.6 F Pulse Rate 89 87 86 Respiratory Rate 17 17 14 Blood Pressure 145/78 H Pulse Oximetry 97 Oxygen Delivery Fraction of Inspired Oxygen 11/16/24 08:00 11/16/24 08:00 11/16/24 08:00 Temperature Pulse Rate 86 86 Respiratory Rate 14 Blood Pressure Pulse Oximetry 95 Oxygen Delivery Mechanical Ventilation Fraction of Inspired Oxygen 30 30 11/16/24 08:15 11/16/24 10:00 11/16/24 10:00 Temperature 98.6 F Pulse Rate 56 L 68 67 Respiratory Rate 18 Blood Pressure 136/88 Pulse Oximetry 96 98 Oxygen Delivery Mechanical Ventilation Fraction of Inspired Oxygen 30 11/16/24 12:00 Temperature 98.4 F Pulse Rate 56 L Respiratory Rate 14 Blood Pressure 136/72 Pulse Oximetry 96 Oxygen Delivery Fraction of Inspired Oxygen Intake/Output Intake/Output: Intake & Output 11/13/24 11/14/24 11/15/24 11/16/24 23:59 23:59 23:59 23:59 Intake Total 89.6 639.7 1580.5 781.8 Output Total 1400 1075 925 Balance 89.6 -760.3 505.5 -143.2 Meds/Results Medications: Active Medications Generic Name Dose Route Start Last Admin Trade Name Freq PRN Reason Stop Dose Admin Hydrocodone Bitart/Acetaminophen 1 tab 11/14/24 12:17 11/16/24 09:53 Hydrocodone/Acetaminophen (*Crx) 5-325 Mg Tablet PO 1 tab Q4H PRN Administration Pain Rated 4-6 Amlodipine Besylate 5 mg 11/14/24 09:00 Amlodipine Besylate 5 Mg Tablet PO DAILY [facility] Atorvastatin Calcium 80 mg 11/14/24 09:00 11/16/24 08:51 Atorvastatin 40 Mg Tablet PO 80 mg DAILY [facility] Administration Dexamethasone Sodium Phosphate 4 mg 11/13/24 21:00 11/16/24 06:01 Dexamethasone Sod Phos Inj 4 Mg/Ml Vial IV PUSH 4 mg Q6HR [facility] Administration Dextrose 12.5 gm 11/14/24 02:39 Dextrose 50% 25 Gm/50 Ml Syringe IV PUSH PRN PRN Hypoglycemia Protocol Enoxaparin Sodium 40 mg 11/15/24 09:00 11/16/24 08:51 Enoxaparin 40 Mg/0.4 Ml Syringe SUB-Q 40 mg DAILY [facility] Administration Fentanyl Citrate 25 mcg 11/14/24 08:33 11/14/24 12:22 Fentanyl Citrate Inj (*Crx) 100 Mcg/2 Ml Vial IV PUSH 25 mcg Q4H PRN Administration Pain Rated 7-10 Gabapentin 900 mg 11/14/24 17:00 11/16/24 08:52 Gabapentin 300 Mg Capsule PO 900 mg BID [facility] Administration Glucagon 1 mg 11/14/24 02:39 Glucagon For Inj 1 Mg Vial IM PRN PRN Hypoglycemia Protocol Glucose 15 gm 11/14/24 02:39 Glucose Oral Gel 15 Gm Of Glucse In 37.5 Gm Tube PO PRN PRN Hypoglycemia Protocol Propofol 100 mls @ 12 mls/hr 11/13/24 18:35 11/16/24 07:54 Diprivan IV CONT 20 mcg/kg/min .Q8H20M [facility] 12 mls/hr Administration Protocol 20 MCG/KG/MIN Midazolam HCl 100 mg in 100 mls @ 0 mls/hr 11/13/24 19:50 11/15/24 06:23 Versed 100 Mg/Ns 100 Ml IV CONT Infused .Q0M [facility] Titration Protocol 0 MG/HR Dextrose 1,000 mls @ 100 mls/hr 11/14/24 02:39 Dextrose 5% 1,000 Ml IVPB PRN PRN Hypoglycemia Protocol Insulin Aspart 3 - 6 units 11/15/24 06:00 11/16/24 06:01 Insulin Aspart (*Bkc) 100 Units/Ml SUB-Q Not Given Q6HR [facility] Protocol Lorazepam 0.5 mg 11/15/24 12:02 11/16/24 07:52 Lorazepam Inj (*Crx) 2 Mg/Ml Vial IV PUSH 0.5 mg Q4HR PRN Administration Anxiety Losartan Potassium 100 mg 11/14/24 09:00 Losartan Potassium 100 Mg Tablet BY MOUTH DAILY [facility] Miscellaneous Information 1 each 11/15/24 00:01 11/16/24 02:09 Please Renew Propofol. Per [employer] Procedure, It Will Discontinue If Not Renewed XX 12/15/24 00:00 Not Given CLARIFY [facility] Montelukast Sodium 10 mg 11/14/24 09:00 11/16/24 08:52 Montelukast Sodium 10 Mg Tablet BY MOUTH 10 mg DAILY [facility] Administration Multi-Ingred Cream/Lotion/Oil/Oint 1 applic 11/13/24 21:00 11/16/24 08:52 Mineral Oil/White Petrolatum Ointment EACH EYE 1 applic Q12HR [facility] Administration Pantoprazole Sodium 40 mg 11/14/24 09:00 11/16/24 08:52 Pantoprazole Sodium Iv 40 Mg Vial IV PUSH 40 mg QAM [facility] Administration Polyethylene Glycol 17 gm 11/16/24 10:05 11/16/24 10:16 Polyethylene Glycol 3350 17 Gm Powd.Pack PO 17 gm QAM [facility] Administration Senna/Docusate Sodium 1 tab 11/14/24 11:44 11/15/24 20:24 Senna/Docusate Sodium Tablet PO 1 tab BID PRN Administration Constipation Sodium Chloride 1 drop 11/14/24 09:00 11/16/24 08:53 Sodium Chloride 2% Op Soln 15 Ml Btl EACH EYE 1 drop DAILY [facility] Administration Radiology Results: ITS Impressions Neck CTA 11/13/24 17:41 IMPRESSION: Normal CTA head and neck. Percent stenosis per NASCET criteria is 0%.. Prevertebral soft tissue swelling seen anterior to the vertebrae from C2 down to C7 with maximum changes at the level of C3-C4 with a thickness measuring 3 cm. Severe Narrowing of the air passage is seen in the area. Dr. Vyas was notified with the result of the patient at 6:00 PM on November 13, 2024. Chest X-Ray 11/16/24 05:57 Impression: Minimal left basilar effusion and/or atelectasis. Support tubes, as above. Labs Labs: Laboratory Results - last 24 hr 11/15/24 11/15/24 11/16/24 16:42 19:17 00:18 WBC RBC Hgb Hct MCV MCH MCHC RDW Plt Count MPV Immature Gran % (Auto) Neut % (Auto) Lymph % (Auto) [place] % (Auto) Eos % (Auto) Baso % (Auto) Lymph # (Auto) [place] # (Auto) Eos # (Auto) Baso # (Auto) Abs Immat Gran (auto) Absolute Neuts (auto) Absolute Nucleated RBC Nucleated RBC % Sodium Potassium Chloride Carbon Dioxide Anion Gap BUN Creatinine Estim Creat Clear Calc Estimated GFR Glucose POC Capillary Glucose 180 H 197 H Calcium Phosphorus Magnesium Triglycerides 253 H 11/16/24 11/16/24 03:50 11:26 WBC 11.1 H RBC 4.52 L Hgb 12.4 L Hct 38.5 L MCV 85.2 MCH 27.4 MCHC 32.2 RDW 14.3 Plt Count 297 MPV 9.5 Immature Gran % (Auto) 0.6 H Neut % (Auto) 86.4 H Lymph % (Auto) 5.7 L [place] % (Auto) 7.2 Eos % (Auto) 0.0 Baso % (Auto) 0.1 L Lymph # (Auto) 0.63 L [place] # (Auto) 0.8 H Eos # (Auto) 0.0 Baso # (Auto) 0.0 Abs Immat Gran (auto) 0.07 H Absolute Neuts (auto) 9.6 H Absolute Nucleated RBC 0.000 Nucleated RBC % 0.0 Sodium 139 Potassium 3.7 Chloride 105 Carbon Dioxide 21 L Anion Gap 13 H BUN 38 H Creatinine 1.34 H Estim Creat Clear Calc 57 Estimated GFR 53 L Glucose 184 H POC Capillary Glucose 162 H Calcium 9.1 Phosphorus 3.4 Magnesium 2.3 Triglycerides
[2024-11-16 17:29] LABS: Glucose Point of Care 174 mg/dl (65-105)
[2024-11-17] VITALS (32 sets, daily range): BP systolic 109–161; BP diastolic 67–105; PULSE 46–94; RESP 12–19; TEMP 36.7–37.4; O2SAT 94–100
[2024-11-17] MEDS: dexAMETHasone SOD PHOS INJ 4 MG/ML VIAL IV PUSH ×4 (00:07→17:32)
[2024-11-17 00:14] LABS: Glucose Point of Care 181 mg/dl (65-105)
[2024-11-17 04:12] LABS: Basophils Percent Auto 0.1 % (0.2-1.2); Eosinophils Percent Auto 0.1 % (0-4.4); Hematocrit 39.7 % (42.0-52.0); Hemoglobin 12.1 g/dL (14.0-18.0); Immature Granulocyte Absolute 0.08 K/mm3 (0.00-0.031); Immature Granulocyte Percent A 0.9 % (0-0.5); Immature Platelet Fraction Pct 1.8 % (0.9-11.2); Lymphocytes Absolute Auto 0.62 K/mm3 (0.9-3.2); Lymphocytes Percent Auto 6.8 % (18.3-44.2); Mean Corpuscular HGB Conc 30.5 g/dl (32-36); Mean Corpuscular Hemoglobin 27.3 pg (26-34); Mean Corpuscular Volume 89.4 fl (80-100); Mean Platelet Volume 9.9 fl (7.4-10.4); Monocytes Absolute Auto 0.8 K/mm3 (0.1-0.6); Monocytes Percent Auto 8.4 % (2.6-8.5); Neutrophils Absolute Auto 7.6 K/mm3 (1.3-6.7); Neutrophils Percent Auto 83.7 % (45.5-73.1); Platelet Count Result 264 k/mm3 (150-375); Red Blood Count 4.44 M/mm3 (4.6-6.20); Red Cell Distribution Width 13.9 % (11.5-14.5); White Blood Count 9.1 K/mm3 (4.5-10.0)
[2024-11-17 04:26] LABS: Alanine Aminotransferase 21 U/L (6-50); Albumin Level 3.9 g/dL (3.5-5.1); Alkaline Phosphatase 73 U/L (38-126); Anion Gap 12 mmol/L (4-12); Aspartate Amino Transferase 28 U/L (17-59); Bilirubin,Total 0.6 mg/dL (0.2-1.3); Blood Urea Nitrogen 36 mg/dL (9-20); Calcium 9.2 mg/dL (8.4-10.2); Carbon Dioxide 20 mmol/L (22-30); Chloride 106 mmol/L (98-107); Estimated CRCL calculation 72 ml/min; Estimated Glomerular Filt Rate > 60; Glucose 181 mg/dL (65-110); Magnesium 2.2 mg/dL (1.6-2.3); Phosphorus 3.3 mg/dL (2.5-4.5); Potassium 4.3 mmol/L (3.4-5.0); Sodium 138 mmol/L (137-145); Total Protein 6.6 g/dL (6.3-8.2)
[2024-11-17] MEDS: PROPOFOL IV EMULSION 100 ML 18 MG IV CONT (05:31)
[2024-11-17 05:44] LABS: Alveolar/Arterial O2 Gradient 77.5 mmHg; Base Excess ABG -1.3 mEq/l (+/-2.0); Carboxyhemoglobin 0.6 % THb (0-2.0); Fractional Inspired Oxygen 30 %; HCO3 ABG 22.8 mEq/l (22.0-26.0); Methemoglobin ABG 0.3 %THb (0-1.5); Oxygen Content ABG 18.2 %vol (16.0-22.0); Oxygen Saturation ABG 97.3 % (95.0-100.0); Oxyhemoglobin 96.4 % THb (90.0-100.0); PCO2 ABG 36.4 mmHg (35.0-45.0); PO2 ABG 93.6 mmHg (80.0-100.0); PO2 FiO2 Ratio Arterial Blood 3.12 %; Reduced Hemoglobin 2.7 %THb (0-5.0); Total Hemoglobin 13.4 g/dL (12.0-18.0); pH ABG 7.415 (7.350-7.450)
[2024-11-17 05:46] LABS: Device VENTILATOR; Modified Allen's Test Pass; Site Drawn RIGHT RADIAL
[2024-11-17 05:47] LABS: Arterial Blood Gas PEEP 5 cmH2O; Arterial Blood Gas Tidal Volume 480 ml; Arterial Blood Gas Vent Mode CMV; Arterial Blood Gas Ventilator rate 14 /MIN
[2024-11-17] MEDS: MONTELUKAST SODIUM 10 MG TABLET BY MOUTH (08:36)
[2024-11-17] MEDS: HYDROcodone/acetaminophen (*CRX) 5-325 MG TABLET 1 TAB PO ×3 (08:36→20:53)
[2024-11-17] MEDS: ATORVASTATIN 40 MG TABLET 80 MG PO (08:36)
[2024-11-17] MEDS: GABAPENTIN 300 MG CAPSULE 900 MG PO ×2 (08:36→17:32)
[2024-11-17] MEDS: ENOXAPARIN 40 MG/0.4 ML SYRINGE SUB-Q (08:37)
[2024-11-17] MEDS: PANTOPRAZOLE SODIUM IV 40 MG VIAL IV PUSH (08:38)
[2024-11-17] MEDS: polyethylene glycoL 3350 17 GM POWD.PACK PO (08:38)
[2024-11-17] MEDS: MINERAL OIL/WHITE PETROLATUM OINTMENT 1 APPLIC EACH EYE (08:39)
[2024-11-17] MEDS: SODIUM CHLORIDE 2% OP SOLN 15 ML BTL 1 DROP EACH EYE (08:39)
--- NOTE | 2024-11-17 09:16 | P.PNINT_ITS ---
Progress Note: A&P Assessment and Plan (1) Postoperative edema: Code(s): R60.9 - Edema, unspecified Status: Acute Assessment and Plan: Patient had anterior cervical diskectomy and fusion from C4-C7 for cervical myelopathy, radiculopathy and spondylolisthesis on 11/11/2024 -patient presented the ED complains of neck swelling and pain, dysphonia, dysphagia, and difficulty breathing -patient was intubated in the OR by Anesthesia on 11/11/2024 for airway protection as the CT scan did show severe narrowing of the air passage. -continue Decadron for soft tissue swelling as seen on the neck CTA -will monitor the neck swelling, will repeat CT scan of the neck and soft tissues today -neurosurgery also following Neck CTA 11/13/24: IMPRESSION: 1.Normal CTA head and neck. Percent stenosis per NASCET criteria is 0%.. 2. Prevertebral soft tissue swelling seen anterior to the vertebrae from C2 down to C7 with maximum changes at the level of C3-C4 with a thickness measuring 3 cm. Severe Narrowing of the air passage is seen in the area. (2) Status post cervical discectomy: Code(s): Z98.890 - Other specified postprocedural states Status: Acute Assessment and Plan: Fentanyl p.r.n. for pain (3) Airway compromise: Code(s): J98.8 - Other specified respiratory disorders Status: Acute Assessment and Plan: 11/13: CTA neck showed severe narrowing of the passage as above -intubated by anesthesia in the OR -remains intubated on CMV mode of ventilation, peep of 5, 30% FiO2 -intubation was done for airway protection -chest x-ray was clear -minimal cuff leak today. Unable to do thorough examination due to constant coughing when cuff is deflated. -will obtain repeat CT neck and chest (4) Hypertension: Code(s): I10 - Essential (primary) hypertension Status: Acute Assessment and Plan: Patient on losartan and amlodipine at home, will hold for now as blood pressures are stable as patient on propofol (5) Chronic kidney disease, stage 3: Code(s): N18.30 - Chronic kidney disease, stage 3 unspecified Status: Acute Assessment and Plan: Baseline creatinine is 1.30-1.70 He did receive IV fluid on admission Creatinine stable. Continue to monitor renal function, electrolytes and urine output Plan DVT prophylaxis: Lovenox Stress ulcer prophylaxis: Protonix Nutrition: Tolerating tube feed Code Status: Full code Critical Care Time Spent: 30 minutes Due to a high probability of clinically significant, life threatening deterioration, the patient required my highest level of preparedness to intervene emergently and I personally spent this critical care time directly and personally managing the patient. This critical care time included obtaining a history; examining the patient; pulse oximetry; ordering and review of studies; arranging urgent treatment with development of a management plan; evaluation of patient's response to treatment; frequent reassessment; and discussions with other providers. It was exclusive of separately billable procedures and treating other patients and teaching time. Please see Assessment and Plan section and the rest of the note for further information on patient assessment and treatment This dictation may have been done utilizing a voice recognition system. Attempts have been made to correct errors. However, there may be uncorrected grammatical, spelling, and recognitions errors present. Subjective Date/time seen: 11/17/24 Overnight events reviewed. Afebrile Continues to be on mechanical ventilation 30% FiO2 Tolerating tube feed Continues to be sedated with propofol Other Vitals acceptable Interval history: Reason for consult: Postoperative edema status post injury cervical diskectomy and fusion from C4-C7 for cervical myelopathy, radiculopathy and spondylolisthesis on a 11/11/2024. Patient presented with neck swelling and pain, dysphonia, dysphagia and difficulty breathing. Patient was intubated in the OR by anesthesia on 11/12/2023 for airway protection his CT scan showed severe narrowing of the and passing Review of Systems Review of Systems: ROS unobtainable: Yes unobtainable due to endotracheal tube Exam Narrative: General: intubated and sedated, in no acute distress HEENT:? Pupils are reactive and equal, sclera is clear, ETT in place Neck:? swelling on right and anterior part of neck, Indurated, mild erythema, swelling is improving Respiratory:? clear to auscultation, no wheezing, adequate air entry Cardiac:? S1 S2 normal, regular rate and rhythm Abdomen:?soft, non tender, non distended, normoactive bowel sounds Extremities:? no edema, palpable pedal pulses Neuro:? intubated, sedated, opens his eyes, nods to questions and follows simple commands in all extremities Skin:? Swelling on the right and anterior part of the neck, intubated, mild erythema as above Psych:? Unable to assess at this time Objective Data Vital Signs Vital Signs: Vital Signs - 24 hr 11/16/24 10:00 11/16/24 10:00 11/16/24 12:00 Temperature 37.0 C 36.9 C Pulse Rate 68 67 56 L Respiratory Rate 18 14 Blood Pressure 136/88 136/72 Pulse Oximetry 98 96 Oxygen Delivery Fraction of Inspired Oxygen 11/16/24 12:00 11/16/24 12:00 11/16/24 12:00 Temperature Pulse Rate 71 67 Respiratory Rate 15 Blood Pressure Pulse Oximetry 96 Oxygen Delivery Mechanical Ventilation Fraction of Inspired Oxygen 30 30 11/16/24 14:00 11/16/24 14:00 11/16/24 14:05 Temperature 36.9 C Pulse Rate 67 67 71 Respiratory Rate 15 Blood Pressure 153/76 H Pulse Oximetry 98 96 Oxygen Delivery Mechanical Ventilation Fraction of Inspired Oxygen 30 11/16/24 15:53 11/16/24 15:53 11/16/24 16:00 Temperature 37.2 C Pulse Rate 69 69 62 Respiratory Rate 17 17 14 Blood Pressure 137/82 Pulse Oximetry 94 Oxygen Delivery Fraction of Inspired Oxygen 11/16/24 16:00 11/16/24 16:00 11/16/24 16:00 Temperature Pulse Rate 63 54 L Respiratory Rate 14 Blood Pressure Pulse Oximetry 97 Oxygen Delivery Mechanical Ventilation Fraction of Inspired Oxygen 30 30 11/16/24 17:49 11/16/24 18:00 11/16/24 18:00 Temperature Pulse Rate 63 66 64 Respiratory Rate 15 Blood Pressure 140/88 Pulse Oximetry 97 96 Oxygen Delivery Mechanical Ventilation Fraction of Inspired Oxygen 30 11/16/24 19:22 11/16/24 19:23 11/16/24 19:26 Temperature Pulse Rate 64 69 Respiratory Rate 15 Blood Pressure Pulse Oximetry 96 Oxygen Delivery Mechanical Ventilation Fraction of Inspired Oxygen 30 30 11/16/24 20:00 11/16/24 20:00 11/16/24 20:06 Temperature 37.4 C Pulse Rate 61 71 71 Respiratory Rate 14 14 14 Blood Pressure 143/79 H Pulse Oximetry 94 Oxygen Delivery Fraction of Inspired Oxygen 11/16/24 20:50 11/16/24 22:00 11/16/24 22:00 Temperature Pulse Rate 71 88 70 Respiratory Rate 14 Blood Pressure Pulse Oximetry 97 Oxygen Delivery Mechanical Ventilation Fraction of Inspired Oxygen 30 11/16/24 22:00 11/16/24 23:30 11/17/24 00:00 Temperature 37.4 C Pulse Rate 70 60 70 Respiratory Rate 14 14 Blood Pressure 146/82 H Pulse Oximetry 96 97 96 Oxygen Delivery Mechanical Ventilation Mechanical Ventilation Fraction of Inspired Oxygen 30 30 11/17/24 00:00 11/17/24 00:00 11/17/24 00:00 Temperature 37.3 C Pulse Rate 62 63 Respiratory Rate 14 Blood Pressure 131/78 Pulse Oximetry 97 Oxygen Delivery Fraction of Inspired Oxygen 30 11/17/24 00:00 11/17/24 00:00 11/17/24 02:00 Temperature Pulse Rate 69 62 57 L Respiratory Rate 14 14 Blood Pressure Pulse Oximetry Oxygen Delivery Fraction of Inspired Oxygen 11/17/24 02:00 11/17/24 02:00 11/17/24 02:45 Temperature 37.2 C Pulse Rate 57 L 93 62 Respiratory Rate 14 14 Blood Pressure 119/84 Pulse Oximetry 97 96 Oxygen Delivery Mechanical Ventilation Fraction of Inspired Oxygen 30 11/17/24 03:00 11/17/24 03:57 11/17/24 03:58 Temperature Pulse Rate 94 59 L 59 L Respiratory Rate 14 14 Blood Pressure Pulse Oximetry 96 Oxygen Delivery Mechanical Ventilation Fraction of Inspired Oxygen 30 11/17/24 03:58 11/17/24 04:00 11/17/24 05:15 Temperature 36.8 C Pulse Rate 60 50 L Respiratory Rate 14 Blood Pressure 109/67 Pulse Oximetry 95 97 Oxygen Delivery Mechanical Ventilation Fraction of Inspired Oxygen 30 30 11/17/24 05:26 11/17/24 05:31 11/17/24 06:00 Temperature Pulse Rate 60 60 64 Respiratory Rate 14 14 Blood Pressure Pulse Oximetry Oxygen Delivery Fraction of Inspired Oxygen 11/17/24 06:00 11/17/24 06:45 11/17/24 08:00 Temperature 36.7 C 36.9 C Pulse Rate 64 66 64 Respiratory Rate 14 14 19 Blood Pressure 137/79 161/101 H Pulse Oximetry 94 96 Oxygen Delivery Fraction of Inspired Oxygen 11/17/24 08:00 11/17/24 08:22 Temperature Pulse Rate 64 70 Respiratory Rate 14 Blood Pressure Pulse Oximetry 95 Oxygen Delivery Mechanical Ventilation Fraction of Inspired Oxygen 30 Intake/Output Intake/Output: Intake & Output 11/14/24 11/15/24 11/16/24 11/17/24 23:59 23:59 23:59 23:59 Intake Total 639.7 1580.5 1981.0 1311.2 Output Total 1400 1075 2050 900 Balance -760.3 505.5 -69.0 411.2 Meds/Results Medications: Active Medications Generic Name Dose Route Start Last Admin Trade Name Freq PRN Reason Stop Dose Admin Hydrocodone Bitart/Acetaminophen 1 tab 11/14/24 12:17 11/17/24 08:36 Hydrocodone/Acetaminophen (*Crx) 5-325 Mg Tablet PO 1 tab Q4H PRN Administration Pain Rated 4-6 Amlodipine Besylate 5 mg 11/14/24 09:00 Amlodipine Besylate 5 Mg Tablet PO DAILY AMADEO Atorvastatin Calcium 80 mg 11/14/24 09:00 11/17/24 08:36 Atorvastatin 40 Mg Tablet PO 80 mg DAILY AMADEO Administration Dexamethasone Sodium Phosphate 4 mg 11/13/24 21:00 11/17/24 05:34 Dexamethasone Sod Phos Inj 4 Mg/Ml Vial IV PUSH 4 mg Q6HR AMADEO Administration Dextrose 12.5 gm 11/14/24 02:39 Dextrose 50% 25 Gm/50 Ml Syringe IV PUSH PRN PRN Hypoglycemia Protocol Enoxaparin Sodium 40 mg 11/15/24 09:00 11/17/24 08:37 Enoxaparin 40 Mg/0.4 Ml Syringe SUB-Q 40 mg DAILY AMADEO Administration Fentanyl Citrate 25 mcg 11/14/24 08:33 11/14/24 12:22 Fentanyl Citrate Inj (*Crx) 100 Mcg/2 Ml Vial IV PUSH 25 mcg Q4H PRN Administration Pain Rated 7-10 Gabapentin 900 mg 11/14/24 17:00 11/17/24 08:36 Gabapentin 300 Mg Capsule PO 900 mg BID AMADEO Administration Glucagon 1 mg 11/14/24 02:39 Glucagon For Inj 1 Mg Vial IM PRN PRN Hypoglycemia Protocol Glucose 15 gm 11/14/24 02:39 Glucose Oral Gel 15 Gm Of Glucse In 37.5 Gm Tube PO PRN PRN Hypoglycemia Protocol Propofol 100 mls @ 12 mls/hr 11/13/24 18:35 11/17/24 08:00 Diprivan IV CONT 20 mcg/kg/min .Q8H20M AMADEO 12 mls/hr Titration Protocol 20 MCG/KG/MIN Midazolam HCl 100 mg in 100 mls @ 0 mls/hr 11/13/24 19:50 11/15/24 06:23 Versed 100 Mg/Ns 100 Ml IV CONT Infused .Q0M AMADEO Titration Protocol 0 MG/HR Dextrose 1,000 mls @ 100 mls/hr 11/14/24 02:39 Dextrose 5% 1,000 Ml IVPB PRN PRN Hypoglycemia Protocol Insulin Aspart 3 - 6 units 11/15/24 06:00 11/17/24 05:35 Insulin Aspart (*Bkc) 100 Units/Ml SUB-Q Not Given Q6HR AMADEO Protocol Losartan Potassium 100 mg 11/14/24 09:00 Losartan Potassium 100 Mg Tablet BY MOUTH DAILY AMADEO Montelukast Sodium 10 mg 11/14/24 09:00 11/17/24 08:36 Montelukast Sodium 10 Mg Tablet BY MOUTH 10 mg DAILY AMADEO Administration Multi-Ingred Cream/Lotion/Oil/Oint 1 applic 11/13/24 21:00 11/17/24 08:39 Mineral Oil/White Petrolatum Ointment EACH EYE 1 applic Q12HR AMADEO Administration Pantoprazole Sodium 40 mg 11/14/24 09:00 11/17/24 08:38 Pantoprazole Sodium Iv 40 Mg Vial IV PUSH 40 mg QAM AMADEO Administration Polyethylene Glycol 17 gm 11/16/24 10:05 11/17/24 08:38 Polyethylene Glycol 3350 17 Gm Powd.Pack PO 17 gm QAM AMADEO Administration Senna/Docusate Sodium 1 tab 11/14/24 11:44 11/15/24 20:24 Senna/Docusate Sodium Tablet PO 1 tab BID PRN Administration Constipation Sodium Chloride 1 drop 11/14/24 09:00 11/17/24 08:39 Sodium Chloride 2% Op Soln 15 Ml Btl EACH EYE 1 drop DAILY AMADEO Administration Radiology Results: ITS Impressions Neck CTA 11/13/24 17:41 IMPRESSION: Normal CTA head and neck. Percent stenosis per NASCET criteria is 0%.. Prevertebral soft tissue swelling seen anterior to the vertebrae from C2 down to C7 with maximum changes at the level of C3-C4 with a thickness measuring 3 cm. Severe Narrowing of the air passage is seen in the area. Dr. Vyas was notified with the result of the patient at 6:00 PM on November 13, 2024. Chest X-Ray 11/17/24 05:28 Impression: Probable minimal left pleural effusion and left basilar atelectatic change. Stable support tubes. Labs Labs: Laboratory Results - last 24 hr 11/16/24 11/16/24 11/17/24 11:26 17:27 00:11 WBC RBC Hgb Hct MCV MCH MCHC RDW Plt Count MPV Immature Gran % (Auto) Neut % (Auto) Lymph % (Auto) [place] % (Auto) Eos % (Auto) Baso % (Auto) Lymph # (Auto) [place] # (Auto) Eos # (Auto) Baso # (Auto) Abs Immat Gran (auto) Absolute Neuts (auto) Absolute Nucleated RBC Nucleated RBC % % Immature Plt Fraction Puncture Site ABG pH ABG pCO2 ABG pO2 ABG PO2/FiO2 Ratio ABG HCO3 ABG O2 Saturation ABG O2 Content ABG Base Excess A-a Gradient Oxyhemoglobin Carboxyhemoglobin Methemoglobin Reduced Hemoglobin Total Hemoglobin O2 Delivery Device O2 Liters/Min Minute Volume Vent Rate Vent Mode FiO2 Tidal Volume PEEP Peak Inspir Pressure Pressure Support Sodium Potassium Chloride Carbon Dioxide Anion Gap BUN Creatinine Estim Creat Clear Calc Estimated GFR Glucose POC Capillary Glucose 162 H 174 H 181 H Calcium Phosphorus Magnesium Total Bilirubin AST ALT Alkaline Phosphatase Total Protein Albumin 11/17/24 11/17/24 03:47 05:22 WBC 9.1 RBC 4.44 L Hgb 12.1 L Hct 39.7 L MCV 89.4 MCH 27.3 MCHC 30.5 L RDW 13.9 Plt Count 264 MPV 9.9 Immature Gran % (Auto) 0.9 H Neut % (Auto) 83.7 H Lymph % (Auto) 6.8 L [place] % (Auto) 8.4 Eos % (Auto) 0.1 Baso % (Auto) 0.1 L Lymph # (Auto) 0.62 L [place] # (Auto) 0.8 H Eos # (Auto) 0.0 Baso # (Auto) 0.0 Abs Immat Gran (auto) 0.08 H Absolute Neuts (auto) 7.6 H Absolute Nucleated RBC 0.000 Nucleated RBC % 0.0 % Immature Plt Fraction 1.8 Puncture Site Right radial ABG pH 7.415 ABG pCO2 36.4 ABG pO2 93.6 ABG PO2/FiO2 Ratio 3.12 ABG HCO3 22.8 ABG O2 Saturation 97.3 ABG O2 Content 18.2 ABG Base Excess -1.3 A-a Gradient 77.5 Oxyhemoglobin 96.4 Carboxyhemoglobin 0.6 Methemoglobin 0.3 Reduced Hemoglobin 2.7 Total Hemoglobin 13.4 O2 Delivery Device Ventilator O2 Liters/Min Not Reportable Minute Volume Not Reportable Vent Rate 14 Vent Mode Cmv FiO2 30 Tidal Volume 480 PEEP 5 Peak Inspir Pressure Not Reportable Pressure Support Not Reportable Sodium 138 Potassium 4.3 Chloride 106 Carbon Dioxide 20 L Anion Gap 12 BUN 36 H Creatinine 1.06 Estim Creat Clear Calc 72 Estimated GFR > 60 Glucose 181 H POC Capillary Glucose Calcium 9.2 Phosphorus 3.3 Magnesium 2.2 Total Bilirubin 0.6 AST 28 ALT 21 Alkaline Phosphatase 73 Total Protein 6.6 Albumin 3.9 Quality VTE Prophylaxis VTE prophylaxis: pharmacologic ordered
[2024-11-17] MEDS: PROPOFOL IV EMULSION 100 ML 12 MG IV CONT ×2 (09:23)
--- NOTE | 2024-11-17 11:07 | PCNFU ---
Nutrition Follow-Up Complete: Inadequate energy intake related to mechanical ventilation as evidenced by need for full tube feeding Goal: Meet estimated protein energy needs Patient will continue current goal. Pt current nutrition is Vital AF 1.2 at 50 ml/hr. Last recorded weight is 98.7 kg, stable Bowel Motility: +BM reported 11/11 Labs Reviewed: Glu 181, BUN 36 Meds Noted: Versed, Propofol 20 mcgs, Miralax. Skin: WNL Additional Notes: Patient remains on a mechanical vent. Tube feedings are being tolerated of Vital AF 1.2 at 50 ml/hr, meeting 75% kcal needs at 22 kcal/kg and 70% protein needs 1.2 kcal/kg. We will continue current rate 2/2 to Propofol infusion and follow up with recommendations tomorrow. Monitoring daily in ICU rounds. Will reassess tube feeding tolerance, meds, plan of care, weights, labs, every Saturday and Saturday.
[2024-11-17 11:37] LABS: Glucose Point of Care 147 mg/dl (65-105)
--- NOTE | 2024-11-17 12:41 | PC.NURSE ---
at bedside, breathing trial started at 1237pm. Sedation off and tube feeding off at this time.
[2024-11-17 13:08] LABS: Alveolar/Arterial O2 Gradient 79.4 mmHg; Base Excess ABG -0.2 mEq/l (+/-2.0); Carboxyhemoglobin 0.7 % THb (0-2.0); Fractional Inspired Oxygen 30 %; HCO3 ABG 23.4 mEq/l (22.0-26.0); Oxygen Content ABG 17.7 %vol (16.0-22.0); Oxygen Saturation ABG 97.5 % (95.0-100.0); Oxyhemoglobin 96.6 % THb (90.0-100.0); PCO2 ABG 34.7 mmHg (35.0-45.0); PO2 ABG 93.7 mmHg (80.0-100.0); PO2 FiO2 Ratio Arterial Blood 3.12 %; Reduced Hemoglobin 2.7 %THb (0-5.0); pH ABG 7.446 (7.350-7.450)
[2024-11-17 13:09] LABS: Device VENTILATOR; Site Drawn LEFT RADIAL
[2024-11-17 13:18] LABS: Arterial Blood Gas PEEP 8 cmH2O; Arterial Blood Gas Pressure Support 5 cmH2O; Arterial Blood Gas Vent Mode SPONTANEOUS
--- NOTE | 2024-11-17 13:19 | P.PNCROSS_ITS ---
Event Note Event Note Event Note: CT scan was done and I reviewed the CT images with radiologist Dr. Pastor. S welling has improved although still present in the neck. I again performed cuff leak evaluation and patient did had some leak around his endotracheal tube cuff. 5/8 PSV performed for more than 30 minutes and ABG done. RSBI ABG and vitals acceptable. Patient awake and following commands off sedation. Patient was extubated. Maintaining saturation on nasal cannula with no respiratory distress or use of accessory muscles. No stridor on auscultation of the neck. Continue to monitor closely.
[2024-11-17] MEDS: CYCLOBENZAPRINE HCL 10 MG TABLET PO (18:12)
[2024-11-17 18:17] LABS: Glucose Point of Care 146 mg/dl (65-105)
--- NOTE | 2024-11-17 18:20 | PC.NURSE ---
Patient complained of severe left should pain. Dr. Prieto contacted new orders received for pain medication. See EMAR. Shortly after Dr. Solis arrived to assess patient and discussed patients pain and condition. Physician voiced concern that medication previously ordered was not appropriate for pain control due to surgical procedure that patient underwent and ordered a non-benzo muscle relaxer which was believed to be most adequate due to respiratory status and post op expectations. Received new orders from Dr. Solis. See EMAR.
[2024-11-17 19:20] LABS: Triglycerides 337 mg/dL (<150)
[2024-11-17 23:58] LABS: Glucose Point of Care 138 mg/dl (65-105)
[2024-11-18] VITALS (16 sets, daily range): BP systolic 108–143; BP diastolic 59–97; PULSE 42–87; RESP 12–18; TEMP 36.8–37.1; O2SAT 93–98
[2024-11-18] MEDS: dexAMETHasone SOD PHOS INJ 4 MG/ML VIAL IV PUSH ×3 (00:03→16:57)
[2024-11-18 03:52] LABS: Hematocrit 38.6 % (42.0-52.0); Hemoglobin 12.6 g/dL (14.0-18.0); Mean Corpuscular HGB Conc 32.6 g/dl (32-36); Mean Corpuscular Hemoglobin 27.3 pg (26-34); Mean Corpuscular Volume 83.7 fl (80-100); Mean Platelet Volume 9.3 fl (7.4-10.4); Platelet Count Result 270 k/mm3 (150-375); Red Blood Count 4.61 M/mm3 (4.6-6.20); Red Cell Distribution Width 13.6 % (11.5-14.5); White Blood Count 10.2 K/mm3 (4.5-10.0)
[2024-11-18 04:07] LABS: Alanine Aminotransferase 22 U/L (6-50); Albumin Level 3.8 g/dL (3.5-5.1); Alkaline Phosphatase 73 U/L (38-126); Anion Gap 10 mmol/L (4-12); Aspartate Amino Transferase 27 U/L (17-59); Bilirubin,Total 0.7 mg/dL (0.2-1.3); Blood Urea Nitrogen 39 mg/dL (9-20); Calcium 9.1 mg/dL (8.4-10.2); Carbon Dioxide 24 mmol/L (22-30); Chloride 106 mmol/L (98-107); Estimated CRCL calculation 69 ml/min; Estimated Glomerular Filt Rate > 60; Glucose 148 mg/dL (65-110); Magnesium 2.4 mg/dL (1.6-2.3); Potassium 4.5 mmol/L (3.4-5.0); Sodium 140 mmol/L (137-145); Total Protein 6.6 g/dL (6.3-8.2)
[2024-11-18] MEDS: CYCLOBENZAPRINE HCL 10 MG TABLET PO (04:20)
[2024-11-18 04:23] LABS: Alveolar/Arterial O2 Gradient 32.2 mmHg; Base Excess ABG -0.2 mEq/l (+/-2.0); Fractional Inspired Oxygen 21 %; HCO3 ABG 23.7 mEq/l (22.0-26.0); Oxygen Content ABG 17.3 %vol (16.0-22.0); Oxygen Saturation ABG 95.4 % (95.0-100.0); Oxyhemoglobin 93.9 % THb (90.0-100.0); PCO2 ABG 36.3 mmHg (35.0-45.0); PO2 ABG 74.1 mmHg (80.0-100.0); PO2 FiO2 Ratio Arterial Blood 3.53 %; Total Hemoglobin 13.1 g/dL (12.0-18.0); pH ABG 7.432 (7.350-7.450)
[2024-11-18 04:25] LABS: Device OTHER DEVICE; Modified Allen's Test Pass; Site Drawn RIGHT RADIAL
[2024-11-18] MEDS: HYDROcodone/acetaminophen (*CRX) 5-325 MG TABLET 1 TAB PO ×3 (06:25→21:11)
--- NOTE | 2024-11-18 07:40 | WPDINTPN ---
Progress Note: A&P Assessment and Plan (1) Postoperative edema: Code(s): R60.9 - Edema, unspecified Status: Acute Assessment and Plan: Patient had anterior cervical diskectomy and fusion from C4-C7 for cervical myelopathy, radiculopathy and spondylolisthesis on 11/11/2024 -patient presented the ED complains of neck swelling and pain, dysphonia, dysphagia, and difficulty breathing -patient was intubated in the OR by Anesthesia on 11/11/2024 for airway protection as the CT scan did show severe narrowing of the air passage. -patient was treated with Decadron for soft tissue swelling as seen on the neck CTA -repeat CT 11/17 IMPRESSION: 1. Interval decrease in the degree of cervical prevertebral soft tissue swelling likely related to recent placement at C4-C7 anterior spinal fusion. No abscess. 2. Trace bilateral pleural effusions with dependent atelectasis in the bilateral lower lobes most prominent at the posterior sulci. No other acute cardiopulmonary disease. -swelling improved. Will decreased Decadron dose. -neurosurgery also following Neck CTA 11/13/24: IMPRESSION: 1.Normal CTA head and neck. Percent stenosis per NASCET criteria is 0%.. 2. Prevertebral soft tissue swelling seen anterior to the vertebrae from C2 down to C7 with maximum changes at the level of C3-C4 with a thickness measuring 3 cm. Severe Narrowing of the air passage is seen in the area. (2) Status post cervical discectomy: Code(s): Z98.890 - Other specified postprocedural states Status: Acute Assessment and Plan: P.r.n. pain control (3) Airway compromise: Code(s): J98.8 - Other specified respiratory disorders Status: Acute Assessment and Plan: 11/13: CTA neck showed severe narrowing of the passage as above -intubated by anesthesia in the OR -extubated 11/17 (4) Hypertension: Code(s): I10 - Essential (primary) hypertension Status: Acute Assessment and Plan: Patient on losartan and amlodipine at home, will hold for now as blood pressures has been in stable range. (5) Chronic kidney disease, stage 3: Code(s): N18.30 - Chronic kidney disease, stage 3 unspecified Status: Acute Assessment and Plan: Baseline creatinine is 1.30-1.70 He did receive IV fluid on admission Creatinine stable. Continue to monitor renal function, electrolytes and urine output (6) Obstructive sleep apnea: Code(s): G47.33 - Obstructive sleep apnea (adult) (pediatric) Status: Acute Assessment and Plan: Home CPAP ordered Plan DVT prophylaxis: Lovenox Stress ulcer prophylaxis: Protonix Nutrition: Start diet Code Status: Full code PT OT incentive spirometry up in chair Subjective Date/time seen: 11/18/24 Patient was extubated after a successful weaning trial yesterday. Patient has not had any difficulty with breathing overnight. He uses CPAP for sleep apnea overnight. This morning he states he has pain in his left shoulder which is chronic from arthritis but denies any new complaints. He slept well. Sinus bradycardia on the monitor. Patient denies fever, chest pain, shortness of breath, cough, nausea vomiting, abdominal pain,, diarrhea, headache or constipation. Blood pressure in controlled range. Afebrile. Good urine output Review of Systems Review of Systems: All systems reviewed & are unremarkable except as noted in HPI and below Exam Narrative: General: Alert awake in no acute distress HEENT:? Pupils are reactive and equal, sclera is clear, Neck:? swelling on right and anterior part of neck, Indurated, mild erythema, swelling has improved Respiratory:? clear to auscultation, no wheezing, adequate air entry, no stridor Cardiac:? S1 S2 normal, regular rate and rhythm Abdomen:?soft, non tender, non distended, normoactive bowel sounds Extremities:? no edema, palpable pedal pulses Neuro:? Alert oriented x3 moves all 4 extremities Skin:? Swelling on the right and anterior part of the neck, mild erythema as above Objective Data Vital Signs Vital Signs: Vital Signs - 24 hr 11/17/24 08:00 11/17/24 08:00 11/17/24 08:00 Temperature 36.9 C Pulse Rate 64 64 Respiratory Rate 19 14 Blood Pressure 161/101 H Pulse Oximetry 96 Oxygen Delivery Oxygen Flow Rate Fraction of Inspired Oxygen 30 11/17/24 08:00 11/17/24 08:00 11/17/24 08:22 Temperature Pulse Rate 64 79 70 Respiratory Rate 14 Blood Pressure Pulse Oximetry 96 95 Oxygen Delivery Mechanical Ventilation Mechanical Ventilation Oxygen Flow Rate Fraction of Inspired Oxygen 30 30 11/17/24 09:23 11/17/24 09:23 11/17/24 10:00 Temperature Pulse Rate 58 L 58 L 62 Respiratory Rate 12 12 Blood Pressure Pulse Oximetry Oxygen Delivery Oxygen Flow Rate Fraction of Inspired Oxygen 11/17/24 10:00 11/17/24 10:00 11/17/24 10:23 Temperature 37.2 C Pulse Rate 69 66 70 Respiratory Rate 15 14 Blood Pressure 136/84 Pulse Oximetry 98 96 Oxygen Delivery Mechanical Ventilation Oxygen Flow Rate Fraction of Inspired Oxygen 30 11/17/24 11:50 11/17/24 12:00 11/17/24 12:00 Temperature 37.2 C Pulse Rate 59 L 64 73 Respiratory Rate 12 14 18 Blood Pressure 154/92 H Pulse Oximetry 97 100 Oxygen Delivery Mechanical Ventilation Oxygen Flow Rate Fraction of Inspired Oxygen 30 11/17/24 12:00 11/17/24 12:00 11/17/24 12:41 Temperature Pulse Rate 72 59 L Respiratory Rate 13 Blood Pressure Pulse Oximetry Oxygen Delivery Oxygen Flow Rate Fraction of Inspired Oxygen 30 11/17/24 13:00 11/17/24 14:00 11/17/24 14:00 Temperature 37.4 C Pulse Rate 65 57 L Respiratory Rate 13 Blood Pressure 121/105 H Pulse Oximetry 100 95 Oxygen Delivery Nasal Cannula Oxygen Flow Rate 2 Fraction of Inspired Oxygen 11/17/24 14:05 11/17/24 16:00 11/17/24 16:00 Temperature 37.4 C Pulse Rate 75 56 L 53 L Respiratory Rate 14 13 Blood Pressure 143/78 H Pulse Oximetry 96 96 Oxygen Delivery Nasal Cannula Oxygen Flow Rate 2 Fraction of Inspired Oxygen 11/17/24 16:00 11/17/24 18:00 11/17/24 18:00 Temperature 37.3 C Pulse Rate 54 L 54 L 54 L Respiratory Rate 17 Blood Pressure 131/81 Pulse Oximetry 97 Oxygen Delivery Oxygen Flow Rate Fraction of Inspired Oxygen 11/17/24 19:31 11/17/24 19:34 11/17/24 19:59 Temperature Pulse Rate 54 L 54 L 51 L Respiratory Rate 17 Blood Pressure Pulse Oximetry 97 96 Oxygen Delivery Nasal Cannula CPAP Oxygen Flow Rate 3 Fraction of Inspired Oxygen 21 11/17/24 20:00 11/17/24 20:00 11/17/24 22:00 Temperature 37.2 C Pulse Rate 52 L 53 L 55 L Respiratory Rate 12 Blood Pressure 137/79 Pulse Oximetry 96 95 Oxygen Delivery CPAP Oxygen Flow Rate Fraction of Inspired Oxygen 11/17/24 22:00 11/17/24 23:44 11/17/24 23:46 Temperature 37.3 C Pulse Rate 55 L 46 L 46 L Respiratory Rate 12 18 Blood Pressure 137/77 Pulse Oximetry 97 97 Oxygen Delivery CPAP Oxygen Flow Rate Fraction of Inspired Oxygen 11/18/24 00:00 11/18/24 01:15 11/18/24 02:00 Temperature 36.8 C Pulse Rate 46 L 44 L Respiratory Rate 13 Blood Pressure 108/65 Pulse Oximetry 95 97 Oxygen Delivery CPAP Oxygen Flow Rate Fraction of Inspired Oxygen 11/18/24 02:00 11/18/24 04:00 11/18/24 04:00 Temperature 36.8 C Pulse Rate 44 L 47 L 47 L Respiratory Rate 13 13 Blood Pressure 113/59 L Pulse Oximetry 96 96 Oxygen Delivery CPAP Oxygen Flow Rate Fraction of Inspired Oxygen 11/18/24 04:00 11/18/24 06:00 11/18/24 06:00 Temperature 36.9 C 36.8 C Pulse Rate 44 L 42 L 44 L Respiratory Rate 12 12 Blood Pressure 119/76 135/79 Pulse Oximetry 96 98 Oxygen Delivery Oxygen Flow Rate Fraction of Inspired Oxygen Intake/Output Intake/Output: Intake & Output 11/15/24 11/16/24 11/17/24 11/18/24 23:59 23:59 23:59 23:59 Intake Total 1580.5 1981.0 1797.4 120 Output Total 1075 2050 1850 800 Balance 505.5 -69.0 -52.6 -680 Meds/Results Medications: Active Medications Generic Name Dose Route Start Last Admin Trade Name Freq PRN Reason Stop Dose Admin Hydrocodone Bitart/Acetaminophen 1 tab 11/14/24 12:17 11/18/24 06:25 Hydrocodone/Acetaminophen (*Crx) 5-325 Mg Tablet PO 1 tab Q4H PRN Administration Pain Rated 4-6 Amlodipine Besylate 5 mg 11/14/24 09:00 Amlodipine Besylate 5 Mg Tablet PO DAILY AMADEO Atorvastatin Calcium 80 mg 11/14/24 09:00 11/17/24 08:36 Atorvastatin 40 Mg Tablet PO 80 mg DAILY AMADEO Administration Cyclobenzaprine HCl 10 mg 11/17/24 18:01 11/18/24 04:20 Cyclobenzaprine Hcl 10 Mg Tablet PO 10 mg TID PRN Administration Muscle Spasm Dexamethasone Sodium Phosphate 4 mg 11/13/24 21:00 11/18/24 06:25 Dexamethasone Sod Phos Inj 4 Mg/Ml Vial IV PUSH 4 mg Q6HR AMADEO Administration Dextrose 12.5 gm 11/14/24 02:39 Dextrose 50% 25 Gm/50 Ml Syringe IV PUSH PRN PRN Hypoglycemia Protocol Enoxaparin Sodium 40 mg 11/15/24 09:00 11/17/24 08:37 Enoxaparin 40 Mg/0.4 Ml Syringe SUB-Q 40 mg DAILY AMADEO Administration Gabapentin 900 mg 11/14/24 17:00 11/17/24 17:32 Gabapentin 300 Mg Capsule PO 900 mg BID AMADEO Administration Glucagon 1 mg 11/14/24 02:39 Glucagon For Inj 1 Mg Vial IM PRN PRN Hypoglycemia Protocol Glucose 15 gm 11/14/24 02:39 Glucose Oral Gel 15 Gm Of Glucse In 37.5 Gm Tube PO PRN PRN Hypoglycemia Protocol Midazolam HCl 100 mg in 100 mls @ 0 mls/hr 11/13/24 19:50 11/15/24 06:23 Versed 100 Mg/Ns 100 Ml IV CONT Infused .Q0M AMADEO Titration Protocol 0 MG/HR Dextrose 1,000 mls @ 100 mls/hr 11/14/24 02:39 Dextrose 5% 1,000 Ml IVPB PRN PRN Hypoglycemia Protocol Insulin Aspart 3 - 6 units 11/15/24 06:00 11/18/24 06:25 Insulin Aspart (*Bkc) 100 Units/Ml SUB-Q Not Given Q6HR [facility] Protocol Losartan Potassium 100 mg 11/14/24 09:00 Losartan Potassium 100 Mg Tablet BY MOUTH DAILY AMADEO Montelukast Sodium 10 mg 11/14/24 09:00 11/17/24 08:36 Montelukast Sodium 10 Mg Tablet BY MOUTH 10 mg DAILY AMADEO Administration Morphine Sulfate 2 mg 11/17/24 17:00 Morphine Sulfate (*Crx) 2 Mg/Ml Inj IV PUSH Q2HR PRN Pain Rated 4-6 Morphine Sulfate 4 mg 11/17/24 17:01 Morphine Sulfate (*Crx) 4 Mg/Ml Inj IV PUSH Q2HR PRN Pain Rated 7-10 Pantoprazole Sodium 40 mg 11/14/24 09:00 11/17/24 08:38 Pantoprazole Sodium Iv 40 Mg Vial IV PUSH 40 mg QAM AMADEO Administration Polyethylene Glycol 17 gm 11/16/24 10:05 11/17/24 08:38 Polyethylene Glycol 3350 17 Gm Powd.Pack PO 17 gm QAM AMADEO Administration Senna/Docusate Sodium 1 tab 11/14/24 11:44 11/15/24 20:24 Senna/Docusate Sodium Tablet PO 1 tab BID PRN Administration Constipation Sodium Chloride 1 drop 11/14/24 09:00 11/17/24 08:39 Sodium Chloride 2% Op Soln 15 Ml Btl EACH EYE 1 drop DAILY AMADEO Administration Radiology Results: ITS Impressions Neck CTA 11/13/24 17:41 IMPRESSION: Normal CTA head and neck. Percent stenosis per NASCET criteria is 0%.. Prevertebral soft tissue swelling seen anterior to the vertebrae from C2 down to C7 with maximum changes at the level of C3-C4 with a thickness measuring 3 cm. Severe Narrowing of the air passage is seen in the area. Dr. Vyas was notified with the result of the patient at 6:00 PM on November 13, 2024. Neck/Chest CT 11/17/24 11:20 IMPRESSION: 1. Interval decrease in the degree of cervical prevertebral soft tissue swelling likely related to recent placement at C4-C7 anterior spinal fusion. No abscess. 2. Trace bilateral pleural effusions with dependent atelectasis in the bilateral lower lobes most prominent at the posterior sulci. No other acute cardiopulmonary disease. Chest X-Ray 11/18/24 05:41 Impression: Probable minimal left pleural effusion and/or left basilar atelectasis. Labs Labs: Laboratory Results - last 24 hr 11/17/24 11/17/24 11/17/24 11:21 13:05 18:14 WBC RBC Hgb Hct MCV MCH MCHC RDW Plt Count MPV Puncture Site Left radial ABG pH 7.446 ABG pCO2 34.7 L ABG pO2 93.7 ABG PO2/FiO2 Ratio 3.12 ABG HCO3 23.4 ABG O2 Saturation 97.5 ABG O2 Content 17.7 ABG Base Excess -0.2 A-a Gradient 79.4 Oxyhemoglobin 96.6 Carboxyhemoglobin 0.7 Methemoglobin 0.0 Reduced Hemoglobin 2.7 Total Hemoglobin 13.0 O2 Delivery Device Ventilator O2 Liters/Min Not Reportable Minute Volume Not Reportable Vent Rate Not Reportable Vent Mode Spontaneous FiO2 30 Tidal Volume Not Reportable PEEP 8 Peak Inspir Pressure Not Reportable Pressure Support 5 Sodium Potassium Chloride Carbon Dioxide Anion Gap BUN Creatinine Estim Creat Clear Calc Estimated GFR Glucose POC Capillary Glucose 147 H 146 H Calcium Magnesium Total Bilirubin AST ALT Alkaline Phosphatase Total Protein Albumin Triglycerides 11/17/24 11/17/24 11/18/24 19:05 23:55 03:35 WBC 10.2 H RBC 4.61 Hgb 12.6 L Hct 38.6 L MCV 83.7 D MCH 27.3 MCHC 32.6 RDW 13.6 Plt Count 270 MPV 9.3 Puncture Site ABG pH ABG pCO2 ABG pO2 ABG PO2/FiO2 Ratio ABG HCO3 ABG O2 Saturation ABG O2 Content ABG Base Excess A-a Gradient Oxyhemoglobin Carboxyhemoglobin Methemoglobin Reduced Hemoglobin Total Hemoglobin O2 Delivery Device O2 Liters/Min Minute Volume Vent Rate Vent Mode FiO2 Tidal Volume PEEP Peak Inspir Pressure Pressure Support Sodium 140 Potassium 4.5 Chloride 106 Carbon Dioxide 24 Anion Gap 10 BUN 39 H Creatinine 1.10 Estim Creat Clear Calc 69 Estimated GFR > 60 Glucose 148 H POC Capillary Glucose 138 H Calcium 9.1 Magnesium 2.4 H Total Bilirubin 0.7 AST 27 ALT 22 Alkaline Phosphatase 73 Total Protein 6.6 Albumin 3.8 Triglycerides 337 H 11/18/24 04:11 WBC RBC Hgb Hct MCV MCH MCHC RDW Plt Count MPV Puncture Site Right radial ABG pH 7.432 ABG pCO2 36.3 ABG pO2 74.1 L ABG PO2/FiO2 Ratio 3.53 ABG HCO3 23.7 ABG O2 Saturation 95.4 ABG O2 Content 17.3 ABG Base Excess -0.2 A-a Gradient 32.2 Oxyhemoglobin 93.9 Carboxyhemoglobin Methemoglobin Reduced Hemoglobin Total Hemoglobin 13.1 O2 Delivery Device Other device O2 Liters/Min Minute Volume Vent Rate Vent Mode FiO2 21 Tidal Volume PEEP Peak Inspir Pressure Pressure Support Sodium Potassium Chloride Carbon Dioxide Anion Gap BUN Creatinine Estim Creat Clear Calc Estimated GFR Glucose POC Capillary Glucose Calcium Magnesium Total Bilirubin AST ALT Alkaline Phosphatase Total Protein Albumin Triglycerides Quality VTE Prophylaxis VTE prophylaxis: pharmacologic ordered
[2024-11-18] MEDS: polyethylene glycoL 3350 17 GM POWD.PACK PO (08:33)
[2024-11-18] MEDS: ATORVASTATIN 40 MG TABLET 80 MG PO (08:33)
[2024-11-18] MEDS: MONTELUKAST SODIUM 10 MG TABLET BY MOUTH (08:33)
[2024-11-18] MEDS: PANTOPRAZOLE SODIUM IV 40 MG VIAL IV PUSH (08:33)
[2024-11-18] MEDS: ENOXAPARIN 40 MG/0.4 ML SYRINGE SUB-Q (08:33)
[2024-11-18] MEDS: GABAPENTIN 300 MG CAPSULE 900 MG PO ×2 (08:33→16:57)
[2024-11-18] MEDS: SODIUM CHLORIDE 2% OP SOLN 15 ML BTL 1 DROP EACH EYE (08:34)
--- NOTE | 2024-11-18 11:00 | PCFNICU ---
ICU Rounding Note: Pt current nutrition is Clear liquids Nutrition recommendation: Advance diet as medically able. Will evaluate for need for supplements at next FU Last recorded weight is 98.7 kg. Bowel Motility: +1 BM 11/18 Labs Reviewed: Hgb 12.6, Hct 38.6, BUN 39, Glu 148, Mag 2.4 Meds Noted: Dexamethasone, insulin Skin: No skin issues Additional Notes: Extubated successfully and taking clear liquids without problems. Nursing says he will likely be advanced to solids for lunch. Continue to follow Following daily in ICU rounds. Monitoring tube feeding tolerance, meds, plan of care, weights, labs, output Follow up Saturday.Saturday. Daily in rounds.
[2024-11-18 11:18] LABS: Glucose Point of Care 250 mg/dl (65-105)
[2024-11-18] MEDS: INSULIN ASPART (*BKC) 100 UNITS/ML SUB-Q ×2 (11:40→20:02)
--- NOTE | 2024-11-18 12:30 | P.PNNEUSUR_ITS ---
Progress Note: A&P Assessment and Plan (1) Neck swelling: Code(s): R22.1 - Localized swelling, mass and lump, neck Status: Acute Assessment and Plan: Patient appears to be doing well. P.r.n. pain control. Continue ACDF restrictions - avoid overhead activity, no lifting, pushing, pulling more than 10 lb, avoid activities stress the neck. Continue to monitor patient's condition per medicine team. Time Spent With Patient Time with patient: less than 15 minutes Subjective Date/time seen: 11/18/24 12:30 Interval history: Patient is doing well. Was extubated last night. Denies breathing difficulties. No swallowing issues. States that his only pain is in the left shoulder, which is a chronic issue for him. Denies upper extremity numbness or weakness. Currently sitting up in bed eating lunch. Exam Narrative: A&O x3. No acute distress. No respiratory distress. Able to swallow soft food/liquids. neck soft incision c/d/i Upper extremity strength 5/5 Sensation to light touch intact. Objective Data Vital Signs Vital Signs: Vital Signs - 24 hr 11/17/24 12:41 11/17/24 13:00 11/17/24 14:00 Temperature 99.3 F Pulse Rate 59 L 65 Respiratory Rate 13 13 Blood Pressure 121/105 H Pulse Oximetry 100 95 Oxygen Delivery Nasal Cannula Oxygen Flow Rate 2 Fraction of Inspired Oxygen 11/17/24 14:00 11/17/24 14:05 11/17/24 16:00 Temperature 99.4 F Pulse Rate 57 L 75 56 L Respiratory Rate 14 13 Blood Pressure 143/78 H Pulse Oximetry 96 Oxygen Delivery Oxygen Flow Rate Fraction of Inspired Oxygen 11/17/24 16:00 11/17/24 16:00 11/17/24 18:00 Temperature Pulse Rate 53 L 54 L 54 L Respiratory Rate Blood Pressure Pulse Oximetry 96 Oxygen Delivery Nasal Cannula Oxygen Flow Rate 2 Fraction of Inspired Oxygen 11/17/24 18:00 11/17/24 19:31 11/17/24 19:34 Temperature 99.1 F Pulse Rate 54 L 54 L 54 L Respiratory Rate 17 17 Blood Pressure 131/81 Pulse Oximetry 97 97 Oxygen Delivery Nasal Cannula Oxygen Flow Rate 3 Fraction of Inspired Oxygen 11/17/24 19:59 11/17/24 20:00 11/17/24 20:00 Temperature 98.9 F Pulse Rate 51 L 52 L 53 L Respiratory Rate 12 Blood Pressure 137/79 Pulse Oximetry 96 96 95 Oxygen Delivery CPAP CPAP Oxygen Flow Rate Fraction of Inspired Oxygen 21 11/17/24 22:00 11/17/24 22:00 11/17/24 23:44 Temperature 99.1 F Pulse Rate 55 L 55 L 46 L Respiratory Rate 12 18 Blood Pressure 137/77 Pulse Oximetry 97 97 Oxygen Delivery CPAP Oxygen Flow Rate Fraction of Inspired Oxygen 11/17/24 23:46 11/18/24 00:00 11/18/24 01:15 Temperature 98.3 F Pulse Rate 46 L 46 L Respiratory Rate 13 Blood Pressure 108/65 Pulse Oximetry 95 97 Oxygen Delivery CPAP Oxygen Flow Rate Fraction of Inspired Oxygen 11/18/24 02:00 11/18/24 02:00 11/18/24 04:00 Temperature 98.3 F Pulse Rate 44 L 44 L 47 L Respiratory Rate 13 13 Blood Pressure 113/59 L Pulse Oximetry 96 96 Oxygen Delivery CPAP Oxygen Flow Rate Fraction of Inspired Oxygen 11/18/24 04:00 11/18/24 04:00 11/18/24 06:00 Temperature 98.4 F Pulse Rate 47 L 44 L 42 L Respiratory Rate 12 Blood Pressure 119/76 Pulse Oximetry 96 Oxygen Delivery Oxygen Flow Rate Fraction of Inspired Oxygen 11/18/24 06:00 11/18/24 07:56 11/18/24 08:00 Temperature 98.2 F Pulse Rate 44 L 42 L 42 L Respiratory Rate 12 14 Blood Pressure 135/79 Pulse Oximetry 98 97 Oxygen Delivery CPAP Oxygen Flow Rate Fraction of Inspired Oxygen 11/18/24 08:00 11/18/24 10:00 11/18/24 10:00 Temperature 98.3 F Pulse Rate 42 L 84 87 Respiratory Rate 13 16 Blood Pressure 134/69 136/84 Pulse Oximetry 98 93 Oxygen Delivery Oxygen Flow Rate Fraction of Inspired Oxygen Intake/Output Intake/Output: Intake & Output 11/15/24 11/16/24 11/17/24 11/18/24 23:59 23:59 23:59 23:59 Intake Total 1580.5 1981.0 1797.4 120 Output Total 1075 2050 1850 800 Balance 505.5 -69.0 -52.6 -680 Meds/Results Medications: Active Medications Generic Name Dose Route Start Last Admin Trade Name Freq PRN Reason Stop Dose Admin Hydrocodone Bitart/Acetaminophen 1 tab 11/14/24 12:17 11/18/24 06:25 Hydrocodone/Acetaminophen (*Crx) 5-325 Mg Tablet PO 1 tab Q4H PRN Administration Pain Rated 4-6 Amlodipine Besylate 5 mg 11/14/24 09:00 Amlodipine Besylate 5 Mg Tablet PO DAILY COUNTS INCLUDE 234 BEDS AT THE [facility] Atorvastatin Calcium 80 mg 11/14/24 09:00 11/18/24 08:33 Atorvastatin 40 Mg Tablet PO 80 mg DAILY AMADEO Administration Cyclobenzaprine HCl 10 mg 11/17/24 18:01 11/18/24 04:20 Cyclobenzaprine Hcl 10 Mg Tablet PO 10 mg TID PRN Administration Muscle Spasm Dexamethasone Sodium Phosphate 4 mg 11/18/24 17:00 Dexamethasone Sod Phos Inj 4 Mg/Ml Vial IV PUSH BID COUNTS INCLUDE 234 BEDS AT THE [facility] Dextrose 12.5 gm 11/14/24 02:39 Dextrose 50% 25 Gm/50 Ml Syringe IV PUSH PRN PRN Hypoglycemia Protocol Enoxaparin Sodium 40 mg 11/15/24 09:00 11/18/24 08:33 Enoxaparin 40 Mg/0.4 Ml Syringe SUB-Q 40 mg DAILY AMADEO Administration Gabapentin 900 mg 11/14/24 17:00 11/18/24 08:33 Gabapentin 300 Mg Capsule PO 900 mg BID AMADEO Administration Glucagon 1 mg 11/14/24 02:39 Glucagon For Inj 1 Mg Vial IM PRN PRN Hypoglycemia Protocol Glucose 15 gm 11/14/24 02:39 Glucose Oral Gel 15 Gm Of Glucse In 37.5 Gm Tube PO PRN PRN Hypoglycemia Protocol Dextrose 1,000 mls @ 100 mls/hr 11/14/24 02:39 Dextrose 5% 1,000 Ml IVPB PRN PRN Hypoglycemia Protocol Insulin Aspart 3 - 6 units 11/18/24 11:30 11/18/24 11:40 Insulin Aspart (*Bkc) 100 Units/Ml SUB-Q 3 units ACHS AMADEO Administration Protocol Losartan Potassium 100 mg 11/14/24 09:00 Losartan Potassium 100 Mg Tablet BY MOUTH DAILY COUNTS INCLUDE 234 BEDS AT THE [facility] Montelukast Sodium 10 mg 11/14/24 09:00 11/18/24 08:33 Montelukast Sodium 10 Mg Tablet BY MOUTH 10 mg DAILY AMADEO Administration Morphine Sulfate 2 mg 11/17/24 17:00 Morphine Sulfate (*Crx) 2 Mg/Ml Inj IV PUSH Q2HR PRN Pain Rated 4-6 Morphine Sulfate 4 mg 11/17/24 17:01 Morphine Sulfate (*Crx) 4 Mg/Ml Inj IV PUSH Q2HR PRN Pain Rated 7-10 Pantoprazole Sodium 40 mg 11/14/24 09:00 11/18/24 08:33 Pantoprazole Sodium Iv 40 Mg Vial IV PUSH 40 mg QAM AMADEO Administration Polyethylene Glycol 17 gm 11/16/24 10:05 11/18/24 08:33 Polyethylene Glycol 3350 17 Gm Powd.Pack PO 17 gm QAM AMADEO Administration Senna/Docusate Sodium 1 tab 11/14/24 11:44 11/15/24 20:24 Senna/Docusate Sodium Tablet PO 1 tab BID PRN Administration Constipation Sodium Chloride 1 drop 11/14/24 09:00 11/18/24 08:34 Sodium Chloride 2% Op Soln 15 Ml Btl EACH EYE 1 drop DAILY AMADEO Administration Radiology Results: ITS Impressions Neck CTA 11/13/24 17:41 IMPRESSION: Normal CTA head and neck. Percent stenosis per NASCET criteria is 0%.. Prevertebral soft tissue swelling seen anterior to the vertebrae from C2 down to C7 with maximum changes at the level of C3-C4 with a thickness measuring 3 cm. Severe Narrowing of the air passage is seen in the area. Dr. Vyas was notified with the result of the patient at 6:00 PM on November 13, 2024. Neck/Chest CT 11/17/24 11:20 IMPRESSION: 1. Interval decrease in the degree of cervical prevertebral soft tissue swelling likely related to recent placement at C4-C7 anterior spinal fusion. No abscess. 2. Trace bilateral pleural effusions with dependent atelectasis in the bilateral lower lobes most prominent at the posterior sulci. No other acute cardiopulmonary disease. Chest X-Ray 11/18/24 05:41 Impression: Probable minimal left pleural effusion and/or left basilar atelectasis. Labs Labs: Laboratory Results - last 24 hr 11/17/24 11/17/24 11/17/24 13:05 18:14 19:05 WBC RBC Hgb Hct MCV MCH MCHC RDW Plt Count MPV Puncture Site Left radial ABG pH 7.446 ABG pCO2 34.7 L ABG pO2 93.7 ABG PO2/FiO2 Ratio 3.12 ABG HCO3 23.4 ABG O2 Saturation 97.5 ABG O2 Content 17.7 ABG Base Excess -0.2 A-a Gradient 79.4 Oxyhemoglobin 96.6 Carboxyhemoglobin 0.7 Methemoglobin 0.0 Reduced Hemoglobin 2.7 Total Hemoglobin 13.0 O2 Delivery Device Ventilator O2 Liters/Min Not Reportable Minute Volume Not Reportable Vent Rate Not Reportable Vent Mode Spontaneous FiO2 30 Tidal Volume Not Reportable PEEP 8 Peak Inspir Pressure Not Reportable Pressure Support 5 Sodium Potassium Chloride Carbon Dioxide Anion Gap BUN Creatinine Estim Creat Clear Calc Estimated GFR Glucose POC Capillary Glucose 146 H Calcium Magnesium Total Bilirubin AST ALT Alkaline Phosphatase Total Protein Albumin Triglycerides 337 H 11/17/24 11/18/24 11/18/24 23:55 03:35 04:11 WBC 10.2 H RBC 4.61 Hgb 12.6 L Hct 38.6 L MCV 83.7 D MCH 27.3 MCHC 32.6 RDW 13.6 Plt Count 270 MPV 9.3 Puncture Site Right radial ABG pH 7.432 ABG pCO2 36.3 ABG pO2 74.1 L ABG PO2/FiO2 Ratio 3.53 ABG HCO3 23.7 ABG O2 Saturation 95.4 ABG O2 Content 17.3 ABG Base Excess -0.2 A-a Gradient 32.2 Oxyhemoglobin 93.9 Carboxyhemoglobin Methemoglobin Reduced Hemoglobin Total Hemoglobin 13.1 O2 Delivery Device Other device O2 Liters/Min Minute Volume Vent Rate Vent Mode FiO2 21 Tidal Volume PEEP Peak Inspir Pressure Pressure Support Sodium 140 Potassium 4.5 Chloride 106 Carbon Dioxide 24 Anion Gap 10 BUN 39 H Creatinine 1.10 Estim Creat Clear Calc 69 Estimated GFR > 60 Glucose 148 H POC Capillary Glucose 138 H Calcium 9.1 Magnesium 2.4 H Total Bilirubin 0.7 AST 27 ALT 22 Alkaline Phosphatase 73 Total Protein 6.6 Albumin 3.8 Triglycerides 11/18/24 11:15 WBC RBC Hgb Hct MCV MCH MCHC RDW Plt Count MPV Puncture Site ABG pH ABG pCO2 ABG pO2 ABG PO2/FiO2 Ratio ABG HCO3 ABG O2 Saturation ABG O2 Content ABG Base Excess A-a Gradient Oxyhemoglobin Carboxyhemoglobin Methemoglobin Reduced Hemoglobin Total Hemoglobin O2 Delivery Device O2 Liters/Min Minute Volume Vent Rate Vent Mode FiO2 Tidal Volume PEEP Peak Inspir Pressure Pressure Support Sodium Potassium Chloride Carbon Dioxide Anion Gap BUN Creatinine Estim Creat Clear Calc Estimated GFR Glucose POC Capillary Glucose 250 H Calcium Magnesium Total Bilirubin AST ALT Alkaline Phosphatase Total Protein Albumin Triglycerides Imaging My impression: Reviewed chest x-ray from today. Demonstrates left basilar atelectasis / small pleural effusion. CT scan of neck last night demonstrated interval improvement in patient's prevertebral swelling. Demonstrated similar lung findings to x-rays.
--- NOTE | 2024-11-18 16:36 | PM.IMPN ---
Progress Note: A&P Assessment and Plan (1) Postoperative edema: Code(s): R60.9 - Edema, unspecified Status: Acute Assessment and Plan: Patient had anterior cervical diskectomy and fusion from C4-C7 for cervical myelopathy, radiculopathy and spondylolisthesis on 11/11/2024 patient developed soft tissue swelling obstucting the airway post anterior discectomy. presented wtih dysphonia, dysphagia and difficulty breathing Was intubated and placed on Decadron CTA neck on admission Prevertebral soft tissue swelling seen anterior to the vertebrae from C2 down to C7 with maximum changes at the level of C3-C4 with a thickness measuring 3 cm. Severe Narrowing of the air passage is seen in the area. repeat CT neck on 11/17 showed marked improvement patient tolerated liquid today, advance as tolerated Neurosurgery following (2) Status post cervical discectomy: Code(s): Z98.890 - Other specified postprocedural states Status: Acute Assessment and Plan: P.r.n. pain control (3) Airway compromise: Code(s): J98.8 - Other specified respiratory disorders Status: Acute Assessment and Plan: 11/13: CTA neck showed severe narrowing of the passage as above -intubated by anesthesia in the OR -extubated 11/17 (4) Hypertension: Code(s): I10 - Essential (primary) hypertension Status: Acute Assessment and Plan: Patient on losartan and amlodipine at home, will hold for now as blood pressures has been in stable range. (5) Chronic kidney disease, stage 3: Code(s): N18.30 - Chronic kidney disease, stage 3 unspecified Status: Acute Assessment and Plan: Baseline creatinine is 1.30-1.70 He did receive IV fluid on admission Creatinine stable. Continue to monitor renal function, electrolytes and urine output (6) Obstructive sleep apnea: Code(s): G47.33 - Obstructive sleep apnea (adult) (pediatric) Status: Acute Assessment and Plan: Home CPAP ordered Plan DVT prophylaxis: Lovenox Stress ulcer prophylaxis: Protonix Nutrition: Start diet Code Status: Full code PT OT, incentive spirometry up in chair Subjective Date/time seen: 11/18/24 16:36 Interval history: Patient comfortable at bedside Extubated yesterday and on room air at the time of this encounter Review of Systems Review of Systems: Unable to obtain as he is currently sedated and on mechanical intubation. All systems reviewed & are unremarkable except as noted in HPI and below ROS unobtainable: Yes unobtainable due to endotracheal tube Exam Narrative: General: Alert awake in no acute distress HEENT:? Pupils are reactive and equal, sclera is clear, Neck:? swelling on right and anterior part of neck, Indurated, mild erythema, swelling has improved Respiratory:? clear to auscultation, no wheezing, adequate air entry, no stridor Cardiac:? S1 S2 normal, regular rate and rhythm Abdomen:?soft, non tender, non distended, normoactive bowel sounds Extremities:? no edema, palpable pedal pulses Neuro:? Alert oriented x3 moves all 4 extremities Skin:? Swelling on the right and anterior part of the neck, mild erythema as above Objective Data Vital Signs Vital Signs: Vital Signs - 24 hr 11/17/24 18:00 11/17/24 18:00 11/17/24 19:31 Temperature 99.1 F Pulse Rate 54 L 54 L 54 L Respiratory Rate 17 17 Blood Pressure 131/81 Pulse Oximetry 97 97 Oxygen Delivery Nasal Cannula Oxygen Flow Rate 3 Fraction of Inspired Oxygen 11/17/24 19:34 11/17/24 19:59 11/17/24 20:00 Temperature Pulse Rate 54 L 51 L 52 L Respiratory Rate Blood Pressure Pulse Oximetry 96 96 Oxygen Delivery CPAP CPAP Oxygen Flow Rate Fraction of Inspired Oxygen 21 11/17/24 20:00 11/17/24 22:00 11/17/24 22:00 Temperature 98.9 F 99.1 F Pulse Rate 53 L 55 L 55 L Respiratory Rate 12 12 Blood Pressure 137/79 137/77 Pulse Oximetry 95 97 Oxygen Delivery Oxygen Flow Rate Fraction of Inspired Oxygen 11/17/24 23:44 11/17/24 23:46 11/18/24 00:00 Temperature 98.3 F Pulse Rate 46 L 46 L 46 L Respiratory Rate 18 13 Blood Pressure 108/65 Pulse Oximetry 97 95 Oxygen Delivery CPAP Oxygen Flow Rate Fraction of Inspired Oxygen 11/18/24 01:15 11/18/24 02:00 11/18/24 02:00 Temperature 98.3 F Pulse Rate 44 L 44 L Respiratory Rate 13 Blood Pressure 113/59 L Pulse Oximetry 97 96 Oxygen Delivery CPAP Oxygen Flow Rate Fraction of Inspired Oxygen 11/18/24 04:00 11/18/24 04:00 11/18/24 04:00 Temperature 98.4 F Pulse Rate 47 L 47 L 44 L Respiratory Rate 13 12 Blood Pressure 119/76 Pulse Oximetry 96 96 Oxygen Delivery CPAP Oxygen Flow Rate Fraction of Inspired Oxygen 11/18/24 06:00 11/18/24 06:00 11/18/24 07:56 Temperature 98.2 F Pulse Rate 42 L 44 L 42 L Respiratory Rate 12 14 Blood Pressure 135/79 Pulse Oximetry 98 97 Oxygen Delivery CPAP Oxygen Flow Rate Fraction of Inspired Oxygen 11/18/24 08:00 11/18/24 08:00 11/18/24 10:00 Temperature 98.3 F Pulse Rate 42 L 42 L 84 Respiratory Rate 13 Blood Pressure 134/69 Pulse Oximetry 98 Oxygen Delivery Oxygen Flow Rate Fraction of Inspired Oxygen 11/18/24 10:00 11/18/24 12:00 11/18/24 12:00 Temperature 98.7 F Pulse Rate 87 79 76 Respiratory Rate 16 13 Blood Pressure 136/84 136/97 H Pulse Oximetry 93 95 Oxygen Delivery Oxygen Flow Rate Fraction of Inspired Oxygen 11/18/24 12:00 11/18/24 14:00 11/18/24 14:00 Temperature Pulse Rate 78 65 60 Respiratory Rate 14 16 Blood Pressure 127/89 Pulse Oximetry 95 95 Oxygen Delivery Room Air Oxygen Flow Rate Fraction of Inspired Oxygen 11/18/24 14:58 11/18/24 16:00 11/18/24 16:00 Temperature Pulse Rate 52 L 47 L Respiratory Rate 15 Blood Pressure Pulse Oximetry 97 Oxygen Delivery Room Air Room Air Oxygen Flow Rate Fraction of Inspired Oxygen 11/18/24 16:00 Temperature 98.3 F Pulse Rate 48 L Respiratory Rate 15 Blood Pressure 141/94 H Pulse Oximetry 97 Oxygen Delivery Oxygen Flow Rate Fraction of Inspired Oxygen Intake/Output Intake/Output: Intake & Output 11/15/24 11/16/24 11/17/24 11/18/24 23:59 23:59 23:59 23:59 Intake Total 1580.5 1981.0 1797.4 120 Output Total 1075 2050 1850 800 Balance 505.5 -69.0 -52.6 -680 Meds/Results Medications: Active Medications Generic Name Dose Route Start Last Admin Trade Name Freq PRN Reason Stop Dose Admin Hydrocodone Bitart/Acetaminophen 1 tab 11/14/24 12:17 11/18/24 06:25 Hydrocodone/Acetaminophen (*Crx) 5-325 Mg Tablet PO 1 tab Q4H PRN Administration Pain Rated 4-6 Amlodipine Besylate 5 mg 11/14/24 09:00 Amlodipine Besylate 5 Mg Tablet PO DAILY [facility] Atorvastatin Calcium 80 mg 11/14/24 09:00 11/18/24 08:33 Atorvastatin 40 Mg Tablet PO 80 mg DAILY AMADEO Administration Cyclobenzaprine HCl 10 mg 11/17/24 18:01 11/18/24 04:20 Cyclobenzaprine Hcl 10 Mg Tablet PO 10 mg TID PRN Administration Muscle Spasm Dexamethasone Sodium Phosphate 4 mg 11/18/24 17:00 Dexamethasone Sod Phos Inj 4 Mg/Ml Vial IV PUSH BID AMADEO Dextrose 12.5 gm 11/14/24 02:39 Dextrose 50% 25 Gm/50 Ml Syringe IV PUSH PRN PRN Hypoglycemia Protocol Enoxaparin Sodium 40 mg 11/15/24 09:00 11/18/24 08:33 Enoxaparin 40 Mg/0.4 Ml Syringe SUB-Q 40 mg DAILY AMADEO Administration Gabapentin 900 mg 11/14/24 17:00 11/18/24 08:33 Gabapentin 300 Mg Capsule PO 900 mg BID AMADEO Administration Glucagon 1 mg 11/14/24 02:39 Glucagon For Inj 1 Mg Vial IM PRN PRN Hypoglycemia Protocol Glucose 15 gm 11/14/24 02:39 Glucose Oral Gel 15 Gm Of Glucse In 37.5 Gm Tube PO PRN PRN Hypoglycemia Protocol Dextrose 1,000 mls @ 100 mls/hr 11/14/24 02:39 Dextrose 5% 1,000 Ml IVPB PRN PRN Hypoglycemia Protocol Insulin Aspart 3 - 6 units 11/18/24 11:30 11/18/24 11:40 Insulin Aspart (*Bkc) 100 Units/Ml SUB-Q 3 units ACHS AMADEO Administration Protocol Losartan Potassium 100 mg 11/14/24 09:00 Losartan Potassium 100 Mg Tablet BY MOUTH DAILY [facility] Montelukast Sodium 10 mg 11/14/24 09:00 11/18/24 08:33 Montelukast Sodium 10 Mg Tablet BY MOUTH 10 mg DAILY AMADEO Administration Morphine Sulfate 2 mg 11/17/24 17:00 Morphine Sulfate (*Crx) 2 Mg/Ml Inj IV PUSH Q2HR PRN Pain Rated 4-6 Morphine Sulfate 4 mg 11/17/24 17:01 Morphine Sulfate (*Crx) 4 Mg/Ml Inj IV PUSH Q2HR PRN Pain Rated 7-10 Pantoprazole Sodium 40 mg 11/14/24 09:00 11/18/24 08:33 Pantoprazole Sodium Iv 40 Mg Vial IV PUSH 40 mg QAM AMADEO Administration Polyethylene Glycol 17 gm 11/16/24 10:05 11/18/24 08:33 Polyethylene Glycol 3350 17 Gm Powd.Pack PO 17 gm QAM AMADEO Administration Senna/Docusate Sodium 1 tab 11/14/24 11:44 11/15/24 20:24 Senna/Docusate Sodium Tablet PO 1 tab BID PRN Administration Constipation Sodium Chloride 1 drop 11/14/24 09:00 11/18/24 08:34 Sodium Chloride 2% Op Soln 15 Ml Btl EACH EYE 1 drop DAILY AMADEO Administration Radiology Results: ITS Impressions Neck CTA 11/13/24 17:41 IMPRESSION: Normal CTA head and neck. Percent stenosis per NASCET criteria is 0%.. Prevertebral soft tissue swelling seen anterior to the vertebrae from C2 down to C7 with maximum changes at the level of C3-C4 with a thickness measuring 3 cm. Severe Narrowing of the air passage is seen in the area. Dr. Vyas was notified with the result of the patient at 6:00 PM on November 13, 2024. Neck/Chest CT 11/17/24 11:20 IMPRESSION: 1. Interval decrease in the degree of cervical prevertebral soft tissue swelling likely related to recent placement at C4-C7 anterior spinal fusion. No abscess. 2. Trace bilateral pleural effusions with dependent atelectasis in the bilateral lower lobes most prominent at the posterior sulci. No other acute cardiopulmonary disease. Chest X-Ray 11/18/24 05:41 Impression: Probable minimal left pleural effusion and/or left basilar atelectasis. Labs Labs: Laboratory Results - last 24 hr 11/17/24 11/17/24 11/17/24 18:14 19:05 23:55 WBC RBC Hgb Hct MCV MCH MCHC RDW Plt Count MPV Puncture Site ABG pH ABG pCO2 ABG pO2 ABG PO2/FiO2 Ratio ABG HCO3 ABG O2 Saturation ABG O2 Content ABG Base Excess A-a Gradient Oxyhemoglobin Total Hemoglobin O2 Delivery Device O2 Liters/Min FiO2 Sodium Potassium Chloride Carbon Dioxide Anion Gap BUN Creatinine Estim Creat Clear Calc Estimated GFR Glucose POC Capillary Glucose 146 H 138 H Calcium Magnesium Total Bilirubin AST ALT Alkaline Phosphatase Total Protein Albumin Triglycerides 337 H 11/18/24 11/18/24 11/18/24 03:35 04:11 11:15 WBC 10.2 H RBC 4.61 Hgb 12.6 L Hct 38.6 L MCV 83.7 D MCH 27.3 MCHC 32.6 RDW 13.6 Plt Count 270 MPV 9.3 Puncture Site Right radial ABG pH 7.432 ABG pCO2 36.3 ABG pO2 74.1 L ABG PO2/FiO2 Ratio 3.53 ABG HCO3 23.7 ABG O2 Saturation 95.4 ABG O2 Content 17.3 ABG Base Excess -0.2 A-a Gradient 32.2 Oxyhemoglobin 93.9 Total Hemoglobin 13.1 O2 Delivery Device Other device O2 Liters/Min FiO2 21 Sodium 140 Potassium 4.5 Chloride 106 Carbon Dioxide 24 Anion Gap 10 BUN 39 H Creatinine 1.10 Estim Creat Clear Calc 69 Estimated GFR > 60 Glucose 148 H POC Capillary Glucose 250 H Calcium 9.1 Magnesium 2.4 H Total Bilirubin 0.7 AST 27 ALT 22 Alkaline Phosphatase 73 Total Protein 6.6 Albumin 3.8 Triglycerides Quality VTE Prophylaxis VTE prophylaxis: pharmacologic ordered
--- NOTE | 2024-11-18 16:44 | WPDNEUROSGPN ---
Progress Note: A&P Assessment and Plan (1) Status post cervical arthrodesis: Code(s): Z98.1 - Arthrodesis status Status: Acute Assessment and Plan: Isaias is doing well and seems to be breathing comfortably. He will be maintained in the ICU overnight. A muscle relaxant may be helpful for the discomfort in his neck radiating towards the shoulder. Subjective Date/time seen: 11/17/24 16:44 Interval history: Isaias was extubated today. He has a sore throat and does not enjoy talking but has been swallowing and has been evaluated to make sure that he can safely do so. He has not having new issues in his upper extremities or lower extremities but does have some neck discomfort extending towards the left shoulder and shoulder blade area. Exam Narrative: Strength appears normal in the bilateral upper extremities Sensation is intact to light touch in the upper extremities. His wound is clean, dry and intact. Objective Data Vital Signs Vital Signs: Vital Signs - 24 hr 11/17/24 18:00 11/17/24 18:00 11/17/24 19:31 Temperature 99.1 F Pulse Rate 54 L 54 L 54 L Respiratory Rate 17 17 Blood Pressure 131/81 Pulse Oximetry 97 97 Oxygen Delivery Nasal Cannula Oxygen Flow Rate 3 Fraction of Inspired Oxygen 11/17/24 19:34 11/17/24 19:59 11/17/24 20:00 Temperature Pulse Rate 54 L 51 L 52 L Respiratory Rate Blood Pressure Pulse Oximetry 96 96 Oxygen Delivery CPAP CPAP Oxygen Flow Rate Fraction of Inspired Oxygen 21 11/17/24 20:00 11/17/24 22:00 11/17/24 22:00 Temperature 98.9 F 99.1 F Pulse Rate 53 L 55 L 55 L Respiratory Rate 12 12 Blood Pressure 137/79 137/77 Pulse Oximetry 95 97 Oxygen Delivery Oxygen Flow Rate Fraction of Inspired Oxygen 11/17/24 23:44 11/17/24 23:46 11/18/24 00:00 Temperature 98.3 F Pulse Rate 46 L 46 L 46 L Respiratory Rate 18 13 Blood Pressure 108/65 Pulse Oximetry 97 95 Oxygen Delivery CPAP Oxygen Flow Rate Fraction of Inspired Oxygen 11/18/24 01:15 11/18/24 02:00 11/18/24 02:00 Temperature 98.3 F Pulse Rate 44 L 44 L Respiratory Rate 13 Blood Pressure 113/59 L Pulse Oximetry 97 96 Oxygen Delivery CPAP Oxygen Flow Rate Fraction of Inspired Oxygen 11/18/24 04:00 11/18/24 04:00 11/18/24 04:00 Temperature 98.4 F Pulse Rate 47 L 47 L 44 L Respiratory Rate 13 12 Blood Pressure 119/76 Pulse Oximetry 96 96 Oxygen Delivery CPAP Oxygen Flow Rate Fraction of Inspired Oxygen 11/18/24 06:00 11/18/24 06:00 11/18/24 07:56 Temperature 98.2 F Pulse Rate 42 L 44 L 42 L Respiratory Rate 12 14 Blood Pressure 135/79 Pulse Oximetry 98 97 Oxygen Delivery CPAP Oxygen Flow Rate Fraction of Inspired Oxygen 11/18/24 08:00 11/18/24 08:00 11/18/24 10:00 Temperature 98.3 F Pulse Rate 42 L 42 L 84 Respiratory Rate 13 Blood Pressure 134/69 Pulse Oximetry 98 Oxygen Delivery Oxygen Flow Rate Fraction of Inspired Oxygen 11/18/24 10:00 11/18/24 12:00 11/18/24 12:00 Temperature 98.7 F Pulse Rate 87 79 76 Respiratory Rate 16 13 Blood Pressure 136/84 136/97 H Pulse Oximetry 93 95 Oxygen Delivery Oxygen Flow Rate Fraction of Inspired Oxygen 11/18/24 12:00 11/18/24 14:00 11/18/24 14:00 Temperature Pulse Rate 78 65 60 Respiratory Rate 14 16 Blood Pressure 127/89 Pulse Oximetry 95 95 Oxygen Delivery Room Air Oxygen Flow Rate Fraction of Inspired Oxygen 11/18/24 14:58 11/18/24 16:00 11/18/24 16:00 Temperature Pulse Rate 52 L 47 L Respiratory Rate 15 Blood Pressure Pulse Oximetry 97 Oxygen Delivery Room Air Room Air Oxygen Flow Rate Fraction of Inspired Oxygen 11/18/24 16:00 Temperature 98.3 F Pulse Rate 48 L Respiratory Rate 15 Blood Pressure 141/94 H Pulse Oximetry 97 Oxygen Delivery Oxygen Flow Rate Fraction of Inspired Oxygen Intake/Output Intake/Output: Intake & Output 11/15/24 11/16/24 11/17/24 11/18/24 23:59 23:59 23:59 23:59 Intake Total 1580.5 1981.0 1797.4 120 Output Total 1075 2050 1850 800 Balance 505.5 -69.0 -52.6 -680 Meds/Results Medications: Active Medications Generic Name Dose Route Start Last Admin Trade Name Freq PRN Reason Stop Dose Admin Hydrocodone Bitart/Acetaminophen 1 tab 06/14/25 12:17 11/18/24 06:25 Hydrocodone/Acetaminophen (*Crx) 5-325 Mg Tablet PO 1 tab Q4H PRN Administration Pain Rated 4-6 Amlodipine Besylate 5 mg 11/14/24 09:00 Amlodipine Besylate 5 Mg Tablet PO DAILY [facility] Atorvastatin Calcium 80 mg 11/14/24 09:00 11/18/24 08:33 Atorvastatin 40 Mg Tablet PO 80 mg DAILY AMADEO Administration Cyclobenzaprine HCl 10 mg 11/17/24 18:01 11/18/24 04:20 Cyclobenzaprine Hcl 10 Mg Tablet PO 10 mg TID PRN Administration Muscle Spasm Dexamethasone Sodium Phosphate 4 mg 11/18/24 17:00 Dexamethasone Sod Phos Inj 4 Mg/Ml Vial IV PUSH BID [facility] Dextrose 12.5 gm 11/14/24 02:39 Dextrose 50% 25 Gm/50 Ml Syringe IV PUSH PRN PRN Hypoglycemia Protocol Enoxaparin Sodium 40 mg 11/15/24 09:00 11/18/24 08:33 Enoxaparin 40 Mg/0.4 Ml Syringe SUB-Q 40 mg DAILY [facility]O Administration Gabapentin 900 mg 11/14/24 17:00 11/18/24 08:33 Gabapentin 300 Mg Capsule PO 900 mg BID AMADEO Administration Glucagon 1 mg 11/14/24 02:39 Glucagon For Inj 1 Mg Vial IM PRN PRN Hypoglycemia Protocol Glucose 15 gm 11/14/24 02:39 Glucose Oral Gel 15 Gm Of Glucse In 37.5 Gm Tube PO PRN PRN Hypoglycemia Protocol Dextrose 1,000 mls @ 100 mls/hr 11/14/24 02:39 Dextrose 5% 1,000 Ml IVPB PRN PRN Hypoglycemia Protocol Insulin Aspart 3 - 6 units 11/18/24 11:30 11/18/24 11:40 Insulin Aspart (*Bkc) 100 Units/Ml SUB-Q 3 units ACHS AMADEO Administration Protocol Losartan Potassium 100 mg 11/14/24 09:00 Losartan Potassium 100 Mg Tablet BY MOUTH DAILY [facility] Montelukast Sodium 10 mg 11/14/24 09:00 11/18/24 08:33 Montelukast Sodium 10 Mg Tablet BY MOUTH 10 mg DAILY AM[facility]O Administration Morphine Sulfate 2 mg 11/17/24 17:00 Morphine Sulfate (*Crx) 2 Mg/Ml Inj IV PUSH Q2HR PRN Pain Rated 4-6 Morphine Sulfate 4 mg 11/17/24 17:01 Morphine Sulfate (*Crx) 4 Mg/Ml Inj IV PUSH Q2HR PRN Pain Rated 7-10 Pantoprazole Sodium 40 mg 11/14/24 09:00 11/18/24 08:33 Pantoprazole Sodium Iv 40 Mg Vial IV PUSH 40 mg QAM AMADEO Administration Polyethylene Glycol 17 gm 11/16/24 10:05 11/18/24 08:33 Polyethylene Glycol 3350 17 Gm Powd.Pack PO 17 gm QAM AMADEO Administration Senna/Docusate Sodium 1 tab 11/14/24 11:44 11/15/24 20:24 Senna/Docusate Sodium Tablet PO 1 tab BID PRN Administration Constipation Sodium Chloride 1 drop 11/14/24 09:00 11/18/24 08:34 Sodium Chloride 2% Op Soln 15 Ml Btl EACH EYE 1 drop DAILY AMADEO Administration Radiology Results: ITS Impressions Neck CTA 11/13/24 17:41 IMPRESSION: Normal CTA head and neck. Percent stenosis per NASCET criteria is 0%.. Prevertebral soft tissue swelling seen anterior to the vertebrae from C2 down to C7 with maximum changes at the level of C3-C4 with a thickness measuring 3 cm. Severe Narrowing of the air passage is seen in the area. Dr. Vyas was notified with the result of the patient at 6:00 PM on November 13, 2024. Neck/Chest CT 11/17/24 11:20 IMPRESSION: 1. Interval decrease in the degree of cervical prevertebral soft tissue swelling likely related to recent placement at C4-C7 anterior spinal fusion. No abscess. 2. Trace bilateral pleural effusions with dependent atelectasis in the bilateral lower lobes most prominent at the posterior sulci. No other acute cardiopulmonary disease. Chest X-Ray 11/18/24 05:41 Impression: Probable minimal left pleural effusion and/or left basilar atelectasis. Labs Labs: Laboratory Results - last 24 hr 11/17/24 11/17/24 11/17/24 18:14 19:05 23:55 WBC RBC Hgb Hct MCV MCH MCHC RDW Plt Count MPV Puncture Site ABG pH ABG pCO2 ABG pO2 ABG PO2/FiO2 Ratio ABG HCO3 ABG O2 Saturation ABG O2 Content ABG Base Excess A-a Gradient Oxyhemoglobin Total Hemoglobin O2 Delivery Device O2 Liters/Min FiO2 Sodium Potassium Chloride Carbon Dioxide Anion Gap BUN Creatinine Estim Creat Clear Calc Estimated GFR Glucose POC Capillary Glucose 146 H 138 H Calcium Magnesium Total Bilirubin AST ALT Alkaline Phosphatase Total Protein Albumin Triglycerides 337 H 11/18/24 11/18/24 11/18/24 03:35 04:11 11:15 WBC 10.2 H RBC 4.61 Hgb 12.6 L Hct 38.6 L MCV 83.7 D MCH 27.3 MCHC 32.6 RDW 13.6 Plt Count 270 MPV 9.3 Puncture Site Right radial ABG pH 7.432 ABG pCO2 36.3 ABG pO2 74.1 L ABG PO2/FiO2 Ratio 3.53 ABG HCO3 23.7 ABG O2 Saturation 95.4 ABG O2 Content 17.3 ABG Base Excess -0.2 A-a Gradient 32.2 Oxyhemoglobin 93.9 Total Hemoglobin 13.1 O2 Delivery Device Other device O2 Liters/Min FiO2 21 Sodium 140 Potassium 4.5 Chloride 106 Carbon Dioxide 24 Anion Gap 10 BUN 39 H Creatinine 1.10 Estim Creat Clear Calc 69 Estimated GFR > 60 Glucose 148 H POC Capillary Glucose 250 H Calcium 9.1 Magnesium 2.4 H Total Bilirubin 0.7 AST 27 ALT 22 Alkaline Phosphatase 73 Total Protein 6.6 Albumin 3.8 Triglycerides
[2024-11-18 17:04] LABS: Glucose Point of Care 89 mg/dl (65-105)
[2024-11-18 20:02] LABS: Glucose Point of Care 220 mg/dl (65-105)
[2024-11-19] VITALS: BP 128/80; PULSE 55; RESP 15; TEMP 36.7; O2SAT 98
[2024-11-19 02:00] VITALS: BP 117/68; PULSE 55; RESP 13; O2SAT 95
[2024-11-19 03:28] VITALS: PULSE 49; RESP 11; O2SAT 96
[2024-11-19 04:00] VITALS: BP 148/94; PULSE 56; RESP 12; O2SAT 97
[2024-11-19] MEDS: CYCLOBENZAPRINE HCL 10 MG TABLET PO (05:44)
[2024-11-19] MEDS: HYDROcodone/acetaminophen (*CRX) 5-325 MG TABLET 1 TAB PO (05:45)
[2024-11-19 06:00] VITALS: BP 155/82; PULSE 47; RESP 14; O2SAT 97
[2024-11-19 07:29] LABS: Hematocrit 42.7 % (42.0-52.0); Hemoglobin 13.6 g/dL (14.0-18.0); Mean Corpuscular HGB Conc 31.9 g/dl (32-36); Mean Corpuscular Hemoglobin 26.8 pg (26-34); Mean Corpuscular Volume 84.2 fl (80-100); Mean Platelet Volume 9.5 fl (7.4-10.4); Platelet Count Result 307 k/mm3 (150-375); Red Blood Count 5.07 M/mm3 (4.6-6.20); Red Cell Distribution Width 13.8 % (11.5-14.5); White Blood Count 11.1 K/mm3 (4.5-10.0)
[2024-11-19 07:41] LABS: Alanine Aminotransferase 27 U/L (6-50); Alkaline Phosphatase 77 U/L (38-126); Anion Gap 10 mmol/L (4-12); Aspartate Amino Transferase 32 U/L (17-59); Bilirubin,Total 0.7 mg/dL (0.2-1.3); Blood Urea Nitrogen 39 mg/dL (9-20); Calcium 9.4 mg/dL (8.4-10.2); Carbon Dioxide 26 mmol/L (22-30); Chloride 106 mmol/L (98-107); Estimated CRCL calculation 61 ml/min; Estimated Glomerular Filt Rate 57; Glucose 107 mg/dL (65-110); Magnesium 2.2 mg/dL (1.6-2.3); Potassium 3.6 mmol/L (3.4-5.0); Sodium 142 mmol/L (137-145); Total Protein 7.1 g/dL (6.3-8.2)
[2024-11-19 08:00] VITALS: BP 148/89; PULSE 47; PULSE 78; PULSE 79; RESP 19; TEMP 36.7; O2SAT 100
--- NOTE | 2024-11-19 08:18 | P.PNINT_ITS ---
Progress Note: A&P Assessment and Plan (1) Postoperative edema: Code(s): R60.9 - Edema, unspecified Status: Acute Assessment and Plan: Patient had anterior cervical diskectomy and fusion from C4-C7 for cervical myelopathy, radiculopathy and spondylolisthesis on 11/11/2024 -patient presented the ED complains of neck swelling and pain, dysphonia, dysphagia, and difficulty breathing -patient was intubated in the OR by Anesthesia on 11/11/2024 for airway protection as the CT scan did show severe narrowing of the air passage. -patient was treated with Decadron for soft tissue swelling as seen on the neck CTA -repeat CT 11/17 IMPRESSION: 1. Interval decrease in the degree of cervical prevertebral soft tissue swelling likely related to recent placement at C4-C7 anterior spinal fusion. No abscess. 2. Trace bilateral pleural effusions with dependent atelectasis in the bilateral lower lobes most prominent at the posterior sulci. No other acute cardiopulmonary disease. -swelling improved. Will decreased Decadron dose which to q.a.m. -neurosurgery also following Neck CTA 11/13/24: IMPRESSION: 1.Normal CTA head and neck. Percent stenosis per NASCET criteria is 0%.. 2. Prevertebral soft tissue swelling seen anterior to the vertebrae from C2 down to C7 with maximum changes at the level of C3-C4 with a thickness measuring 3 cm. Severe Narrowing of the air passage is seen in the area. (2) Airway compromise: Code(s): J98.8 - Other specified respiratory disorders Status: Acute Assessment and Plan: 11/13: CTA neck showed severe narrowing of the passage as above -intubated by anesthesia in the OR -extubated 11/17 Now on room air and asymptomatic (3) Status post cervical discectomy: Code(s): Z98.890 - Other specified postprocedural states Status: Acute Assessment and Plan: P.r.n. pain control and muscle relaxer (4) Hypertension: Code(s): I10 - Essential (primary) hypertension Status: Acute Assessment and Plan: Resume losartan and amlodipine (5) Chronic kidney disease, stage 3: Code(s): N18.30 - Chronic kidney disease, stage 3 unspecified Status: Acute Assessment and Plan: Baseline creatinine is 1.30-1.70 He did receive IV fluid on admission Creatinine stable. Continue to monitor renal function, electrolytes and urine output (6) Obstructive sleep apnea: Code(s): G47.33 - Obstructive sleep apnea (adult) (pediatric) Status: Acute Assessment and Plan: Home CPAP ordered Plan DVT prophylaxis: Lovenox Stress ulcer prophylaxis: Protonix Nutrition: Tolerating p.o. diet Code Status: Full code PT OT incentive spirometry up in chair Transfer out of ICU today. Discharge planning as per neurosurgery Subjective Date/time seen: 11/19/24 Overnight events reviewed. Afebrile. On room air He is complaining of pain in the left shoulder blade which is not new. He states the pain is at 4/10 achy and is not affected by movement the neck or shoulder.. He denies any trouble swallowing, no difficulty breathing and no change in the speech. He has feels his neck swelling has resolved. He states he would like to go home. He denies any other complaints. He did wear his CPAP overnight. All other systems reviewed and were negative Blood pressure is slightly elevated. Other Vitals acceptable Interval history: Reason for consult: Postoperative edema status post injury cervical diskectomy and fusion from C4-C7 for cervical myelopathy, radiculopathy and spondylolisthesis on a 11/11/2024. Patient presented with neck swelling and pain, dysphonia, dysphagia and difficulty breathing. Patient was intubated in the OR by anesthesia on 11/12/2023 for airway protection his CT scan showed severe narrowing of the and passing Review of Systems Review of Systems: All systems reviewed & are unremarkable except as noted in HPI and below Exam Narrative: General: Alert awake in no acute distress HEENT:? Pupils are reactive and equal, sclera is clear, Neck:? swelling on right and anterior part of neck, Indurated, mild erythema, swelling has improved significantly Respiratory:? clear to auscultation, no wheezing, adequate air entry, no stridor on neck auscultation Cardiac:? S1 S2 normal, regular rate and rhythm Abdomen:?soft, non tender, non distended, normoactive bowel sounds Extremities:? no edema, palpable pedal pulses Neuro:? Alert oriented x3 moves all 4 extremities, sitting in chair, muscle strength symmetric in all 4 extremities Skin:? Swelling on the right and anterior part of the neck which has improved, mild erythema as above Objective Data Vital Signs Vital Signs: Vital Signs - 24 hr 11/18/24 10:00 11/18/24 10:00 11/18/24 12:00 Temperature Pulse Rate 84 87 79 Respiratory Rate 16 Blood Pressure 136/84 Pulse Oximetry 93 Oxygen Delivery Fraction of Inspired Oxygen 11/18/24 12:00 11/18/24 12:00 11/18/24 14:00 Temperature 37.1 C Pulse Rate 76 78 65 Respiratory Rate 13 14 Blood Pressure 136/97 H Pulse Oximetry 95 95 Oxygen Delivery Room Air Fraction of Inspired Oxygen 11/18/24 14:00 11/18/24 14:58 11/18/24 16:00 Temperature Pulse Rate 60 52 L Respiratory Rate 16 15 Blood Pressure 127/89 Pulse Oximetry 95 97 Oxygen Delivery Room Air Room Air Fraction of Inspired Oxygen 11/18/24 16:00 11/18/24 16:00 11/18/24 18:00 Temperature 36.8 C Pulse Rate 47 L 48 L 56 L Respiratory Rate 15 Blood Pressure 141/94 H Pulse Oximetry 97 Oxygen Delivery Fraction of Inspired Oxygen 11/18/24 18:00 11/18/24 20:00 11/18/24 20:00 Temperature Pulse Rate 62 70 70 Respiratory Rate 18 15 Blood Pressure 143/86 H Pulse Oximetry 95 95 Oxygen Delivery Room Air Fraction of Inspired Oxygen 11/18/24 20:00 11/18/24 21:35 11/18/24 22:00 Temperature 36.8 C Pulse Rate 70 48 L 47 L Respiratory Rate 15 Blood Pressure 137/84 Pulse Oximetry 95 97 Oxygen Delivery CPAP Fraction of Inspired Oxygen 11/18/24 22:00 11/18/24 23:17 11/19/24 00:00 Temperature 36.7 C Pulse Rate 47 L 50 L 55 L Respiratory Rate 12 13 15 Blood Pressure 133/82 128/80 Pulse Oximetry 95 98 98 Oxygen Delivery Room Air Fraction of Inspired Oxygen 11/19/24 02:00 11/19/24 02:00 11/19/24 03:28 Temperature Pulse Rate 55 L 55 L 49 L Respiratory Rate 13 11 L Blood Pressure 117/68 Pulse Oximetry 95 96 Oxygen Delivery Room Air Fraction of Inspired Oxygen 11/19/24 04:00 11/19/24 04:00 11/19/24 06:00 Temperature Pulse Rate 56 L 56 L 47 L Respiratory Rate 12 Blood Pressure 148/94 H Pulse Oximetry 97 Oxygen Delivery Fraction of Inspired Oxygen 11/19/24 06:00 11/19/24 08:00 11/19/24 08:00 Temperature Pulse Rate 47 L 47 L 79 Respiratory Rate 14 19 Blood Pressure 155/82 H Pulse Oximetry 97 100 Oxygen Delivery Room Air Fraction of Inspired Oxygen 21 11/19/24 08:00 Temperature 36.7 C Pulse Rate 78 Respiratory Rate 19 Blood Pressure 148/89 H Pulse Oximetry 100 Oxygen Delivery Fraction of Inspired Oxygen Intake/Output Intake/Output: Intake & Output 11/16/24 11/17/24 11/18/24 11/19/24 23:59 23:59 23:59 23:59 Intake Total 1981.0 1797.4 620 Output Total 2050 1850 1750 Balance -69.0 -52.6 -1130 Meds/Results Medications: Active Medications Generic Name Dose Route Start Last Admin Trade Name Freq PRN Reason Stop Dose Admin Hydrocodone Bitart/Acetaminophen 1 tab 11/14/24 12:17 11/19/24 05:45 Hydrocodone/Acetaminophen (*Crx) 5-325 Mg Tablet PO 1 tab Q4H PRN Administration Pain Rated 4-6 Amlodipine Besylate 5 mg 11/14/24 09:00 Amlodipine Besylate 5 Mg Tablet PO DAILY [facility] Atorvastatin Calcium 80 mg 11/14/24 09:00 11/18/24 08:33 Atorvastatin 40 Mg Tablet PO 80 mg DAILY AMADEO Administration Cyclobenzaprine HCl 10 mg 11/17/24 18:01 11/19/24 05:44 Cyclobenzaprine Hcl 10 Mg Tablet PO 10 mg TID PRN Administration Muscle Spasm Dexamethasone Sodium Phosphate 4 mg 11/19/24 09:00 Dexamethasone Sod Phos Inj 4 Mg/Ml Vial IV PUSH QAM AMADEO Dextrose 12.5 gm 11/14/24 02:39 Dextrose 50% 25 Gm/50 Ml Syringe IV PUSH PRN PRN Hypoglycemia Protocol Enoxaparin Sodium 40 mg 11/15/24 09:00 11/18/24 08:33 Enoxaparin 40 Mg/0.4 Ml Syringe SUB-Q 40 mg DAILY AMADEO Administration Gabapentin 900 mg 11/14/24 17:00 11/18/24 16:57 Gabapentin 300 Mg Capsule PO 900 mg BID AMADEO Administration Glucagon 1 mg 11/14/24 02:39 Glucagon For Inj 1 Mg Vial IM PRN PRN Hypoglycemia Protocol Glucose 15 gm 11/14/24 02:39 Glucose Oral Gel 15 Gm Of Glucse In 37.5 Gm Tube PO PRN PRN Hypoglycemia Protocol Dextrose 1,000 mls @ 100 mls/hr 11/14/24 02:39 Dextrose 5% 1,000 Ml IVPB PRN PRN Hypoglycemia Protocol Insulin Aspart 3 - 6 units 11/18/24 11:30 11/19/24 08:15 Insulin Aspart (*Bkc) 100 Units/Ml SUB-Q Not Given ACHS AMADEO Protocol Losartan Potassium 100 mg 11/14/24 09:00 Losartan Potassium 100 Mg Tablet BY MOUTH DAILY [facility] Montelukast Sodium 10 mg 11/14/24 09:00 11/18/24 08:33 Montelukast Sodium 10 Mg Tablet BY MOUTH 10 mg DAILY AMADEO Administration Morphine Sulfate 2 mg 11/17/24 17:00 Morphine Sulfate (*Crx) 2 Mg/Ml Inj IV PUSH Q2HR PRN Pain Rated 4-6 Morphine Sulfate 4 mg 11/17/24 17:01 Morphine Sulfate (*Crx) 4 Mg/Ml Inj IV PUSH Q2HR PRN Pain Rated 7-10 Pantoprazole Sodium 40 mg 11/14/24 09:00 11/18/24 08:33 Pantoprazole Sodium Iv 40 Mg Vial IV PUSH 40 mg QAM AMADEO Administration Polyethylene Glycol 17 gm 11/16/24 10:05 11/18/24 08:33 Polyethylene Glycol 3350 17 Gm Powd.Pack PO 17 gm QAM AMADEO Administration Senna/Docusate Sodium 1 tab 11/14/24 11:44 11/15/24 20:24 Senna/Docusate Sodium Tablet PO 1 tab BID PRN Administration Constipation Sodium Chloride 1 drop 11/14/24 09:00 11/18/24 08:34 Sodium Chloride 2% Op Soln 15 Ml Btl EACH EYE 1 drop DAILY AMADEO Administration Radiology Results: ITS Impressions Neck CTA 11/13/24 17:41 IMPRESSION: Normal CTA head and neck. Percent stenosis per NASCET criteria is 0%.. Prevertebral soft tissue swelling seen anterior to the vertebrae from C2 down to C7 with maximum changes at the level of C3-C4 with a thickness measuring 3 cm. Severe Narrowing of the air passage is seen in the area. Dr. Vyas was notified with the result of the patient at 6:00 PM on November 13, 2024. Neck/Chest CT 11/17/24 11:20 IMPRESSION: 1. Interval decrease in the degree of cervical prevertebral soft tissue swelling likely related to recent placement at C4-C7 anterior spinal fusion. No abscess. 2. Trace bilateral pleural effusions with dependent atelectasis in the bilateral lower lobes most prominent at the posterior sulci. No other acute cardiopulmonary disease. Chest X-Ray 11/19/24 06:03 Impression: Clear lungs. Labs Labs: Laboratory Results - last 24 hr 11/18/24 11/18/24 11/18/24 11:15 16:55 19:59 WBC RBC Hgb Hct MCV MCH MCHC RDW Plt Count MPV Sodium Potassium Chloride Carbon Dioxide Anion Gap BUN Creatinine Estim Creat Clear Calc Estimated GFR Glucose POC Capillary Glucose 250 H 89 220 H Calcium Magnesium Total Bilirubin AST ALT Alkaline Phosphatase Total Protein Albumin 11/19/24 07:21 WBC 11.1 H RBC 5.07 Hgb 13.6 L Hct 42.7 MCV 84.2 MCH 26.8 MCHC 31.9 L RDW 13.8 Plt Count 307 MPV 9.5 Sodium 142 Potassium 3.6 Chloride 106 Carbon Dioxide 26 Anion Gap 10 BUN 39 H Creatinine 1.26 Estim Creat Clear Calc 61 Estimated GFR 57 L Glucose 107 POC Capillary Glucose Calcium 9.4 Magnesium 2.2 Total Bilirubin 0.7 AST 32 ALT 27 Alkaline Phosphatase 77 Total Protein 7.1 Albumin 4.0 Quality VTE Prophylaxis VTE prophylaxis: pharmacologic ordered
[2024-11-19] MEDS: dexAMETHasone SOD PHOS INJ 4 MG/ML VIAL IV PUSH (08:41)
[2024-11-19] MEDS: ATORVASTATIN 40 MG TABLET 80 MG PO (08:41)
[2024-11-19] MEDS: amLODIPine BESYLATE 5 MG TABLET PO (08:41)
[2024-11-19] MEDS: LOSARTAN POTASSIUM 100 MG TABLET BY MOUTH (08:42)
[2024-11-19] MEDS: PANTOPRAZOLE SODIUM IV 40 MG VIAL IV PUSH (08:42)
[2024-11-19] MEDS: GABAPENTIN 300 MG CAPSULE 900 MG PO (08:42)
[2024-11-19] MEDS: MONTELUKAST SODIUM 10 MG TABLET BY MOUTH (08:42)
--- NOTE | 2024-11-19 10:40 | PM.DS ---
DS: Admitting Diagnosis Discharge Date 11/19/24 Admitting Diagnosis Difficulties swallowing DS: Discharge Diagnosis Discharge Diagnosis (1) Postoperative edema: Code(s): R60.9 - Edema, unspecified Status: Acute DS: Summary Hospital Course Hospital Course: This is a 64-year-old male with history of hypertension, hyperlipidemia, chronic kidney disease, prediabetes, gastroesophageal reflux disease, peptic ulcer, asthma, and cervical myelopathy, radiculopathy, and spondylolisthesis postoperative day 2 status post anterior cervical diskectomy and fusion C4-C7 per Dr. Bernabe who presented to the emergency department via private vehicle with complaints of d difficulties swallowing. Yesterday developed increasing pain on the right side of his neck with swelling, difficulty swallowing, and phonation changes. After speaking with the neurosurgeon's office, he was prescribed a Medrol Dosepak however he was not even able to hold down 1 pill as he began choking immediately after attempted swallow and he subsequently threw it up. Today he began feeling short of breath and reports difficulties tolerating his own secretions unless upright with frequent coughing with attempts. In the ED: Vital signs were stable on arrival. CT scan showed significant amounts of swelling and it was felt that he needed an airway for further management. Given his hemodynamic stability, he was taken to the OR for controlled intubation in the operating room per Anesthesia which was performed without complications. He is being admitted to the ICU in this setting. Patient was monitored in [facility] adn started on Dexamethasone. Neurosurgery was consutled and was involved in his care. Repeat CT neck showed marked improvement of the edema. Patient was extubated and and currently on room air and tolerating regular diet. Patient ambulating freely and discharged on tapering dose of Dexamethasone. F/u with PCP in 3-5 days, F/u with Neurosurgery as instructed Time Spent with Patient Time attestation: Total time spent providing and/or coordinating discharge services: DS: Data Data Completed and Pending Labs on day of discharge: Labs from last 24 hours 11/19/24 11/18/24 11/18/24 07:21 19:59 16:55 WBC 11.1 H RBC 5.07 Hgb 13.6 L Hct 42.7 MCV 84.2 MCH 26.8 MCHC 31.9 L RDW 13.8 Plt Count 307 MPV 9.5 Sodium 142 Potassium 3.6 Chloride 106 Carbon Dioxide 26 Anion Gap 10 BUN 39 H Creatinine 1.26 Estim Creat Clear Calc 61 Estimated GFR 57 L Glucose 107 POC Capillary Glucose 220 H 89 Calcium 9.4 Magnesium 2.2 Total Bilirubin 0.7 AST 32 ALT 27 Alkaline Phosphatase 77 Total Protein 7.1 Albumin 4.0 11/18/24 11:15 WBC RBC Hgb Hct MCV MCH MCHC RDW Plt Count MPV Sodium Potassium Chloride Carbon Dioxide Anion Gap BUN Creatinine Estim Creat Clear Calc Estimated GFR Glucose POC Capillary Glucose 250 H Calcium Magnesium Total Bilirubin AST ALT Alkaline Phosphatase Total Protein Albumin Discharge Plan Discharge Attending physician on discharge: Rex Early Consulting providers: Belle Oneill; Quincy Nielson Discharging Clinician: Rex Early Anticipated Discharge Date/Time: 11/19/24 10:32 Patient Disposition: Home Activity: as tolerated Diet: as tolerated and regular Patient Instructions: Antibiotic Form, Asthma (DC), Reactive Airways Disease (DC) Patient Language: Vietnamese Stand Alone Forms: General Discharge Information Follow-up/Referrals: Quincy Nielson MD [Physician] - (F/u with Neurosurgery as instructed ) Natalya Hobson MD [Primary Care Provider] - (F/u with PCP in 3-5 days ) Discharge Medications: New dexamethasone 2 mg tablet 2 mg PO DAILY Qty: 3 0RF Rx Instructions: 1 daily x 2 days, then 1mg daily x 2 days then stop Continued Ernesto 128 2 % drops 1 drop EACH EYE DAILY Patient Comments: HS mecobalamin (vitamin B12) 1,000 mcg tablet,disintegrating 1,000 mcg sublingual HS Patient Comments: Evening Rx Instructions: place tablet under tongue and allow to dissolve for at least30 secs before swallowing turmeric root extract 500 mg capsule 500 mg PO HS ferrous sulfate 325 mg (65 mg iron) tablet 325 mg PO .weekends only Patient Comments: weekend only pantoprazole 40 mg tablet,delayed release (DR/EC) 40 mg PO HS Patient Comments: HS Rx Instructions: TAKE 1 TABLET BY MOUTH ONCE DAILY cyclobenzaprine 10 mg Tablet 10 mg PO TID PRN (Reason: Muscle Spasms) 10 Days Qty: 30 0RF sennosides-docusate sodium [Senokot-S] 8.6-50 mg Tablet 1 tab PO BID PRN (Reason: Constipation) 7 Days Qty: 14 0RF oxycodone 5 mg Tablet 5 mg PO Q6H PRN (Reason: Pain Rated 4-6) 7 Days Qty: 28 0RF sumatriptan succinate [Imitrex] 50 mg tablet 50 mg PO ONCE PRN (Reason: migraine headache) (DME) cpap See Rx Instructions .Route .MEDSUPPLY Qty: 1 0RF Rx Instructions: cpap with heated humidifier, tubing, supplies, medium AirFit F20 full face mask. Setting: at 7cm water with heated humidifier montelukast 10 mg tablet See Rx Instructions .ROUTE .COMPLEX Qty: 90 3RF Dose Instruction: Take 1 tablet by mouth once daily Rx Instructions: Take 1 tablet by mouth once daily amlodipine 5 mg tablet 5 mg PO DAILY Qty: 90 1RF Patient Comments: QAM Rx Instructions: Take 1 tablet by mouth once daily atorvastatin 80 mg tablet 80 mg PO DAILY Qty: 90 1RF empagliflozin 10 mg tablet 10 mg PO QAM Qty: 90 1RF Patient Comments: was no longer covered by insurance. MD [place] and did not substitute. wt loss and diet management recommended. last dose 06/2024 diazepam [Valium] 5 mg tablet 5 mg PO .COMPLEX Qty: 30 0RF Rx Instructions: 5 mg orally; BID and prn back spasm gabapentin 300 mg capsule 900 mg PO BID Qty: 540 1RF tramadol 50 mg tablet 50 mg PO Q4H PRN (Reason: pain) Qty: 60 5RF trazodone 150 mg tablet See Rx Instructions .ROUTE .COMPLEX Qty: 90 1RF Dose Instruction: TAKE 1 TABLET BY MOUTH AT BEDTIME Rx Instructions: TAKE 1 TABLET BY MOUTH AT BEDTIME losartan 100 mg tablet See Rx Instructions .ROUTE .COMPLEX Qty: 90 1RF Dose Instruction: Take 1 tablet by mouth once daily Patient Comments: QAM Rx Instructions: Take 1 tablet by mouth once daily hydrochlorothiazide 25 mg tablet 25 mg PO DAILY Qty: 90 1RF Patient Comments: QAM methylprednisolone 4 mg tablets,dose pack See Rx Instructions PO PER PKG DIR Qty: 21 0RF Rx Instructions: PO PER PKG DIR Date of admission: 11/13/24 18:13 Primary Care Provider: Natalya Hobson Admitting Provider: Umair Tavarez Attending physician on admission: Umair Tavarez Condition: Serious
--- NOTE | 2024-11-19 10:49 | PCFNICU ---
ICU Rounding Note: Pt current nutrition is Heart healthy diet. Nutrition recommendation: No new recommendations. Agree with current nutrition care plan and orders. Last recorded weight is 98.2 kg. Bowel Motility: +1 BM 11/19 Labs Reviewed: Hgb 13.6, BUN 39 Meds Noted: Dexamethasone, miralax, insulin Skin: No skin issues Additional Notes: Pt is eating well. continue current care plan and orders. Following daily in ICU rounds. Monitoring tube feeding tolerance, meds, plan of care, weights, labs, output Follow up Saturday.Saturday. Daily in rounds.
== END 2024-11-19 11:00 | disposition home or self-care (01) | DRG 208 ==
LOC: ANHED 19:14 → ANHICU 19:21
PROVIDERS: Internal Medicine; Admitting Provider General Practice; Emergency Provider Student in an Organized Health Care Education/Training Program; PCP Family Medicine; Visit Provider Internal Medicine
DX: J95.89 Other postprocedural complications and disorders of respiratory system, not elsewhere classified (principal); K91.89 Other postprocedural complications and disorders of digestive system; T81.89XA Other complications of procedures, not elsewhere classified, initial encounter; R13.10 Dysphagia, unspecified; R49.0 Dysphonia; I12.9 Hypertensive chronic kidney disease with stage 1 through stage 4 chronic kidney disease, or unspecified chronic kidney disease; N18.30 Chronic kidney disease, stage 3 unspecified; J45.909 Unspecified asthma, uncomplicated; K21.9 Gastro-esophageal reflux disease without esophagitis; E78.2 Mixed hyperlipidemia; R60.0 Localized edema; R73.03 Prediabetes; G47.33 Obstructive sleep apnea (adult) (pediatric); G89.29 Other chronic pain; Z98.1 Arthrodesis status; Z87.11 Personal history of peptic ulcer disease; Z87.442 Personal history of urinary calculi; Z86.0101 Personal history of adenomatous and serrated colon polyps; Z79.899 Other long term (current) drug therapy
CPT/HCPCS: 36415; 36600; 70490; 70498; 71045; 71250; 80048; 80053; 82375; 82805; 82948; 83050; 83735; 84100; 84478; 85018; 85025; 85027; 85055; 85610; 85730; 86850; 86900; 86901; 87641; 94002; 94003; 96374; 97162; 97165; 97535; 99285; A9270; J1100; J1650; J1815; J2060; J2250; J2470; J2704; J3010; J7120; Q9967

== ENCOUNTER 2024-12-14 10:25 | Outpatient (CLI) | payer MEDICARE, SELFPAY | END 2024-12-14 10:26 | disposition home or self-care (01) | LOC: GOSHIMG 10:26 | PROVIDERS: PCP Family Medicine; Visit Provider Nurse Practitioner Family | DX: M79.672 Pain in left foot (principal) | CPT/HCPCS: 73630 ==

== ENCOUNTER 2025-01-07 12:30 | Outpatient (RCR) | payer MEDICARE, SELFPAY ==
--- NOTE | 2024-12-11 11:57 | OPREHPOC ---
Outpatient Therapy Plan of Care This is a Multidisciplinary Plan of Care that may contain components documented by all disciplines (PT, OT, and ST.) PT Problem 1 PT Problem #1 Knowledge Deficit PT Goal 1 Goal / Goal Update Patient to demonstrate independence with HEP for improved self-reliance of symptom management. Target Visit 4 PT Problem 2 PT Problem #2 Pain PT Goal 1 Goal / Goal Update 1. Patient to report an improvement in radiating symptoms by 50% to increase ability to perform ADLs. 2. Patient to decrease subjective reports of pain to <3/10 for improved ADL tolerance. 3. The patient will have a 10 point improvement on the NDI for decreased handicap due to neck pain. Target Visit 8 PT Problem 3 PT Problem #3 Impaired Strength PT Goal 1 Goal / Goal Update 1. Patient to demonstrate L shoulder strength >=4/ 5 for improved functional stability required for ADLs. 2. Patient to demonstrate R shoulder strength >=5/ 5 for improved functional stability required for ADLs. Target Visit 8 PT Problem 4 PT Problem #4 Impaired Range of Motion PT Goal 1 Goal / Goal Update 1. Patient to demonstrate an increase of cervical ext AROM to 40 deg to improve the ability to drink from a cup. 2. Patient to demonstrate an increase of cervical rotation AROM to 50 deg BLAINE to improve safety with driving. Target Visit 8
--- NOTE | 2024-12-11 11:57 | PTOPEVAL1 ---
Assessment and note entered by Catrachita Borjas, PT Evaluation Information Assessment Status Evaluation ICD-10 Condition Codes (PT) Cervicalgia M54.2,Encounter for other orthopedic aftercare Z47.89 Subjective Information Pt presents s/p ACDF C4-7 on 11/11/24. Pt reports complicated by significant prevertebral swelling requiring hospitalization and intubation in the ICU for several days. He continues to report dysphagia but is able to swallow as long as he chews his food well, productive cough, hoarse voice. He has noticed improved sensation in his extremities since surgery. He notes radicular pain with on the R side while before surgery it was on the L. He reports a general feeling of deconditioning from his recent hospitalization. He tried using a walking stick to aid in balance due to neuropathy as well. He thinks using the stick at the wrong height might have pinched something in his neck or shoulder again. Has been taking pain pills to help him sleep at night. Pt noticed weakness in the L shoulder after coming out of surgery. He did have restraints on in the ICU becuase he tried to self exctubate. Reported Pain Level Pain Score 3: Self Report Assessment PT Clinical Summary Pt is a 64 year old male who presents to physical therapy with a primary complaint of radiacular R shoulder pain since undergoing cervical arthrodesis on 11/11/24. Pt demonstrates BLAINE shoudler weakness L>R, pain reproduction with R lateral flexion and rotation, decreased shoulder mobility, abnormal posture, gait deficit, and decreased flexibility that limit their ability to perform ADLs. Pt will benefit from skilled physical therapy to address the above listed deficits and return to PLOF. Patrient presents with significant weakness of the L shoulder greatest in abdcution, flexion, then external rotation. He also has atrohpy of the L periscapular musculature. Concern for neuropraxia versus RTC involvement that may warrant further investigation if no progress is made in therapy. HEP instructed and written handout provided, EX tolerated well with no adverse effects to note post-session. Pt was educated on importance of adherence to HEP. Pt was also educated on anatomy, prognosis, home modalities, and PT POC. Plan of Care Interventions Gait Training,Hot Pack/Cold Pack,Manual Therapy, Neuro Re-education,Patient/Caregiver Education, Therapeutic Activities,Therapeutic Exercise PT Services Indicated Yes Treatment Frequency and 2x/wk for 8 sessions Duration These treatments will address the objective and functional deficits as defined above. The patient will be advanced safely and appropriately in order for the patient to progress towards his/her prior level of function. Additional exercises will be introduced and as well as a comprehensive home exercise program upon discharge, if needed, ?to ensure carryover of functional gains achieved in the clinic. This treatment plan has been reviewed and agreement upon by the patient.
--- NOTE | 2025-01-07 12:58 | PTOPDC ---
Assessment and note entered by Catrachita Borjas, PT Evaluation Information Assessment Status Discharge ICD-10 Condition Codes (PT) Cervicalgia M54.2,Encounter for other orthopedic aftercare Z47.89 Subjective Information Pt reports his balance and feet are his primary concern. He wants to get this looked at and has too many doctors appts coming up. He was very inflamed in the L shoulder and neck after his last session. He is frustrated he had an increase in pain and feels like it was from the overhead exercises last time. He wanted to get his measurements over with so he could leave. He does not want to continue with PT and rest his neck and shoulders. He feels comfortable continuing with his HEP to manage his neck and shoulder issues at home. Reported Pain Level Pain Score 0: Self Report Assessment PT Clinical Summary Pt arrived to session this date expressing frustrations that his neck and shoulder were flared up after his previous session. Pt was educated on the reasoning behind the increased pain and soreness when attempting more functional activities. Pt was agreeable to objective measurements this date to just do what you need to do for insurance purposes then I'm done. He has multiple comorbidities that he wants to get taken care of with various physician appts coming up. Pt requesting to DC from PT to let his neck and shoulder rest but otherwise knows how to stretch to manage his symptoms independently. Plan of Care PT Services Indicated Yes
== END 2025-01-07 14:17 | disposition home or self-care (01) ==
LOC: ANHGOSHPT 12:30
PROVIDERS: PCP Family Medicine; Visit Provider Neurological Surgery
DX: Z47.89 Encounter for other orthopedic aftercare (principal); Z98.1 Arthrodesis status; Z98.890 Other specified postprocedural states
CPT/HCPCS: 97110; 97112; 97140; 97161; 97530

== ENCOUNTER 2025-02-04 08:07 | Outpatient (CLI) | payer MEDICARE, SELFPAY ==
--- OUTSIDE RECORDS SUMMARY | 2000-10-03 12:00 | XMS_ITS | Continuity of Care Document ---
Author Organization [facility] Address [address] [place] [address] [address] [place] [address] Phone Care Team Providers Care Inclusion Manager Name Role Phone Daniels OD, Compa Unavailable Unavailable Advance Directives Directive Yes / No Effective Date File Name No Information Encounters Encounter Description Practice Location Reason(s) For Visit Diagnoses Date Provider Providers Copied on Encounter [facility], [address], [place], [place], [address], [place] tel:[phone] [facility] No Information May-0 3-200 1 Daniels OD Compa. [address], [place], [address], [place]. tel:[phone] Family History Family Member Type Diagnosis Age [...]
--- OUTSIDE RECORDS SUMMARY | 2025-02-04 08:13 | XMS_ITS | Clinical Summary ---
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 Gender Identity Not on file Sexual Orientation [...] 100.7 kg (222 lb) 05/20/2019 2:54 PM SENIOR AUTOMATION ENGINEER Height 177.8 cm (5' 10) 05/20/2019 2:54 PM SENIOR AUTOMATION ENGINEER Body Mass Index 31.85 05/20/2019 2:54 PM SENIOR AUTOMATION ENGINEER Plan of Treatment Health Maintenance Due Date Last Done Comments DTAP/TDAP/TD VACCINES (1 - Tdap) 1977 COLORECTAL SCREENING 09/29/2003 Colorectal Cancer Screening 09/29/2003 FIT-DNA Q 3 years 09/29/2003 FIT/FOBT Q 1 year 09/29/2003 Flex Sig/CT Colonography Q 5 years 09/29/2003 PNEUMOCOCCAL VACCINE 50+ YEARS (1 of 1 - PCV) 09/29/19 09 ZOSTER VACCINE (1 of 2) 2008 INFLUENZA VACCINE (#1) 2025 RSV VACCINE (60+ or ) (1 - 1-dose 75+ series) 2033 Care Teams Vinegar Maker Relationship Specialty Start Date End Date Jonathan Ferraro MD [address] [place] [address] PCP - General Family Practice 04/08/19
[2025-02-04 09:14] LABS: Hematocrit 38.6 % (42.0-52.0); Hemoglobin 12.2 g/dL (14.0-18.0); Mean Corpuscular HGB Conc 31.6 g/dl (32-36); Mean Corpuscular Hemoglobin 25.6 pg (26-34); Mean Corpuscular Volume 80.9 fl (80-100); Platelet Count Result 228 k/mm3 (150-375); Red Blood Count 4.77 M/mm3 (4.6-6.20); White Blood Count 6.6 K/mm3 (4.5-10.0)
[2025-02-04 09:32] LABS: Albumin Level 4.5 g/dL (3.5-5.1); Anion Gap 10 mmol/L (4-12); Blood Urea Nitrogen 17 mg/dL (9-20); Calcium 9.4 mg/dL (8.4-10.2); Carbon Dioxide 28 mmol/L (22-30); Chloride 101 mmol/L (98-107); Estimated Glomerular Filt Rate 51; Glucose 137 mg/dL (65-110); Potassium 3.7 mmol/L (3.4-5.0); Sodium 139 mmol/L (137-145)
[2025-02-04 09:56] LABS: Total Protein Urine Random 14 mg/dL; Ur Ttl Prot Creatinine Ratio 0.12 mg/mg (0-0.20)
[2025-02-04 10:00] LABS: Parathyroid Intact 39.3 pg/mL (14.5-75.2)
== END 2025-02-04 08:08 | disposition home or self-care (01) ==
PROVIDERS: PCP Family Medicine; Referring Provider Anesthesiology; Visit Provider Internal Medicine Nephrology
DX: I12.9 Hypertensive chronic kidney disease with stage 1 through stage 4 chronic kidney disease, or unspecified chronic kidney disease (principal); N18.32 Chronic kidney disease, stage 3b
CPT/HCPCS: 36415; 80069; 82570; 83970; 84156; 85027

== ENCOUNTER 2025-02-12 08:53 | Outpatient (CLI) | payer MEDICARE, SELFPAY ==
--- NOTE | ~2025-02-12 | XR_ITS ---
XR_CERV2-3V_CR Indication: Z98.890 - Other specified postprocedural states Comparison: None Findings: Anterior fusion C4, C5, C6 and C7 with disc prostheses. No fracture or subluxation. Moderate to severe loss of disc height at C7-T1. Soft tissues unremarkable Impression: No acute abnormality. Reviewed, dictated and finalized at location A. Impression: No acute abnormality.
--- OUTSIDE RECORDS SUMMARY | 2025-02-12 09:13 | XMS_ITS | Clinical Summary ---
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
== END 2025-02-12 08:54 | disposition home or self-care (01) ==
PROVIDERS: PCP Family Medicine; Visit Provider Neurological Surgery
DX: Z98.890 Other specified postprocedural states (principal)
CPT/HCPCS: 72040

== ENCOUNTER 2025-03-01 06:31 | Day surgery (SDC) | payer MEDICARE, SELFPAY ==
[2025-02-26 10:52] VITALS: BMI 32.9
--- NOTE | ~2025-03-01 | XR_ITS ---
EXAMINATION: XR fluoroscopy no charge DATE: 03/01/2025 08:01 INDICATION: Bilateral L4-L5 transforaminal epidural steroid injections TECHNIQUE: 42 fluoroscopic images of the lumbar spine were obtained during procedure performed by Dr. Vaughn. Radiologist was not present for the imaging or procedure. The amount of fluoroscopy time used during this procedure was 0.8 minutes. Cumulative radiation dosage of 29.16 mGy. COMPARISON: None. FINDINGS: Images demonstrate spinal needles advanced with distal tips positioned along the inferior calyx of the pedicles and transverse processes on the left and right at L4. Subsequent images demonstrate contrast injections in the region of the bilateral neural foramina without evident intravascular extension of contrast. IMPRESSION: 1. Fluoroscopy utilized during pain management procedures at the bilateral L4-L5 neural foramina. See procedure note for further detail. Reviewed, dictated and finalized at location A. IMPRESSION: 1. Fluoroscopy utilized during pain management procedures at the bilateral L4-L 5 neural foramina. See procedure note for further detail.
[2025-03-01 07:04] VITALS: BP 116/73; PULSE 83; RESP 20; TEMP 36.9; O2SAT 97; BMI 32.3
--- NOTE | 2025-03-01 07:39 | WPDHPUPDATE1 ---
History and Physical Update Update Date/Time: 03/01/25 07:39 History and Physical has been reviewed, including an updated exam of the patient. There are NO changes in the patient's condition. Risks, benefits, and alternatives have been discussed and questions answered. Patient agrees to proceed with procedure.
--- NOTE | 2025-03-01 07:40 | P.OP_ITS ---
Procedure Note - Detailed Date of Procedure 03/01/25 Pre-op Diagnosis Lumbosacral radiculopathy, lumbar spinal stenosis Post-op Diagnosis Same Procedure Performed Bilateral Lumbar Transforaminal Epidural Steroid Injection under Fluoroscopic Guidance and with Contrast Control at L4-5. Surgeon Kody Vaughn MD Anesthesia Local Description of Procedure INFORMED CONSENT: Risks, benefits and alternatives to the procedure were discussed in detail with the patient who expressed explicit understanding and consent to proceed. Patient was informed verbally and in written form regarding the risks associated with the procedure including the low risk of serious infection, bleeding/bruising, allergic reaction, nerve or organ injury, paralysis, procedural site pain or discomfort, worsening pain and/or mobility, failure to treat and/or disfigurement. The patient expressed explicit understanding and consent to proceed. All materials required for the procedure were available prior to procedure start. Site and side was marked prior to procedure and confirmed in the presence of the patient. PROCEDURE IN DETAIL: The patient was brought to the procedural suite and placed in the prone position. Patient was made comfortable with use of pillows under the head/chest, hips and ankles. Skin overlying the injection site was prepared broadly with ChloraPrep applicator and draped in a sterile manner. Aseptic technique was employed throughout. The endplates of the vertebral body at the site of interest were aligned in the AP view. Ipsilateral oblique angulation was utilized to better visualize the neuroforamen of interest. Local anesthesia was established by infiltration with approximately 5 mL of 0.5% PF lidocaine via a 1-1/2 inch 27-gauge needle. A 22-gauge 5.0 inch Gaurang (pencil point) spinal needle was advanced until the needle approached the 6 o'clock position on the pedicle just superior to the exiting nerve root. on the right at L4-5. Lateral view was utilized to confirm appropriate position of the needle tip within the superior and posterior portion of the respective foramen. In an AP view, 1 mL of Omnipaque 300 contrast medium was injected after negative aspiration for CSF, blood or other bodily fluid, showing appropriate neurogram without evidence of intravascular or intrathecal spread of contrast. Digital subtraction imaging was used with an additional 1ml of the same contrast medium to confirm absence of intravascular contrast spread. A 1mL solution containing 5 mg of dexamethasone was injected after negative repeat aspiration. Appropriate spread of the injectate was confirmed with washout of previously injected contrast. No parasthesias were elicited. Needle was removed completely intact without difficulty. The same exact procedure was repeated for all remaining levels on the contralateral side, left L4-5 neuroforamen, modified as necessary to accommodate for the new target location with identical findings and results and no evidence of complication. Images were saved and documented in the patient chart. Patient's skin was cleane d and sterile bandage applied. The patient tolerated the procedure well. The patient was transported to the recovery area in stable condition where they were observed for an appropriate amount of time prior to discharge, without evidence of complication. The patient was instructed to avoid excessive activity for the next 48 hours, including climbing and frequent use of stairs. Showers only for 48 hours. They were instructed not to drive or operate heavy machinery for 24 hours. They are to monitor for severe headaches, fevers, chills, night sweats, erythema/swelling at the site or any other signs of infection, bleeding/bruising, bowel or bladder changes as well as new pain, weakness or numbness in the upper or lower extremity. Should they notice these changes, they are instructed to call our office immediately or report directly to the nearest Emergency Department if no answer or if after posted office hours. COMPLICATIONS: None COMMENTS: None CONTRAST WASTED: 26 mL Omnipaque 300. STEROID WASTED: 0 mg of dexamethasone. Complications No immediate complications Condition Stable Disposition Same day [facility] Billing Surgery - Charge Forward: Surgery Billing
[2025-03-01 07:54] VITALS: BP 141/85; PULSE 85; RESP 16; O2SAT 100
[2025-03-01] MEDS: LIDOCAINE 1% PF INJ 5 ML VIAL INFILTRATE (07:56)
[2025-03-01] MEDS: LIDOCAINE 2% PF LOCAL INJ 5 ML VIAL INFILTRATE (07:57)
[2025-03-01] MEDS: dexAMETHasone SOD PHOS INJ 10 MG/ML 1 ML VIAL IM (07:58)
[2025-03-01 07:59] VITALS: BP 123/68; PULSE 78; RESP 15; O2SAT 99
[2025-03-01 08:03] VITALS: BP 115/77; PULSE 83; RESP 18; O2SAT 98
== END 2025-03-01 08:17 | disposition home or self-care (01) ==
PROVIDERS: PCP Family Medicine; Visit Provider Anesthesiology Pain Medicine
PROC: (CPT 64483; principal; 2025-03-01 07:50)
DX: M48.07 Spinal stenosis, lumbosacral region (principal); M54.16 Radiculopathy, lumbar region
CPT/HCPCS: 64483; 99199

== ENCOUNTER 2025-03-16 12:41 | Outpatient (CLI) | payer MEDICARE, SELFPAY ==
--- NOTE | ~2025-03-16 | XR_ITS ---
XR lumbar spine min 4V Indication: M48.062 - Spinal stenosis, lumbar region with neurogenic ... Comparison: None Findings: Grade 1 retrolisthesis of L5 on S1. No subluxation with flexion-extension. Moderate loss of disc height throughout with severe loss of disc at L5-S1. Soft tissues unremarkable Impression: No acute abnormality. Reviewed, dictated and finalized at location P. Impression: No acute abnormality.
--- OUTSIDE RECORDS SUMMARY | 2025-03-16 14:18 | XMS_ITS | Clinical Summary ---
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
== END 2025-03-16 12:42 | disposition home or self-care (01) ==
PROVIDERS: PCP Family Medicine; Visit Provider Neurological Surgery
DX: M48.062 Spinal stenosis, lumbar region with neurogenic claudication (principal)
CPT/HCPCS: 72110

== ENCOUNTER 2025-04-21 09:07 | Outpatient (CLI) | payer MEDICARE, SELFPAY ==
--- OUTSIDE RECORDS SUMMARY | 2000-10-03 11:00 | XMS_ITS | Continuity of Care Document ---
Author Organization [facility] Address [address] [place] [address] [address] [place] [address] Phone Care Team Providers Care Cissp Name Role Phone Daniels OD, Compa Unavailable Unavailable Advance Directives Directive Yes / No Effective Date File Name No Information Encounters Encounter Description Practice Location Reason(s) For Visit Diagnoses Date Provider Providers Copied on Encounter [facility], [address], [place], [place], [address], [place] tel:[phone] [facility] No Information May-0 3-200 1 Daniels OD Compa. [address] , [address], [place], [address], [place]. tel:[phone] Family History Family Member Type Diagnosis Age At Onset No Information Payers Payer name Insurance type Covered alliance party ID Authoriza tion(s) No Information Social History Type Description Quantity Date Captured Comments Sex Male Smoking Status No Information Chief Complaint And Reason For Visit No Information Reason For Referral Reason For Referral No Information History Of Present Illness Encounter Date Complaint History Of Prese nt Illness No Information Functional Status Date Functional Assessmen t No Information Instructions Date Instruction Additional Infor mation No Information Assessments Type Assessment Date No Information Patient Care Teams Name Effective Dates (start - stop) Status Members No Information
--- OUTSIDE RECORDS SUMMARY | 2000-10-03 11:00 | XMS_ITS | Continuity of Care Document ---
Author Organization [facility] Address [address] [place] [address] [address] [place] [address] Phone Care Team Providers Care Potato Chip Fryer Name Role Phone Daniels OD, Compa Unavailable Unavailable Advance Directives Directive Yes / No Effective Date File Name No Information Encounters Encounter Description Practice Location Reason(s) For Visit Diagnoses Date Provider Providers Copied on Encounter formerly [facility], [address], [place], [place], [address], [place] tel:[phone] [facility] No Information May-0 3-200 1 Daniels OD Compa. [address] , [address], [place], [address], [place]. tel:[phone] Family History Family Member Type Diagnosis Age [...]
--- OUTSIDE RECORDS SUMMARY | 2000-10-03 11:00 | XMS_ITS | Continuity of Care Document ---
Author Organization [facility] Address [address] [place] [address] [address] [place] [address] Phone Care Team Providers Care Hr Leader Name Role Phone Daniels OD, Compa Unavailable Unavailable Advance Directives Directive Yes / No Effective Date File Name No Information Encounters Encounter Description Practice Location Reason(s) For Visit Diagnoses Date Provider Providers Copied on Encounter [facility], [address], [place], [place], [address], [place] tel:[phone] [facility] No Information May-0 3-200 1 Daniels OD Compa. [address] , [address], [place], [address], [place]. tel:[phone] Family History Family Member Type Diagnosis Age At Onset No Information Payers Payer name Insurance type Covered democrat ID Authoriza tion(s) No Information Social History [...]
--- OUTSIDE RECORDS SUMMARY | 2000-10-03 11:00 | XMS_ITS | Continuity of Care Document ---
Author Organization [facility] Address [address] [place] [address] [address] [place] [address] Phone Care Team Providers Care Laundry Marker Supervisor Name Role Phone Daniels OD, Compa Unavailable Unavailable Advance Directives Directive Yes / No Effective Date File Name No Information Encounters Encounter Description Practice Location Reason(s) For Visit Diagnoses Date Provider Providers Copied on Encounter [facility], [address], [place], [place], [address], [place] tel:[phone] [facility] No Information May-0 3-200 1 Daniels OD Compa. [address] , [address], [place], [address], [place]. tel:[phone] Family History Family Member Type Diagnosis Age At Onset No Information Payers Payer name Insurance type Covered libertarian ID Authoriza tion(s) No Information Social History [...]
--- OUTSIDE RECORDS SUMMARY | 2000-10-03 11:00 | XMS_ITS | Continuity of Care Document ---
Author Organization [facility] Address [address] [place] [address] [address] [place] [address] Phone Care Team Providers Care Intellectual Property Counsel Name Role Phone Daniels OD, Compa Unavailable Unavailable Advance Directives Directive Yes / No Effective Date File Name No Information Encounters Encounter Description Practice Location Reason(s) For Visit Diagnoses Date Provider Providers Copied on Encounter [facility], [address], [place], [place], [address], [place] tel:[phone] [facility] No Information May-0 3-200 1 Daniels OD Compa. [address] , [address], [place], [address], [place]. tel:[phone] Family History Family Member Type Diagnosis Age At Onset No Information Payers Payer name Insurance type Covered constitution party ID Authoriza tion(s) No Information Social [...]
--- OUTSIDE RECORDS SUMMARY | 2000-10-03 11:00 | XMS_ITS | Continuity of Care Document ---
Author Organization [facility] Address [address] [place] [address] [address] [place] [address] Phone Care Team Providers Care Records Management Clerk Name Role Phone Daniels OD, Compa Unavailable Unavailable Advance Directives Directive Yes / No Effective Date File Name No Information Encounters Encounter Description Practice Location Reason(s) For Visit Diagnoses Date Provider Providers Copied on Encounter [facility], [address], [place], [place], [address], [place] tel:[phone] [facility] No Information May-0 3-200 1 Daniels OD Compa. [address] , [address], [place], [address], [place]. tel:[phone] Family History Family Member Type Diagnosis Age At Onset No Information Payers Payer name Insurance type Covered green party ID Authoriza tion(s) No Information Social [...]
--- OUTSIDE RECORDS SUMMARY | 2000-10-03 11:00 | XMS_ITS | Continuity of Care Document ---
Author Organization [facility] Address [address] [place] [address] [address] [place] [address] Phone Care Team Providers Care Sales Analyst Name Role Phone Daniels OD, Compa Unavailable Unavailable Advance Directives Directive Yes / No Effective Date File Name No Information Encounters Encounter Description Practice Location Reason(s) For Visit Diagnoses Date Provider Providers Copied on Encounter [facility], [address], [place], [place], [address], [place] tel:[phone] [facility] No Information May-0 3-200 1 Daniels OD Compa. [address], [place], [address], [place]. tel:[phone] Family History Family Member Type Diagnosis Age At Onset No Information Payers Payer name Insurance type Covered republican ID Authoriza tion(s) No Information Social History [...]
--- OUTSIDE RECORDS SUMMARY | 2000-10-03 11:00 | XMS_ITS | Continuity of Care Document ---
Author Organization [facility] Address [address] [place] [address] [address] [place] [address] Phone Care Team Providers Care Identification Printing Machine Setter Name Role Phone Daniels OD, Compa Unavailable Unavailable Advance Directives Directive Yes / No Effective Date File Name No Information Encounters Encounter Description Practice Location Reason(s) For Visit Diagnoses Date Provider Providers Copied on Encounter [facility], [address], [place], [place], [address], [place] tel:[phone] [facility] No Information May-0 3-200 1 Daniels OD [place]. [address], [place], [address], [place]. tel:[phone] Family History Family Member Type Diagnosis Age [...]
--- OUTSIDE RECORDS SUMMARY | 2000-10-03 11:00 | XMS_ITS | Continuity of Care Document ---
Author Organization [facility] Address [address] [place] [address] [address] [address] Phone Care Team Providers Care Casing Blower Name Role Phone Daniels OD, Compa Unavailable Unavailable Advance Directives Directive Yes / No Effective Date File Name No Information Encounters Encounter Description Practice Location Reason(s) For Visit Diagnoses Date Provider Providers Copied on Encounter [facility], [address], , [id number], [place] tel:[phone] [facility] No Information May-0 3-200 1 Daniels OD Compa. [address], [place], [address], [place]. tel:[phone] Family History Family Member Type Diagnosis Age [...]
--- OUTSIDE RECORDS SUMMARY | 2000-10-03 11:00 | XMS_ITS | Continuity of Care Document ---
Author Organization [facility] Address [address] [place] [address] [address] [place] [address] Phone Care Team Providers Care Industrial Relations Manager Name Role Phone Daniels OD, Compa Unavailable Unavailable Advance Directives Directive Yes / No Effective Date File Name No Information Encounters Encounter Description Practice Location Reason(s) For Visit Diagnoses Date Provider Providers Copied on Encounter [facility], [address], [place], [place], [address], [place] tel:[phone] [facility] No Information May-0 3-200 1 Daniels OD Compa. [address], [place], [address], [place]. tel:[phone] Family History Family Member Type Diagnosis Age [...]
--- OUTSIDE RECORDS SUMMARY | 2000-10-03 11:00 | XMS_ITS | Continuity of Care Document ---
Author Organization [facility] Address [address] [place] [address] [address] [place] [address] Phone Care Team Providers Care Metal Door Assembler Name Role Phone Daniels OD, Compa Unavailable Unavailable Advance Directives Directive Yes / No Effective Date File Name No Information Encounters Encounter Description Practice Location Reason(s) For Visit Diagnoses Date Provider Providers Copied on Encounter [facility], [address], [place], [place], [address], [place] tel:[phone] [facility] No Information May-0 3-200 1 Daniels OD Compa. [address], [place], [address], [place]. tel:[phone] Family History Family Member Type Diagnosis Age [...]
--- OUTSIDE RECORDS SUMMARY | 2000-10-03 11:00 | XMS_ITS | Continuity of Care Document ---
Author Organization [facility] Address [address] [place] [address] [address] [place] [address] Phone Care Team Providers Care Oilfield Plant And Field Operator Name Role Phone Daniels OD, Compa Unavailable Unavailable Advance Directives Directive Yes / No Effective Date File Name No Information Encounters Encounter Description Practice Location Reason(s) For Visit Diagnoses Date Provider Providers Copied on Encounter [facility], [address], [place], [place], [address], [place] tel:[phone] [facility] No Information May-0 3-200 1 Daniels OD Compa. [address], [place], [address], [place]. tel:[phone] Family History Family Member Type Diagnosis Age [...]
[2025-04-21 09:50] LABS: Hematocrit 40.0 % (42.0-52.0); Hemoglobin 13.0 g/dL (14.0-18.0); Mean Corpuscular HGB Conc 32.5 g/dl (32-36); Mean Corpuscular Hemoglobin 26.4 pg (26-34); Mean Corpuscular Volume 81.3 fl (80-100); Platelet Count Result 245 k/mm3 (150-375); Red Blood Count 4.92 M/mm3 (4.6-6.20); White Blood Count 6.8 K/mm3 (4.5-10.0)
[2025-04-21 10:12] LABS: Alanine Aminotransferase 28 U/L (6-50); Albumin Level 4.6 g/dL (3.5-5.1); Alkaline Phosphatase 123 U/L (38-126); Anion Gap 10 mmol/L (4-12); Aspartate Amino Transferase 33 U/L (17-59); Bilirubin,Total 0.8 mg/dL (0.2-1.3); Blood Urea Nitrogen 27 mg/dL (9-20); Calcium 9.5 mg/dL (8.4-10.2); Carbon Dioxide 27 mmol/L (22-30); Chloride 104 mmol/L (98-107); Cholesterol 177 mg/dL (0-200); Estimated Glomerular Filt Rate 43; Glucose 131 mg/dL (65-110); HDL Direct 31 mg/dL; Potassium 3.9 mmol/L (3.4-5.0); Sodium 141 mmol/L (137-145); Total Protein 7.7 g/dL (6.3-8.2); Triglycerides 405 mg/dL (<150)
[2025-04-21 10:17] LABS: Hemoglobin A1C 6.3 % (<5.7)
[2025-04-21 10:47] LABS: Ferritin 9.28 ng/mL (11.1-264)
--- OUTSIDE RECORDS SUMMARY | 2025-04-21 11:40 | XMS_ITS | Clinical Summary ---
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
[2025-04-21 11:43] LABS: Vitamin B12 > 1000.0 pg/mL (239-931)
== END 2025-04-21 09:08 | disposition home or self-care (01) ==
PROVIDERS: PCP Family Medicine; Visit Provider Family Medicine
DX: E78.2 Mixed hyperlipidemia (principal); R73.9 Hyperglycemia, unspecified; N18.30 Chronic kidney disease, stage 3 unspecified; D64.9 Anemia, unspecified; E88.810 Metabolic syndrome
CPT/HCPCS: 36415; 80053; 80061; 82607; 82728; 83036; 85027

== ENCOUNTER 2025-05-17 09:21 | Outpatient (CLI) | payer MEDICARE, SELFPAY ==
[2025-05-18 14:08] LABS: Deamidated Gliadin Abs, IgA 4 units (0-19); Deamidated Gliadin Abs, IgG 2 units (0-19); Immunoglobulin A, Qn 203 mg/dL (61-437)
== END 2025-05-17 09:22 | disposition home or self-care (01) ==
LOC: ANHLAB 09:22
PROVIDERS: PCP Family Medicine; Visit Provider Family Medicine
DX: R79.0 Abnormal level of blood mineral (principal)
CPT/HCPCS: 82784; 86231; 86258

== ENCOUNTER 2025-05-24 08:28 | Outpatient (CLI) | payer MEDICARE, SELFPAY ==
--- NOTE | 2025-05-24 08:30 | ECG_ITS ---
Test Date: 2025-05-24 08:58:38 Measurements Intervals [place] Rate: 69 P: 0 GA: 0 QRS: 25 QRSD: 98 T: 40 QT: 386 QTc: 414 Interpretive Statements SINUS RHYTHM MISSING LEAD V3 BORDERLINE AV CONDUCTION DELAY BASELINE ARTIFACT- I, III, AVR, AVL, AVF, V1-V2, V4-V6 BORDERLINE ECG Compared to ECG 04/22/2024 09:15:47 HEART RATE HAS INCREASED Electronically Signed On 05-24-2025 09:10:27 FIBERGLASS DOWEL DRAWING OPERATOR by Danyel Tinsley D.O.
--- OUTSIDE RECORDS SUMMARY | 2025-05-24 08:52 | XMS_ITS | Clinical Summary ---
Author Organization [facility] [address] [facility] Address [address] [place] [address] Care Team Providers Care Autotransfusionist Name Role Phone Jonathan Ferraro MD Primary Care Provider [phone] Allergies Active Allergy Reactions Criticality Noted Date [...] on file Legal Sex Male 3:42 PM DOCUMENTATION CLERK Gender Identity Not on file Sexual [...] 100.7 kg (222 lb) 05/20/2019 2:54 PM DOCUMENTATION CLERK Height 177.8 cm (5' 10) 05/20/2019 2:54 PM DOCUMENTATION CLERK Body Mass Index 31.85 05/20/2019 2:54 PM DOCUMENTATION CLERK Plan of Treatment Health Maintenance Due [...] - 1-dose 75+ series) 2033 Care Teams Autotransfusionist Relationship Specialty Start Date End Date Jonathan Ferraro MD [address] [place] [address] PCP - General Family Practice 04/08/19
[2025-05-24 09:18] LABS: Add Urine Microscopic? YES; Appearance Urine Cloudy (Clear); Glucose Urine UA Negative (Negative); Leukocyte Esterase Ur 2+ LEU/UL (Negative); Nitrate Urine Negative (Negative); Non Pathogenic Casts 0-2; Specific Grav Ur 1.011 (1.001-1.035)
[2025-05-24 09:34] LABS: INR 1.0; Prothrombin Time 13.1 Seconds (11.1-14.7)
[2025-05-24 09:35] LABS: Partial Thromboplastin Time 29.8 Seconds (22.3-36.8)
== END 2025-05-24 08:29 | disposition home or self-care (01) ==
LOC: ANHSURGERY 08:29
PROVIDERS: PCP Family Medicine; Visit Provider Neurological Surgery
DX: M48.062 Spinal stenosis, lumbar region with neurogenic claudication (principal); I10 Essential (primary) hypertension; Z01.818 Encounter for other preprocedural examination; I45.9 Conduction disorder, unspecified
CPT/HCPCS: 36415; 81001; 85610; 85730; 87077; 87086; 87186; 93005

== ENCOUNTER 2025-06-02 00:24 | Day surgery (SDC) | payer MEDICARE, SELFPAY ==
[2025-05-19 12:43] VITALS: BMI 32.5
--- NOTE | 2025-05-19 13:17 | PC.NURSE ---
[facility] has started construction of its new state of the art ER which will open Spring 2026. With this, we anticipate parking may be a challenge for some our surgical patients and families. Parking spaces are limited but are available for all Surgical, obstetrics, and ER patients sharing this lot. If you arrive and find you are having a hard time finding a parking space, please note that we understand the challenges, please drive around the hospital and park near Hospital Entrance 1. When you enter this entrance, you can ask a volunteer to direct or take you back to the surgical waiting area to check in. We appreciate everyone?s understanding of these expected challenges while we build for your future. Report to the Outpatient Waiting Room, entrance under the green pavilion located off [address], at time __6:30AM____ on date __06/02/25___. Planned Procedure Time: ___8:30AM____.? Time changes happen often and if your time is changed the preop area will call you the afternoon before. - You and your visitor will be asked to self-screen and do not enter if you have any COVID symptoms. Please call surgeon if you need to reschedule. - A mask is optional within the hospital at this time. Patients may have clear liquids (water, carbonated beverages, clear teas, apple juice) until 3 hours prior to surgery (5:30AM) with a maximum of 20 ounces. - No food from midnight until time of surgery and no smoking, or chewing tobacco (or any form of nicotine). No chewing gum, candy or mints. Take only the following medications with a SIP of water on the morning of surgery: ___AMLODIPINE, GABAPENTIN MAY TAKE TRAMADOL NEEDED DO NOT STOP ANY OF YOUR OTHER PRESCRIPTION MEDICATIONS PRIOR TO SURGERY EXCEPT THE FOLLOWING Hold all vitamins and supplements for 3 days per anesthesiologist. LAST DOSE 05/29/25 Medications to discontinue per physician ___HOLD DICLOFENAC (ALL NSAIDS) 7 DAYS PRE-OP PER DR SALAS Date to take last dose 05/25/25 Please no make-up, nail pitcairn islander, hairspray, perfume, deodorant, or body powder the day of surgery.? No jewelry (including any body piercings) or valuables the day of surgery, leave them at home.? Please take a shower or bath the night before, or the morning of, surgery with an antibacterial soap.? Wear comfortable, loose fitting clothing.? - Jewelry must be removed prior to entering the operating room.? Rings and piercings that are not removed may be cut off. - The hospital will not accept responsibility for valuables.? - Please leave all valuables, including medications, at home the day of surgery. If you are going home after surgery, a licensed armored car driver must drive you home.? - NO public transportation without another adult if you receive anesthesia. - We recommend that an adult stay with you for 24 hours following discharge. - We also recommend that you do not drive, make important decision, drink alcoholic beverages, or take any drugs that were not prescribed by your health care provider for at least 24 hours after your discharge time. For Pediatric surgeries, we recommend two adults accompany the child home. Follow any additional instructions given to you from your surgeon. Telephone instructions given to ___PATIENT & WIFE and asked if any additional questions and then verbalized understanding. Patient advised to call surgeon office or pre surgery nurse liaison [phone] if any additional questions. [facility] has started construction of its new state of the art ER which will open Spring 2026. With this, we anticipate parking may be a challenge for some our surgical patients and families. Parking spaces are limited but are available for all Surgical, obstetrics, and ER patients sharing this lot. If you arrive and find you are having a hard time finding a parking space, please note that we understand the challenges, please drive around the hospital and park near Hospital Entrance 1. When you enter this entrance, you can ask a volunteer to direct or take you back to the surgical waiting area to check in. We appreciate everyone?s understanding of these expected challenges while we build for your future. Report to the Outpatient Waiting Room, entrance under the green pavilion located off [facility], at time on date . Planned Procedure Time: .? Time changes happen often and if your time is changed the preop area will call you the afternoon before. - You and your visitor will be asked to self-screen and do not enter if you have any COVID symptoms. Please call surgeon if you need to reschedule. - A mask is optional within the hospital at this time. Patients may have clear liquids (water, carbonated beverages, clear teas, apple juice) until 3 hours prior to surgery with a maximum of 20 ounces. - No food from midnight until time of surgery and no smoking, or chewing tobacco (or any form of nicotine). No chewing gum, candy or mints. - Infants may have breast milk until 4 hours before surgery, infant formula 6 hours prior to surgery. - Children will be allowed to drink immediately following surgery.? If applicable, please bring a bottle or sippy cup to assist with drinking. Juice, water, soda, and popsicles are readily available.? For infants on formula, please bring formula the day of surgery.? Pacifiers are allowed. Take only the following medications with a SIP of water on the morning of surgery: DO NOT STOP ANY OF YOUR OTHER PRESCRIPTION MEDICATIONS PRIOR TO SURGERY EXCEPT THE FOLLOWING Hold all vitamins and supplements for 3 days per anesthesiologist. Medications to discontinue per physician Date to take last dose Please no make-up, nail pitcairn islander, hairspray, perfume, deodorant, or body powder the day of surgery.? No jewelry (including any body piercings) or valuables the day of surgery, leave them at home.? Please take a shower or bath the night before, or the morning of, surgery with an antibacterial soap.? Wear comfortable, loose fitting clothing.? Children are encouraged to wear pajamas. - Jewelry must be removed prior to entering the operating room.? Rings and piercings that are not removed may be cut off. - The hospital will not accept responsibility for valuables.? - Please leave all valuables, including medications, at home the day of surgery. If you are going home after surgery, a licensed armored car driver must drive you home.? - NO public transportation without another adult if you receive anesthesia. - We recommend that an adult stay with you for 24 hours following discharge. - We also recommend that you do not drive, make important decision, drink alcoholic beverages, or take any drugs that were not prescribed by your health care provider for at least 24 hours after your discharge time. For Pediatric surgeries, we recommend two adults accompany the child home. Follow any additional instructions given to you from your surgeon. Telephone instructions given to and asked if any additional questions and then verbalized understanding. Patient advised to call surgeon office or pre surgery nurse liaison [phone] if any additional questions.
[2025-06-02] VITALS (8 sets, daily range): BP systolic 115–148; BP diastolic 67–79; PULSE 64–98; RESP 13–16; TEMP 36.4–36.6; O2SAT 97–100
--- NOTE | ~2025-06-02 | XR_ITS ---
XR fluoroscopy no charge Indication: L4-5 lumbar laminectomy TECHNIQUE: Fluoroscopy used during L4-5 lumbar laminectomy performed by [Anya Bernabe MD] on 06/02/2025. 2 seconds of fluoroscopy time with 2 fluoroscopic images captured. FINDINGS: Correlate with procedure note. IMPRESSION: Fluoroscopy used during L4-5 lumbar laminectomy. Reviewed, dictated and finalized at location O. [employer] MECHANICAL DESIGN ENGINEER
--- OUTSIDE RECORDS SUMMARY | 2025-06-02 00:27 | XMS_ITS | Clinical Summary ---
Author Organization [facility] [address] [facility] Address [address] [place] [address] Care Team Providers Care Automated Teller Manager Name Role Phone Jonathan Ferraro MD Primary Care Provider [phone]- [phone] Allergies Active Allergy Reactions Criticality Noted Date [...] on file Legal Sex Male 3:42 PM DRILL DOCTOR Gender Identity Not on file Sexual Orientation [...] 100.7 kg (222 lb) 05/20/2019 2:54 PM DRILL DOCTOR Height 177.8 cm (5' 10) 05/20/2019 2:54 PM DRILL DOCTOR Body Mass Index 31.85 05/20/2019 2:54 PM DRILL DOCTOR Plan of Treatment Health Maintenance Due Date [...] - 1-dose 75+ series) 2033 Care Teams Automated Teller Manager Relationship Specialty Start Date End Date Jonathan Ferraro MD [address] [place] [address] PCP - General Family Practice 04/08/19
--- OUTSIDE RECORDS SUMMARY | 2025-06-02 00:27 | XMS_ITS | Clinical Summary ---
Author Organization [facility] Address [address] [place] [address] Care Team Providers Care Dealer Analyst Name Role Phone Natalya Hobson MD Primary Care Provider [phone] Encounters Date Type Department Care Team Description 04/01/2025 8:42 AM CDT - 04/01/2025 11:59 PM CDT Hospital Encounter [facility] MRI [address] [place], [place] [id number] Anya Bernabe MD Discharge Disposition: Home or Self Care (Routine Discharge) 04/01/2025 Travel from Last 3 Months Social History Tobacco Use Types Packs/Day Years Used Date Smoking Tobacco: Never Assessed Sex and Gender Information Value Date Recorded Sex Assigned at Male 02/26/2025 11:52 AM CDT Legal Sex Male 11:52 AM CDT Gender Identity Not on file Sexual Orientation Not on file Plan of Treatment Health Maintenance Due Date Last Done Comments Colorectal Cancer Screening Colonoscopy (10 Years) 1958 Hepatitis C 1976 Annual Medicare Wellness Visit 09/29/2023 COVID-19 Vaccine ( season) 2025 03/09/2025, 02/12/2024, 03/13/2023, Additional history exists DTaP, Tdap and Td Vaccines (3 - Td or Tdap) 12/27/2032 12/27/2022, 08/11/2008 RSV Immunization or 60+ Years (1 - 1-dose 75+ series) 2033 Pneumococcal Vaccine: 50+ Years Completed 02/19/2024, 02/12/2023 Zoster Vaccines Completed 05/28/2024, 02/19/2024 Influenza Adult Completed 02/03/2025, 02/01, 03/13/2023, Additional history exists Hepatitis A Vaccines Aged Out No long er eligible based on patient's age to complete this topic Meningococcal B Vaccine Aged Out No l onger eligible based on patient's age to complete this topic Meningococcal Vaccine Aged Out No nidia sandra eligible based on patient's age to complete this topic RSV Immunizations Under 20 Months Aged Out No longer eligible based on patient's age to complete this topic Procedures Procedure Name Priority Date/Time Associated Diagnosis Comments MRI LUMB SPINE WO CON Routine 04/01/2025 9:41 AM CDT Spinal stenosis, lumbar region with neurogenic claudication from Last 3 Months Results * MRI LUMB SPINE WO CON (04/01/2025 9:41 AM CDT) Anatomical Region Laterality Modality Spine Magnetic Resonan ce 04/07/2025 10:2 7 AM OIL BURNER SERVICER AND INSTALLER Impressions 04/07/2025 10:38 AM OIL BURNER SERVICER AND INSTALLER IMPRESSION: 1. Severe central canal stenosis and effacement the lateral recesses at L4/L5 due to disc bulging, facet arthropathy, thickening of ligamentum flavum and prominent dorsal epidural fat. 2. Severe neuroforaminal stenosis on the left at L5/S1. Moderate neural foraminal stenosis in the left at L4/L5 3. Moderate neural foraminal stenosis on the right at L4/L5. 4. Straightening of the normal lumbar lordosis with mild Modic type II endplate degenerative changes at L5/S1. Referred By: ANYA BERNABE Interpreted By: Samuel Leon MD, 04/07/2025 10:27 AM Narrative 04/07/2025 10:38 AM OIL BURNER SERVICER AND INSTALLER [address] [address] EXAMINATION:MRI of the lumbar spine without contrast 04/01/2025 INDICATION:Spinal stenosis, neurogenic claudication, bilateral lower extremity pain and numbness TECHNIQUE: Multiplanar multisequence MR imaging of the lumbar spine was performed without intravenous contrast. COMPARISON: None FINDINGS:Last fully formed disc space is presumed represent L5/S1. There is straightening of the normal lumbar lordosis with preservation of vertebral body heights and disc spaces. Bone marrow signal is within normal limits. No acute fracture or dislocation. Disc space narrowing with mild Modic type II degenerative changes at L5/S1. No ligamentous discontinuity or signal abnormality The conus terminates at the lower L1 level and is unremarkable contour and signal. No paraspinal mass or fluid collection the visualized abdominal aorta is unremarkable in contour. The upper sacral joint spaces are unremarkable T1/T12: Negative T12/L1: Negative L1/L2: Negative L2/L3: Mild disc space narrowing disc bulging and facet arthropathy L3/L4: Mild disc space narrowing disc bulging and facet arthropathy L4/L5: None disc bulging, facet arthropathy and bilateral foraminal disc/osteophyte complexes with prominent dorsal epidural fat causing moderate to severe central canal stenosis and effacement the lateral recesses and moderate bilateral foraminal stenosis. The thecal sac measures 4 mm. L5/S1: 2 mm retrolisthesis disc bulging and facet arthropathy with bilateral foraminal disc/osteophyte complexes causing severe left neural foraminal stenosis and mild right neural foraminal stenosis. Procedure Note Samuel Leon MD - 04/07/[address] [address] EXAMINATION:MRI of the lumbar spine without contrast 04/01/2025 INDICATION:Spinal stenosis, neurogenic claudication, bilateral lowerextremity pain and numbness TECHNIQUE: Multiplanar multisequence MR imaging of the lumbar spine wasperformed without intravenous contrast. COMPARISON: None FINDINGS:Last fully formed disc space is presumed represent L5/S1. Thereis straightening of the normal lumbar lordosis with preservation ofvertebral body heights and disc spaces. Bone marrow signal is withinnormal limits. No acute fracture or dislocation. Disc space narrowingwith mild Modic type II degenerative changes at L5/S1. No ligamentousdiscontinuity or signal abnormality The conus terminates at the lower L1 level and is unremarkable contour andsignal. No paraspinal mass or fluid collection the visualized abdominalaorta is unremarkable in contour. The upper sacral joint spaces areunremarkable T1/T12: Negative T12/L1: Negative L1/L2: Negative L2/L3: Mild disc space narrowing disc bulging and facet arthropathy L3/L4: Mild disc space narrowing disc bulging and facet arthropathy L4/L5: None disc bulging, facet arthropathy and bilateral foraminaldisc/osteophyte complexes with prominent dorsal epidural fat causingmoderate to severe central canal stenosis and effacement the lateralrecesses and moderate bilateral foraminal stenosis. The thecal sacmeasures 4 mm. L5/S1: 2 mm retrolisthesis disc bulging and facet arthropathy withbilateral foraminal disc/osteophyte complexes causing severe left neuralforaminal stenosis and mild right neural foraminal stenosis. IMPRESSION: 1. Severe central canal stenosis and effacement the lateral recesses atL4/L5 due to disc bulging, facet arthropathy, thickening of ligamentumflavum and prominent dorsal epidural fat. 2. Severe neuroforaminal stenosis on the left at L5/S1. Moderate neuralforaminal stenosis in the left at L4/L5 3. Moderate neural foraminal stenosis on the right at L4/L5. 4. Straightening of the normal lumbar lordosis with mild Modic type IIendplate degenerative changes at L5/S1. Referred By: ANYA BERNABE Interpreted By: Samuel Leon MD, 04/07/2025 10:27 AM Anya Bernabe MD MRI Final Result from Last 3 Months Insurance [employer] Care Teams Dealer Analyst Relationship Specialty Start Date End Date Natalya Hobson MD [address] [place] [address] DR CONTRERAS [address] [place] [id number] PCP - General FAMILY PRACTICE 02/26/25
--- NOTE | 2025-06-02 07:13 | WPDANESEPPF ---
Anes - Initial Pre Proc Eval Procedure: Operation Date: 06/02/25 07:30 Proposed Procedures p L4-5 Lumbar Laminectomy - Anya Bernabe MD Date/Time: 06/02/25 07:13 Surgeon: Anya Bernabe MD Pre Op Diagnosis: lumbar stenosis with neuro claudication Patient Data Age: 64 Gender: M Height: 1.75 m Weight: 100 kg Allergies Allergy/AdvReac Type Severity Reaction Status Date / Time Penicillins Allergy Unknown Childhood Verified 05/19/25 12:34 Reaction NSAIDS (Non-Steroidal AdvReac Severe azotemia/ Verified 05/19/25 12:34 Anti-Inflamma gfr 26,creat 2.47 Home Medications ?Medication ?Instructions ?Recorded ?Confirmed ?Type turmeric root extract 500 mg 500 mg PO HS 11/29/20 05/19/25 History capsule sumatriptan succinate 50 mg tablet 50 mg PO ONCE PRN migraine headache 04/12/21 05/19/25 History (Imitrex) mecobalamin (vitamin B12) 1,000 1,000 mcg sublingual 2XW 01/19/22 05/19/25 History mcg disintegrating tablet,sublingual cpap #1 ea 06/25/23 05/19/25 Rx tramadol 50 mg tablet 50 mg PO Q4H PRN pain #60 tabs 08/20/24 05/19/25 Rx fluticasone propionate 50 2 spray intranasal BID #16 mL 12/15/24 05/19/25 Rx mcg/actuation nasal spray,suspension (Flonase Allergy Relief) montelukast 10 mg tablet See Rx Instructions .Route 01/18/25 05/19/25 Rx .COMPLEX #90 tabs trazodone 150 mg tablet See Rx Instructions .Route 02/24/25 05/19/25 Rx .COMPLEX #90 tabs pantoprazole 40 mg tablet,delayed 40 mg PO HS #90 tabs 03/08/25 05/19/25 Rx release losartan 100 mg tablet See Rx Instructions .Route 03/22/25 05/19/25 Rx .COMPLEX #90 tabs gabapentin 300 mg capsule 900 mg (3 x 300 mg) PO BID #540 04/02/25 05/19/25 Rx caps diclofenac potassium 50 mg tablet 50 mg PO BID PRN pain 04/06/25 05/19/25 History sodium chloride 2 % eye drops 1 drp ophthalmic (eye) DAILY PRN 04/06/25 05/19/25 History (Ernesto 128) dry eye(s) ferrous sulfate 325 mg (65 mg 325 mg PO DAILY 04/21/25 05/19/25 History iron) tablet sitagliptin phosphate 50 mg tablet 50 mg PO DAILY #90 tabs 04/27/25 05/19/25 Rx hydrochlorothiazide 25 mg tablet 25 mg PO DAILY #90 tabs 04/30/25 05/19/25 Rx amlodipine 5 mg tablet 5 mg PO DAILY #90 tabs 05/25/25 Rx atorvastatin 80 mg tablet 80 mg PO DAILY #90 tabs 05/25/25 Rx ciprofloxacin HCl 500 mg tablet 500 mg PO DAILY #3 tabs 05/28/25 Rx Laboratory Tests 06/02/25 06:59 POC Capillary Glucose Pending Patient hx anesthesia problems: none Family hx anesthesia problems: none Results Review: All pre-operative results and documents have been reviewed as part of the pre-operative evaluation. [facility] Past Medical History Medical History Impacted cerumen of both ears Postoperative edema Neck swelling Airway compromise Plantar wart of right foot Tinea pedis Mild asthma Chronic pain Colon polyps hx tubular adenoma colonoscopy 11.30.21 normal /repeat in 5 years History of duodenal ulcer with hemorrhage Chronic GERD Fatty liver Chronic kidney disease, stage 3 Mixed hyperlipidemia Hypertension Prediabetes Right nephrolithiasis Rosacea, acne Plantar fasciitis of right foot Contracture of palmar fascia (Dupuytren's) Chronic narcotic use Cervical spondylosis Chronic migraine w/o aura w/o status migrainosus, not intractable Tubular adenoma of colon Surgical History Surgical History History of hemorrhoidectomy (04/29/24) History of umbilical hernia repair (08/02/21) with mesh History of cervical spinal surgery (11/11/24) anterior cervical diskectomy with fusion at C4-C7 per Dr. Bernabe History of wisdom tooth extraction History of cholecystectomy History of laparoscopic cholecystectomy (06/17/19) Family History Family History Father Diabetes mellitus Family history of hypercholesterolemia Hypertension Family history of cardiovascular disease Family history of elevated blood lipids Acute myocardial infarction Family history of coronary artery disease Mother Family history of osteoporosis Family history of migraine headaches Hypertension Grandparent Malignant neoplasm of prostate Family history of lung cancer Other Family history of malignant neoplasm of stomach Social History Social History Social History: Surrogate medical decision maker: Rebecca Hair, spouse. Code status: Full code. Smoking status: Never smoker Second hand tobacco smoke exposure: Yes Alcohol intake: current Drinks per week: 4 Substance use: current Substance use type: marijuana Other substance usage details: gummies for sleep Lack of Transportation: No Lack of Food: Never True Current Housing: I Have Housing Concerned About Future Housing: No Difficulty Paying Gas/Electric Bills: No Difficulty Paying for Meds: No Currently Unemployed: No Education: Bachelor's Degree Difficulty w/ Childcare or Family Care: No Living arrangements: with family Additional living arrangements comments: Spiritual care concerns: No Anes - Eval Final PreProcedure Day of Procedure 06/02/25 07:13 Patient weight: obese Heart: regular rate and rhythm Lungs: decreased breath sounds Airway: Mallampati scale class III Neurological: alert and oriented Last oral intake: >/= 8 hours ASA classification: III Emergent: no Anesthetic plan: proceed Anesthesia type and monitoring: general ETT and standard monitoring Results Review: All pre-operative results and documents have been reviewed as part of the pre-operative evaluation. Informed Consent: The patient's anesthetic plan and its attendant risks and benefits were discussed with the patient/family/POA. Questions were solicited and answers provided to the satisfaction of the patient/family/POA.
--- NOTE | 2025-06-02 07:16 | WPDHPUPDATE1 ---
History and Physical Update Update Date/Time: 06/02/25 07:16 History and Physical has been reviewed, including an updated exam of the patient. There are NO changes in the patient's condition. Risks, benefits, and alternatives have been discussed and questions answered. Patient agrees to proceed with procedure.
--- NOTE | 2025-06-02 07:17 | P.HP_ITS ---
H&P: HPI History of Present Illness Date/Time: 06/02/25 07:17 Chief Complaint: leg pain Narrative: From 02/18: Mr. Hair is a 64-year-old male with history of hypertension, CKD, and asthma on whom I had performed ACDF C4-7 in November for cervical myelopathy is here today scheduled. He denies any neck or upper extremity pain. He occasionally will cough with swallowing, but this is essentially back to normal. He does not necessarily notice any dysfunction with his hands. He did complete some physical therapy for his neck which he felt was actually causing him more pain, so he stopped this. Today he describes ongoing intermittent numbness in his right 3rd finger. He does not necessarily notice what brings this on. He did not his worsening symptoms at night or with gripping objects. He had this prior to his neck surgery, and he was actually scheduled for a carpal tunnel release with Dr. Gutierrez which was canceled due to need for his neck surgery. He also describes claudicatory symptoms in his lower extremities which was present prior to his neck surgery and which is now quite bothersome for him. He is not able to walk nearly as long as he would like before needing to sit down to relieve his symptoms. He has paresthesias in the feet. He can occasionally get pain into left thigh. He has not had any dedicated physical therapy for his back. He was originally supposed to see Dr. Vaughn before neck surgery. From 04/22: Since his last visit, he describes worsening pain in his legs with walking. This is particularly bothersome for him when walking on inclines. He occasionally has back pain, although this is not a frequent concern of his. He is nearing completion of physical therapy. He had an epidural steroid injection with Dr. Vaughn at L4-5 at the end of February which was helpful for a few days. [facility] Past Medical History Medical History Impacted cerumen of both ears Postoperative edema Neck swelling Airway compromise Plantar wart of right foot Tinea pedis Mild asthma Chronic pain Colon polyps hx tubular adenoma colonoscopy 05.02. normal /repeat in 5 years History of duodenal ulcer with hemorrhage Chronic GERD Fatty liver Chronic kidney disease, stage 3 Mixed hyperlipidemia Hypertension Prediabetes Right nephrolithiasis Rosacea, acne Plantar fasciitis of right foot Contracture of palmar fascia (Dupuytren's) Chronic narcotic use Cervical spondylosis Chronic migraine w/o aura w/o status migrainosus, not intractable Tubular adenoma of colon Surgical History Surgical History History of hemorrhoidectomy (04/29/24) History of umbilical hernia repair (08/02/21) with mesh History of cervical spinal surgery (11/11/24) anterior cervical diskectomy with fusion at C4-C7 per Dr. Bernabe History of wisdom tooth extraction History of cholecystectomy History of laparoscopic cholecystectomy (06/17/19) Family History Family History Father Diabetes mellitus Family history of hypercholesterolemia Hypertension Family history of cardiovascular disease Family history of elevated blood lipids Acute myocardial infarction Family history of coronary artery disease Mother Family history of osteoporosis Family history of migraine headaches Hypertension Grandparent Malignant neoplasm of prostate Family history of lung cancer Other Family history of malignant neoplasm of stomach Social History Social History Social History: Surrogate medical decision maker: Rebecca Hair, spouse. Code status: Full code. Smoking status: Never smoker Second hand tobacco smoke exposure: Yes Alcohol intake: current Drinks per week: 4 Substance use: current Substance use type: marijuana Other substance usage details: gummies for sleep Lack of Transportation: No Lack of Food: Never True Current Housing: I Have Housing Concerned About Future Housing: No Difficulty Paying Gas/Electric Bills: No Difficulty Paying for Meds: No Currently Unemployed: No Education: Bachelor's Degree Difficulty w/ Childcare or Family Care: No Living arrangements: with family Additional living arrangements comments: Spiritual care concerns: No Meds Home Medications and Allergies Home Medications ?Medication ?Instructions ?Recorded ?Confirmed ?Type turmeric root extract 500 mg 500 mg PO HS 11/29/20 History capsule sumatriptan succinate 50 mg tablet 50 mg PO ONCE PRN m igraine headache 04/12/21 05/19/25 History (Imitrex) mecobalamin (vitamin B12) 1,000 1,000 mcg sublingual 2 XW 01/19/22 05/19/25 History mcg disintegrating tablet,sublingual cpap #1 ea 06/25/23 05/19/25 Rx tramadol 50 mg tablet 50 mg PO Q4H PRN pain #60 ta bs 08/20/24 05/19/25 Rx fluticasone propionate 50 2 spray intranasal BID #16 m L 12/15/24 05/19/25 Rx mcg/actuation nasal spray,suspension (Flonase Allergy Relief) montelukast 10 mg tablet See Rx Instructions .Route 0 01/18/25 05/19/25 Rx .COMPLEX #90 tabs trazodone 150 mg tablet See Rx Instructions .Route 0 02/24/25 05/19/25 Rx .COMPLEX #90 tabs pantoprazole 40 mg tablet,delayed 40 mg PO HS #90 tabs 03/08/25 05/19/25 Rx release losartan 100 mg tablet See Rx Instructions .Route 1 05/19/25 Rx .COMPLEX #90 tabs gabapentin 300 mg capsule 900 mg (3 x 300 mg) PO BID # 540 04/02/25 05/19/25 Rx caps diclofenac potassium 50 mg tablet 50 mg PO BID PRN janine n 04/06/25 05/19/25 History sodium chloride 2 % eye drops 1 drp ophthalmic (eye) D AILY PRN 04/06/25 05/19/25 History (Ernesto 128) dry eye(s) ferrous sulfate 325 mg (65 mg 325 mg PO DAILY 04/21/25 05/19/25 History iron) tablet sitagliptin phosphate 50 mg tablet 50 mg PO DAILY #90 tabs 04/27/25 05/19/25 Rx hydrochlorothiazide 25 mg tablet 25 mg PO DAILY #90 ta bs 04/30/25 05/19/25 Rx amlodipine 5 mg tablet 5 mg PO DAILY #90 tabs 05/25 Rx atorvastatin 80 mg tablet 80 mg PO DAILY #90 tabs 05/04 08/25 Rx ciprofloxacin HCl 500 mg tablet 500 mg PO DAILY #3 tab s 05/28/25 Rx Allergies Allergy/AdvReac Type Severity Reaction Status Date / Time Penicillins Allergy Unknown Childhood Verified 06/02/25 07:18 Reaction NSAIDS (Non-Steroidal AdvReac Severe azotemia/ Verified 06/02/25 07:18 Anti-Inflamma gfr 26,creat 2.47 Exam Narrative: General: -Well developed and well nourished. No a cute distress. Cooperative with exam. Mental status: -Awake and oriented to person, place, an d time. Affect is normal. -Fund of knowledge appropriate -Recent and remote memory are intact -Attention span and concentration appear normal -Language function is normal -There is no evidence of aphasia in conv ersational speech. Cranial nerves: -CN II: Visual alonso full to bedside co nfrontation -CN III, IV, : Pupils equal, round, an d reactive to light; extraocular movements, no ptosis, no nystagmus -CN V: Facial sensation intact in V1 thr ough V3 distributions -CN VII: Face symmetric -CN VIII: Hearing intact to conversation al speech -CN IX, X: Palate elevates symmetrically ; normal phonation -CN XI: Symmetric full strength of ortega ocleidomastoid and trapezius muscles -CN XII: Tongue protrudes midline Integumentary: -No obvious skin lesions or masses Motor: -Muscle tone normal without spasticity o f flaccidity. No atrophy. No fasciculations. -Right lower extremity: iliopsoas 5/5, q uadriceps 5/5, hamstrings 5/5, tibialis anterior 5/5, gastroc-soleus 5/5, EHL 5/5 -Left lower extremity: iliopsoas 5/5, qu adriceps 5/5, hamstrings 5/5, tibialis anterior 5/5, gastroc-soleus 5/5, EHL 5/5 Sensory: -Intact to light touch throughout -Normal proprioception throughout Reflexes: -1-2+ DTR's throughout -No Hawthorne's, clonus, or Babinski bilat erally Musculoskeletal: -Lumbar spine: no tenderness to palpatio n, no pain, and normal lumbosacral spine movements -Ikmtlzwa-zdo-ezojm test negative -Hip: normal range of motion, no crepitu s bilaterally. No pain reproduced on JEFF or FAIR testing bilaterally -Knee: no instability, subluxation or la xity, and no crepitus bilaterally I personally reviewed the MRI lumbar spine in PACS which shows straightening the lumbar spine. There is severe central stenosis at L4-5 from ligamentum flavum hypertrophy and epidural lipomatosis. There is [id number] central stenosis L3-4. Assessment and Plan Assessment and plan (1) Spinal stenosis, lumbar region with neurogenic claudication: Code(s): M48.062 - Spinal stenosis, lumbar region with neurogenic claudication Status: Acute Plan Mr. Hair is a 64-year-old male who underwent ACDF C4-7 in November for cervical myelopathy who has recovered well from that surgery. I have been following him most recently for ongoing issues with claudicatory symptoms in his lower extremities. he has now had physical therapy and an epidural steroid injection L4-5 without long-lasting relief. He returns with an updated MRI lumbar spine showing the, most notably, severe central stenosis at L4-5 from a combination of ligamentum flavum hypertrophy and epidural lipomatosis. I reviewed the imaging with the patient and his . His symptoms are significant and progressive enough for him to wish to proceed with surgery. I have therefore offered him surgery in the form of L4-5 laminectomy. We discussed surgery in detail including risks, expected recovery, and restrictions after surgery. He would like to proceed as discussed.
[2025-06-02] MEDS: ceFAZolin 2 GM in SODIUM CHLORIDE 0.9% IV 50 ML 100 ML IVPB (07:27)
[2025-06-02] MEDS: BUPIVACAINE/EPINEPHRINE 0.5% 50 ML VIAL 30 ML INFILTRATE (07:56)
[2025-06-02] MEDS: LACTATED RINGERS 1,000 ML 30 ML IV CONT ×2 (09:09)
--- NOTE | 2025-06-02 09:13 | W.PM.PROC2 ---
Procedure Note - Detailed Date of Procedure 06/02/25 Pre-op Diagnosis lumbar stenosis with neuro claudication Post-op Diagnosis Same Procedure Performed 1. L4-5 laminectomy 2. Use of C-arm for fluoroscopy 3. Use of microscope for microsurgical dissection Surgeon Anya Bernabe MD Identification Printing Machine Setter Lisandro Anesthesia General Description of Procedure The patient was brought to the operating room, and general anesthesia was induced. The patient was placed prone on the Keith frame, and all pressure points were padded. Compression devices were placed on the patient's calves. The skin was cleaned with alcohol. The C-arm was brought onto the field to localize the appropriate disc space and assist with incisional planning. The area was prepped and draped in usual sterile fashion. A time out was conducted, and pre-operative antibiotics were administered. Local anesthesia was injected into the planned incision. A midline skin incision was made with a 10-blade scalpel, and dissection was carried down with the monopolar cautery to open the fascia. Once the spinous processes were located, a subperiosteal dissection was performed to expose the laminae bilaterally. A self-retaining retractor was placed. The C-arm was brought in to confirm the correct level. The spinous process was removed with a Leksell. The microscope was draped and brought into the field. Under microscopic visualization, the lamina were thinned bilaterally with the high-speed drill until the ligamentum flavum was encountered. A currette was used to separate the ligamentum from the lamina. The remaining lamina was removed with a kerrison rongeur. The ligamentum was then from the dura with an upgoing currette and was removed with a kerrison as well. The epidural fat was removed with the ligamentum. The Kerrison was then passed into the foraminae to ensure they were open. A Woodsen was used to verify adequate decompression at the cranial and caudal aspects of the decompression. Hemostasis was ensured, and the area was copiously irrigated. No evidence of CSF leak was noted. The muscle was loosely approximated with 0-Vicryl. The fascia was closed with 0-Vicryl in an interrupted fashion. The soft tissue was again copiously irrigated. The dermis was closed with 2-0 interrupted Vicryl. The skin was closed with 4-0 subcuticular monocryl. Skin glue was placed over the incision. The patient was returned supine on the stretcher, extubated, and transferred to PACU without incident. Billing code: [id number], [id number] Estimated Blood Loss 50 Drains No Packing No Pathology None sent Complications None Condition Stable Disposition PACU [facility] Billing Surgery - Charge Forward: Surgery Billing
[2025-06-02] MEDS: oxyCODONE HCL (*CRX) 5 MG TAB IR PO (10:15)
== END 2025-06-02 11:04 | disposition home or self-care (01) ==
PROVIDERS: PCP Family Medicine; Visit Provider Neurological Surgery
PROC: (CPT 63005; principal; 2025-06-02 07:30)
DX: M48.062 Spinal stenosis, lumbar region with neurogenic claudication (principal); Z79.899 Other long term (current) drug therapy; F12.90 Cannabis use, unspecified, uncomplicated; E66.9 Obesity, unspecified; Z68.32 Body mass index [BMI] 32.0-32.9, adult
CPT/HCPCS: 63047; 82948; 99199; J0690; A9270; J1100; J1171; J2003; J2250; J2405; J2704; J3010; J7120